=== PATIENT | female | born 1940 | race Caucasian/White ===

== ENCOUNTER 2017-12-15 13:22 | Inpatient (IN) | payer MEDICARE, OTHER ==
[2017-12-15 13:50] LABS: Glucose,Whole Blood 115 mg/dL (75-99)
--- NOTE | 2017-12-15 14:14 | ED ---
General Adult HPI - General Chief complaint: Neuro Symptoms/Deficit Stated complaint: slurred speech Time Seen by Provider: 12/15/17 14:01 Source: patient, family, RN notes reviewed Mode of arrival: wheelchair Limitations: no limitations - History of Present Illness Initial comments: Patient is a pleasant 77-year-old female presenting to the emergency department with concerns regarding speech problems. Unclear exact onset. Patient states the most part she does feel fine however does admit that her speech may be slightly off. brother is present and states both he and his son have noticed patient to have somewhat slurred speech and somewhat slow to respond. They both felt this was new. Patient does not feel weak. Patient denies any confusion. No history of similar symptoms previously. No paresthesias. Brother did observe patient smiling and feels this appears normal. - Related Data Home Medications Medication Instructions Recorded Confirmed PARoxetine [Paxil] 20 mg PO HS 11/04/15 12/15/17 Lovastatin [Mevacor] 40 mg PO HS 11/05/15 12/15/17 Ranitidine HCl [Zantac] 150 mg PO BID 11/05/15 12/15/17 Albuterol Sulfate [Proair Hfa] 2 puff INHALATION RT-Q6H PRN 12/15/17 12/15/17 Budesonide [Pulmicort] 0.5 mg INHALATION RT-BID 12/15/17 12/15/17 Budesonide/Formoterol Fumarate 2 puff INHALATION RT-BID 12/15/17 12/15/17 [Symbicort 160-4.5 Mcg Inhaler] Formoterol Fumarate [Perforomist] 20 mcg INHALATION RT-BID 12/15/17 12/15/17 Ipratropium-Albuterol Nebulize 3 ml INHALATION RT-QID PRN 12/15/17 12/15/17 [Duoneb 0.5 mg-3 mg/3 ml Soln] Allergies Allergy/AdvReac Type Severity Reaction Status Date / Time No Known Allergies Allergy Verified 12/15/17 14:03 Review of Systems ROS Statement: Those systems with pertinent positive or pertinent negative responses have been documented in the HPI. ROS Other: All systems not noted in ROS Statement are negative. Constitutional: Denies: fever Eyes: Denies: eye pain ENT: Denies: ear pain Respiratory: Denies: cough Cardiovascular: Denies: chest pain Endocrine: Denies: fatigue Gastrointestinal: Denies: abdominal pain Genitourinary: Denies: dysuria Musculoskeletal: Denies: back pain Skin: Denies: rash Neurological: Denies: headache, weakness, numbness, paresthesias, confusion, vertigo Past Medical History Past Medical History: COPD, GERD/Reflux, Hyperlipidemia, Pneumonia Additional Past Medical History / Comment(s): sob at times. History of Any Multi-Drug Resistant Organisms: None Reported Past Surgical History: Breast Surgery, Orthopedic Surgery Additional Past Surgical History / Comment(s): cyst removed from breast Past Anesthesia/Blood Transfusion Reactions: No Reported Reaction Past Psychological History: Anxiety, Depression Smoking Status: Former smoker Past Alcohol Use History: None Reported Past Drug Use History: None Reported - Past Family History Father Family Medical History: Cancer Additional Family Medical History / Comment(s): bone ca General Exam Limitations: no limitations General appearance: alert, in no apparent distress Head exam: Present: atraumatic Eye exam: Present: normal appearance, PERRL, EOMI. Absent: nystagmus ENT exam: Present: normal oropharynx Neck exam: Present: normal inspection Respiratory exam: Present: normal lung sounds bilaterally Cardiovascular Exam: Present: regular rate, normal rhythm GI/Abdominal exam: Present: soft. Absent: tenderness Extremities exam: Present: normal inspection Neurological exam: Present: alert, oriented X3, CN II-XII intact (Except for minimal left facial droop only noticed with smiling) Expanded Neurological exam: Present: other (There is minimal slurred speech) Patient oriented to: Present: person, place, time Cranial nerves: EOM's Intact: Normal, Facial Sensation: Normal Cerebellar function: Finger to Nose: Normal Sensory exam: Upper Extremity Light Touch: Normal, Lower Extremity Light Touch: Normal Motor strength exam: RUE: 5, LUE: 5, RLE: 5, LLE: 5 Eye Response: (4) open spontaneously Motor Response: (6) obeys commands Verbal Response: (5) oriented Psychiatric exam: Present: normal affect, normal mood Skin exam: Present: normal color Course Vital Signs 12/15/17 12/15/17 12/15/17 13:31 13:45 14:00 Temperature 98.4 F Pulse Rate 136 H 83 85 Respiratory 18 18 20 Rate Blood Pressure 139/96 144/75 157/56 O2 Sat by Pulse 96 99 99 Oximetry 12/15/17 12/15/17 12/15/17 14:15 14:30 15:09 Temperature Pulse Rate 87 89 82 Respiratory 20 20 18 Rate Blood Pressure 130/88 128/78 169/88 O2 Sat by Pulse 98 99 97 Oximetry EKG Findings - EKG Comments: EKG Findings:: Normal sinus rhythm 85. WV 138. QRS 72. QT 364. QTC 433. Normal axis. Normal QRS. No acute ST change. Medical Decision Making - Medical Decision Making Patient was reevaluated and updated. Patient and family informed of results and plan. Case was discussed in detail with Dr. Hui, who will admit for Dr. Alvarez. Neurology will be consult. - Lab Data Result diagrams: 12/15/17 14:30 12/15/17 14:30 Lab Results 12/15/17 12/15/17 12/15/17 Range/Units 13:46 14:30 14:30 WBC 6.4 (3.8-10.6) k/uL RBC 4.72 (3.80-5.40) m/uL Hgb 14.3 (11.4-16.0) gm/dL Hct 43.0 (34.0-46.0) % MCV 91.2 (80.0-100.0) fL MCH 30.4 (25.0-35.0) pg MCHC 33.3 (31.0-37.0) g/dL RDW 13.1 (11.5-15.5) % Plt Count 190 (150-450) k/uL Neutrophils % 74 % Lymphocytes % 12 % Monocytes % 5 % Eosinophils % 7 % Basophils % 0 % Neutrophils # 4.7 (1.3-7.7) k/uL Lymphocytes # 0.8 L (1.0-4.8) k/uL Monocytes # 0.3 (0-1.0) k/uL Eosinophils # 0.4 (0-0.7) k/uL Basophils # 0.0 (0-0.2) k/uL PT (9.0-12.0) sec INR (<1.2) APTT (22.0-30.0) sec Sodium (137-145) mmol/L Potassium (3.5-5.1) mmol/L Chloride (98-107) mmol/L Carbon Dioxide (22-30) mmol/L Anion Gap mmol/L BUN (7-17) mg/dL Creatinine (0.52-1.04) mg/dL Est GFR (CKD-EPI)AfAm (>60 ml/min/1.73 sqM) Est GFR (CKD-EPI)NonAf (>60 ml/min/1.73 sqM) Glucose (74-99) mg/dL POC Glucose (mg/dL) 115 H (75-99) mg/dL POC Glu Supervisor Delivery Department ID Pura Harman Calcium (8.4-10.2) mg/dL Total Bilirubin (0.2-1.3) mg/dL AST (14-36) U/L ALT (9-52) U/L Alkaline Phosphatase (38-126) U/L Total Creatine Kinase 41 (30-135) U/L Total Protein (6.3-8.2) g/dL Albumin (3.5-5.0) g/dL 12/15/17 12/15/17 Range/Units 14:30 14:30 WBC (3.8-10.6) k/uL RBC (3.80-5.40) m/uL Hgb (11.4-16.0) gm/dL Hct (34.0-46.0) % MCV (80.0-100.0) fL MCH (25.0-35.0) pg MCHC (31.0-37.0) g/dL RDW (11.5-15.5) % Plt Count (150-450) k/uL Neutrophils % % Lymphocytes % % Monocytes % % Eosinophils % % Basophils % % Neutrophils # (1.3-7.7) k/uL Lymphocytes # (1.0-4.8) k/uL Monocytes # (0-1.0) k/uL Eosinophils # (0-0.7) k/uL Basophils # (0-0.2) k/uL PT 10.4 (9.0-12.0) sec INR 1.1 (<1.2) APTT 22.2 (22.0-30.0) sec Sodium 140 (137-145) mmol/L Potassium 4.7 (3.5-5.1) mmol/L Chloride 105 (98-107) mmol/L Carbon Dioxide 26 (22-30) mmol/L Anion Gap 9 mmol/L BUN 18 H (7-17) mg/dL Creatinine 0.75 (0.52-1.04) mg/dL Est GFR (CKD-EPI)AfAm 88 (>60 ml/min/1.73 sqM) Est GFR (CKD-EPI)NonAf 76 (>60 ml/min/1.73 sqM) Glucose 104 H (74-99) mg/dL POC Glucose (mg/dL) (75-99) mg/dL POC Glu Supervisor Delivery Department ID Calcium 9.0 (8.4-10.2) mg/dL Total Bilirubin 0.6 (0.2-1.3) mg/dL AST 23 (14-36) U/L ALT 26 (9-52) U/L Alkaline Phosphatase 54 (38-126) U/L Total Creatine Kinase (30-135) U/L Total Protein 6.4 (6.3-8.2) g/dL Albumin 3.8 (3.5-5.0) g/dL - Radiology Data Radiology results: image reviewed (Computed tomography scan the brain shows concern for acute cerebrovascular accident. Right frontal lobe shows some low attenuation. Age-related atrophy and chronic small vessel ischemia is also noted.) Disposition Clinical Impression: Cerebrovascular accident Disposition: ADMITTED IP TO THIS [facility] Condition: Serious Is patient prescribed a controlled substance at d/c from ED?: No Referrals: Julio Cesar Mcnair MD [Primary Care Provider] - 1-2 days Decision Time: 15:33
[2017-12-15 14:51] LABS: Basophils % (A) 0 %; Eosinophils # (A) 0.4 k/uL (0-0.7); Eosinophils % (A) 7 %; HGB 14.3 gm/dL (11.4-16.0); Lymphocytes # (A) 0.8 k/uL (1.0-4.8); Lymphocytes % (A) 12 %; MCH 30.4 pg (25.0-35.0); MCHC 33.3 g/dL (31.0-37.0); MCV 91.2 fL (80.0-100.0); Mean Platelet Volume 7.4; Monocytes # (A) 0.3 k/uL (0-1.0); Monocytes % (A) 5 %; Neutrophils # (A) 4.7 k/uL (1.3-7.7); Neutrophils % (A) 74 %; Platelet Count 190 k/uL (150-450); RBC 4.72 m/uL (3.80-5.40); RDW 13.1 % (11.5-15.5); WBC 6.4 k/uL (3.8-10.6)
--- NOTE | 2017-12-15 14:56 | XR ---
EXAMINATION TYPE: XR chest 2V DATE OF EXAM: 12/15/2017 COMPARISON: 11/08/2015 INDICATION: Altered mental status, slurred speech TECHNIQUE: Frontal and lateral views of the chest are obtained. FINDINGS: The heart size is normal. The pulmonary vasculature is normal. The lungs are clear. IMPRESSION: 1. No acute pulmonary process.
[2017-12-15 15:01] LABS: Albumin 3.8 g/dL (3.5-5.0); Potassium 4.7 mmol/L (3.5-5.1); Total Bilirubin 0.6 mg/dL (0.2-1.3); Total Protein 6.4 g/dL (6.3-8.2)
--- NOTE | 2017-12-15 15:06 | CT ---
EXAMINATION TYPE: CT brain wo con DATE OF EXAM: 12/15/2017 COMPARISON: NONE HISTORY: Altered mental status. CT DLP: 945.4 mGycm Automated exposure control for dose reduction was used. Helical acquisition through the brain. FINDINGS: There is some motion on the exam. The calvarium is intact. Cortical atrophy is likely age-related. Pe riventricular white matter shows patchy low attenuation. Right frontal lobe shows some low-attenuatio n is some loss of burkett-white differentiation. No hemorrhage or hydrocephalus evident. Cerebral vascul ar calcifications are present. IMPRESSION: FINDINGS SUGGEST ACUTE CEREBROVASCULAR ACCIDENT. MRI MAY BE OF BENEFIT. AGE-RELATED CHANGES OF ATROPH Y AND CHRONIC SMALL VESSEL ISCHEMIA ALSO NOTED.
[2017-12-15 15:09] LABS: INR 1.1 (<1.2); Partial Thromboplastin Time 22.2 sec (22.0-30.0); Prothrombin Time 10.4 sec (9.0-12.0)
[2017-12-15 15:12] LABS: Creatine Kinase 41 U/L (30-135)
[2017-12-15 15:26] LABS: Creatine Kinase MB 0.3 ng/mL (0.0-2.4); Troponin I <0.012 ng/mL (0.000-0.034)
[2017-12-15] MEDS ORDERED: ASPIRIN 325 MG TAB PO STA (15:34)
[2017-12-15] MEDS: SODIUM CHLORIDE 0.9% 1,000 ML IV SCH (16:52)
--- NOTE | 2017-12-15 17:42 | CT ---
EXAMINATION TYPE: CT angio head neck DATE OF EXAM: 12/15/2017 HISTORY: Slow speech. COMPARISON: NONE CT DLP: 495 mGycm. Automated Exposure Control for Dose Reduction was Utilized. TECHNIQUE: CTA scan of the neck is performed with IV Contrast, patient injected with 65 mL of Isovue 370, axial images are obtained, coronal and sagittal reformatted images are reviewed. Three-D recons tructed images are created on an independent workstation and reviewed. FINDINGS: There is normal branching pattern of the great vessels on the aortic arch. There is symmetric contras t opacification of the vertebral arteries. There is arterial flow in the common internal and external carotid arteries bilaterally. There is min imal plaque at the carotid artery bifurcations. Lumen narrowing is less than 20%. There is arterial flow in the vertebrobasilar artery system. There is arterial flow in the anterior m iddle and posterior cerebral arteries. There is no evidence of aneurysm or neovascularity. There is n o mass effect. I see no evidence of intracranial arterial stenosis. There is normal contrast opacific ation of the venous sinuses. IMPRESSION: Atherosclerotic vascular disease. No evidence of hemodynamically significant stenosis. No evidence of arterial aneurysm or dissection. Pleural scarring noted at the right lung apex.
[2017-12-15] MEDS ORDERED: ALBUTEROL INHALER 60 PUFF/8 GM INHALER INHALATION PRN (21:26)
[2017-12-15] MEDS ORDERED: ATORVASTATIN 20 MG TAB PO SCH (21:30)
[2017-12-15 22:19] LABS: Glucose,Whole Blood 125 mg/dL (75-99)
[2017-12-15 22:57] VITALS: BMI 30.5
[2017-12-15] MEDS: FAMOTIDINE 20 MG TAB PO SCH (23:08)
[2017-12-15] MEDS: PARoxetine 20 MG TAB PO SCH (23:08)
[2017-12-16] MEDS ORDERED: ACETAMINOPHEN TAB 500 MG TAB PO PRN (01:18)
[2017-12-16] MEDS ORDERED: ALPRAZolam 0.25 MG TAB PO PRN (01:18)
[2017-12-16] MEDS: IPRATROPIUM-ALBUTEROL 3 ML NEB INHALATION PRN ×5 (03:43→20:35)
[2017-12-16 05:52] LABS: Cholesterol 152 mg/dL (<200); HDL Cholesterol 46 mg/dL (40-60); LDL Cholesterol,Calculated 93 mg/dL (0-99); Triglycerides 64 mg/dL (<150)
--- NOTE | 2017-12-16 06:16 | HP ---
HISTORY AND PHYSICAL DATE OF SERVICE: 12/15/2017 CHIEF COMPLAINT: Slurring of speech. HISTORY OF PRESENT ILLNESS: This 77-year-old woman with a past medical history of COPD, GERD, hypertension, pneumonia, history of breast surgery, DJD, anxiety and depression being followed by Dr. Mcnair and Dr. Ware in the outpatient setting was noted to have slurring of speech. The patient was having slurring of speech this morning and exact onset is unknown at this time. The patient also complaining of some weakness and patient was apparently noted to have a slow to respond and the patient was taken to [facility] and admitted for evaluation treatment. The CAT scan showed suspicious acute CVA in the right frontal lobe area with some low-attenuation area. CT was negative for any acute abnormality. Patient admitted for further evaluation and treatment. There is no history of fever or rigors. No history of headache, loss of consciousness or seizures. PAST MEDICAL HISTORY: COPD, GERD, hyperlipidemia, history pneumonia, breast surgery. MEDICATIONS: Medications prior to admission include home medications are: 1. Symbicort 160/4.5 two puffs b.i.d. 2. ProAir 2 puffs q.6 p.r.n. 3. Zantac 150 mg b.i.d. 4. DuoNeb q.i.d. p.r.n. 5. Perforomist 20 mcg b.i.d. 6. Pulmicort 0.5 b.i.d. 7. Paxil 20 mg at bedtime. 8. Mevacor 40 mg at bedtime. ALLERGIES: Allergies are none. FAMILY HISTORY: History of breast cancer, bone cancer in the family. SOCIAL HISTORY: Previous history of smoking. No history of smoking or alcohol intake. REVIEW OF SYSTEMS: ENT: No diminished hearing or diminished vision. CARDIOVASCULAR SYSTEM: As mentioned earlier. RESPIRATORY SYSTEM: As mentioned earlier. GI: No nausea. : No dysuria. NERVOUS SYSTEM: No numbness or weakness. ALLERGY/IMMUNOLOGY: No asthma or hayfever. MUSCULOSKELETAL: As mentioned earlier. HEMATOLOGY/ONCOLOGY: No history of anemia. ENDOCRINE: No history of diabetes or hypothyroidism. CONSTITUTIONAL: As mentioned earlier. DERMATOLOGY: Negative. RHEUMATOLOGY: Negative. PSYCHIATRY: As mentioned earlier. NERVOUS SYSTEM: As mentioned earlier. PHYSICAL EXAMINATION: The patient is alert and oriented x3. Pulse 95, blood pressure 140/85, respiration 28, temperature 98.7, pulse ox 98% on room air. HEENT is conjunctivae normal. Oral mucosa moist. Neck is no jugular venous distention. No carotid bruit. No lymph node enlargement. CARDIOVASCULAR: S1, S3 muffled. No S3, no S4. RESPIRATORY: Breath sounds diminished at the bases. A few rhonchi. No crackles. ABDOMEN: Soft, nontender. No mass palpable. LEGS: No edema, no swelling. NERVOUS SYSTEM: Higher functions as mentioned earlier. Cranial nerves 2 through 12 grossly intact. No facial deviation. Patient is dysarthric. Otherwise, moves all 4 limbs. Mild diffuse weakness. LYMPHATICS: No lymphadenopathy of the neck, axillae or groin. JOINTS: No active deforming arthropathy. LABS: CBC within normal limits. Sodium 140, potassium 4.7, glucose 104. ASSESSMENT: 1. Acute stroke with dysarthria. 2. Rule out right frontal lesion. 3. Chronic obstructive pulmonary disease. 4. Gastroesophageal reflux disease. 5. Hyperlipidemia. 6. History of pneumonia. 7. History of breast surgery. 8. Anxiety, depression. 9. Remote history of nicotine dependence. RECOMMENDATIONS AND DISCUSSION: This 77-year-old woman who presented with multiple complex medical issues, we will monitor the patient closely. Continue the current medications. Continue symptomatic treatment. I recommend to resume the home medications, antiplatelet agents, neurology evaluation. We will also consult Dr. Ware for COPD. Otherwise, prognosis guarded. MRI has been ordered. Further recommendations to follow. Discussed with the patient. DVT prophylaxis. See orders for details. A copy of dictation forwarded to Dr. Mcnair who is the primary physician. MMODL / IJN: [id number] /
[2017-12-16 06:55] LABS: HCT 39.3 % (34.0-46.0); MCH 30.9 pg (25.0-35.0); MCHC 33.2 g/dL (31.0-37.0); MCV 93.2 fL (80.0-100.0); Mean Platelet Volume 7.3; Platelet Count 189 k/uL (150-450); RBC 4.22 m/uL (3.80-5.40); RDW 12.9 % (11.5-15.5)
[2017-12-16 07:00] LABS: Anion Gap 5 mmol/L; Blood Urea Nitrogen 16 mg/dL (7-17); Carbon Dioxide 28 mmol/L (22-30); Chloride 105 mmol/L (98-107); Glucose 128 mg/dL (74-99); Potassium 4.6 mmol/L (3.5-5.1); Sodium 138 mmol/L (137-145)
[2017-12-16] MEDS ORDERED: SYMBICORT 160-4.5 MCG INHALER INHALATION SCH (08:00)
[2017-12-16] MEDS: PANTOPRAZOLE 40 MG TABLET PO SCH (08:45)
[2017-12-16] MEDS: HEPARIN SODIUM,PORCINE 5,000 UNIT/ML 1 ML VIAL SQ SCH ×2 (08:45→20:04)
[2017-12-16] MEDS: SODIUM CHLORIDE 0.9% 1,000 ML IV SCH ×2 (08:46→14:45)
[2017-12-16] MEDS: ASPIRIN 325 MG TAB PO SCH (08:48)
[2017-12-16] MEDS: FAMOTIDINE 20 MG TAB PO SCH (08:51)
[2017-12-16] MEDS ORDERED: NON-FORMULARY DRUG (Ranitidine Hcl [Zantac] 150 MG) PO SCH (09:00)
[2017-12-16] MEDS: FORMOTEROL FUMARATE 20 MCG/2 ML NEBU INHALATION SCH ×2 (09:05→20:35)
[2017-12-16] MEDS: BUDESONIDE 0.5 MG/2 ML NEBU INHALATION SCH ×2 (09:05→20:35)
--- NOTE | 2017-12-16 09:07 | CONS ---
CONSULTATION DATE OF CONSULTATION: 12/15/2017 CHIEF COMPLAINT: Stroke. HISTORY OF PRESENT ILLNESS: Mrs. Blake is a pleasant 77-year-old female, who was being evaluated today on 12/15/2017 by the Neurology Service per the request of Dr. Hui for a stroke. The patient was brought into [facility] Emergency Room after her son noticed that she was slurring her speech when he was talking to her on the phone. The patient does not recall when the symptoms started. She denies having any lateralizing weakness or numbness and denies having any previous episodes similar to this. In the emergency room, her blood pressure was found to be elevated at 139/96. There is no previous documented history of hypertension. A stat CT scan of the brain was done which showed possible hypoattenuation involving the right frontal lobe. There was also generalized atrophy noticed. Her CT angiogram of the brain and neck were normal. The patient was started on aspirin 325 mg daily. Her CBC, INR, comprehensive metabolic profile and cardiac enzymes were normal. After the patient arrived to the emergency room, her slurred speech significantly improved. She denies any other neurological symptoms at this time. PAST MEDICAL HISTORY: Chronic obstructive pulmonary disease, gastroesophageal reflux disease, dyslipidemia, depression, anxiety disorder, history of cyst removal from the breast, orthopedic surgeries. SOCIAL HISTORY: The patient is a former smoker. She denies any alcohol or drug use. FAMILY HISTORY: Positive for cancer. HOME MEDICATIONS: Reviewed in the chart. ALLERGIES: No known drug allergies. REVIEW OF SYSTEMS: CONSTITUTIONAL: Positive for fatigue. EYES: Positive for chronic diminished vision. ENT: Positive for chronic diminished hearing. CARDIOVASCULAR: Negative. RESPIRATORY: Positive for occasional shortness of breath. NEUROLOGICAL: As mentioned above. GASTROINTESTINAL: Positive for occasional heartburn. GENITOURINARY: Negative. PSYCHIATRIC: Positive for history of depression and anxiety disorder. DERMATOLOGICAL: Negative. ENDOCRINE: Negative. MUSCULOSKELETAL: Positive for occasional joint pain. PHYSICAL EXAM: Vital signs show a temperature of 98.4, pulse 87, respiration 20, blood pressure 130/80. GENERAL APPEARANCE: The patient is a well-developed, elderly female who appears to be in no acute distress. HEENT: Normocephalic, atraumatic, slight left facial drooping is seen. NECK: Supple with no masses felt. CARDIOVASCULAR: Regular rate and rhythm. ABDOMEN: Nontender, nondistended. Extremities showed edema with no clubbing seen. NEUROLOGICAL EXAM: The patient is awake and oriented x3. Speech is slightly dysarthric. Language testing is normal. No lateralizing weakness is seen. No pronator drift is noticed. Sensory exam was normal to light touch in all 4 extremities. Mild postural tremors are seen. Cranial nerve testing showed slight left facial drooping. IMPRESSION: 1. Acute ischemic stroke. 2. Dysarthria. 3. Left facial drooping. 4. Hypertension, new diagnosis. RECOMMENDATION: The patient does appear to have suffered an acute ischemic stroke as her CT scan of the brain shows evidence of low attenuation involving the right frontal lobe. I will order an MRI of the brain without contrast. The patient has been started on aspirin 325 mg daily. I will order a fasting lipid panel, EEG, and serum homocystine level. Her CT angiogram of the neck showed no significant stenosis. Continue IV hydration as tolerated. Continue monitoring her blood pressure as it was significantly elevated diastolically on arrival. Speech therapy has been consulted. I will continue to follow with you. Further recommendations to follow. Thank you for allowing me to participate in the care of your patient. If you have any questions, please feel free to contact me. MMODL / IJN: [id number] /
--- NOTE | 2017-12-16 10:36 | P.CNPUL ---
History of Present Illness Consult date: 12/16/17 Requesting physician: Osiel Hui Reason for consult: COPD, other (CVA or TIA) Chief complaint: Slurred speech History of present illness: This is a 77-year-old female familiar to my service, patient is known to have history of COPD, congestive heart failure, GERD, dyslipidemia, patient is primarily abated of Dr. leary, while she was on the phone with her son yesterday , he noticed that her speech was slurred. Patient was brought into the ER, and she was evaluated, felt that she may have had a TIA or a CVA. By the time the patient arrived to the ER, her slurred speech has resolved. She was hemodynamically stable upon arrival to the ER, CT of the brain showed possible hypoattenuation involving the right frontal lobe. CT angiogram of the brain and neck was negative. Patient was started on aspirin at 325 mg daily. Today the patient is relatively asymptomatic, denies any headache, no blurred vision, no dizziness, no slurred speech, no weakness. Her pulmonary status and cardiac status are both relatively stable. Considering the patient is known to have history of COPD and she was admitted to the ICU, I was asked to see her on consultation. Again her pulmonary status is quite stable at this point and the patient is relatively asymptomatic. Review of Systems 14 point review of systems were obtained, please refer to pertinent positives in HPI, otherwise remaining systems are negative. Past Medical History Past Medical History: COPD, GERD/Reflux, Hyperlipidemia, Pneumonia Additional Past Medical History / Comment(s): sob at times. History of Any Multi-Drug Resistant Organisms: None Reported Past Surgical History: Breast Surgery, Orthopedic Surgery Additional Past Surgical History / Comment(s): cyst removed from breast Past Anesthesia/Blood Transfusion Reactions: No Reported Reaction Smoking Status: Former smoker - Past Family History Father Family Medical History: Cancer Additional Family Medical History / Comment(s): bone ca Medications and Allergies Home Medications Medication Instructions Recorded Confirmed Type PARoxetine [Paxil] 20 mg PO HS 11/04/15 12/15/17 History Lovastatin [Mevacor] 40 mg PO HS 11/05/15 12/15/17 History Ranitidine HCl [Zantac] 150 mg PO BID 11/05/15 12/15/17 History Albuterol Sulfate [Proair Hfa] 2 puff INHALATION RT-Q6H PRN 12/15/17 12/15/17 History Budesonide [Pulmicort] 0.5 mg INHALATION RT-BID 12/15/17 12/15/17 History Budesonide/Formoterol Fumarate 2 puff INHALATION RT-BID 12/15/17 12/15/17 History [Symbicort 160-4.5 Mcg Inhaler] Formoterol Fumarate [Perforomist] 20 mcg INHALATION RT-BID 12/15/17 12/15/17 History Ipratropium-Albuterol Nebulize 3 ml INHALATION RT-QID PRN 12/15/17 12/15/17 History [Duoneb 0.5 mg-3 mg/3 ml Soln] Allergies Allergy/AdvReac Type Severity Reaction Status Date / Time No Known Allergies Allergy Verified 12/15/17 14:03 Physical Exam Vitals: Vital Signs Temp Pulse Pulse Resp BP BP Pulse Ox 12/16/17 09:15 95 12/16/17 09:06 93 12/16/17 09:05 90 12/16/17 08:55 92 12/16/17 04:30 80 21 126/67 98 12/16/17 04:00 98.8 F 81 98 22 116/63 99 12/16/17 03:53 83 12/16/17 03:43 129 H 12/16/17 03:30 96 25 H 116/63 97 12/16/17 03:19 80 22 116/63 97 12/15/17 23:54 98 23 12/15/17 23:30 95 28 H 140/85 96 12/15/17 23:00 95 32 H 148/93 97 12/15/17 22:56 98.7 F 93 30 H 148/93 97 12/15/17 22:30 148/93 97 12/15/17 22:17 90 30 H 12/15/17 21:18 105 H 18 160/90 97 12/15/17 20:39 93 18 161/77 96 12/15/17 19:45 96 18 12/15/17 19:10 98.8 F 105 H 18 161/90 98 12/15/17 18:34 99.0 F 92 92 16 159/96 159/96 97 12/15/17 17:34 107 H 16 172/83 99 12/15/17 16:34 82 16 164/112 97 06/25/18 15:34 82 16 164/112 97 12/15/17 15:09 82 18 169/88 97 12/15/17 14:30 89 20 128/78 99 12/15/17 14:15 87 20 130/88 98 12/15/17 14:00 85 20 157/56 99 12/15/17 13:45 83 18 144/75 99 12/15/17 13:31 98.4 F 136 H 18 139/96 96 Intake and Output 12/15/17 12/16/17 12/16/17 22:59 06:59 14:59 Intake Total 100 Output Total 1 Balance -1 100 Intake: IV 100 Sodium Chloride 0.9% 1, 100 000 ml @ 100 mls/hr IV . Q10H [facility] Rx#:[id number] Output: Urine 1 Other: Voiding Method Toilet # Voids 1 Weight 99.3 kg 99.3 kg Physical Exam: Revealed a 77-year-old female in no distress, very pleasant. Head: Atraumatic, normocephalic. HEENT:[Neck is supple.] [No neck masses.] [No thyromegaly.] [No JVD.] PERRLA, EOMI, no icterus, moist mucous membranes, no facial droop was appreciated. Chest: [Clear throughout, no crackles, no rhonchi, no wheezes.] Cardiac Exam: [Normal S1 and S2, no S3 gallop, no murmur.] Abdomen: [Soft, nontender, no megaly, no rebound, no guarding, normal bowel sounds.] Extremities: [No clubbing, no edema, no cyanosis.] Neurological Exam: [No focal neurologic deficit.] Psychiatric: Normal mood affect and mental status examination. Lymphatics: No lymphadenopathy. Skin: No rashes, no erythema. Results - Laboratory Findings CBC and BMP: 12/16/17 05:28 12/16/17 05:28 PT/INR, D-dimer PT 10.4 sec (9.0-12.0) 12/15/17 14:30 INR 1.1 (<1.2) 12/15/17 14:30 Abnormal lab findings: Abnormal Labs 12/15/17 12/15/17 12/15/17 13:46 14:30 14:30 Lymphocytes # 0.8 L BUN 18 H Glucose 104 H POC Glucose (mg/dL) 115 H 12/15/17 12/16/17 22:17 05:28 Lymphocytes # BUN Glucose 128 H POC Glucose (mg/dL) 125 H - Diagnostic Findings Chest x-ray: image reviewed (No evidence of active disease was noted.) Additional studies: CT of the brain report was reviewed. Assessment and Plan Assessment: Acute transient ischemic attack, neurological symptoms have completely resolved. Multiple comorbidities including COPD, GERD without esophagitis, hyperlipidemia , osteoarthritis, and history of diastolic congestive heart failure. Recommendation: Patient is doing well at present, her physical exam is relatively unremarkable, continue present treatment plan as per neurology, consider discharge planning today or in the next 24 hours. Time with Patient: Greater than 30
--- NOTE | 2017-12-16 10:50 | ECHOF ---
Referral Reason:Thrombus MEASUREMENTS -------- HEIGHT: 180.3 cm WEIGHT: 90.7 kg BP: 169/88 IVSd: 1.0 cm (0.6 - 1.1) LVIDd: 4.4 cm (3.9 - 5.3) LVPWd: 0.9 cm (0.6 - 1.1) IVSs: 1.2 cm LVIDs: 2.4 cm LVPWs: 1.0 cm LAESV Index (A-L): 19.20 ml/m Ao Diam: 3.4 cm (2.0 - 3.7) AV Cusp: 1.8 cm (1.5 - 2.6) LA Diam: 3.1 cm (2.7 - 3.8) MV E Arnav: 0.83 m/s MV DecT: 508 ms MV A Arnav: 1.24 m/s MV E/A Ratio: 0.67 RAP: 5.00 mmHg RVSP: 10.43 mmHg FINDINGS -------- Sinus rhythm. This was a technically difficult study with suboptimal views. The left ventricular size is normal. Left ventricular wall thickness is normal. Overall left vent ricular systolic function is normal with, an EF between 60 - 65 %. The right ventricle is normal in size and function. Normal LA size by volume 22+/-6 ml/m2. The right atrium is normal in size. 3ml of Lumason was utilized for enhancement of images. There is mild aortic valve sclerosis. There is no evidence of aortic regurgitation. There is no e vidence of aortic stenosis. The mitral valve leaflets are mildly thickened. There is trace to mild mitral regurgitation. Trace tricuspid regurgitation present. Right ventricular systolic pressure is normal at < 35 mmHg. There is no evidence of pulmonary hypertension. The pulmonic valve was not well visualized. The aortic root size is normal. IVC Not well visulized. There is no pericardial effusion. CONCLUSIONS -------- 1. Sinus rhythm. 2. This was a technically difficult study with suboptimal views. 3. The left ventricular size is normal. 4. Left ventricular wall thickness is normal. 5. Overall left ventricular systolic function is normal with, an EF between 60 - 65 %. 6. Normal LA size by volume 22+/-6 ml/m2. 7. 3ml of Lumason was utilized for enhancement of images. 8. There is mild aortic valve sclerosis. 9. The mitral valve leaflets are mildly thickened. 10. There is trace to mild mitral regurgitation. 11. Trace tricuspid regurgitation present. 12. Right ventricular systolic pressure is normal at < 35 mmHg. 13. There is no evidence of pulmonary hypertension. 14. The pulmonic valve was not well visualized. 15. The aortic root size is normal. 16. IVC Not well visulized. 17. There is no pericardial effusion. SKI PATROL OFFICER: Oj Vazquez RDCS
--- NOTE | 2017-12-16 11:07 | US ---
EXAMINATION TYPE: US carotid duplex BILAT DATE OF EXAM: 12/16/2017 COMPARISON: CT CLINICAL HISTORY: stroke. EXAM MEASUREMENTS: RIGHT: Peak Systolic Velocity (PSV) cm/sec ----- Right CCA: 64.6 ----- Right ICA: 62.1 ----- Right ECA: 56.1 ICA/CCA ratio: 1.0 RIGHT: End Diastole cm/sec ----- Right CCA: 12.5 ----- Right ICA: 17.3 ----- Right ECA: 5.6 LEFT: Peak Systolic Velocity (PSV) cm/sec ----- Left CCA: 63.4 ----- Left ICA: 62.2 ----- Left ECA: 62.2 ICA/CCA ratio: 1.0 LEFT: End Diastole cm/sec ----- Left CCA: 15.0 ----- Left ICA: 24.2 ----- Left ECA: 7.4 VERTEBRALS (direction of flow): Right Vertebral: Antegrade Left Vertebral: Antegrade Rhythm: Normal ICU patient with bilateral pulsatile vessels diving at a 90 degree angle. Technically difficult stud y. Mild atherosclerotic changes with no significant velocity elevations. IMPRESSION: No hemodynamically significant stenosis at this time. Criteria for Assigning % of Stenosis / Diameter reduction (Estimation based on the indirect measurements of the internal carotid artery velocities (ICA PSV). 1. Normal (no stenosis)=ICA PSV < 125 cm/s: ratio < 2.0: ICA EDV<40 cm/s. 2. Less than 50% stenosis=ICA PSV < 125 cm/s: ratio < 2.0: ICA EDV<40 cm/s. 3. 50 to 69% stenosis=ICA PSV of 125 to 230 cm/s: ration 2.0 ? 4.0: ICA EDV 40-100 cm/s. 4. Greater than 70% stenosis to near occlusion= ICA PSV > 230 cm/s: ratio > 4.0: ICA EDV > 100 cm/s. 5. Near occlusion= ICA PSV velocities may be low or undetectable: variable ratio and ICA EDV. 6. Total occlusion=unable to detect flow.
--- NOTE | 2017-12-16 12:13 | MR ---
EXAMINATION TYPE: MR brain wo con DATE OF EXAM: 12/16/2017 12:04 PM COMPARISON: NONE HISTORY: CVA FINDINGS: The ventricles, basal cisterns and sulci overlying the cerebral convexities are moderately enlarged. There is evidence of mild to moderate periventricular white matter ischemic demyelination. Remote deep white matter insults are also noted. Acute edema on diffusion weighted imaging involving the right MCA territory measuring 3.1 x 1.6 cm co mpatible with an area of acute ischemia. No evidence for hemorrhagic transformation. No additional ar eas of acute edema seen at this time. There is no evidence for midline shift or mass effect. Acute intracranial hemorrhage or extra-axial collection is not evident. The paranasal sinuses and mastoid air cells are well-aerated. IMPRESSION: Acute edema on diffusion weighted imaging involving the right MCA territory measuring 3.1 x 1.6 cm co mpatible with an area of acute ischemia. No evidence for hemorrhagic transformation. No additional ar eas of acute edema seen at this time.
--- NOTE | 2017-12-16 16:10 | P.PN ---
Subjective Progress Note Date: 12/16/17 Patient is a pleasant 77-year-old female who is being followed by the neurology service for stroke. Patient reports she was talking on the phone with her son and was noted to have slurred speech. He recommended she come to [facility] for further evaluation. Patient denies any lateralizing weakness or numbness. She denies any previous history of stroke or similar symptoms. Patient presented to [facility] for further evaluation. Computed tomography scan of the brain was done which showed possible hypoattenuation involving right frontal lobe. CT angios the brain and neck were normal. Patient was started on aspirin 325 mg daily. MRI of the brain was done which showed acute edema involving right MCA territory consistent with acute ischemic stroke. No evidence of hemorrhage. Carotid Doppler shows no hemodynamically significant stenosis. EEG to be done tomorrow morning. At the time of my evaluation, patient is resting comfortably in bed and is sitting up visiting family. Objective - Vital Signs Vital signs: Vital Signs Temp 98.3 F 12/16/17 12:00 Pulse 91 12/16/17 14:34 Resp 18 12/16/17 14:34 BP 106/67 12/16/17 14:34 Pulse Ox 93 L 12/16/17 14:34 Intake & Output 12/15/17 12/16/17 12/16/17 18:59 06:59 18:59 Intake Total 100 760 Output Total 1 Balance 99 760 Weight 90.718 kg 99.3 kg Intake: IV 100 400 Sodium Chloride 0.9% 1, 100 400 000 ml @ 100 mls/hr IV . Q10H [facility] Rx#:[id number] Oral 360 Output: Urine 1 Other: Voiding Method Toilet Toilet # Voids 1 2 - Exam PHYSICAL EXAM: GENERAL APPEARANCE: Patient is a well-developed, female who appears to be in no acute distress. HEENT: Normocephalic, atraumatic, no facial asymmetry is seen. Neck is supple with no masses felt. CARDIOVASCULAR: Regular rate and rhythm. ABDOMEN: Nontender, nondistended. EXTREMITIES: Show no edema or clubbing. NEUROLOGICAL EXAM: Patient is awake, alert, and oriented 3. Speech and language are normal. Mild left upper extremity weakness of 5-/5. All other extremities 5/5. No pronator drift is noted. Sensory exam is normal to light touch in all 4 extremities. Mild left facial droop is noted on cranial nerve testing. No tremors or seizure-like activity noted. - Labs CBC & Chem 7: 12/16/17 05:28 12/16/17 05:28 Labs: Abnormal Lab Results - Last 24 Hours (Table) 12/15/17 12/16/17 Range/Units 22:17 05:28 Glucose 128 H (74-99) mg/dL POC Glucose (mg/dL) 125 H (75-99) mg/dL Assessment and Plan Plan: Impression: 1. Acute ischemic stroke, right MCA distribution 2. Dysarthria, resolving 3. Left facial droop 4. Hypertension Recommendation: Patient has suffered an acute ischemic stroke in the right middle cerebral artery distribution. CT angiogram of the neck showed no significant stenosis. I recommend continuing aspirin 325 mg daily. EEG will be done tomorrow. Lipid panel is within normal limits. Serum homocystine level is pending. As mentioned above, carotid Doppler is negative for any hemodynamically significant stenosis. I recommend speech therapy, physical therapy, and occupational therapy to evaluate and treat. Continue medical management. Continue neurological checks. I will continue to follow with you. Further recommendations to follow. I performed an examination of the patient and discussed the management with the HOSPITAL CHIEF EXECUTIVE OFFICER. I have reviewed the HOSPITAL CHIEF EXECUTIVE OFFICER notes and agree with the findings and plan of care.
[2017-12-16] MEDS: ATORVASTATIN 40 MG TAB PO SCH (20:04)
[2017-12-16] MEDS: PARoxetine 20 MG TAB PO SCH (21:08)
[2017-12-17 08:01] LABS: Basophils % (A) 1 %; Eosinophils # (A) 0.3 k/uL (0-0.7); Eosinophils % (A) 7 %; HCT 37.3 % (34.0-46.0); HGB 12.2 gm/dL (11.4-16.0); Lymphocytes % (A) 22 %; MCH 30.1 pg (25.0-35.0); MCHC 32.6 g/dL (31.0-37.0); MCV 92.2 fL (80.0-100.0); Mean Platelet Volume 7.6; Monocytes # (A) 0.3 k/uL (0-1.0); Monocytes % (A) 8 %; Neutrophils # (A) 2.7 k/uL (1.3-7.7); Neutrophils % (A) 60 %; Platelet Count 143 k/uL (150-450); RBC 4.04 m/uL (3.80-5.40); RDW 12.9 % (11.5-15.5); WBC 4.4 k/uL (3.8-10.6)
[2017-12-17 08:12] LABS: Calcium 8.6 mg/dL (8.4-10.2); Potassium 4.1 mmol/L (3.5-5.1)
[2017-12-17] MEDS: IPRATROPIUM-ALBUTEROL 3 ML NEB INHALATION PRN ×4 (08:24→19:29)
[2017-12-17] MEDS: FORMOTEROL FUMARATE 20 MCG/2 ML NEBU INHALATION SCH ×2 (08:24→19:29)
[2017-12-17] MEDS: BUDESONIDE 0.5 MG/2 ML NEBU INHALATION SCH ×2 (08:24→19:29)
--- NOTE | 2017-12-17 11:16 | P.PN ---
Subjective Progress Note Date: 12/17/17 Principal diagnosis: Transient ischemic attack This is a 77-year-old female familiar to my service, patient is known to have history of COPD, congestive heart failure, GERD, dyslipidemia, patient is primarily abated of Dr. leary, while she was on the phone with her son yesterday , he noticed that her speech was slurred. Patient was brought into the ER, and she was evaluated, felt that she may have had a TIA or a CVA. By the time the patient arrived to the ER, her slurred speech has resolved. She was hemodynamically stable upon arrival to the ER, CT of the brain showed possible hypoattenuation involving the right frontal lobe. CT angiogram of the brain and neck was negative. Patient was started on aspirin at 325 mg daily. Today the patient is relatively asymptomatic, denies any headache, no blurred vision, no dizziness, no slurred speech, no weakness. Her pulmonary status and cardiac status are both relatively stable. Considering the patient is known to have history of COPD and she was admitted to the ICU, I was asked to see her on consultation. Again her pulmonary status is quite stable at this point and the patient is relatively asymptomatic. The patient is seen and evaluated again today 12/17/2017 in follow-up on the selective care unit. She is currently resting quite comfortably in bed. She is awake and alert in no acute distress. She is been afebrile. Hemodynamically stable. Maintaining good O2 saturations in the mid 90s on room air. Her speech is clear. White count 4.4. Hemoglobin 12.2. Platelet count 143. She denies any headache, weakness and tingling or numbness. An EEG is scheduled for this morning. MRI of the brain did reveal right MCA territory with an area of acute ischemia. No evidence of hemorrhagic transformation. Objective - Vital Signs Vital signs: Vital Signs Temp 98.2 F 12/16/17 20:00 Pulse 78 12/16/17 20:57 Resp 21 12/16/17 20:00 BP 107/61 12/16/17 20:00 Pulse Ox 93 L 12/16/17 18:30 Intake & Output 12/16/17 12/17/17 12/17/17 18:59 06:59 18:59 Intake Total 1160 Balance 1160 Intake: IV 400 Sodium Chloride 0.9% 1, 400 000 ml @ 100 mls/hr IV . Q10H [facility] Rx#:[id number] Oral 760 Other: Voiding Method Toilet Toilet # Voids 3 - Exam GENERAL EXAM: Alert, active, comfortable in no apparent distress. HEAD: Normocephalic. EYES: Normal reaction of pupils, equal size. NOSE: Clear with pink turbinates. THROAT: No erythema or exudates. NECK: No masses, no JVD. CHEST: No chest wall deformity. LUNGS: Equal air entry with no crackles, wheeze, rhonchi or dullness. CVS: S1 and S2 normal with no audible murmur, regular rhythm. ABDOMEN: No hepatosplenomegaly, normal bowel sounds, no guarding or rigidity. SPINE: No scoliosis or deformity SKIN: No rashes CENTRAL NERVOUS SYSTEM: No focal deficits, tone is normal in all 4 extremities. EXTREMITIES: There is no peripheral edema. No clubbing, no cyanosis. Peripheral pulses are intact. - Labs CBC & Chem 7: 12/17/17 06:05 12/16/17 05:28 Labs: Abnormal Lab Results - Last 24 Hours (Table) 12/17/17 Range/Units 06:05 Plt Count 143 L (150-450) k/uL Assessment and Plan Assessment: Impression: Acute transient ischemic attack, neurological symptoms have completely resolved. MRI of the brain did reveal evidence of acute edema in the area of acute ischemia involving the right MCA territory. No evidence of hemorrhagic transformation. No additional areas of acute edema noted. EEG is pending. Multiple comorbidities including COPD, GERD without esophagitis, hyperlipidemia , osteoarthritis, and history of diastolic congestive heart failure. Plan: The patient is stable from the pulmonary and critical care standpoint. We'll continue with her current medications. Neurology is on the case. EEG is pending. We will continue to follow and make further recommendations based on her clinical status. I, the cosigning physician, performed a history & physical examination of the patient. Lungs sounds are clear. Maintaining good O2 saturations in the 90s on room air. I discussed the assessment and plan of care with my nurse practitioner, Imelda Brunner. I attest to the above note as dictated by her.
[2017-12-17] MEDS: ASPIRIN 325 MG TAB PO SCH (11:23)
[2017-12-17] MEDS: SODIUM CHLORIDE 0.9% 1,000 ML IV SCH ×2 (11:23→11:24)
[2017-12-17] MEDS: PANTOPRAZOLE 40 MG TABLET PO SCH (11:23)
[2017-12-17] MEDS: HEPARIN SODIUM,PORCINE 5,000 UNIT/ML 1 ML VIAL SQ SCH ×2 (11:24→21:14)
[2017-12-17 11:54] VITALS: RESP 18
--- NOTE | 2017-12-17 16:30 | P.PN ---
Subjective Progress Note Date: 12/17/17 Patient is a pleasant 77-year-old female who is being followed by the neurology service for stroke. Patient reports she was talking on the phone with her son and was noted to have slurred speech. He recommended she come to [facility] for further evaluation. Patient denies any lateralizing weakness or numbness. She denies any previous history of stroke or similar symptoms. Patient presented to [facility] for further evaluation. Computed tomography scan of the brain was done which showed possible hypoattenuation involving right frontal lobe. CT angios the brain and neck were normal. Patient was started on aspirin 325 mg daily. MRI of the brain was done which showed acute edema involving right MCA territory consistent with acute ischemic stroke. No evidence of hemorrhage. Carotid Doppler shows no hemodynamically significant stenosis. EEG to be done tomorrow morning. At the time of my evaluation, patient is resting comfortably in bed and is sitting up visiting family. 12/17/2017 Patient is a pleasant 77-year-old female who is being followed by the neurology service for stroke. Patient was noted to have slurred speech and gait to [facility] for further evaluation. Patient had no lateralizing weakness or numbness. Patient denies loss of consciousness. She denies any previous history of stroke. Computed tomography scan of the brain showed possible hypoattenuation in the right frontal lobe. CT angios the brain and neck were normal. She was started on aspirin 325 mg daily. Patient had MRI done which showed right MCA distribution acute ischemic stroke. No evidence of hemorrhage. Carotid Doppler showed no hemodynamically significant stenosis. EEG was done and results are pending. Patient was transferred out of the ICU and is on the regular floor. Patient is doing much better and states she feels she is back to baseline. At the time of my evaluation, patient is resting comfortably in bed and appears to be in no acute distress. Objective - Vital Signs Vital signs: Vital Signs Temp 98.2 F 12/16/17 20:00 Pulse 92 12/17/17 13:40 Resp 18 12/17/17 12:00 BP 151/72 12/17/17 12:00 Pulse Ox 96 12/17/17 12:00 Intake & Output 12/16/17 12/17/17 12/17/17 18:59 06:59 18:59 Intake Total 1160 180 Balance 1160 180 Intake: IV 400 Sodium Chloride 0.9% 1, 400 000 ml @ 100 mls/hr IV . Q10H [facility] Rx#:[id number] Oral 760 180 Other: Voiding Method Toilet Toilet Toilet # Voids 3 - Exam PHYSICAL EXAM: GENERAL APPEARANCE: Patient is a well-developed, female who appears to be in no acute distress. HEENT: Normocephalic, atraumatic, no facial asymmetry is seen. Neck is supple with no masses felt. CARDIOVASCULAR: Regular rate and rhythm. ABDOMEN: Nontender, nondistended. EXTREMITIES: Show no edema or clubbing. NEUROLOGICAL EXAM: Patient is awake, alert, and oriented 3. Speech and language are normal. Mild left upper extremity weakness of 5-/5. All other extremities 5/5. No pronator drift is noted. Sensory exam is normal to light touch in all 4 extremities. Mild left facial droop is noted on cranial nerve testing. No tremors or seizure-like activity noted. - Labs CBC & Chem 7: 12/17/17 06:05 12/17/17 06:05 Labs: Abnormal Lab Results - Last 24 Hours (Table) 12/17/17 12/17/17 Range/Units 06:05 06:05 Plt Count 143 L (150-450) k/uL BUN 20 H (7-17) mg/dL Glucose 103 H (74-99) mg/dL Assessment and Plan Plan: Impression: 1. Acute ischemic stroke, right MCA distribution 2. Dysarthria, resolving 3. Left facial droop 4. Hypertension Recommendation: Patient has suffered an acute ischemic stroke in the right middle cerebral artery distribution. CT angiogram of the neck showed no significant stenosis. I recommend continuing aspirin 325 mg daily. EEG was done and results are pending. Lipid panel is within normal limits. Serum homocystine level is normal. As mentioned above, carotid Doppler is negative for any hemodynamically significant stenosis. I recommend speech therapy, physical therapy, and occupational therapy to evaluate and treat. Continue medical management. Continue neurological checks. Patient is stable from a neurological standpoint for discharge. Barring any pathology in the EEG, I will continue to follow with you on an as-needed basis. Feel free to call with any questions or concerns. I performed an examination of the patient and discussed the management with the SYSTEMS DESIGNER. I have reviewed the SYSTEMS DESIGNER notes and agree with the findings and plan of care.
--- NOTE | 2017-12-17 18:56 | EEG ---
ELECTROENCEPHALOGRAM REPORT DATE OF SERVICE: 12/17/2017. REASON FOR TESTING: Stroke. DESCRIPTION OF THE PROCEDURE: This EEG was performed using a 21 channel digital electroencephalograph, following international 10-20 system. DESCRIPTION OF THE RECORDING: From the beginning of the tracing, and with patient's eyes closed, the background rhythm was mostly consisting of cough 8 Hz alpha frequency in the posterior occipital leads. No obvious asymmetry is seen. Photic stimulation was performed with no driving response seen. No pathological waves were elicited. Occasional muscle and lead artifacts are seen. More frequent lead artifacts are seen in the frontal lead on the right side. The patient remains awake throughout the tracing. Hyperventilation was not performed. No epileptiform discharges were seen. Her EKG lead showed a regular rate and rhythm. INTERPRETATION: This awake EEG can be considered within normal limits. There was no asymmetry seen. No epileptiform discharges were noticed. The absence of epileptiform discharges does not rule out the diagnosis of epilepsy; therefore, clinical correlation is recommended. MMLYNN / KHANG: [id number] /
--- NOTE | 2017-12-17 20:09 | P.PN ---
Subjective Progress Note Date: 12/16/17 Progress note being dictated for Dr. Delacruz Interval history: This a 77-year-old female admitted with acute CVA and multiple other medical issues. Speech improving, mild left upper and lower extremity weakness with mild left facial droop. Neuro workup in progress. Initial CT suspicious for acute CVA in the right frontal lobe. Brain MRI reporting right MCA territory acute ischemia with no evidence of hemorrhagic transformation. Carotid Doppler reporting no hemodynamic significant stenosis. Objective - Vital Signs Vital signs: Vital Signs Temp 98.4 F 12/16/17 17:00 Pulse 84 12/16/17 17:30 Resp 23 12/16/17 17:30 BP 93/52 12/16/17 17:30 Pulse Ox 95 12/16/17 17:30 Intake & Output 12/15/17 12/16/17 12/16/17 18:59 06:59 18:59 Intake Total 100 760 Output Total 1 Balance 99 760 Weight 90.718 kg 99.3 kg Intake: IV 100 400 Sodium Chloride 0.9% 1, 100 400 000 ml @ 100 mls/hr IV . Q10H [facility] Rx#:[id number] Oral 360 Output: Urine 1 Other: Voiding Method Toilet Toilet # Voids 1 2 - Exam PHYSICAL EXAM: VITAL SIGNS: As above GENERAL: Sitting up in bed, no acute distress HEENT: Conjunctivae normal. eyes normal. Possible Mild left facial droop. Oral mucosa moist NECK: No JVD. No thyroid enlargement. No LNs CARDIOVASCULAR: S1, S2 muffled. No murmur RESPIRATION: Breath sounds diminished in the bases. Occasional rhonchi, no crackles. No bronchial breathing. ABDOMEN: Soft, nontender . No guarding. no masses palpable. Bowel sounds heard. LEGS: No edema. no swelling PSYCHIATRY: Alert and oriented -3, mood and affect normal. NERVOUS SYSTEM: Cranial N 2-12 grossly normal. Questionable left facial droop. Dysarthria improving. Moves all 4 limbs. Mild diffuse weakness of left upper and lower extremities. Skin: no ulcer no rash Joints: No active swelling. No inflammation. Lymphatic system. No LN neck axilla or groin. - Labs CBC & Chem 7: 12/17/17 06:05 12/17/17 06:05 Labs: Abnormal Lab Results - Last 24 Hours (Table) 12/15/17 12/16/17 Range/Units 22:17 05:28 Glucose 128 H (74-99) mg/dL POC Glucose (mg/dL) 125 H (75-99) mg/dL Assessment and Plan Assessment: 1. Acute CVA with dysarthria 2. Rule out right frontal lesion;Brain MRI reporting right MCA territory acute ischemia 3. COPD 4. Gastroesophageal reflux disease 5. Hyperlipidemia 6. Remote history of nicotine dependence Plan: Continue on current medication regime ,monitoring and symptomatic treatment. Maintained on aspirin.Neuro workup in progress. PT/OT. Increase ambulation as tolerated. Discharge planning in progress for the next 24-48 hours. Follow closely with neurology. Telemetry overflow. The impression and plan of care has been dictated as directed. : I performed a history and examination of this patient, discussed the same with the dictator. I agree with the dictator's note ,documented as a scribe. Any additional findings or plans will be noted.
--- NOTE | 2017-12-17 20:13 | P.PN ---
Subjective Progress Note Date: 12/17/17 Progress note being dictated for Dr. Delacruz Interval history: This a 77-year-old female admitted with acute CVA and multiple other medical issues. Speech improving, mild left upper and lower extremity weakness with mild left facial droop. Neuro workup in progress. Initial CT suspicious for acute CVA in the right frontal lobe. Brain MRI reporting right MCA territory acute ischemia with no evidence of hemorrhagic transformation. Carotid Doppler reporting no hemodynamic significant stenosis. 12/17/2017 significant clinical improvement. Diffuse left-sided weakness resolved. Evaluated by speech therapy, recommendations noted .Ambulating without difficulty. Denies chest pain, palpitations or increasing shortness of breath. Denies lightheadedness dizziness or focal deficits. Telemetry sinus rhythm. Objective - Vital Signs Vital signs: Vital Signs Temp 98 F 12/17/17 16:00 Pulse 96 12/17/17 19:55 Resp 18 12/17/17 16:00 BP 128/96 12/17/17 16:00 Pulse Ox 95 12/17/17 16:00 Intake & Output 12/17/17 12/17/17 12/18/17 06:59 18:59 06:59 Intake Total 360 Balance 360 Intake: Oral 360 Other: Voiding Method Toilet Toilet - Exam PHYSICAL EXAM: VITAL SIGNS: As above GENERAL: Sitting up in bed, no acute distress HEENT: Conjunctivae normal. eyes normal. No facial droop. Oral mucosa moist NECK: No JVD. No thyroid enlargement. No LNs CARDIOVASCULAR: S1, S2 muffled. No murmur RESPIRATION: Breath sounds diminished in the bases. Occasional rhonchi, no crackles. No bronchial breathing. ABDOMEN: Soft, nontender . No guarding. no masses palpable. Bowel sounds heard. LEGS: No edema. no swelling PSYCHIATRY: Alert and oriented -3, mood and affect normal. NERVOUS SYSTEM: Cranial N 2-12 grossly normal. Dysarthria improving. Moves all 4 limbs. Mild diffuse weakness improving Skin: no ulcer no rash Joints: No active swelling. No inflammation. Lymphatic system. No LN neck axilla or groin. - Labs CBC & Chem 7: 12/17/17 06:05 12/17/17 06:05 Labs: Abnormal Lab Results - Last 24 Hours (Table) 12/17/17 12/17/17 Range/Units 06:05 06:05 Plt Count 143 L (150-450) k/uL BUN 20 H (7-17) mg/dL Glucose 103 H (74-99) mg/dL Assessment and Plan Assessment: 1. Acute CVA with dysarthria 2. Rule out right frontal lesion;Brain MRI reporting right MCA territory acute ischemia 3. COPD 4. Gastroesophageal reflux disease 5. Hyperlipidemia 6. Remote history of nicotine dependence Plan: Continue on current medication regime ,monitoring and symptomatic treatment. PT/OT. Increase ambulation as tolerated. Discharge planning in progress pending neurology's clearance. The impression and plan of care has been dictated as directed. : I performed a history and examination of this patient, discussed the same with the dictator. I agree with the dictator's note ,documented as a scribe. Any additional findings or plans will be noted.
[2017-12-17] MEDS: ATORVASTATIN 40 MG TAB PO SCH (21:13)
[2017-12-17] MEDS: PARoxetine 20 MG TAB PO SCH (21:14)
[2017-12-18] MEDS: SODIUM CHLORIDE 0.9% 1,000 ML IV SCH ×2 (05:36→12:30)
[2017-12-18 06:24] VITALS: BP 157/84; TEMP 97.7
[2017-12-18 07:30] LABS: Basophils % (A) 0 %; Eosinophils # (A) 0.4 k/uL (0-0.7); Eosinophils % (A) 11 %; HCT 37.9 % (34.0-46.0); HGB 12.4 gm/dL (11.4-16.0); Lymphocytes # (A) 0.9 k/uL (1.0-4.8); Lymphocytes % (A) 23 %; MCH 30.2 pg (25.0-35.0); MCHC 32.8 g/dL (31.0-37.0); Mean Platelet Volume 7.6; Monocytes # (A) 0.3 k/uL (0-1.0); Monocytes % (A) 7 %; Neutrophils # (A) 2.2 k/uL (1.3-7.7); Neutrophils % (A) 57 %; Platelet Count 151 k/uL (150-450); RBC 4.12 m/uL (3.80-5.40); RDW 13.1 % (11.5-15.5); WBC 3.8 k/uL (3.8-10.6)
[2017-12-18 08:06] LABS: Calcium 8.9 mg/dL (8.4-10.2)
[2017-12-18 08:11] LABS: Potassium 4.5 mmol/L (3.5-5.1)
[2017-12-18] MEDS: IPRATROPIUM-ALBUTEROL 3 ML NEB INHALATION PRN ×2 (08:17→11:27)
[2017-12-18] MEDS: BUDESONIDE 0.5 MG/2 ML NEBU INHALATION SCH (08:18)
[2017-12-18] MEDS: FORMOTEROL FUMARATE 20 MCG/2 ML NEBU INHALATION SCH (08:18)
[2017-12-18] MEDS: HEPARIN SODIUM,PORCINE 5,000 UNIT/ML 1 ML VIAL SQ SCH (08:56)
[2017-12-18] MEDS: PANTOPRAZOLE 40 MG TABLET PO SCH (08:56)
[2017-12-18] MEDS: ASPIRIN 325 MG TAB PO SCH (08:56)
[2017-12-18 12:08] VITALS: PULSE 98
[2017-12-18] MEDS ORDERED: SENNOSIDES 8.6 MG TAB PO STA (12:14)
--- NOTE | 2017-12-18 13:39 | P.PN ---
Subjective Progress Note Date: 12/18/17 Principal diagnosis: Acute ischemic CVA with dysarthria, MRI showed right MCA distribution This is a 77-year-old female familiar to my service, patient is known to have history of COPD, congestive heart failure, GERD, dyslipidemia, patient is primarily abated of Dr. leary, while she was on the phone with her son yesterday , he noticed that her speech was slurred. Patient was brought into the ER, and she was evaluated, felt that she may have had a TIA or a CVA. By the time the patient arrived to the ER, her slurred speech has resolved. She was hemodynamically stable upon arrival to the ER, CT of the brain showed possible hypoattenuation involving the right frontal lobe. CT angiogram of the brain and neck was negative. Patient was started on aspirin at 325 mg daily. Today the patient is relatively asymptomatic, denies any headache, no blurred vision, no dizziness, no slurred speech, no weakness. Her pulmonary status and cardiac status are both relatively stable. Considering the patient is known to have history of COPD and she was admitted to the ICU, I was asked to see her on consultation. Again her pulmonary status is quite stable at this point and the patient is relatively asymptomatic. The patient is seen and evaluated again today 12/17/2017 in follow-up on the selective care unit. She is currently resting quite comfortably in bed. She is awake and alert in no acute distress. She is been afebrile. Hemodynamically stable. Maintaining good O2 saturations in the mid 90s on room air. Her speech is clear. White count 4.4. Hemoglobin 12.2. Platelet count 143. She denies any headache, weakness and tingling or numbness. An EEG is scheduled for this morning. MRI of the brain did reveal right MCA territory with an area of acute ischemia. No evidence of hemorrhagic transformation. On 12/18/2017 patient seen in follow-up on medical surgical floor. She is awake , alert, currently patient has no lateralizing weakness, or numbness, no slurred speech. She is awake, alert, oriented 3, [place] any headache, vital signs are stable. MRI showed right MCA distribution acute ischemic stroke without evidence of hemorrhage. Carotid Dopplers showed no hemodynamically significant stenosis, EEG evidence of seizures. No asymmetry noted. From pulmonary standpoint patient denies any complaints, she states this morning she had some wheezing, and coughing, which improved after nebulized treatment. no Significant chest congestion, or sputum production. She is on room air, and her pulse ox is 95%, afebrile, hemodynamically stable. From pulmonary standpoint patient remains stable, and discharge home is pending this afternoon Objective - Vital Signs Vital signs: Vital Signs Temp 97.7 F 12/18/17 06:10 Pulse 88 12/18/17 11:39 Resp 18 12/18/17 08:00 BP 157/84 12/18/17 06:10 Pulse Ox 95 12/18/17 06:10 Intake & Output 12/17/17 12/18/17 12/18/17 18:59 06:59 18:59 Intake Total 360 360 960 Balance 360 360 960 Weight 104 kg Intake: Oral 360 360 960 Other: Voiding Method Toilet Toilet Toilet # Voids 1 4 - Exam GENERAL EXAM: Alert, active, comfortable in no apparent distress. HEAD: Normocephalic. EYES: Normal reaction of pupils, equal size. NOSE: Clear with pink turbinates. THROAT: No erythema or exudates. NECK: No masses, no JVD. CHEST: No chest wall deformity. LUNGS: Equal air entry with no crackles, wheeze, rhonchi or dullness. CVS: S1 and S2 normal with no audible murmur, regular rhythm. ABDOMEN: No hepatosplenomegaly, normal bowel sounds, no guarding or rigidity. SPINE: No scoliosis or deformity SKIN: No rashes CENTRAL NERVOUS SYSTEM: No focal deficits, tone is normal in all 4 extremities. EXTREMITIES: There is no peripheral edema. No clubbing, no cyanosis. Peripheral pulses are intact. - Labs CBC & Chem 7: 12/18/17 07:14 12/18/17 07:14 Labs: Abnormal Lab Results - Last 24 Hours (Table) 12/17/17 12/18/17 12/18/17 Range/Units 06:05 07:14 07:14 Lymphocytes # 0.9 L (1.0-4.8) k/uL Chloride 108 H (98-107) mmol/L BUN 20 H (7-17) mg/dL Glucose 103 H 109 H (74-99) mg/dL Assessment and Plan Plan: Assessment: Acute ischemic stroke, with the right MCA distribution, neurological symptoms have completely resolved. MRI of the brain did reveal evidence of acute edema in the area of acute ischemia involving the right MCA territory. No evidence of hemorrhagic transformation. No additional areas of acute edema noted. EEG is negative. Multiple comorbidities including COPD, GERD without esophagitis, hyperlipidemia , osteoarthritis, and history of diastolic congestive heart failure. Plan: Patient remains stable from pulmonary standpoint, no worsening dyspnea, vital signs are stable, she is on room air, no congestion, no sputum production. EEG was negative for any seizures, neurologically patient is improving, and currently is having no speech difficulties, he shows symmetry, no weakness, no numbness no headaches. Discharge home is pending this afternoon I performed a history & physical examination of the patient and discussed their management with my nurse practitioner, Whit Tovar. I reviewed the nurse practitioner's note and agree with the documented findings and plan of care. Lung sounds are clear diminished at the bases. The findings and the impression was discussed with the patient. I attest to the documentation by the nurse practitioner. Time with Patient: Less than 30
--- NOTE | 2017-12-18 17:21 | P.DS ---
Providers Date of admission: 12/15/17 15:34 Expected date of discharge: 12/18/17 Attending physician: Osiel Gerardo Consults: 12/15/17 15:34 Consult Physician Urgent Consulting Provider: Anil Olmedo Consult Reason/Comments: cva Do you want consulting provider notified?: Yes 12/16/17 01:17 Consult Physician Routine Consulting Provider: Poncho Ware Consult Reason/Comments: copd Do you want consulting provider notified?: Yes Primary care physician: Tabby Harrell [facility] Course: Final Diagnoses: 1. Acute ischemic CVA with right MCA distribution. 2. Rule out right frontal lesion;Brain MRI reporting right MCA territory acute ischemia 3. COPD 4. Gastroesophageal reflux disease 5. Hyperlipidemia 6. Remote history of nicotine dependence Hospital course:This a 77-year-old female admitted with acute CVA and multiple other medical issues. Evaluated by neurology and pulmonary. Neuro workup completed. Initial CT suspicious for acute CVA in the right frontal lobe. Brain MRI reporting right MCA territory acute ischemia with no evidence of hemorrhagic transformation. Carotid Doppler reporting no hemodynamic significant stenosis. EEG WNL, no asymmetry. Maintained on aspirin, statin, gentle IV fluid hydration. Neuro symptoms resolved. Cleared by both pulmonary and neurology for discharge. Patient is being discharged home in a stable condition with guarded prognosis. EXAM: GENERAL: Sitting up in bed, no acute distress. CARDIOVASCULAR: S1, S2 muffled. No murmur RESPIRATION: Breath sounds diminished in the bases. Occasional rhonchi, no crackles. No bronchial breathing. ABDOMEN: Soft, nontender . No guarding. no masses palpable. Bowel sounds heard. PSYCHIATRY: Alert and oriented -3, mood and affect normal. NERVOUS SYSTEM: Cranial N 2-12 grossly normal. Dysarthria resolved. Moves all 4 limbs. Generalized diffuse weakness improving. No focal deficits. The impression and plan of care has been dictated as directed. : I performed a history and examination of this patient, discussed the same with the dictator. I agree with the dictator's note ,documented as a scribe. Any additional findings or plans will be noted. Time taken: 35 minutes Patient Condition at Discharge: Stable Plan - Discharge Summary Discharge Rx Participant: Yes New Discharge Prescriptions: New Aspirin 325 mg PO DAILY #30 tab Continue PARoxetine [Paxil] 20 mg PO HS Ranitidine HCl [Zantac] 150 mg PO BID Lovastatin [Mevacor] 40 mg PO HS Budesonide/Formoterol Fumarate [Symbicort 160-4.5 Mcg Inhaler] 2 puff INHALATION RT-BID Albuterol Sulfate [Proair Hfa] 2 puff INHALATION RT-Q6H PRN PRN Reason: Shortness Of Breath Formoterol Fumarate [Perforomist] 20 mcg INHALATION RT-BID Budesonide [Pulmicort] 0.5 mg INHALATION RT-BID Ipratropium-Albuterol Nebulize [Duoneb 0.5 mg-3 mg/3 ml Soln] 3 ml INHALATION RT-QID PRN PRN Reason: Shortness Of Breath Discharge Medication List PARoxetine [Paxil] 20 mg PO HS 11/04/15 [History] Lovastatin [Mevacor] 40 mg PO HS 11/05/15 [History] Ranitidine HCl [Zantac] 150 mg PO BID 11/05/15 [History] Albuterol Sulfate [Proair Hfa] 2 puff INHALATION RT-Q6H PRN 12/15/17 [History] Budesonide [Pulmicort] 0.5 mg INHALATION RT-BID 12/15/17 [History] Budesonide/Formoterol Fumarate [Symbicort 160-4.5 Mcg Inhaler] 2 puff INHALATION RT-BID 12/15/17 [History] Formoterol Fumarate [Perforomist] 20 mcg INHALATION RT-BID 12/15/17 [History] Ipratropium-Albuterol Nebulize [Duoneb 0.5 mg-3 mg/3 ml Soln] 3 ml INHALATION RT -QID PRN 12/15/17 [History] Aspirin 325 mg PO DAILY #30 tab 12/18/17 [Rx] Follow up Appointment(s)/Referral(s): Poncho Ware MD [Family Provider] - 12/26/17 2:45 pm Julio Cesar Mcnair MD [Primary Care Provider] - 01/01/18 1:00 pm () [facility], [NON-STAFF] - Anil Olmedo MD [STAFF PHYSICIAN] - 2 Weeks (Dr. Olmedo's office will call patient with an appointment date and time. ) Ambulatory/Diagnostic Orders: Complete Blood Count w/diff [LAB.AMB] Time Frame: 3 Days, Location: None Selected Patient Instructions/Handouts: Aspirin (By mouth), Stroke (DC) Discharge Disposition: HOME SELF-CARE
== END 2017-12-18 13:43 | disposition home health service (06) | DRG 65 ==
LOC: EC 13:22 → 6SEL 15:34 → 6ICU 21:53 → 6SEL 12-16 21:18 → 5MS5E 12-17 19:59
PROVIDERS: ADMIT Internal Medicine; ATTEND Internal Medicine
DX: I63.511 Cerebral infarction due to unspecified occlusion or stenosis of right middle cerebral artery (principal); I50.32 Chronic diastolic (congestive) heart failure; I11.0 Hypertensive heart disease with heart failure; J44.9 Chronic obstructive pulmonary disease, unspecified; G83.24 Monoplegia of upper limb affecting left nondominant side; R47.81 Slurred speech; R47.1 Dysarthria and anarthria; R29.810 Facial weakness; R40.2362 Coma scale, best motor response, obeys commands, at arrival to emergency department; R40.2142 Coma scale, eyes open, spontaneous, at arrival to emergency department; R40.2252 Coma scale, best verbal response, oriented, at arrival to emergency department; R29.702 NIHSS score 2; K21.9 Gastro-esophageal reflux disease without esophagitis; E78.5 Hyperlipidemia, unspecified; M19.91 Primary osteoarthritis, unspecified site; F32.9 Major depressive disorder, single episode, unspecified; F41.9 Anxiety disorder, unspecified; Z87.891 Personal history of nicotine dependence; Z79.51 Long term (current) use of inhaled steroids; Z79.899 Other long term (current) drug therapy; Z87.01 Personal history of pneumonia (recurrent); Z80.8 Family history of malignant neoplasm of other organs or systems; Z80.3 Family history of malignant neoplasm of breast
CPT/HCPCS: 36415; 70450; 70496; 70498; 70551; 71046; 80048; 80053; 80061; 82550; 82553; 83090; 84484; 85025; 85027; 85610; 85730; 93005; 93306; 93880; 94640; 95819; 96360; 96361; 99285

== ENCOUNTER → 2018-09-02 | Outpatient (CLI) | payer MEDICARE, OTHER ==
--- NOTE | 2018-09-03 03:49 | CT ---
EXAMINATION TYPE: CT chest w con DATE OF EXAM: 09/02/2018 COMPARISON: Correlation Radiograph 08/18/2018 HISTORY: 78-year-old female mass and lump, Abnormal cxr. TECHNIQUE: Contiguous axial scanning of the chest after the administration of 100 mL of Isovue M300. Coronal/sagittal reconstructions performed. CT DLP: 491.7mGycm. Automatic exposure control utilized for a dose reduction. FINDINGS: The heart is borderline enlarged without pericardial effusion. Mitral annular calcifications are pres ent. Ascending aorta is ectatic and 3.8 cm. Mild atherosclerotic arch calcifications with conventional arc h vessel branching anatomy. Large caliber to the main right and the pulmonary arteries and 3.2 and 3.1 cm, respectively, suggesti ng underlying pulmonary arterial hypertension. No thoracic lymphadenopathy by size criteria. Biapical pleural parenchymal scarring. Some patchy density peripheral right upper lobe extending to t he pleural surface could represent a residual/and improving infiltrate or scarring. There is some ass ociated nodularity measuring 7 mm and 5 mm just below, axial image 20 and 22. Short interval follow-u p recommended. There is volume loss and consolidation of the right middle lobe with associated bronchiectasis. Addit ional volume loss and bronchiectasis in the inferior lingula. Some strandy atelectasis posterior lung bases. There is a small hiatal hernia. Tiny posterior splenule. Otherwise, the visualized upper abdomen show s no gross abnormality. Bones: Fatty matrix hemangiomas within the T9 and T11 vertebral bodies. Rightward truncal shift may b e positional or secondary to underlying scoliosis. IMPRESSION: 1. Borderline cardiomegaly. Pulmonary arterial hypertension. 2. Patchy density right upper lobe extending to the pleural surface could represent a residual/improv ing infiltrate or scar. It corresponds to the radiographic density. There are a couple nodules just b elow measuring 7 mm and 5 mm. 3-6 month follow-up recommended to reassess. 3. Right middle lobe collapse with consolidation and bronchiectasis. Additional bronchiectasis and vo lume loss in the inferior lingula; findings could reflect sequela of indolent atypical infection such as with HANANE. Clinically correlate. 4. Small hiatal hernia.
== END | disposition home or self-care (01) ==
LOC: RADCTMAIN 15:54
PROVIDERS: ATTEND Internal Medicine
DX: J47.9 Bronchiectasis, uncomplicated (principal); I51.7 Cardiomegaly; K44.9 Diaphragmatic hernia without obstruction or gangrene; I27.21 Secondary pulmonary arterial hypertension; J98.19 Other pulmonary collapse; R91.8 Other nonspecific abnormal finding of lung field; J18.1 Lobar pneumonia, unspecified organism
CPT/HCPCS: 82565; 84520; 71260; 36415; Q9967

== ENCOUNTER 2018-09-08 12:16 | Observation (INO) | payer MEDICARE, OTHER ==
--- NOTE | 2018-09-08 12:45 | ED ---
General Adult HPI - General Chief complaint: Recheck/Abnormal Lab/Rx Stated complaint: Not able to urinate Time Seen by Provider: 09/08/18 12:24 Source: patient, family, RN notes reviewed Mode of arrival: wheelchair Limitations: no limitations - History of Present Illness Initial comments: Patient is a pleasant 78-year-old female presenting to the emergency department with her brother for urinary retention. Patient did see her primary care physician a couple of days ago and was told possible urinary tract infection. Patient was put on medications. Patient is having difficulty urinating. Patient states she is only able to urinate by sprain warm water in her genital area. No abdominal pain. No fevers. Patient denies any history of tachycardia or arrhythmia or atrial fibrillation. Patient denies palpitations. No chest pain or dyspnea. - Related Data Home Medications Medication Instructions Recorded Confirmed PARoxetine [Paxil] 20 mg PO HS 11/04/15 09/08/18 Ranitidine HCl [Zantac] 150 mg PO BID 11/05/15 09/08/18 Atorvastatin [Lipitor] 40 mg PO DAILY 09/08/18 09/08/18 Clopidogrel [Plavix] 75 mg PO DAILY 09/08/18 09/08/18 Nitrofurantoin Monohyd/M-Cryst 100 mg PO Q12HR 09/08/18 09/08/18 [Macrobid] Allergies Allergy/AdvReac Type Severity Reaction Status Date / Time No Known Allergies Allergy Verified 09/08/18 13:21 Review of Systems ROS Statement: Those systems with pertinent positive or pertinent negative responses have been documented in the HPI. ROS Other: All systems not noted in ROS Statement are negative. Constitutional: Denies: fever, chills Eyes: Denies: eye pain ENT: Denies: ear pain Respiratory: Denies: cough, dyspnea Cardiovascular: Denies: chest pain, palpitations Endocrine: Denies: fatigue Gastrointestinal: Denies: abdominal pain Genitourinary: Reports: urgency, dysuria Musculoskeletal: Denies: back pain Skin: Denies: rash Neurological: Denies: weakness Past Medical History Past Medical History: COPD, GERD/Reflux, Hyperlipidemia, Pneumonia Additional Past Medical History / Comment(s): sob at times. History of Any Multi-Drug Resistant Organisms: None Reported Past Surgical History: Breast Surgery, Orthopedic Surgery Additional Past Surgical History / Comment(s): cyst removed from breast Past Anesthesia/Blood Transfusion Reactions: No Reported Reaction Past Psychological History: Anxiety, Depression Smoking Status: Former smoker - Past Family History Father Family Medical History: Cancer Additional Family Medical History / Comment(s): bone ca General Exam Limitations: no limitations General appearance: alert, in no apparent distress Head exam: Present: atraumatic Eye exam: Present: normal appearance Neck exam: Present: normal inspection Respiratory exam: Present: normal lung sounds bilaterally Cardiovascular Exam: Present: tachycardia GI/Abdominal exam: Present: soft. Absent: tenderness Extremities exam: Present: normal inspection. Absent: pedal edema, calf tenderness Neurological exam: Present: alert Psychiatric exam: Present: normal affect, normal mood Skin exam: Present: normal color Course Vital Signs 09/08/18 09/08/18 09/08/18 12:19 12:35 13:00 Temperature 98.2 F Pulse Rate 156 H Pulse Rate [ 146 H State Epidemiologist ] Respiratory 20 Rate Blood Pressure 150/7 120/84 O2 Sat by Pulse 96 Oximetry 09/08/18 13:30 Temperature Pulse Rate 89 Pulse Rate [ State Epidemiologist ] Respiratory Rate Blood Pressure 131/77 O2 Sat by Pulse Oximetry EKG Findings - EKG Comments: EKG Findings:: Narrow complex tachycardia 144. TX 120. QRS 74. QT 304. QTC 470. Normal axis. Normal QRS. No acute ST change. Medical Decision Making - Medical Decision Making Patient reevaluated. Patient and family updated. Case was discussed in detail with Dr. Gerardo, who will admit covering for Dr. leary. - Lab Data Result diagrams: 09/08/18 13:12 09/08/18 13:12 Lab Results 09/08/18 09/08/18 09/08/18 Range/Units 13:12 13:12 13:12 WBC 6.1 (3.8-10.6) k/uL RBC 4.91 (3.80-5.40) m/uL Hgb 14.3 (11.4-16.0) gm/dL Hct 44.8 (34.0-46.0) % MCV 91.3 (80.0-100.0) fL MCH 29.1 (25.0-35.0) pg MCHC 31.8 (31.0-37.0) g/dL RDW 12.8 (11.5-15.5) % Plt Count 200 (150-450) k/uL Neutrophils % 73 % Lymphocytes % 14 % Monocytes % 6 % Eosinophils % 5 % Basophils % 0 % Neutrophils # 4.5 (1.3-7.7) k/uL Lymphocytes # 0.8 L (1.0-4.8) k/uL Monocytes # 0.4 (0-1.0) k/uL Eosinophils # 0.3 (0-0.7) k/uL Basophils # 0.0 (0-0.2) k/uL PT (9.0-12.0) sec INR (<1.2) APTT (22.0-30.0) sec Sodium 142 (137-145) mmol/L Potassium 4.5 (3.5-5.1) mmol/L Chloride 108 H (98-107) mmol/L Carbon Dioxide 25 (22-30) mmol/L Anion Gap 9 mmol/L BUN 13 (7-17) mg/dL Creatinine 0.71 (0.52-1.04) mg/dL Est GFR (CKD-EPI)AfAm >90 (>60 ml/min/1.73 sqM) Est GFR (CKD-EPI)NonAf 81 (>60 ml/min/1.73 sqM) Glucose 125 H (74-99) mg/dL Plasma Lactic Acid Nguyễn (0.7-2.0) mmol/L Calcium 9.7 (8.4-10.2) mg/dL Total Bilirubin 1.0 (0.2-1.3) mg/dL AST 21 (14-36) U/L ALT 34 (9-52) U/L Alkaline Phosphatase 65 (38-126) U/L Creatine Kinase 62 (30-135) U/L CK-MB (CK-2) 0.4 (0.0-2.4) ng/mL Troponin I <0.012 (0.000-0.034) ng/mL Total Protein 6.5 (6.3-8.2) g/dL Albumin 3.9 (3.5-5.0) g/dL Urine Color Urine Appearance (Clear) Urine pH (5.0-8.0) Ur Specific [place] (1.001-1.035) Urine Protein (Negative) Urine Glucose (UA) (Negative) Urine Ketones (Negative) Urine Blood (Negative) Urine Nitrite (Negative) Urine Bilirubin (Negative) Urine Urobilinogen (<2.0) mg/dL Ur Leukocyte Esterase (Negative) 09/08/18 09/08/18 09/08/18 Range/Units 13:12 13:12 13:24 WBC (3.8-10.6) k/uL RBC (3.80-5.40) m/uL Hgb (11.4-16.0) gm/dL Hct (34.0-46.0) % MCV (80.0-100.0) fL MCH (25.0-35.0) pg MCHC (31.0-37.0) g/dL RDW (11.5-15.5) % Plt Count (150-450) k/uL Neutrophils % % Lymphocytes % % Monocytes % % Eosinophils % % Basophils % % Neutrophils # (1.3-7.7) k/uL Lymphocytes # (1.0-4.8) k/uL Monocytes # (0-1.0) k/uL Eosinophils # (0-0.7) k/uL Basophils # (0-0.2) k/uL PT 11.1 (9.0-12.0) sec INR 1.0 (<1.2) APTT 22.4 (22.0-30.0) sec Sodium (137-145) mmol/L Potassium (3.5-5.1) mmol/L Chloride (98-107) mmol/L Carbon Dioxide (22-30) mmol/L Anion Gap mmol/L BUN (7-17) mg/dL Creatinine (0.52-1.04) mg/dL Est GFR (CKD-EPI)AfAm (>60 ml/min/1.73 sqM) Est GFR (CKD-EPI)NonAf (>60 ml/min/1.73 sqM) Glucose (74-99) mg/dL Plasma Lactic Acid Nguyễn 1.8 (0.7-2.0) mmol/L Calcium (8.4-10.2) mg/dL Total Bilirubin (0.2-1.3) mg/dL AST (14-36) U/L ALT (9-52) U/L Alkaline Phosphatase (38-126) U/L Creatine Kinase (30-135) U/L CK-MB (CK-2) (0.0-2.4) ng/mL Troponin I (0.000-0.034) ng/mL Total Protein (6.3-8.2) g/dL Albumin (3.5-5.0) g/dL Urine Color Dark Brown Urine Appearance Clear (Clear) Urine pH 7.0 (5.0-8.0) Ur Specific [place] 1.021 (1.001-1.035) Urine Protein Trace H (Negative) Urine Glucose (UA) Negative (Negative) Urine Ketones Negative (Negative) Urine Blood Negative (Negative) Urine Nitrite Negative (Negative) Urine Bilirubin Negative (Negative) Urine Urobilinogen 2.0 (<2.0) mg/dL Ur Leukocyte Esterase Negative (Negative) - Radiology Data Radiology results: image reviewed (Chest x-ray shows similar findings to previous. Abnormal density right middle lobe.) Disposition Clinical Impression: Dysrhythmia Disposition: ADMITTED IP TO THIS HOSP Is patient prescribed a controlled substance at d/c from ED?: No Referrals: Julio Cesar Leary MD [Primary Care Provider] - 1-2 days Decision Time: 14:57
[2018-09-08 13:28] LABS: Basophils % (A) 0 %; Eosinophils # (A) 0.3 k/uL (0-0.7); Eosinophils % (A) 5 %; HCT 44.8 % (34.0-46.0); HGB 14.3 gm/dL (11.4-16.0); Lymphocytes # (A) 0.8 k/uL (1.0-4.8); Lymphocytes % (A) 14 %; MCH 29.1 pg (25.0-35.0); MCHC 31.8 g/dL (31.0-37.0); MCV 91.3 fL (80.0-100.0); Mean Platelet Volume 8.3; Monocytes # (A) 0.4 k/uL (0-1.0); Monocytes % (A) 6 %; Neutrophils # (A) 4.5 k/uL (1.3-7.7); Neutrophils % (A) 73 %; Platelet Count 200 k/uL (150-450); RBC 4.91 m/uL (3.80-5.40); RDW 12.8 % (11.5-15.5); WBC 6.1 k/uL (3.8-10.6)
[2018-09-08 13:35] LABS: ALT 34 U/L (9-52); AST 21 U/L (14-36); Albumin 3.9 g/dL (3.5-5.0); Alkaline Phosphatase 65 U/L (38-126); Anion Gap 9 mmol/L; Blood Urea Nitrogen 13 mg/dL (7-17); Calcium 9.7 mg/dL (8.4-10.2); Carbon Dioxide 25 mmol/L (22-30); Chloride 108 mmol/L (98-107); Creatine Kinase 62 U/L (30-135); Glucose 125 mg/dL (74-99); Potassium 4.5 mmol/L (3.5-5.1); Sodium 142 mmol/L (137-145); Total Protein 6.5 g/dL (6.3-8.2)
[2018-09-08 13:42] LABS: Appearance,Urine Clear (Clear); Bilirubin,Urine Negative (Negative); Blood,Urine Negative (Negative); Color,Urine Dark Brown; Glucose,Urine (UA) Negative (Negative); Ketones,Urine Negative (Negative); Leukocyte Esterase,Urine Negative (Negative); Nitrite,Urine Negative (Negative); Protein,Urine Trace (Negative); Specific Gravity,Urine 1.021 (1.001-1.035)
--- NOTE | 2018-09-08 13:52 | XR ---
EXAMINATION TYPE: XR chest 2V DATE OF EXAM: 09/08/2018 COMPARISON: Prior chest x-ray 08/18/[address] 09/02/2017 HISTORY: Fever, COPD TECHNIQUE: Frontal and lateral views of the chest are obtained. FINDINGS: There is apical pleural thickening bilaterally as on prior exam. Abnormal density is presen t within the right middle lobe Patient is rotated, there are cardiac leads. The aorta is dense. There is no pleural effusion or pneumothorax seen. The cardiac silhouette size is stable. The osseous s tructures are intact. IMPRESSION: Findings in the lungs are similar to prior exams and may be chronic. There is right midd le lobe and lingula bronchiectasis, atelectasis.
[2018-09-08 14:01] LABS: Creatine Kinase MB 0.4 ng/mL (0.0-2.4); Troponin I <0.012 ng/mL (0.000-0.034)
[2018-09-08 14:18] LABS: Partial Thromboplastin Time 22.4 sec (22.0-30.0); Prothrombin Time 11.1 sec (9.0-12.0)
[2018-09-08] MEDS ORDERED: NITROGLYCERIN SL TABS 0.4 MG TAB SUBLINGUAL PRN (14:57)
[2018-09-08 16:11] VITALS: RESP 18
--- NOTE | 2018-09-08 16:54 | P.HPIM ---
History of Present Illness Patient is a pleasant 78-year-old female came in with compensative urinary retention has to put a lot of effort to urinate has to use warm water in the genital area to urinate. This is a urination problem has been going on for last couple days. Patient was treated for urinary tract infection with Macrobid. While she is in the ER patient heart rate went up to 140s and the ER physician's believed it may be atrial flutter because of which they wanted to monitor 1 night and patient is being admitted to observation unit and echo was ordered and telemetry was ordered and cardiology was consulted. I did review EKGs today on have a clear-cut P waves but still appeared to be sinus tachycardia heart rate of 144. This was transient and resolved without any medication and the patient's believe it may be related to her anxiety. Patient denied any dysuria denied incontinence, suprapubic pain. Patient's CEA is benign and no evidence of infection at this time Review of Systems REVIEW OF SYSTEMS: CONSTITUTIONAL: No fever, no malaise, no fatigue. HEENT: No recent visual problems or hearing problems. Denied any sore throat. CARDIOVASCULAR: No chest pain, orthopnea, PND, no palpitations, no syncope. PULMONARY: No shortness of breath, no cough, no hemoptysis. GASTROINTESTINAL: No diarrhea, no nausea, no vomiting, no abdominal pain. NEUROLOGICAL: No headaches, no weakness, no numbness. HEMATOLOGICAL: Denies any bleeding or petechiae. GENITOURINARY: As mentioned in HPI MUSCULOSKELETAL/RHEUMATOLOGICAL: Denies any joint pain, swelling, or any muscle pain. ENDOCRINE: Denies any polyuria or polydipsia. The rest of the 14-point review of systems is negative. Past Medical History Past Medical History: COPD, GERD/Reflux, Hyperlipidemia, Pneumonia Additional Past Medical History / Comment(s): sob at times. History of Any Multi-Drug Resistant Organisms: None Reported Past Surgical History: Breast Surgery, Orthopedic Surgery Additional Past Surgical History / Comment(s): cyst removed from breast Past Anesthesia/Blood Transfusion Reactions: No Reported Reaction Past Psychological History: Anxiety, Depression Smoking Status: Former smoker - Past Family History Father Family Medical History: Cancer Additional Family Medical History / Comment(s): bone ca Medications and Allergies Home Medications Medication Instructions Recorded Confirmed Type PARoxetine [Paxil] 20 mg PO HS 11/04/15 09/08/18 History Ranitidine HCl [Zantac] 150 mg PO BID 11/05/15 09/08/18 History Atorvastatin [Lipitor] 40 mg PO DAILY 09/08/18 09/08/18 History Clopidogrel [Plavix] 75 mg PO DAILY 09/08/18 09/08/18 History Nitrofurantoin Monohyd/M-Cryst 100 mg PO Q12HR 09/08/18 09/08/18 History [Macrobid] Allergies Allergy/AdvReac Type Severity Reaction Status Date / Time No Known Allergies Allergy Verified 09/08/18 13:21 Physical Exam Vitals: Vital Signs Temp Pulse Pulse Pulse Resp BP BP 09/08/18 16:23 97.4 F L 97 18 160/92 09/08/18 16:10 98.0 F 87 18 145/88 09/08/18 15:00 91 136/83 09/08/18 14:30 87 130/76 09/08/18 14:00 90 132/81 09/08/18 13:30 89 131/77 09/08/18 13:00 120/84 09/08/18 12:35 146 H 09/08/18 12:19 98.2 F 156 H 20 150/7 Pulse Ox 09/08/18 16:23 94 L 09/08/18 16:10 97 09/08/18 15:00 09/08/18 14:30 09/08/18 14:00 09/08/18 13:30 09/08/18 13:00 09/08/18 12:35 09/08/18 12:19 96 Intake and Output 09/08/18 09/08/18 09/08/18 06:59 14:59 22:59 Other: Weight 99.79 kg PHYSICAL EXAMINATION: GENERAL: The patient is alert and oriented x3, not in any acute distress. Well developed, well nourished. HEENT: Pupils are round and equally reacting to light. EOMI. No scleral icterus. No conjunctival pallor. Normocephalic, atraumatic. No pharyngeal erythema. No thyromegaly. CARDIOVASCULAR: S1 and S2 present. No murmurs, rubs, or gallops. PULMONARY: Chest is clear to auscultation, no wheezing or crackles. ABDOMEN: Soft, nontender, nondistended, normoactive bowel sounds. No palpable organomegaly. MUSCULOSKELETAL: No joint swelling or deformity. EXTREMITIES: No cyanosis, clubbing, or pedal edema. NEUROLOGICAL: Gross neurological examination did not reveal any focal deficits. SKIN: No rashes. Results CBC & Chem 7: 09/08/18 13:12 09/08/18 13:12 Labs: Abnormal Lab Results - Last 24 Hours (Table) 09/08/18 09/08/18 09/08/18 Range/Units 13:12 13:12 13:24 Lymphocytes # 0.8 L (1.0-4.8) k/uL Chloride 108 H (98-107) mmol/L Glucose 125 H (74-99) mg/dL Urine Protein Trace H (Negative) Assessment and Plan Plan: -Urinary retention: Etiology is not clear, I get the opinion from urology, which if needed will order a López catheter. -tachycardia with the possibility of brief episode of atrial flutter. EKG is more consistent with sinus tachycardia, echo cardiac was ordered will order TSH. -Patient had a recent stroke, CVA: Continue with atorvastatin and Plavix -Hyperlipidemia -Anxiety/depression continue with paroxetine
[2018-09-08] MEDS ORDERED: IPRATROPIUM-ALBUTEROL 3 ML NEB INHALATION PRN (19:50)
[2018-09-08] MEDS ORDERED: PARoxetine 20 MG TAB PO SCH (21:00)
[2018-09-08] MEDS: FAMOTIDINE 20 MG TAB PO SCH (22:05)
[2018-09-08] MEDS: IPRATROPIUM-ALBUTEROL 3 ML NEB INHALATION SCH (22:06)
[2018-09-09 03:26] LABS: Cholesterol 142 mg/dL (<200); HDL Cholesterol 46 mg/dL (40-60); LDL Cholesterol,Calculated 75 mg/dL (0-99); Triglycerides 103 mg/dL (<150)
[2018-09-09] MEDS: IPRATROPIUM-ALBUTEROL 3 ML NEB INHALATION SCH ×3 (07:28→15:35)
[2018-09-09] MEDS ORDERED: CLOPIDOGREL 75 MG TAB PO SCH (09:00)
[2018-09-09] MEDS ORDERED: ATORVASTATIN 40 MG TAB PO SCH (09:00)
[2018-09-09] MEDS: FAMOTIDINE 20 MG TAB PO SCH (09:16)
[2018-09-09] MEDS ORDERED: METOPROLOL SUCCINATE (ER) 25 MG TAB.ER.24H PO SCH (12:30)
[2018-09-09] MEDS ORDERED: DOCUSATE 100 MG CAP PO SCH (13:30)
--- NOTE | 2018-09-09 13:53 | ECHOF ---
Referral Reason:dysrhythmia MEASUREMENTS -------- HEIGHT: 180.3 cm WEIGHT: 99.8 kg BP: 130/76 IVSd: 1.3 cm (0.6 - 1.1) LVIDd: 3.8 cm (3.9 - 5.3) LVPWd: 1.3 cm (0.6 - 1.1) IVSs: 1.5 cm LVIDs: 2.4 cm LVPWs: 1.4 cm LAESV Index (A-L): 16.94 ml/m Ao Diam: 3.1 cm (2.0 - 3.7) AV Cusp: 1.8 cm (1.5 - 2.6) LA Diam: 2.5 cm (2.7 - 3.8) MV E Arnav: 0.90 m/s MV DecT: 541 ms MV A Arnav: 1.14 m/s MV E/A Ratio: 0.79 RAP: 5.00 mmHg RVSP: 9.79 mmHg FINDINGS -------- Sinus rhythm. This was a technically adequate study. The left ventricular size is normal. There is mild concentric left ventricular hypertrophy. Overa ll left ventricular systolic function is normal with, an EF between 55 - 60 %. The RV was not well visualized. Normal LA size by volume 22+/-6 ml/m2. The right atrium was not well visualized. There is mild aortic valve sclerosis. There is no evidence of aortic regurgitation. There is no e vidence of aortic stenosis. Mild mitral regurgitation is present. There is moderate calcification of the anterior mitral valve leaflet. Trace tricuspid regurgitation present. Right ventricular systolic pressure is normal at < 35 mmHg. There is no evidence of pulmonary hypertension. The pulmonic valve was not well visualized. The aortic root size is normal. Normal inferior vena cava with normal inspiratory collapse consistent with estimated right atrial pre ssure of 5 mmHg. Echo free space indicative of a pericardial fat pad. There is no pericardial effusion. Pleural Ef fusion with Fibrin. CONCLUSIONS -------- 1. Sinus rhythm. 2. This was a technically adequate study. 3. The left ventricular size is normal. 4. There is mild concentric left ventricular hypertrophy. 5. Overall left ventricular systolic function is normal with, an EF between 55 - 60 %. 6. The RV was not well visualized. 7. Normal LA size by volume 22+/-6 ml/m2. 8. The right atrium was not well visualized. 9. There is mild aortic valve sclerosis. 10. Mild mitral regurgitation is present. 11. There is moderate calcification of the anterior mitral valve leaflet. 12. Trace tricuspid regurgitation present. 13. Right ventricular systolic pressure is normal at < 35 mmHg. 14. There is no evidence of pulmonary hypertension. 15. The pulmonic valve was not well visualized. 16. The aortic root size is normal. 17. Echo free space indicative of a pericardial fat pad. 18. There is no pericardial effusion. 19. Pleural Effusion with Fibrin. CLINICAL UNIT EDUCATOR: Oj Monreal RDCS
[2018-09-09 16:44] VITALS: BP 128/83; PULSE 86; TEMP 98.2
--- NOTE | 2018-09-09 17:30 | CONS ---
CONSULTATION Mrs. Blake is an 78-year-old female who is seen for cardiac evaluation and tachycardia. Patient came to the emergency room with a complaint that she has been having possible urinary tract infection. The patient was having difficulty in urinating. She says she is only able to urinate when she sprays some warm water in her genital area. The patient was seen in the emergency room and subsequently was admitted. The patient was found to be tachycardic at that time. The patient denied any chest pain. Denies any shortness of breath or syncope. Denied any fever. MEDICATIONS: Include Paxil, Zantac, Lipitor, and Plavix. PAST MEDICAL HISTORY: Includes a history of orthopedic surgery, breast surgery, history of hyperlipidemia, history of pneumonia and a prior history of a stroke. REVIEW OF THE SYSTEM: Otherwise unremarkable. PHYSICAL EXAMINATION: At present reveals an 78-year-old female who does not appear to be in any acute distress. In the emergency room, initially patient's heart rate was in the range of 150. Blood pressure was 150/70 mmHg. Head and ENT examination is negative. Neck is supple. There is no increase in jugular venous pressure. Both the carotid pulses are felt. There is no bruit. Chest is symmetrical. Heart: The PMI is not felt. First and second heart sounds are normal. Lungs are clinically clear to auscultation and percussion. Abdomen is negative. Extremities: Peripheral pulses are 2+. Initial EKG is suggestive of possible atrial tachycardia. Electrolytes were normal. Troponin is less than 0.012. FINAL IMPRESSION: This patient is admitted with urgency and dysuria. A possibility of urinary retention was considered. Initial EKG shows evidence of atrial tachycardia. Subsequently patient converted to the normal sinus rhythm and at present patient's heart rate remains in the range of 80 beats per minute. We will obtain echo and Doppler study. Thyroid blood test will be done and we will start the patient on metoprolol 25 mg daily. MMODL / IJN: [id number] /
--- NOTE | 2018-09-09 18:18 | P.DS ---
Providers Date of admission: 09/08/18 14:57 Expected date of discharge: 09/09/18 Attending physician: Gloria Gerardo Please use this as a progress note if patient not discharged tonight. Consults: 09/08/18 14:57 Consult Physician Urgent Consulting Provider: Raudel Lundberg Consult Reason/Comments: Dysrhythmia Do you want consulting provider notified?: Yes 09/08/18 16:51 Consult Physician Routine Consulting Provider: Timbo Min Consult Reason/Comments: urinary retention Do you want consulting provider notified?: Yes Primary care physician: Tabby Harrell Hospital Course: Final Diagnoses: -Urinary retention: Etiology unclear is not clear,urology consulted -tachycardia with the possibility of brief episode of atrial flutter. EKG is more consistent with sinus tachycardia -Patient had a recent stroke, CVA: Continue with atorvastatin and Plavix -Hyperlipidemia -Anxiety/depression continue with paroxetine Hospital course:Patient is a pleasant 78-year-old female came in with compensative urinary retention has to put a lot of effort to urinate has to use warm water in the genital area to urinate. This is a urination problem has been going on for last couple days. Patient was treated for urinary tract infection with Macrobid. While she is in the ER patient heart rate went up to 140s and the ER physician's believed it may be atrial flutter because of which they wanted to monitor 1 night and patient is being admitted to observation unit and echo was ordered and telemetry was ordered and cardiology was consulted. I did review EKGs today on have a clear-cut P waves but still appeared to be sinus tachycardia heart rate of 144. This was transient and resolved without any medication and the patient's believe it may be related to her anxiety. Patient denied any dysuria denied incontinence, suprapubic pain. Patient's CEA is benign and no evidence of infection at this time. Evaluated by cardiology, initial EKG suggestive of possible atrial tachycardia. TSH normal. Troponins less than 0.012 X 3. Metoprolol tartrate initiated, patient converted to sinus rhythm with current heart rate 80s. Denies chest pain, palpitations or increased shortness of breath. Denies focal deficits, lightheadedness or dizziness. Afebrile .Cleared by cardiology for discharge. Patient will be discharged home in a stable condition with guarded prognosis pending urology evaluation, recommendations and clearance. EXAMINATION: GENERAL: The patient is alert and oriented x3, not in any acute distress. Well developed, well nourished. HEENT: Pupils are round and equally reacting to light. EOMI. No scleral icterus. No conjunctival pallor. Normocephalic, atraumatic. CARDIOVASCULAR: S1 and S2 present. No murmurs, rubs, or gallops. PULMONARY: Chest is clear to auscultation, no wheezing or crackles. ABDOMEN: Soft, nontender, nondistended, normoactive bowel sounds. No palpable organomegaly. MUSCULOSKELETAL: No joint swelling or deformity. EXTREMITIES: No cyanosis, clubbing, or pedal edema. NEUROLOGICAL: Gross neurological examination did not reveal any focal deficits. SKIN: No rashes. The impression and plan of care has been dictated as directed. : I performed a history and examination of this patient, discussed the same with the dictator. I agree with the dictator's note ,documented as a scribe. Any additional findings or plans will be noted. Time taken: 35 minutes Patient Condition at Discharge: Stable Plan - Discharge Summary New Discharge Prescriptions: New Metoprolol Succinate (ER) [Toprol XL] 25 mg PO DAILY #30 tab.er.24h Continue PARoxetine [Paxil] 20 mg PO HS Ranitidine HCl [Zantac] 150 mg PO BID Nitrofurantoin Monohyd/M-Cryst [Macrobid] 100 mg PO Q12HR Clopidogrel [Plavix] 75 mg PO DAILY Atorvastatin [Lipitor] 40 mg PO DAILY Discharge Medication List PARoxetine [Paxil] 20 mg PO HS 11/04/15 [History] Ranitidine HCl [Zantac] 150 mg PO BID 11/05/15 [History] Atorvastatin [Lipitor] 40 mg PO DAILY 09/08/18 [History] Clopidogrel [Plavix] 75 mg PO DAILY 09/08/18 [History] Nitrofurantoin Monohyd/M-Cryst [Macrobid] 100 mg PO Q12HR 09/08/18 [History] Metoprolol Succinate (ER) [Toprol XL] 25 mg PO DAILY #30 tab.er.24h 09/09/18 [Rx] Follow up Appointment(s)/Referral(s): Julio Cesar Mcnair MD [Primary Care Provider] - 3 Days Timbo Min MD [STAFF PHYSICIAN] - 1 Week
== END 2018-09-09 18:35 | disposition home or self-care (01) ==
LOC: EC 12:16 → 1SOBS 14:57
PROVIDERS: ADMIT Internal Medicine; ATTEND Internal Medicine
DX: R33.9 Retention of urine, unspecified (principal); R30.0 Dysuria; R39.15 Urgency of urination; R00.0 Tachycardia, unspecified; E78.5 Hyperlipidemia, unspecified; F41.9 Anxiety disorder, unspecified; J44.9 Chronic obstructive pulmonary disease, unspecified; K21.9 Gastro-esophageal reflux disease without esophagitis; F32.9 Major depressive disorder, single episode, unspecified; Z86.73 Personal history of transient ischemic attack (TIA), and cerebral infarction without residual deficits; Z79.899 Other long term (current) drug therapy; Z87.01 Personal history of pneumonia (recurrent); Z87.891 Personal history of nicotine dependence; Z79.02 Long term (current) use of antithrombotics/antiplatelets; Z80.8 Family history of malignant neoplasm of other organs or systems
CPT/HCPCS: 99285; 36415; 94640 ×3; 93005; 93306; 80061; 80053; 84443; 82550; 82553; 83605; 84484 ×2; 85025; 85610; 85730; 81003; 87040; 87086; 71046; G0378 ×2

== ENCOUNTER → 2019-04-23 | Outpatient (CLI) | payer MEDICARE, OTHER ==
[2019-04-23 19:13] LABS: Anion Gap 8.9 mmol/L (4.00-12.00); BUN/Creat Ratio 18.89 Ratio (12.00-20.00); Calcium 9.5 mg/dL (8.7-10.3); Carbon Dioxide 27.1 mmol/L (21.6-31.8); Potassium 4.4 mmol/L (3.5-5.5)
== END | disposition home or self-care (01) ==
LOC: LABWHC1 13:06
PROVIDERS: ATTEND Internal Medicine
DX: I63.9 Cerebral infarction, unspecified (principal); J44.9 Chronic obstructive pulmonary disease, unspecified; I27.81 Cor pulmonale (chronic)
CPT/HCPCS: 36415; 80048

== ENCOUNTER 2020-06-10 11:08 | Inpatient (IN) | payer MEDICARE, OTHER ==
--- NOTE | 2020-06-10 11:23 | ED ---
SOB HPI - General Source: patient Mode of arrival: wheelchair Limitations: no limitations <Ronny Gaytan - Last Filed: 06/10/20 13:54> <Juve Ahuja - Last Filed: 06/10/20 14:03> - General Chief Complaint: Shortness of Breath Stated Complaint: Inquicker sob Time Seen by Provider: 06/10/20 11:20 - History of Present Illness Initial Comments: 79-year-old female with history of COPD presents emergency Department with a chief complaint of wheezing. Patient reports she's had increased wheezing for the past month. She also reports some coughing over the last few days with yellow sputum production. Denies any fever or chills. She denies any dyspnea on exertion or chest pain. States that she uses a nebulizer daily but is not oxygen dependent. States that she sees for controlling her COPD. St ates that she is a former smoker. Denies any nausea vomiting diarrhea. Denies headaches blurry vision one-sided weakness or paresthesias. Patient also reports increased urinary frequency over the last few days but denies any dysuria or urgency. Denies hematuria, hematochezia or melena. Denies any constipation or diarrhea. Denies any back or flank pain. (Ronny Gaytan) - Related Data Home Medications Medication Instructions Recorded Confirmed PARoxetine [Paxil] 20 mg PO HS 11/04/15 06/10/20 Atorvastatin [Lipitor] 40 mg PO DAILY 09/08/18 06/10/20 Clopidogrel [Plavix] 75 mg PO HS 09/08/18 06/10/20 Albuterol Inhaler [Ventolin Hfa 2 puff INHALATION RT-QID PRN 06/10/20 06/10/20 Inhaler] Ipratropium-Albuterol Nebulize 3 ml INHALATION RT-QID PRN 06/10/20 06/10/20 [Duoneb 0.5 mg-3 mg/3 ml Soln] Previous Rx's Medication Instructions Recorded Metoprolol Succinate [Toprol XL] 25 mg PO DAILY #30 tab 09/09/18 Allergies Allergy/AdvReac Type Severity Reaction Status Date / Time No Known Allergies Allergy Verified 06/10/20 11:40 Review of Systems ROS Other: All systems not noted in ROS Statement are negative. <Ronny Gaytan - Last Filed: 06/10/20 13:54> ROS Other: All systems not noted in ROS Statement are negative. <Juve Ahuja - Last Filed: 06/10/20 14:03> ROS Statement: Those systems with pertinent positive or pertinent negative responses have been documented in the HPI. Past Medical History Past Medical History: COPD, GERD/Reflux, Hyperlipidemia, Pneumonia Additional Past Medical History / Comment(s): sob at times. History of Any Multi-Drug Resistant Organisms: None Reported Past Surgical History: Breast Surgery, Orthopedic Surgery Additional Past Surgical History / Comment(s): cyst removed from breast Past Anesthesia/Blood Transfusion Reactions: No Reported Reaction Past Psychological History: Anxiety, Depression Smoking Status: Never smoker Past Alcohol Use History: None Reported Past Drug Use History: None Reported - Past Family History Father Family Medical History: Cancer Additional Family Medical History / Comment(s): bone ca <Ronny Gaytan - Last Filed: 06/10/20 13:54> General Exam Limitations: no limitations General appearance: alert, in no apparent distress Head exam: Present: atraumatic, normocephalic, normal inspection Eye exam: Present: normal appearance, PERRL, EOMI Pupils: Present: normal accommodation ENT exam: Present: normal exam, normal oropharynx, mucous membranes moist, TM's normal bilaterally, normal external ear exam Neck exam: Present: normal inspection, full ROM. Absent: tenderness Respiratory exam: Present: wheezes (Diffuse bilateral wheezing). Absent: rales, rhonchi, stridor, chest wall tenderness, accessory muscle use Cardiovascular Exam: Present: regular rate, normal rhythm, normal heart sounds GI/Abdominal exam: Present: soft. Absent: distended, tenderness, guarding Extremities exam: Present: normal inspection, full ROM, normal capillary refill, other (Palpable dorsalis pedis and posterior tibialis bladder). Absent: tenderness, pedal edema, joint swelling, calf tenderness Back exam: Present: normal inspection, full ROM. Absent: tenderness, CVA tende rness (R), CVA tenderness (L) <Ronny Gaytan - Last Filed: 06/10/20 13:54> Course <Juve Ahuja - Last Filed: 06/10/20 14:03> Vital Signs 06/10/20 06/10/20 06/10/20 11:13 13:17 13:25 Temperature 98.1 F Pulse Rate 90 76 76 Respiratory 20 16 16 Rate Blood Pressure 149/82 O2 Sat by Pulse 94 L Oximetry - Reevaluation(s) Reevaluation #1: 06/10/20 14:02 PA supervision: I proceeded [id number] evaluation the patient did present with complaints of shortness of breath. She still demonstrates wheezing after treatment. Though she does states she feels better. She does demonstrate evidence of new pneumonia on the imaging. We did discuss the findings with her she will be admitted for inpatient evaluation and treatment. I do agree with the assessment and plan. The case was discussed with Dr. Hui (Juve Ahuja) Medical Decision Making - Lab Data Result diagrams: 06/10/20 11:54 06/10/20 11:54 <Ronny Gaytan - Last Filed: 06/10/20 13:54> - Lab Data Result diagrams: 06/10/20 11:54 06/10/20 11:54 <Juve Ahuja - Last Filed: 06/10/20 14:03> - Medical Decision Making 79-year-old female with history of COPD presenting to the emergency room with a chief complaint of wheezing. On initial evaluation, patient has no respiratory distress. Oxygen saturation room air is about 94%. She is not oxygen dependent at home. She does have diffuse bilateral wheezing. Chest x-ray reveals mild infiltrate in the right middle the left upper lung. Likely early developing pneumonia. She is influenza and covid-19 Negative. CBC unremarkable. Coags within normal limits with a normal d-dimer. Initial troponin is negative. EKG showing sinus rhythm. Patient was given Solu-Medrol and 2 treatments of DuoNeb. On reevaluation, the patient continues to have wheezing. Patient will be admitted for further medical management. Dr. Ahuja also examined the patient and is in agreement with the treatment plan. Admitting physician is Dr.Vegesna Dr sheehan on consult (Ronny Gaytan) - Lab Data Lab Results 06/10/20 06/10/20 06/10/20 Range/Units 11:54 11:54 11:54 WBC 6.1 (3.8-10.6) k/uL RBC 4.85 (3.80-5.40) m/uL Hgb 14.5 (11.4-16.0) gm/dL Hct 44.5 (34.0-46.0) % MCV 91.8 (80.0-100.0) fL MCH 29.9 (25.0-35.0) pg MCHC 32.6 (31.0-37.0) g/dL RDW 12.8 (11.5-15.5) % Plt Count 216 (150-450) k/uL MPV 8.2 Neutrophils % 82 % Lymphocytes % 9 % Monocytes % 5 % Eosinophils % 3 % Basophils % 1 % Neutrophils # 5.0 (1.3-7.7) k/uL Lymphocytes # 0.6 L (1.0-4.8) k/uL Monocytes # 0.3 (0-1.0) k/uL Eosinophils # 0.2 (0-0.7) k/uL Basophils # 0.0 (0-0.2) k/uL PT 11.2 (9.0-12.0) sec INR 1.1 (<1.2) APTT 22.3 (22.0-30.0) sec D-Dimer 0.23 (<0.60) mg/L FEU Sodium 140 (137-145) mmol/L Potassium 4.2 (3.5-5.1) mmol/L Chloride 107 (98-107) mmol/L Carbon Dioxide 28 (22-30) mmol/L Anion Gap 5 mmol/L BUN 15 (7-17) mg/dL Creatinine 0.72 (0.52-1.04) mg/dL Est GFR (CKD-EPI)AfAm >90 (>60 ml/min/1.73 sqM) Est GFR (CKD-EPI)NonAf 80 (>60 ml/min/1.73 sqM) Glucose 166 H (74-99) mg/dL Plasma Lactic Acid Nguyễn (0.7-2.0) mmol/L Calcium 9.4 (8.4-10.2) mg/dL Total Bilirubin 0.9 (0.2-1.3) mg/dL AST 19 (14-36) U/L ALT 15 (4-34) U/L Alkaline Phosphatase 65 (38-126) U/L Troponin I (0.000-0.034) ng/mL Total Protein 6.6 (6.3-8.2) g/dL Albumin 3.9 (3.5-5.0) g/dL Urine Color Urine Appearance (Clear) Urine pH (5.0-8.0) Ur Specific [place] (1.001-1.035) Urine Protein (Negative) Urine Glucose (UA) (Negative) Urine Ketones (Negative) Urine Blood (Negative) Urine Nitrite (Negative) Urine Bilirubin (Negative) Urine Urobilinogen (<2.0) mg/dL Ur Leukocyte Esterase (Negative) Urine RBC (0-5) /hpf Urine WBC (0-5) /hpf Ur Squamous Epith Cells (0-4) /hpf Urine Bacteria (None) /hpf Urine Mucus (None) /hpf Influenza Type A (PCR) (Not Detectd) Influenza Type B (PCR) (Not Detectd) RSV (PCR) (Not Detectd) SARS-CoV-2 (PCR) (Not Detectd) 06/10/20 06/10/20 06/10/20 Range/Units 11:54 11:54 12:01 WBC (3.8-10.6) k/uL RBC (3.80-5.40) m/uL Hgb (11.4-16.0) gm/dL Hct (34.0-46.0) % MCV (80.0-100.0) fL MCH (25.0-35.0) pg MCHC (31.0-37.0) g/dL RDW (11.5-15.5) % Plt Count (150-450) k/uL MPV Neutrophils % % Lymphocytes % % Monocytes % % Eosinophils % % Basophils % % Neutrophils # (1.3-7.7) k/uL Lymphocytes # (1.0-4.8) k/uL Monocytes # (0-1.0) k/uL Eosinophils # (0-0.7) k/uL Basophils # (0-0.2) k/uL PT (9.0-12.0) sec INR (<1.2) APTT (22.0-30.0) sec D-Dimer (<0.60) mg/L FEU Sodium (137-145) mmol/L Potassium (3.5-5.1) mmol/L Chloride (98-107) mmol/L Carbon Dioxide (22-30) mmol/L Anion Gap mmol/L BUN (7-17) mg/dL Creatinine (0.52-1.04) mg/dL Est GFR (CKD-EPI)AfAm (>60 ml/min/1.73 sqM) Est GFR (CKD-EPI)NonAf (>60 ml/min/1.73 sqM) Glucose (74-99) mg/dL Plasma Lactic Acid Nguyễn 1.5 (0.7-2.0) mmol/L Calcium (8.4-10.2) mg/dL Total Bilirubin (0.2-1.3) mg/dL AST (14-36) U/L ALT (4-34) U/L Alkaline Phosphatase (38-126) U/L Troponin I <0.012 (0.000-0.034) ng/mL Total Protein (6.3-8.2) g/dL Albumin (3.5-5.0) g/dL Urine Color Urine Appearance (Clear) Urine pH (5.0-8.0) Ur Specific [place] (1.001-1.035) Urine Protein (Negative) Urine Glucose (UA) (Negative) Urine Ketones (Negative) Urine Blood (Negative) Urine Nitrite (Negative) Urine Bilirubin (Negative) Urine Urobilinogen (<2.0) mg/dL Ur Leukocyte Esterase (Negative) Urine RBC (0-5) /hpf Urine WBC (0-5) /hpf Ur Squamous Epith Cells (0-4) /hpf Urine Bacteria (None) /hpf Urine Mucus (None) /hpf Influenza Type A (PCR) Not Detected (Not Detectd) Influenza Type B (PCR) Not Detected (Not Detectd) RSV (PCR) Not Detected (Not Detectd) SARS-CoV-2 (PCR) Not Detected (Not Detectd) 06/10/20 Range/Units 12:24 WBC (3.8-10.6) k/uL RBC (3.80-5.40) m/uL Hgb (11.4-16.0) gm/dL Hct (34.0-46.0) % MCV (80.0-100.0) fL MCH (25.0-35.0) pg MCHC (31.0-37.0) g/dL RDW (11.5-15.5) % Plt Count (150-450) k/uL MPV Neutrophils % % Lymphocytes % % Monocytes % % Eosinophils % % Basophils % % Neutrophils # (1.3-7.7) k/uL Lymphocytes # (1.0-4.8) k/uL Monocytes # (0-1.0) k/uL Eosinophils # (0-0.7) k/uL Basophils # (0-0.2) k/uL PT (9.0-12.0) sec INR (<1.2) APTT (22.0-30.0) sec D-Dimer (<0.60) mg/L FEU Sodium (137-145) mmol/L Potassium (3.5-5.1) mmol/L Chloride (98-107) mmol/L Carbon Dioxide (22-30) mmol/L Anion Gap mmol/L BUN (7-17) mg/dL Creatinine (0.52-1.04) mg/dL Est GFR (CKD-EPI)AfAm (>60 ml/min/1.73 sqM) Est GFR (CKD-EPI)NonAf (>60 ml/min/1.73 sqM) Glucose (74-99) mg/dL Plasma Lactic Acid Nguyễn (0.7-2.0) mmol/L Calcium (8.4-10.2) mg/dL Total Bilirubin (0.2-1.3) mg/dL AST (14-36) U/L ALT (4-34) U/L Alkaline Phosphatase (38-126) U/L Troponin I (0.000-0.034) ng/mL Total Protein (6.3-8.2) g/dL Albumin (3.5-5.0) g/dL Urine Color Yellow Urine Appearance Cloudy H (Clear) Urine pH 6.5 (5.0-8.0) Ur Specific [place] 1.023 (1.001-1.035) Urine Protein Trace H (Negative) Urine Glucose (UA) Negative (Negative) Urine Ketones Negative (Negative) Urine Blood Negative (Negative) Urine Nitrite Negative (Negative) Urine Bilirubin Negative (Negative) Urine Urobilinogen 3.0 (<2.0) mg/dL Ur Leukocyte Esterase Moderate H (Negative) Urine RBC 1 (0-5) /hpf Urine WBC 8 H (0-5) /hpf Ur Squamous Epith Cells 11 H (0-4) /hpf Urine Bacteria Rare H (None) /hpf Urine Mucus Many H (None) /hpf Influenza Type A (PCR) (Not Detectd) Influenza Type B (PCR) (Not Detectd) RSV (PCR) (Not Detectd) SARS-CoV-2 (PCR) (Not Detectd) - EKG Data EKG Comments: Sinus rhythm Ventricular rate 83, TX 146, QRS 74, QTC 458 (Ronny Gaytan) Disposition Is patient prescribed a controlled substance at d/c from ED?: No Time of Disposition: 13:46 <Ronny Gaytan - Last Filed: 06/10/20 13:54> <Juve Ahuja - Last Filed: 06/10/20 14:03> Clinical Impression: Bilateral pneumonia, Wheezing Disposition: ADMITTED IP TO THIS HOSP Condition: Stable Referrals: Julio Cesar Mcnair MD [Primary Care Provider] - 1-2 days
[2020-06-10] MEDS ORDERED: SODIUM CHLORIDE 0.9% 1,000 ML IV STA (11:32)
[2020-06-10] MEDS ORDERED: methylPREDNISolone SOD SUCCI 125 MG/2 ML VIAL IV STA (11:32)
[2020-06-10] MEDS ORDERED: ALBUTEROL HFA INHALER INHALATION STA (11:58)
[2020-06-10] MEDS: IPRATROPIUM-ALBUTEROL 3 ML NEB INHALATION STA ×2 (12:02→13:17)
[2020-06-10 12:19] LABS: Basophils % (A) 1 %; Eosinophils # (A) 0.2 k/uL (0-0.7); Eosinophils % (A) 3 %; HCT 44.5 % (34.0-46.0); HGB 14.5 gm/dL (11.4-16.0); Lymphocytes # (A) 0.6 k/uL (1.0-4.8); Lymphocytes % (A) 9 %; MCH 29.9 pg (25.0-35.0); MCHC 32.6 g/dL (31.0-37.0); MCV 91.8 fL (80.0-100.0); Mean Platelet Volume 8.2; Monocytes # (A) 0.3 k/uL (0-1.0); Monocytes % (A) 5 %; Neutrophils % (A) 82 %; Platelet Count 216 k/uL (150-450); RBC 4.85 m/uL (3.80-5.40); RDW 12.8 % (11.5-15.5); WBC 6.1 k/uL (3.8-10.6)
--- NOTE | 2020-06-10 12:27 | XR ---
EXAMINATION TYPE: XR chest 2V DATE OF EXAM: 06/10/2020 COMPARISON: 07/19/2019 HISTORY: Cough TECHNIQUE: 2 views FINDINGS: There are some mild infiltrate in right middle lobe and lingula of the left upper lobe.. Th ere is no heart failure. Heart size is normal. There are no hilar masses. There is no pleural effusio n. IMPRESSION: There is new bilateral mild right middle lobe and lingula old exam. Normal heart.
[2020-06-10 12:28] LABS: ALT 15 U/L (4-34); AST 19 U/L (14-36); African American GFR (CKD) >90 (>60 ml/min/1.73 sqM); Albumin 3.9 g/dL (3.5-5.0); Alkaline Phosphatase 65 U/L (38-126); Anion Gap 5 mmol/L; Blood Urea Nitrogen 15 mg/dL (7-17); Calcium 9.4 mg/dL (8.4-10.2); Carbon Dioxide 28 mmol/L (22-30); Chloride 107 mmol/L (98-107); Glucose 166 mg/dL (74-99); Non-African American GFR(CKD) 80 (>60 ml/min/1.73 sqM); Potassium 4.2 mmol/L (3.5-5.1); Sodium 140 mmol/L (137-145); Total Bilirubin 0.9 mg/dL (0.2-1.3); Total Protein 6.6 g/dL (6.3-8.2)
[2020-06-10 12:41] LABS: Appearance,Urine Cloudy (Clear); Bacteria,Urine Rare /hpf; Bilirubin,Urine Negative (Negative); Blood,Urine Negative (Negative); Color,Urine Yellow; Glucose,Urine (UA) Negative (Negative); Ketones,Urine Negative (Negative); Leukocyte Esterase,Urine Moderate (Negative); Mucus,Urine Many /hpf; Nitrite,Urine Negative (Negative); PH, Urine 6.5 (5.0-8.0); Protein,Urine Trace (Negative); RBC,Urine 1 /hpf (0-5); Specific Gravity,Urine 1.023 (1.001-1.035); Squamous Epithelial Cell,Urine 11 /hpf (0-4); WBC,Urine 8 /hpf (0-5)
[2020-06-10 12:44] LABS: D-Dimer 0.23 mg/L FEU (<0.60); INR 1.1 (<1.2); Partial Thromboplastin Time 22.3 sec (22.0-30.0); Prothrombin Time 11.2 sec (9.0-12.0)
[2020-06-10] MEDS ORDERED: LORazepam 2 MG/ML INJ IV PRN (13:52)
[2020-06-10] MEDS ORDERED: NALOXONE 0.4 MG/ML 1 ML VIAL IV PRN (13:52)
[2020-06-10] MEDS ORDERED: HYDROmorphone 0.5 MG/0.5 ML SYRINGE IVP PRN (13:52)
[2020-06-10] MEDS ORDERED: ONDANSETRON 4 MG/2 ML VIAL IVP PRN (13:52)
[2020-06-10] MEDS ORDERED: MORPHINE SULFATE 4 MG/ML SYRINGE IV PRN (13:52)
[2020-06-10] MEDS ORDERED: ACETAMINOPHEN TAB 325 MG TAB PO PRN (13:52)
[2020-06-10] MEDS: SODIUM CHLORIDE 0.9% 1,000 ML IV SCH (14:19)
[2020-06-10] MEDS: methylPREDNISolone SOD SUCCI 125 MG/2 ML VIAL IV SCH ×2 (17:14→22:20)
[2020-06-10] MEDS ORDERED: AZITHROMYCIN 500 MG in SODIUM CHLORIDE 0.9% 250 ML IVPB SCH ×2 (17:45→21:00)
[2020-06-10] MEDS: IPRATROPIUM-ALBUTEROL 3 ML NEB INHALATION PRN (21:02)
[2020-06-10] MEDS: CLOPIDOGREL 75 MG TAB PO SCH (22:20)
[2020-06-10] MEDS: PARoxetine 20 MG TAB PO SCH (22:20)
[2020-06-10] MEDS: HEPARIN SODIUM,PORCINE 5,000 UNIT/ML 1 ML VIAL SQ SCH (22:20)
--- NOTE | 2020-06-10 22:52 | P.HPIM ---
History of Present Illness H&P Date: 06/10/20 Patient is a 79-year-old female with a known history of COPD not on home oxygen, GERD, anxiety/depression who follows with Dr. Palomares in the clinic due to her COPD presents to ER with complaints of worsening shortness of breath and wheezing which is gradually getting worse for the past 1 month. Patient states that since 1 week she has been having worsening shortness of breath and cough with yellowish mucus sputum production. She did use nebulizer at home without improvement of symptoms. Denied any complaints of nausea vomiting. No fever no chills. Denies any dysuria or hematuria. Chest x-ray showed there is new bilateral mild right middle lobe and lingula infiltrate.. Normal heart. Laboratory data showed WBC 6.1, hemoglobin 14.5 and platelets 216 D-dimer is 0.23 not elevated Urinalysis showed cloudy with trace protein and moderate leukocytes trace with WBCs 8 Influenza a and coronavirus PCR negative. Electrolytes within normal limits. Review of Systems Constitutional: Patient denies any fever or chills . No generalized weakness or weight loss. Abdomen: Patient denied nausea vomiting and diarrhea and abdominal pain. Cardiovascular: Patient denies any chest pain or short of breath no palpitations. Respiratory: Patient does have cough with yellowish sputum production.. shortness of breath Neurologic: Patient denied any numbness or tingling headache. Musculoskeletal: Patient denies any complaints of joint swelling or deformity. Skin: Negative Psychiatric: Negative Endocrine: No heat or cold intolerance. No recent weight gain. Genitourinary: No dysuria or hematuria. All other 14 point ROS negative except the above Past Medical History Past Medical History: COPD, GERD/Reflux, Pneumonia Additional Past Medical History / Comment(s): sob at times. History of Any Multi-Drug Resistant Organisms: None Reported Past Surgical History: Breast Surgery, Orthopedic Surgery Additional Past Surgical History / Comment(s): cyst removed from breast Past Anesthesia/Blood Transfusion Reactions: No Reported Reaction Past Psychological History: Anxiety, Depression Smoking Status: Never smoker Past Alcohol Use History: None Reported Past Drug Use History: None Reported - Past Family History Father Family Medical History: Cancer Additional Family Medical History / Comment(s): bone ca Medications and Allergies Home Medications Medication Instructions Recorded Confirmed Type PARoxetine [Paxil] 20 mg PO HS 11/04/15 06/10/20 History Atorvastatin [Lipitor] 40 mg PO DAILY 09/08/18 06/10/20 History Clopidogrel [Plavix] 75 mg PO HS 09/08/18 06/10/20 History Metoprolol Succinate [Toprol XL] 25 mg PO DAILY #30 tab 09/09/18 06/10/20 Rx Albuterol Inhaler [Ventolin Hfa 2 puff INHALATION RT-QID PRN 06/10/20 06/10/20 History Inhaler] Ipratropium-Albuterol Nebulize 3 ml INHALATION RT-QID PRN 06/10/20 06/10/20 History [Duoneb 0.5 mg-3 mg/3 ml Soln] Allergies Allergy/AdvReac Type Severity Reaction Status Date / Time No Known Allergies Allergy Verified 06/10/20 11:40 Physical Exam Vitals: Vital Signs Temp Pulse Pulse Resp BP BP Pulse Ox 06/10/20 14:45 98.0 F 73 17 141/89 93 L 06/10/20 14:00 133/71 95 06/10/20 13:30 151/89 96 06/10/20 13:25 76 16 06/10/20 13:17 76 16 06/10/20 13:00 151/76 96 06/10/20 12:30 137/95 97 06/10/20 12:00 124/73 97 06/10/20 11:30 154/85 97 06/10/20 11:24 90 L 06/10/20 11:13 98.1 F 90 20 149/82 94 L Intake and Output 06/10/20 06/10/20 06/10/20 06:59 14:59 22:59 Intake Total 120 Balance 120 Intake: Oral 120 Other: # Voids 1 Weight 90.718 kg 90.718 kg PHYSICAL EXAMINATION: Patient is lying in the bed comfortably, no acute distress, awake alert and oriented.. HEENT: Normocephalic. Neck is supple. Pupils reactive. Nostrils clear. Oral cavity is moist. Ears reveal no drainage. Neck reveals no JVD, carotid bruits, or thyromegaly. CHEST EXAMINATION: Trachea is central. Symmetrical expansion. Bilateral diffuse rhonchi and diminished air entry and wheezing.. CARDIAC: Normal S1, S2 with no gallops. No murmurs ABDOMEN: Soft. Bowel sounds normal. No organomegaly. No abdominal bruits. Extremities: reveal no edema. No clubbing or cyanosis Neurologically awake, alert, oriented x3 with well-coordinated movements. No focal deficits noted Skin: No rash or skin lesions. Psychiatric: Coperative. Nonsuicidal Musculoskeletal: No joint swelling or deformity. Normal range of motion. Results CBC & Chem 7: 06/10/20 11:54 06/10/20 11:54 Labs: Abnormal Lab Results - Last 24 Hours (Table) 06/10/20 06/10/20 06/10/20 Range/Units 11:54 11:54 12:24 Lymphocytes # 0.6 L (1.0-4.8) k/uL Glucose 166 H (74-99) mg/dL Urine Appearance Cloudy H (Clear) Urine Protein Trace H (Negative) Ur Leukocyte Esterase Moderate H (Negative) Urine WBC 8 H (0-5) /hpf Ur Squamous Epith Cells 11 H (0-4) /hpf Urine Bacteria Rare H (None) /hpf Urine Mucus Many H (None) /hpf Thrombosis Risk Factor Assmnt - DVT/VTE Prophylaxis DVT/VTE Prophylaxis: Pharmacologic Prophylaxis ordered Assessment and Plan Assessment: Acute COPD exacerbation with purulent tracheobronchitis and possible right middle and lingular pneumonia with bilateral infiltrates. GERD Anxiety/depression DVT prophylaxis with heparin subcu Plan: Patient will be continued on IV Solu-Medrol and duo nebs. Continue with home medications and add antibiotics for possible pneumonia. Pulmonary will be consulted. Further recommendations based on clinical course. Time with Patient: Greater than 30
[2020-06-11] MEDS: SODIUM CHLORIDE 0.9% 1,000 ML IV SCH ×2 (04:41→16:45)
[2020-06-11] MEDS: methylPREDNISolone SOD SUCCI 125 MG/2 ML VIAL IV SCH ×4 (05:21→23:30)
[2020-06-11] MEDS: IPRATROPIUM-ALBUTEROL 3 ML NEB INHALATION PRN ×4 (06:00→19:52)
[2020-06-11] MEDS: METOPROLOL SUCCINATE (ER) 25 MG TAB.ER.24H PO SCH (08:25)
[2020-06-11] MEDS: HEPARIN SODIUM,PORCINE 5,000 UNIT/ML 1 ML VIAL SQ SCH ×3 (08:25→23:30)
[2020-06-11] MEDS: ATORVASTATIN 40 MG TAB PO SCH (08:25)
[2020-06-11 08:51] LABS: HCT 42.8 % (34.0-46.0); HGB 13.7 gm/dL (11.4-16.0); MCH 29.9 pg (25.0-35.0); MCHC 32.1 g/dL (31.0-37.0); MCV 93.3 fL (80.0-100.0); Mean Platelet Volume 8.6; Platelet Count 213 k/uL (150-450); RBC 4.58 m/uL (3.80-5.40); RDW 12.8 % (11.5-15.5); WBC 4.5 k/uL (3.8-10.6)
[2020-06-11 11:38] LABS: Lymphocytes # (M) 0.45 k/uL (1.0-4.8); Monocytes # (M) 0.05 k/uL (0-1.0); Neutrophils # (M) 4.01 k/uL (1.3-7.7); Neutrophils % (M) 89 %; Nucleated Red Blood Cells 0 /100 WBC (0-0); Total Cells Counted 100
[2020-06-11 12:16] LABS: African American GFR (CKD) 69.5 (60.0-200.0); Anion Gap 9.8 mmol/L (4.00-12.00); BUN/Creat Ratio 24.44 Ratio (12.00-20.00); Calcium 9.2 mg/dL (8.7-10.3); Carbon Dioxide 25.2 mmol/L (21.6-31.8); Potassium 4.2 mmol/L (3.5-5.5)
--- NOTE | 2020-06-11 15:07 | P.CNPUL ---
History of Present Illness Consult date: 06/11/20 Requesting physician: Osiel Hui Reason for consult: dyspnea Chief complaint: Shortness of breath, cough, congestion History of present illness: This is a very pleasant 79-year-old female patient who follows with Dr. Mcnair as her primary care provider. She has a history of gastroesophageal reflux disease, hypertension, hyperlipidemia, diastolic congestive heart failure. He follows with Dr. Ware in our office for COPD former smoker. She presented to the emergency room yesterday with complaints of increasing shortness of breath, cough congestion, chest tightness and wheezing. Chest x-ray revealed some new bilateral mid right middle lobe and lingula filtrate. There is some chronic changes as well compared to previous. She is seen today in consultation on the regular medical floor. Awake and alert in no acute distress. Sitting up at the bedside. She states she is breathing easier today compared to yesterday. She's been afebrile. Hemodynamically stable. Maintaining O2 saturations in the low 90s on room air. White count 4.5. Hemoglobin 13.7. Sodium 142. Potassium 4.2. Creatinine 0.9. Miller virus not detected. Influenza screen negative. Review of Systems REVIEW OF SYSTEMS: CONSTITUTIONAL: Denies any recent significant weight loss or weight gain. EYES: Denies change in vision. EARS, NOSE, MOUTH, THROAT: Denies headaches, denies sore throat. CARDIOVASCULAR: Denies chest pain, palpitations or syncopal episodes. RESPIRATORY: Positive for shortness of breath, cough, congestion no hemoptysis. GASTROINTESTINAL: Denies change in appetite, denies abdominal pain GENITOURINARY: Denies hematuria, denies infections. MUSKULOSKELETAL: Denies pain, denies swelling. INTEGUMENTARY: Denies rash, denies eczema. NEUROLOGICAL: Denies recent memory loss, no recent seizure activity. PSYCHIATRIC: Denies anxiety, denies depression. HEMATOLOGIC/LYMPHATIC: Denies anemia, denies enlarged lymph nodes. Past Medical History Past Medical History: COPD, GERD/Reflux, Pneumonia Additional Past Medical History / Comment(s): sob at times. History of Any Multi-Drug Resistant Organisms: None Reported Past Surgical History: Breast Surgery, Orthopedic Surgery Additional Past Surgical History / Comment(s): cyst removed from breast Past Anesthesia/Blood Transfusion Reactions: No Reported Reaction Past Psychological History: Anxiety, Depression Smoking Status: Never smoker Past Alcohol Use History: None Reported Past Drug Use History: None Reported - Past Family History Father Family Medical History: Cancer Additional Family Medical History / Comment(s): bone ca Medications and Allergies Home Medications Medication Instructions Recorded Confirmed Type PARoxetine [Paxil] 20 mg PO HS 11/04/15 06/10/20 History Atorvastatin [Lipitor] 40 mg PO DAILY 09/08/18 06/10/20 History Clopidogrel [Plavix] 75 mg PO HS 09/08/18 06/10/20 History Metoprolol Succinate [Toprol XL] 25 mg PO DAILY #30 tab 09/09/18 06/10/20 Rx Albuterol Inhaler [Ventolin Hfa 2 puff INHALATION RT-QID PRN 06/10/20 06/10/20 History Inhaler] Ipratropium-Albuterol Nebulize 3 ml INHALATION RT-QID PRN 06/10/20 06/10/20 History [Duoneb 0.5 mg-3 mg/3 ml Soln] Allergies Allergy/AdvReac Type Severity Reaction Status Date / Time No Known Allergies Allergy Verified 06/10/20 11:40 Physical Exam Vitals: Vital Signs Temp Pulse Pulse Resp BP Pulse Ox 06/11/20 10:54 84 06/11/20 10:41 82 06/11/20 08:00 98.3 F 70 18 134/75 92 L 06/11/20 06:15 80 06/11/20 06:01 80 06/11/20 02:50 98.1 F 58 L 22 136/74 94 L 06/10/20 21:29 80 06/10/20 21:16 78 06/10/20 20:00 20 06/10/20 19:48 98.9 F 92 24 134/78 93 L 06/10/20 19:36 94 L Intake and Output 06/10/20 06/11/20 06/11/20 22:59 06:59 14:59 Intake Total 120 Balance 120 Intake: Oral 120 Other: Voiding Method Toilet # Voids 1 2 Weight 90.718 kg GENERAL EXAM: Alert, active, pleasant 79-year-old female patient, on room air, comfortable in no apparent distress. HEAD: Normocephalic. EYES: Normal reaction of pupils, equal size. NOSE: Clear with pink turbinates. THROAT: No erythema or exudates. NECK: No masses, no JVD. CHEST: No chest wall deformity. LUNGS: Equal air entry with faint end expiratory wheeze, diminished. CVS: S1 and S2 normal with no audible murmur, regular rhythm. ABDOMEN: No hepatosplenomegaly, normal bowel sounds, no guarding or rigidity. SPINE: No scoliosis or deformity SKIN: No rashes CENTRAL NERVOUS SYSTEM: No focal deficits, tone is normal in all 4 extremities. EXTREMITIES: There is no peripheral edema. No clubbing, no cyanosis. Perip heral pulses are intact. Results - Laboratory Findings CBC and BMP: 06/11/20 08:04 06/11/20 08:08 PT/INR, D-dimer PT 11.2 sec (9.0-12.0) 06/10/20 11:54 INR 1.1 (<1.2) 06/10/20 11:54 D-Dimer 0.23 mg/L FEU (<0.60) 06/10/20 11:54 Abnormal lab findings: Abnormal Labs 06/10/20 06/10/20 06/10/20 11:54 11:54 12:24 Lymphocytes # 0.6 L Lymphocytes # (Manual) BUN/Creatinine Ratio Glucose 166 H Urine Appearance Cloudy H Urine Protein Trace H Ur Leukocyte Esterase Moderate H Urine WBC 8 H Ur Squamous Epith Cells 11 H Urine Bacteria Rare H Urine Mucus Many H 06/11/20 06/11/20 08:04 08:08 Lymphocytes # Lymphocytes # (Manual) 0.45 L BUN/Creatinine Ratio 24.44 H Glucose 239 H Urine Appearance Urine Protein Ur Leukocyte Esterase Urine WBC Ur Squamous Epith Cells Urine Bacteria Urine Mucus - Diagnostic Findings Chest x-ray: image reviewed Assessment and Plan Assessment: 1 Acute exacerbation of chronic obstructive pulmonary disease complicated by po ssible early pneumonia versus chronic changes 2 Former smoker 3 Gastroesophageal reflux disease 4 Hyperlipidemia Plan: The patient was seen and evaluated by Dr. Ware Chest x-ray and labs reviewed Check a pro-calcitonin Continue antibiotics for now IV Solu-Medrol, bronchodilators Heparin for DVT prophylaxis We will continue to follow and make further recommendations based on her clinical status I, the cosigning physician, performed a history & physical examination of the patient. Lungs sounds with faint end x-ray wheeze, diminished. Maintaining good O2 saturations in the 90s on room air. I discussed the assessment and plan of care with my nurse practitioner, Imelda Brunner. I attest to the above consultation as dictated by her. Time with Patient: Greater than 30
[2020-06-11] MEDS: PARoxetine 20 MG TAB PO SCH (20:32)
[2020-06-11] MEDS: CLOPIDOGREL 75 MG TAB PO SCH (20:32)
[2020-06-11] MEDS: AZITHROMYCIN 500 MG TAB PO SCH (20:32)
[2020-06-12] MEDS: IPRATROPIUM-ALBUTEROL 3 ML NEB INHALATION PRN ×5 (01:45→18:51)
[2020-06-12] MEDS: methylPREDNISolone SOD SUCCI 125 MG/2 ML VIAL IV SCH ×3 (09:43→17:30)
[2020-06-12] MEDS: HEPARIN SODIUM,PORCINE 5,000 UNIT/ML 1 ML VIAL SQ SCH ×2 (09:44→15:32)
[2020-06-12] MEDS: METOPROLOL SUCCINATE (ER) 25 MG TAB.ER.24H PO SCH (09:44)
[2020-06-12] MEDS: ATORVASTATIN 40 MG TAB PO SCH (09:44)
--- NOTE | 2020-06-12 14:33 | P.PN ---
Subjective Progress Note Date: 06/12/20 Principal diagnosis: Shortness of breath, cough, congestion This is a very pleasant 79-year-old female patient who follows with Dr. Mcnair as her primary care provider. She has a history of gastroesophageal reflux disease, hypertension, hyperlipidemia, diastolic congestive heart failure. He follows with Dr. Ware in our office for COPD former smoker. She presented to the emergency room yesterday with complaints of increasing shortness of breath, cough congestion, chest tightness and wheezing. Chest x-ray revealed some new bilateral mid right middle lobe and lingula filtrate. There is some chronic changes as well compared to previous. She is seen today in consultation on the regular medical floor. Awake and alert in no acute distress. Sitting up at the bedside. She states she is breathing easier today compared to yesterday. She's been afebrile. Hemodynamically stable. Maintaining O2 saturations in the low 90s on room air. White count 4.5. Hemoglobin 13.7. Sodium 142. Potassium 4.2. Creatinine 0.9. Miller virus not detected. Influenza screen negative. On 06/12/2020 patient seen in follow-up on the general medical surgical floor, he is breathing comfortably today, room air pulse ox is 94%, she been afebrile, hemodynamically she is stable. Today's labs have been reviewed, normal white count of 4.5, hemoglobin of 13.7, electrolytes in the renal profile were unremarkable, urinalysis showed done moderate leuks, a few white blood cells, and rare bacteria, no clear evidence of urinary tract infection, influenza screen was negative, RSV was negative, SARS CoV 2 PCR was negative. Lung sounds reveal mild crackles in the right lower base, chest x-ray shows patchy infiltrate in the right lower lobe. Patient is on antibiotics azithromycin and Rocephin, she is breathing comfortably, she is on breathing treatment she is on IV steroids, no wheezing or rhonchi, no complaint of chest pain. She is ambulating to the bathroom, tolerating activity quite well. Objective - Vital Signs Vital signs: Vital Signs Temp 97.5 F L 06/12/20 08:16 Pulse 96 06/12/20 11:03 Resp 17 06/12/20 08:16 BP 154/89 06/12/20 08:16 Pulse Ox 94 L 06/12/20 08:16 Intake & Output 06/11/20 06/12/20 06/12/20 18:59 06:59 18:59 Other: Voiding Method Toilet Diaper Incontinent Indwelling Catheter External Catheter # Voids 3 3 - Exam GENERAL EXAM: Alert, very pleasant, 79-year-old white female, on room air, with a pulse ox of 94% comfortable in no apparent distress. HEAD: Normocephalic/atraumatic. EYES: Normal reaction of pupils, equal size. Conjunctiva pink, sclera white. NOSE: Clear with pink turbinates. THROAT: No erythema or exudates. NECK: No masses, no JVD, no thyroid enlargement, no adenopathy. CHEST: No chest wall deformity. Symmetrical expansion. LUNGS: Equal air entry with bibasilar crackles, but no wheezes or rhonchi CVS: Regular rate and rhythm, normal S1 and S2, no gallops, no murmurs, no rubs ABDOMEN: Soft, nontender. No hepatosplenomegaly, normal bowel sounds, no guarding or rigidity. EXTREMITIES: No clubbing, no edema, no cyanosis, 2+ pulses and upper and lower extremities. MUSCULOSKELETAL: Muscle strength and tone normal. SPINE: No scoliosis or deformity SKIN: No rashes CENTRAL NERVOUS SYSTEM: Alert and oriented -3. No focal deficits, tone is normal in all 4 extremities. PSYCHIATRIC: Alert and oriented -3. Appropriate affect. Intact judgment and insight. - Labs CBC & Chem 7: 06/11/20 08:04 06/11/20 08:08 Assessment and Plan Plan: Assessment: 1 Acute exacerbation of chronic obstructive pulmonary disease complicated by possible early pneumonia versus chronic changes 2 Former smoker 3 Gastroesophageal reflux disease 4 Hyperlipidemia Plan: She is doing well, clinically stable, no fever or chills, no worsening dyspnea, she is on room air, and she was ruled out for influenza, COVID 19, or RSV. She is tolerating ambulation, she said no acute events overnight, she can be co nsidered for discharge home on oral antibiotics with outpatient follow-up with Dr. Junior in the office 7-10 days I performed a history & physical examination of the patient and discussed their management with my nurse practitioner, Whit Tovar. I reviewed the nurse practitioner's note and agree with the documented findings and plan of care. Lung sounds are positive for diminished breath sounds. The findings and the impression was discussed with the patient. I attest to the documentation by the nurse practitioner. Time with Patient: Less than 30
[2020-06-12] MEDS: AZITHROMYCIN 500 MG TAB PO SCH (21:25)
[2020-06-12] MEDS: CLOPIDOGREL 75 MG TAB PO SCH (21:25)
[2020-06-12] MEDS: PARoxetine 20 MG TAB PO SCH (21:25)
--- NOTE | 2020-06-12 21:50 | P.PN ---
Subjective Progress Note Date: 06/11/20 Principal diagnosis: Acute COPD exacerbation Possible pneumonia Patient is a 79-year-old female with a known history of COPD not on home oxygen, GERD, anxiety/depression who follows with Dr. Palomares in the clinic due to her COPD presents to ER with complaints of worsening shortness of breath and wheezing which is gradually getting worse for the past 1 month. Patient states that since 1 week she has been having worsening shortness of breath and cough with yellowish mucus sputum production. She did use nebulizer at home without improvement of symptoms. Denied any complaints of nausea vomiting. No fever no chills. Denies any dysuria or hematuria. Chest x-ray showed there is new bilateral mild right middle lobe and lingula infiltrate.. Normal heart. Laboratory data showed WBC 6.1, hemoglobin 14.5 and platelets 216 D-dimer is 0.23 not elevated Urinalysis showed cloudy with trace protein and moderate leukocytes trace with WBCs 8 Influenza a and coronavirus PCR negative. Electrolytes within normal limits. 06/11/20 Patient is currently resting in the bed comfortably. Still having exertional dyspnea. Bilateral air entry is improving. Still having expiratory wheezing. No complaints of fever or chills. No nausea vomiting or abdominal pain. No diarrhea. Tolerating oral diet. Patient is being continued on IV steroids and breathing treatments and antibiotics. Pulmonary is on board. Current medications reviewed. Objective - Vital Signs Vital signs: Vital Signs Temp 98.3 F 06/11/20 08:00 Pulse 84 06/11/20 10:54 Resp 18 06/11/20 08:00 BP 134/75 06/11/20 08:00 Pulse Ox 92 L 06/11/20 08:00 Intake & Output 06/10/20 06/11/20 06/11/20 18:59 06:59 18:59 Intake Total 120 Balance 120 Weight 90.718 kg Intake: Oral 120 Other: Voiding Method Toilet # Voids 1 2 - Exam PHYSICAL EXAMINATION: Patient is lying in the bed comfortably, no acute distress, awake alert and oriented.. HEENT: Normocephalic. Neck is supple. Pupils reactive. Nostrils clear. Oral cavity is moist. Ears reveal no drainage. Neck reveals no JVD, carotid bruits, or thyromegaly. CHEST EXAMINATION: Trachea is central. Symmetrical expansion. Bilateral diffuse rhonchi and diminished air entry and wheezing.. CARDIAC: Normal S1, S2 with no gallops. No murmurs ABDOMEN: Soft. Bowel sounds normal. No organomegaly. No abdominal bruits. Extremities: reveal no edema. No clubbing or cyanosis Neurologically awake, alert, oriented x3 with well-coordinated movements. No focal deficits noted Skin: No rash or skin lesions. Psychiatric: Coperative. Nonsuicidal Musculoskeletal: No joint swelling or deformity. Normal range of motion. - Labs CBC & Chem 7: 06/11/20 08:04 06/11/20 08:08 Labs: Abnormal Lab Results - Last 24 Hours (Table) 06/11/20 06/11/20 Range/Units 08:04 08:08 Lymphocytes # (Manual) 0.45 L (1.0-4.8) k/uL BUN/Creatinine Ratio 24.44 H (12.00-20.00) Ratio Glucose 239 H (70-110) mg/dL Assessment and Plan Assessment: Acute COPD exacerbation with purulent tracheobronchitis and possible right middle and lingular pneumonia with bilateral infiltrates. GERD Anxiety/depression DVT prophylaxis with heparin subcu Plan: Patient will be continued on IV Solu-Medrol and duo nebs. Continue with home medications and add antibiotics for possible pneumonia. Pulmonary will be consulted. Further recommendations based on clinical course.
--- NOTE | 2020-06-12 21:53 | P.PN ---
Subjective Progress Note Date: 06/12/20 Principal diagnosis: Acute COPD exacerbation Possible pneumonia Patient is a 79-year-old female with a known history of COPD not on home oxygen, GERD, anxiety/depression who follows with Dr. Palomares in the clinic due to her COPD presents to ER with complaints of worsening shortness of breath and wheezing which is gradually getting worse for the past 1 month. Patient states that since 1 week she has been having worsening shortness of breath and cough with yellowish mucus sputum production. She did use nebulizer at home without improvement of symptoms. Denied any complaints of nausea vomiting. No fever no chills. Denies any dysuria or hematuria. Chest x-ray showed there is new bilateral mild right middle lobe and lingula infiltrate.. Normal heart. Laboratory data showed WBC 6.1, hemoglobin 14.5 and platelets 216 D-dimer is 0.23 not elevated Urinalysis showed cloudy with trace protein and moderate leukocytes trace with WBCs 8 Influenza a and coronavirus PCR negative. Electrolytes within normal limits. 06/11/20 Patient is currently resting in the bed comfortably. Still having exertional dyspnea. Bilateral air entry is improving. Still having expiratory wheezing. No complaints of fever or chills. No nausea vomiting or abdominal pain. No diarrhea. Tolerating oral diet. Patient is being continued on IV steroids and breathing treatments and antibiotics. Pulmonary is on board. 06/12/2020 Patient states that she is not feeling well today. Still having difficulty in breathing and exertional dyspnea. No fever no chills. Currently being continued on IV steroids and antibiotics and breathing treatments. requiring oxygen via nasal cannula. Anticipate discharge in the next 24 hours with more clinical improvement. Pulmonary is following. Current medications reviewed. Objective - Vital Signs Vital signs: Vital Signs Temp 97.7 F 06/12/20 15:39 Pulse 80 06/12/20 19:00 Resp 18 06/12/20 15:39 BP 117/72 06/12/20 15:39 Pulse Ox 94 L 06/12/20 15:39 Intake & Output 06/12/20 06/12/20 06/13/20 06:59 18:59 06:59 Other: Voiding Method Diaper Diaper Incontinent Incontinent Indwelling Catheter External Catheter # Voids 3 3 - Exam PHYSICAL EXAMINATION: Patient is lying in the bed comfortably, no acute distress, awake alert and oriented.. HEENT: Normocephalic. Neck is supple. Pupils reactive. Nostrils clear. Oral cavity is moist. Ears reveal no drainage. Neck reveals no JVD, carotid bruits, or thyromegaly. CHEST EXAMINATION: Trachea is central. Symmetrical expansion. Bilateral diffuse rhonchi and diminished air entry and wheezing.. CARDIAC: Normal S1, S2 with no gallops. No murmurs ABDOMEN: Soft. Bowel sounds normal. No organomegaly. No abdominal bruits. Extremities: reveal no edema. No clubbing or cyanosis Neurologically awake, alert, oriented x3 with well-coordinated movements. No focal deficits noted Skin: No rash or skin lesions. Psychiatric: Coperative. Nonsuicidal Musculoskeletal: No joint swelling or deformity. Normal range of motion. - Labs CBC & Chem 7: 06/11/20 08:04 06/11/20 08:08 Assessment and Plan Assessment: Acute COPD exacerbation with purulent tracheobronchitis and possible right middle and lingular pneumonia with bilateral infiltrates. GERD Anxiety/depression DVT prophylaxis with heparin subcu Plan: Patient will be continued on IV Solu-Medrol and duo nebs. Continue with oxygen via [place] Continue with home medications and add antibiotics for possible pneumonia. Pulmonary will be consulted. Further recommendations based on clinical course.
[2020-06-13] MEDS: methylPREDNISolone SOD SUCCI 125 MG/2 ML VIAL IV SCH ×3 (00:08→12:01)
[2020-06-13] MEDS: IPRATROPIUM-ALBUTEROL 3 ML NEB INHALATION PRN ×3 (00:11→13:05)
[2020-06-13] MEDS: HEPARIN SODIUM,PORCINE 5,000 UNIT/ML 1 ML VIAL SQ SCH ×2 (00:11→08:07)
[2020-06-13] MEDS: ATORVASTATIN 40 MG TAB PO SCH (08:07)
[2020-06-13] MEDS: METOPROLOL SUCCINATE (ER) 25 MG TAB.ER.24H PO SCH (08:07)
[2020-06-13 08:44] LABS: Basophils % (A) 0 %; Eosinophils % (A) 0 %; HCT 42.3 % (34.0-46.0); HGB 13.7 gm/dL (11.4-16.0); Lymphocytes # (A) 0.4 k/uL (1.0-4.8); Lymphocytes % (A) 7 %; MCH 30.4 pg (25.0-35.0); MCHC 32.5 g/dL (31.0-37.0); MCV 93.4 fL (80.0-100.0); Mean Platelet Volume 8.8; Monocytes # (A) 0.2 k/uL (0-1.0); Monocytes % (A) 3 %; Neutrophils # (A) 4.7 k/uL (1.3-7.7); Neutrophils % (A) 89 %; Platelet Count 201 k/uL (150-450); RBC 4.53 m/uL (3.80-5.40); RDW 13.1 % (11.5-15.5); WBC 5.3 k/uL (3.8-10.6)
[2020-06-13 09:35] VITALS: RESP 22
[2020-06-13] MEDS ORDERED: FUROSEMIDE 10 MG/ML 4 ML VIAL IV STA (11:51)
--- NOTE | 2020-06-13 12:53 | P.PN ---
Subjective Progress Note Date: 06/13/20 Principal diagnosis: Shortness of breath, cough, congestion This is a very pleasant 79-year-old female patient who follows with Dr. Mcnair as her primary care provider. She has a history of gastroesophageal reflux disease, hypertension, hyperlipidemia, diastolic congestive heart failure. He follows with Dr. Ware in our office for COPD former smoker. She presented to the emergency room yesterday with complaints of increasing shortness of breath, cough congestion, chest tightness and wheezing. Chest x-ray revealed some new bilateral mid right middle lobe and lingula filtrate. There is some chronic changes as well compared to previous. She is seen today in consultation on the regular medical floor. Awake and alert in no acute distress. Sitting up at the bedside. She states she is breathing easier today compared to yesterday. She's been afebrile. Hemodynamically stable. Maintaining O2 saturations in the low 90s on room air. White count 4.5. Hemoglobin 13.7. Sodium 142. Potassium 4.2. Creatinine 0.9. Miller virus not detected. Influenza screen negative. On 06/12/2020 patient seen in follow-up on the general medical surgical floor, he is breathing comfortably today, room air pulse ox is 94%, she been afebrile, hemodynamically she is stable. Today's labs have been reviewed, normal white count of 4.5, hemoglobin of 13.7, electrolytes in the renal profile were unremarkable, urinalysis showed done moderate leuks, a few white blood cells, and rare bacteria, no clear evidence of urinary tract infection, influenza screen was negative, RSV was negative, SARS CoV 2 PCR was negative. Lung sounds reveal mild crackles in the right lower base, chest x-ray shows patchy infiltrate in the right lower lobe. Patient is on antibiotics azithromycin and Rocephin, she is breathing comfortably, she is on breathing treatment she is on IV steroids, no wheezing or rhonchi, no complaint of chest pain. She is ambulating to the bathroom, tolerating activity quite well. On 06/13/2020 patient seen in follow-up on the [facility] medical surgical floor, she states she still a little wheezy, but Denies Any Acute Distress, She Is on Room Air, Pulse ox is 93-95%, she's been afebrile, denies any chest pain, lung sounds reveal diminished breath sounds with some minimal end expiratory wheezing, some mild pretibial edema present, his labs have been reviewed, sh owing a white blood cell count of 5.3, hemoglobin 13.7. She has had no acute events overnight. She has been afebrile, the combination of azithromycin and Rocephin, breathing treatments, and IV steroids, and we'll give the patient a dose of IV Lasix. Repeat chest x-ray today has been reviewed showing right middle lobe infiltrate, pulmonary vascular congestion, and small bilateral pleural effusions. Objective - Vital Signs Vital signs: Vital Signs Temp 97.9 F 06/13/20 07:00 Pulse 84 06/13/20 08:36 Resp 22 06/13/20 07:00 BP 138/80 06/13/20 07:00 Pulse Ox 93 L 06/13/20 07:00 Intake & Output 06/12/20 06/13/20 06/13/20 18:59 06:59 18:59 Intake Total 100 120 Balance 100 120 Intake: Intake, IV Titration 100 Amount cefTRIAXone 1 gm In 100 Sodium Chloride 0.9% 50 ml @ 100 mls/hr IVPB Q24H REPLACED BY [facility] Rx#:[id number] Oral 120 Other: Voiding Method Diaper Diaper Diaper Incontinent Incontinent Incontinent Indwelling Catheter External Catheter # Voids 3 2 - Exam GENERAL EXAM: Alert, very pleasant, 79-year-old white female, on room air, with a pulse ox of 94% comfortable in no apparent distress. HEAD: Normocephalic/atraumatic. EYES: Normal reaction of pupils, equal size. Conjunctiva pink, sclera white. NOSE: Clear with pink turbinates. THROAT: No erythema or exudates. NECK: No masses, no JVD, no thyroid enlargement, no adenopathy. CHEST: No chest wall deformity. Symmetrical expansion. LUNGS: Equal air entry minimal end expiratory wheezing CVS: Regular rate and rhythm, normal S1 and S2, no gallops, no murmurs, no rubs ABDOMEN: Soft, nontender. No hepatosplenomegaly, normal bowel sounds, no guarding or rigidity. EXTREMITIES: No clubbing, no edema, no cyanosis, 2+ pulses and upper and lower extremities. MUSCULOSKELETAL: Muscle strength and tone normal. SPINE: No scoliosis or deformity SKIN: No rashes CENTRAL NERVOUS SYSTEM: Alert and oriented -3. No focal deficits, tone is normal in all 4 extremities. PSYCHIATRIC: Alert and oriented -3. Appropriate affect. Intact judgment and insight. - Labs CBC & Chem 7: 06/13/20 07:52 06/11/20 08:08 Labs: Abnormal Lab Results - Last 24 Hours (Table) 06/13/20 Range/Units 07:52 Lymphocytes # 0.4 L (1.0-4.8) k/uL Assessment and Plan Plan: Assessment: 1 Acute exacerbation of chronic obstructive pulmonary disease complicated by possible early pneumonia versus chronic changes 2 Former smoker 3 Gastroesophageal reflux disease 4 Hyperlipidemia Plan: Today chest x-ray has been reviewed showing right middle lobe infiltrate, pulmonary vascular congestion, tiny pleural effusions bilaterally, we'll give the patient on dose of IV Lasix, continue same antibiotics, unresponsive is stable, patient has been stable, she can still be considered for discharge home today on oral antibiotics and outpatient follow-up in 7-[address] Junior in the office I performed a history & physical examination of the patient and discussed their management with my nurse practitioner, Whit Tovar. I reviewed the nurse practitioner's note and agree with the documented findings and plan of care. Lung sounds are positive for diminished breath sounds. The findings and the impression was discussed with the patient. I attest to the documentation by the nurse practitioner. Time with Patient: Less than 30
--- NOTE | 2020-06-13 13:56 | XR ---
EXAMINATION TYPE: XR chest 2V DATE OF EXAM: 06/13/2020 COMPARISON: Prior chest x-ray 06/10/[address] 09/02/2018 HISTORY: Pneumonia TECHNIQUE: Frontal and lateral views of the chest are obtained. FINDINGS: Minimal patchy density present at the left lung base, there is blunting the left costophre ines angle. Apical pleural thickening is again seen. Cardiac mediastinal silhouette is not significant change. Some vague increased density present in the right midlung. No evident pneumothorax. Patient is rotated. Aorta is dense. Prominent lung volumes are seen just of underlying COPD, patient with kno wn bilateral bronchiectasis. IMPRESSION: Correlate for pneumonia, there may be small left pleural effusion versus basilar atelect asis.
[2020-06-13 14:49] VITALS: BP 138/83; PULSE 70; TEMP 97.4
[2020-06-13 16:49] LABS: African American GFR (CKD) 80.1 (60.0-200.0); Anion Gap 9.2 mmol/L (4.00-12.00); BUN/Creat Ratio 38.75 Ratio (12.00-20.00); Calcium 9.3 mg/dL (8.7-10.3); Carbon Dioxide 23.8 mmol/L (21.6-31.8); Non-African American GFR(CKD) 69.1 (60.0-200.0); Potassium 4.5 mmol/L (3.5-5.5)
== END 2020-06-13 15:52 | disposition home or self-care (01) | DRG 190 ==
LOC: EC 11:08 → 4SSUR 14:01
PROVIDERS: ADMIT Internal Medicine; ATTEND Internal Medicine
DX: J44.1 Chronic obstructive pulmonary disease with (acute) exacerbation (principal); J18.9 Pneumonia, unspecified organism; I50.32 Chronic diastolic (congestive) heart failure; E78.5 Hyperlipidemia, unspecified; I11.0 Hypertensive heart disease with heart failure; J44.0 Chronic obstructive pulmonary disease with (acute) lower respiratory infection; Z20.828 Contact with and (suspected) exposure to other viral communicable diseases; F32.9 Major depressive disorder, single episode, unspecified; F41.9 Anxiety disorder, unspecified; K21.9 Gastro-esophageal reflux disease without esophagitis; Z87.891 Personal history of nicotine dependence; Z79.899 Other long term (current) drug therapy; Z87.01 Personal history of pneumonia (recurrent); Z87.898 Personal history of other specified conditions; Z98.890 Other specified postprocedural states; Z80.8 Family history of malignant neoplasm of other organs or systems
CPT/HCPCS: 36415; 71046; 80048; 80053; 81001; 83605; 84145; 84484; 85025; 85379; 85610; 85730; 87636; 93005; 94640; 96361; 96374; 99285

== ENCOUNTER 2021-01-30 12:32 | Emergency (ER) | payer MEDICARE, OTHER ==
[2021-01-30 12:50] VITALS: TEMP 98.3
[2021-01-30 13:39] LABS: Basophils % (A) 1 %; Eosinophils # (A) 0.4 k/uL (0-0.7); Eosinophils % (A) 5 %; HCT 46.5 % (34.0-46.0); HGB 15.2 gm/dL (11.4-16.0); Lymphocytes % (A) 13 %; MCH 30.7 pg (25.0-35.0); MCHC 32.7 g/dL (31.0-37.0); MCV 94.1 fL (80.0-100.0); Mean Platelet Volume 8.6; Monocytes # (A) 0.4 k/uL (0-1.0); Monocytes % (A) 5 %; Neutrophils # (A) 5.4 k/uL (1.3-7.7); Neutrophils % (A) 74 %; Platelet Count 218 k/uL (150-450); RBC 4.94 m/uL (3.80-5.40); RDW 13.1 % (11.5-15.5); WBC 7.3 k/uL (3.8-10.6)
[2021-01-30 13:54] LABS: Albumin 4.2 g/dL (3.5-5.0); Potassium 4.6 mmol/L (3.5-5.1); Total Bilirubin 0.9 mg/dL (0.2-1.3); Total Protein 6.7 g/dL (6.3-8.2)
[2021-01-30 14:13] LABS: INR 1.1 (<1.2); Prothrombin Time 11.4 sec (9.0-12.0)
[2021-01-30 14:22] LABS: Partial Thromboplastin Time 21.5 sec (22.0-30.0)
--- NOTE | 2021-01-30 14:48 | XR ---
EXAMINATION TYPE: XR chest 2V DATE OF EXAM: 01/30/2021 COMPARISON: 06/13/2020, 09/08/2018 TECHNIQUE: PA and lateral views submitted. HISTORY: Altered mental status with cough and wheezing FINDINGS: Hyperinflation compatible COPD there is a density seen in the right upper lobe and right midlung. Hea rt size stable. No overt failure pleural effusion. No pneumothorax. Diffuse osteopenia with degenerat marcia changes spine. Biapical pleural thickening. IMPRESSION: 1. Vague density in the right mid and upper lobe are noted and were present on the prior exam. Short- term follow-up CT of the chest recommended. 2. COPD
[2021-01-30] MEDS ORDERED: ALBUTEROL NEBULIZED 2.5 MG/3 ML INHALATION STA (15:36)
[2021-01-30] MEDS ORDERED: IPRATROPIUM 0.5 MG/2.5 ML NEBU INHALATION STA (15:36)
[2021-01-30] MEDS ORDERED: methylPREDNISolone SOD SUCCI 125 MG/2 ML VIAL IV STA (15:36)
--- NOTE | 2021-01-30 16:16 | ED ---
General Adult HPI - General Chief complaint: Altered Mental Status Stated complaint: wheezing, cough Time Seen by Provider: 01/30/21 15:00 Source: patient, family, RN notes reviewed, old records reviewed Mode of arrival: wheelchair Limitations: no limitations - History of Present Illness Initial comments: This is an 80-year-old female who presents emergency department with past medical history significant for COPD. Son thought she looked like she was having some difficulty breathing and thought she was confused because she was taking more time than normal to respond. Son states she never said anything altered for the fact that she was taking more tender spot the nurse that he brought her into the emergency department. Patient states she has no complaints other than her breathing lately has been worse and she is definitely wheezing. Patient denies any fever chills. Patient states she does have a little bit more cough lately. Patient denies any chest pain palpitations. Patient denies any abdominal pain patient denies nausea vomiting or diarrhea. - Related Data Home Medications Medication Instructions Recorded Confirmed PARoxetine [Paxil] 20 mg PO HS 11/04/15 01/30/21 Atorvastatin [Lipitor] 40 mg PO HS 09/08/18 01/30/21 Clopidogrel [Plavix] 75 mg PO HS 09/08/18 01/30/21 Albuterol Inhaler [Ventolin Hfa 2 puff INHALATION RT-QID PRN 06/10/20 01/30/21 Inhaler] Ipratropium-Albuterol Nebulize 3 ml INHALATION RT-QID PRN 06/10/20 01/30/21 [Duoneb 0.5 mg-3 mg/3 ml Soln] Budesonide [Pulmicort] 0.5 mg INHALATION RT-BID PRN 01/30/21 01/30/21 Furosemide [Lasix] 20 mg PO MOWEFR 01/30/21 01/30/21 Previous Rx's Medication Instructions Recorded Metoprolol Succinate [Toprol XL] 25 mg PO DAILY #30 tab 09/09/18 predniSONE [Deltasone] 40 mg PO DAILY #8 tab 01/30/21 Allergies Allergy/AdvReac Type Severity Reaction Status Date / Time No Known Allergies Allergy Verified 01/30/21 16:14 Review of Systems ROS Statement: Those systems with pertinent positive or pertinent negative responses have been documented in the HPI. ROS Other: All systems not noted in ROS Statement are negative. Past Medical History Past Medical History: COPD, CVA/TIA, GERD/Reflux, Pneumonia Additional Past Medical History / Comment(s): sob at times. History of Any Multi-Drug Resistant Organisms: None Reported Past Surgical History: Breast Surgery, Orthopedic Surgery Additional Past Surgical History / Comment(s): cyst removed from breast Past Anesthesia/Blood Transfusion Reactions: No Reported Reaction Past Psychological History: Anxiety, Depression Smoking Status: Never smoker Past Alcohol Use History: None Reported Past Drug Use History: None Reported - Past Family History Father Family Medical History: Cancer Additional Family Medical History / Comment(s): bone ca General Exam - General Exam Comments Initial Comments: GENERAL: Patient is well-developed and well-nourished. Patient is nontoxic and well- hydrated and is in mild distress. ENT: Neck is soft and supple. No significant lymphadenopathy is noted. Oropharynx is clear. Moist mucous membranes. Neck has full range of motion without eliciting any pain. EYES: The sclera were anicteric and conjunctiva were pink and moist. Extraocular movements were intact and pupils were equal round and reactive to light. Eyelids were unremarkable. PULMONARY: Expiratory wheezing CARDIOVASCULAR: There is a regular rate and rhythm without any murmurs gallops or rubs. ABDOMEN: Soft and nontender with normal bowel sounds. SKIN: Skin is clear with no lesions or rashes and otherwise unremarkable. NEUROLOGIC: Patient is alert and oriented x3. Cranial nerves II through XII are grossly intact. Motor and sensory are also intact. Normal speech, volume and content. Symmetrical smile. MUSCULOSKELETAL: Normal extremities with adequate strength and full range of motion. LYMPHATICS: No significant lymphadenopathy is noted PSYCHIATRIC: Normal psychiatric evaluation. Limitations: no limitations Course Vital Signs 01/30/21 01/30/21 01/30/21 12:45 16:30 16:38 Temperature 98.3 F Pulse Rate 105 H 101 H 100 Respiratory 19 20 22 Rate Blood Pressure 130/86 111/79 O2 Sat by Pulse 95 97 Oximetry 01/30/21 16:52 Temperature Pulse Rate 101 H Respiratory 24 Rate Blood Pressure O2 Sat by Pulse Oximetry Medical Decision Making - Medical Decision Making EKG shows sinus tachycardia at 101 bpm FL interval is 164 QRS is 70 QT interval 360 QTC is 466. Patient's EKG shows no ST segment elevation or depression. I will begin to reexamine the patient she was feeling considerably better and I listened to her lungs and it was only occasional scattered wheeze. - Lab Data Result diagrams: 01/30/21 16:24 01/30/21 16:24 Lab Results 01/30/21 01/30/21 01/30/21 Range/Units 13:24 13:24 13:24 WBC 7.3 (3.8-10.6) k/uL RBC 4.94 (3.80-5.40) m/uL Hgb 15.2 (11.4-16.0) gm/dL Hct 46.5 H (34.0-46.0) % MCV 94.1 (80.0-100.0) fL MCH 30.7 (25.0-35.0) pg MCHC 32.7 (31.0-37.0) g/dL RDW 13.1 (11.5-15.5) % Plt Count 218 (150-450) k/uL MPV 8.6 Neutrophils % 74 % Lymphocytes % 13 % Monocytes % 5 % Eosinophils % 5 % Basophils % 1 % Neutrophils # 5.4 (1.3-7.7) k/uL Lymphocytes # 1.0 (1.0-4.8) k/uL Monocytes # 0.4 (0-1.0) k/uL Eosinophils # 0.4 (0-0.7) k/uL Basophils # 0.0 (0-0.2) k/uL PT 11.4 (9.0-12.0) sec INR 1.1 (<1.2) APTT 21.5 L (22.0-30.0) sec Sodium 142 (137-145) mmol/L Potassium 4.6 (3.5-5.1) mmol/L Chloride 105 (98-107) mmol/L Carbon Dioxide 28 (22-30) mmol/L Anion Gap 9 mmol/L BUN 26 H (7-17) mg/dL Creatinine 0.74 (0.52-1.04) mg/dL Est GFR (CKD-EPI)AfAm 88 (>60 ml/min/1.73 sqM) Est GFR (CKD-EPI)NonAf 76 (>60 ml/min/1.73 sqM) Glucose 133 H (74-99) mg/dL Plasma Lactic Acid Nguyễn (0.7-2.0) mmol/L Calcium 10.0 (8.4-10.2) mg/dL Total Bilirubin 0.9 (0.2-1.3) mg/dL AST 20 (14-36) U/L ALT 12 (4-34) U/L Alkaline Phosphatase 77 (38-126) U/L Troponin I (0.000-0.034) ng/mL Total Protein 6.7 (6.3-8.2) g/dL Albumin 4.2 (3.5-5.0) g/dL 01/30/21 01/30/21 01/30/21 Range/Units 13:24 16:24 16:24 WBC 9.0 (3.8-10.6) k/uL RBC 5.15 (3.80-5.40) m/uL Hgb 16.0 (11.4-16.0) gm/dL Hct 48.8 H (34.0-46.0) % MCV 94.7 (80.0-100.0) fL MCH 31.1 (25.0-35.0) pg MCHC 32.8 (31.0-37.0) g/dL RDW 13.2 (11.5-15.5) % Plt Count 245 (150-450) k/uL MPV 8.7 Neutrophils % 75 % Lymphocytes % 15 % Monocytes % 5 % Eosinophils % 4 % Basophils % 1 % Neutrophils # 6.7 (1.3-7.7) k/uL Lymphocytes # 1.3 (1.0-4.8) k/uL Monocytes # 0.5 (0-1.0) k/uL Eosinophils # 0.3 (0-0.7) k/uL Basophils # 0.1 (0-0.2) k/uL PT 11.6 (9.0-12.0) sec INR 1.1 (<1.2) APTT 20.8 L (22.0-30.0) sec Sodium (137-145) mmol/L Potassium (3.5-5.1) mmol/L Chloride (98-107) mmol/L Carbon Dioxide (22-30) mmol/L Anion Gap mmol/L BUN (7-17) mg/dL Creatinine (0.52-1.04) mg/dL Est GFR (CKD-EPI)AfAm (>60 ml/min/1.73 sqM) Est GFR (CKD-EPI)NonAf (>60 ml/min/1.73 sqM) Glucose (74-99) mg/dL Plasma Lactic Acid Nguyễn (0.7-2.0) mmol/L Calcium (8.4-10.2) mg/dL Total Bilirubin (0.2-1.3) mg/dL AST (14-36) U/L ALT (4-34) U/L Alkaline Phosphatase (38-126) U/L Troponin I <0.012 (0.000-0.034) ng/mL Total Protein (6.3-8.2) g/dL Albumin (3.5-5.0) g/dL 01/30/21 01/30/21 01/30/21 Range/Units 16:24 16:24 16:24 WBC (3.8-10.6) k/uL RBC (3.80-5.40) m/uL Hgb (11.4-16.0) gm/dL Hct (34.0-46.0) % MCV (80.0-100.0) fL MCH (25.0-35.0) pg MCHC (31.0-37.0) g/dL RDW (11.5-15.5) % Plt Count (150-450) k/uL MPV Neutrophils % % Lymphocytes % % Monocytes % % Eosinophils % % Basophils % % Neutrophils # (1.3-7.7) k/uL Lymphocytes # (1.0-4.8) k/uL Monocytes # (0-1.0) k/uL Eosinophils # (0-0.7) k/uL Basophils # (0-0.2) k/uL PT (9.0-12.0) sec INR (<1.2) APTT (22.0-30.0) sec Sodium 141 (137-145) mmol/L Potassium 4.1 (3.5-5.1) mmol/L Chloride 109 H (98-107) mmol/L Carbon Dioxide 24 (22-30) mmol/L Anion Gap 8 mmol/L BUN 24 H (7-17) mg/dL Creatinine 0.61 (0.52-1.04) mg/dL Est GFR (CKD-EPI)AfAm >90 (>60 ml/min/1.73 sqM) Est GFR (CKD-EPI)NonAf 85 (>60 ml/min/1.73 sqM) Glucose 118 H (74-99) mg/dL Plasma Lactic Acid Nguyễn 1.7 (0.7-2.0) mmol/L Calcium 8.6 (8.4-10.2) mg/dL Total Bilirubin 0.8 (0.2-1.3) mg/dL AST 24 (14-36) U/L ALT 12 (4-34) U/L Alkaline Phosphatase 61 (38-126) U/L Troponin I <0.012 (0.000-0.034) ng/mL Total Protein 6.0 L (6.3-8.2) g/dL Albumin 3.5 (3.5-5.0) g/dL Disposition Clinical Impression: COPD exacerbation Disposition: HOME SELF-CARE Condition: Good Instructions (If sedation given, give patient instructions): COPD (Chronic Obstructive Pulmonary Disease) (ED) Prescriptions: predniSONE [Deltasone] 40 mg PO DAILY #8 tab Is patient prescribed a controlled substance at d/c from ED?: No Referrals: Julio Cesar Mcnair MD [Primary Care Provider] - 1-2 days Time of Disposition: 17:30
[2021-01-30 16:43] LABS: Basophils # (A) 0.1 k/uL (0-0.2); Basophils % (A) 1 %; Eosinophils # (A) 0.3 k/uL (0-0.7); Eosinophils % (A) 4 %; HCT 48.8 % (34.0-46.0); Lymphocytes # (A) 1.3 k/uL (1.0-4.8); Lymphocytes % (A) 15 %; MCH 31.1 pg (25.0-35.0); MCHC 32.8 g/dL (31.0-37.0); MCV 94.7 fL (80.0-100.0); Mean Platelet Volume 8.7; Monocytes # (A) 0.5 k/uL (0-1.0); Monocytes % (A) 5 %; Neutrophils # (A) 6.7 k/uL (1.3-7.7); Neutrophils % (A) 75 %; Platelet Count 245 k/uL (150-450); RBC 5.15 m/uL (3.80-5.40); RDW 13.2 % (11.5-15.5)
[2021-01-30 16:57] LABS: Appearance,Urine Cloudy (Clear); Bacteria,Urine Rare /hpf; Bilirubin,Urine Negative (Negative); Blood,Urine Negative (Negative); Color,Urine Yellow; Glucose,Urine (UA) Negative (Negative); Ketones,Urine Trace (Negative); Leukocyte Esterase,Urine Large (Negative); Mucus,Urine Rare /hpf; Nitrite,Urine Negative (Negative); PH, Urine 5.5 (5.0-8.0); Protein,Urine 1+ (Negative); RBC,Urine 6 /hpf (0-5); Specific Gravity,Urine 1.035 (1.001-1.035); Squamous Epithelial Cell,Urine 15 /hpf (0-4); WBC,Urine 50 /hpf (0-5)
[2021-01-30 17:01] LABS: ALT 12 U/L (4-34); AST 24 U/L (14-36); African American GFR (CKD) >90 (>60 ml/min/1.73 sqM); Albumin 3.5 g/dL (3.5-5.0); Alkaline Phosphatase 61 U/L (38-126); Anion Gap 8 mmol/L; Blood Urea Nitrogen 24 mg/dL (7-17); Calcium 8.6 mg/dL (8.4-10.2); Carbon Dioxide 24 mmol/L (22-30); Chloride 109 mmol/L (98-107); Glucose 118 mg/dL (74-99); INR 1.1 (<1.2); Non-African American GFR(CKD) 85 (>60 ml/min/1.73 sqM); Prothrombin Time 11.6 sec (9.0-12.0); Sodium 141 mmol/L (137-145); Total Bilirubin 0.8 mg/dL (0.2-1.3)
[2021-01-30 17:06] LABS: Partial Thromboplastin Time 20.8 sec (22.0-30.0); Potassium 4.1 mmol/L (3.5-5.1)
[2021-01-30] MEDS ORDERED: SODIUM CHLORIDE 0.9% 500 ML 500 ML IV ONE (17:22)
[2021-01-30 17:52] VITALS: BP 129/98; PULSE 98
[2021-01-30 17:57] VITALS: RESP 20
== END 2021-01-30 18:37 | disposition home or self-care (01) ==
LOC: EC 12:32
DX: J44.1 Chronic obstructive pulmonary disease with (acute) exacerbation (principal); R41.82 Altered mental status, unspecified; Z86.73 Personal history of transient ischemic attack (TIA), and cerebral infarction without residual deficits
CPT/HCPCS: 36415; 94640; 93005; 80053; 83605; 84484; 85025; 85610; 85730; 81001; 87086; 71046; 99285; 96374; 96361; J2930

== ENCOUNTER 2021-08-01 12:49 | Inpatient (IN) | payer MEDICARE, OTHER ==
[2021-08-01] MEDS ORDERED: methylPREDNISolone SOD SUCCI 125 MG/2 ML VIAL IV STA (13:41)
[2021-08-01] MEDS ORDERED: DILTIAZEM DRIP BOLUS FROM BAG 1 MG SOLN IV ONE ×2 (14:41→17:05)
[2021-08-01] MEDS ORDERED: DILTIAZEM 125 MG in SODIUM CHLORIDE 0.9% 100 ML IV SCH ×2 (14:45→17:15)
[2021-08-01 14:54] LABS: Basophils % (A) 0 %; Eosinophils # (A) 0.1 k/uL (0-0.7); Eosinophils % (A) 1 %; HCT 43.9 % (34.0-46.0); Lymphocytes # (A) 0.5 k/uL (1.0-4.8); Lymphocytes % (A) 5 %; MCH 30.4 pg (25.0-35.0); MCHC 31.8 g/dL (31.0-37.0); MCV 95.5 fL (80.0-100.0); Mean Platelet Volume 9.6; Monocytes # (A) 0.4 k/uL (0-1.0); Monocytes % (A) 4 %; Neutrophils # (A) 10.6 k/uL (1.3-7.7); Neutrophils % (A) 90 %; Platelet Count 205 k/uL (150-450); WBC 11.8 k/uL (3.8-10.6)
[2021-08-01 15:06] LABS: INR 1.1 (<1.2); Prothrombin Time 12.1 sec (9.0-12.0)
[2021-08-01 15:19] LABS: ALT 12 U/L (4-34); AST 22 U/L (14-36); African American GFR (CKD) >90 (>60 ml/min/1.73 sqM); Albumin 3.6 g/dL (3.5-5.0); Alkaline Phosphatase 62 U/L (38-126); Anion Gap 6 mmol/L; Blood Urea Nitrogen 29 mg/dL (7-17); Calcium 9.7 mg/dL (8.4-10.2); Carbon Dioxide 32 mmol/L (22-30); Chloride 102 mmol/L (98-107); Glucose 167 mg/dL (74-99); Magnesium 2.2 mg/dL (1.6-2.3); Non-African American GFR(CKD) 83 (>60 ml/min/1.73 sqM); Potassium 4.6 mmol/L (3.5-5.1); Sodium 140 mmol/L (137-145); Total Protein 6.8 g/dL (6.3-8.2)
--- NOTE | 2021-08-01 15:44 | XR ---
EXAMINATION TYPE: XR chest 2V DATE OF EXAM: 08/01/2021 COMPARISON: 07/04/2021 HISTORY: Shortness of breath TECHNIQUE: Frontal and lateral views of the chest are obtained. FINDINGS: Scattered senescent parenchymal changes noted. Hyperinflation compatible with COPD. No evidence for infiltrate. No evidence for atelectasis. Heart size is stable. Mediastinal structures are stable and grossly unremarkable. No evidence for hilar prominence. Degenerative changes dorsal spine. IMPRESSION: 1. No evidence for acute pulmonary disease.
[2021-08-01] MEDS ORDERED: IPRATROPIUM-ALBUTEROL 3 ML NEB INHALATION PRN (16:09)
--- NOTE | 2021-08-01 16:12 | ED ---
General Adult HPI - General Chief complaint: Shortness of Breath Stated complaint: low o2(88)/KASH Time Seen by Provider: 08/01/21 13:31 Source: patient, RN notes reviewed, old records reviewed Mode of arrival: ambulatory Limitations: no limitations - History of Present Illness Initial comments: 81-year-old female presents for evaluation of dyspnea. Patient has history of oxygen dependent COPD. She follows with pulmonology. She's had increased dyspn ea as well as cough. No fever. No central chest pain. She's had bilateral lower extremity edema which is chronic. According to the son she's not ambulatory. She is living at home but some questions her ability to remain at home. No fevers. No vomiting. - Related Data Home Medications Medication Instructions Recorded Confirmed PARoxetine [Paxil] 20 mg PO DAILY 11/04/15 07/04/21 Atorvastatin [Lipitor] 40 mg PO HS 09/08/18 07/04/21 Clopidogrel [Plavix] 75 mg PO DAILY 09/08/18 07/04/21 Albuterol Inhaler [Ventolin Hfa 2 puff INHALATION RT-QID PRN 06/10/20 07/04/21 Inhaler] Ipratropium-Albuterol Nebulize 3 ml INHALATION RT-QID 06/10/20 07/04/21 [Duoneb 0.5 mg-3 mg/3 ml Soln] Furosemide [Lasix] 20 mg PO MOWEFR 01/30/21 07/04/21 Acetaminophen Tab [Tylenol] 500 - 1,000 mg PO Q6H PRN 07/04/21 07/04/21 Bisacodyl 5 mg PO DAILY PRN 07/04/21 07/04/21 Spironolactone [Aldactone] 25 mg PO DAILY 07/04/21 07/04/21 Previous Rx's Medication Instructions Recorded Metoprolol Succinate [Toprol XL] 25 mg PO DAILY #30 tab 09/09/18 Cephalexin [Keflex] 500 mg PO QID 10 Days #40 caplet 07/09/21 Folic Acid 1 mg PO DAILY@1200 tab 07/09/21 Multivitamins, Thera [Multivitamin 1 each PO DAILY@1200 tab 07/09/21 (formulary)] Thiamine [Vitamin B-1] 100 mg PO DAILY@1200 tab 07/09/21 Allergies Allergy/AdvReac Type Severity Reaction Status Date / Time No Known Allergies Allergy Verified 08/01/21 16:22 Review of Systems ROS Statement: Those systems with pertinent positive or pertinent negative responses have been documented in the HPI. ROS Other: All systems not noted in ROS Statement are negative. Past Medical History Past Medical History: Atrial Fibrillation, COPD, CVA/TIA, GERD/Reflux, Hearing Disorder / Deafness, Hyperlipidemia, Pneumonia Additional Past Medical History / Comment(s): sob at times. History of Any Multi-Drug Resistant Organisms: None Reported Past Surgical History: Breast Surgery, Orthopedic Surgery Additional Past Surgical History / Comment(s): cyst removed from left breast, left hip replaced Past Anesthesia/Blood Transfusion Reactions: No Reported Reaction Past Psychological History: Anxiety, Depression Smoking Status: Former smoker Past Alcohol Use History: None Reported Past Drug Use History: None Reported - Past Family History Father Family Medical History: Cancer Additional Family Medical History / Comment(s): bone ca General Exam Limitations: no limitations General appearance: alert, in distress Head exam: Present: atraumatic, normocephalic Eye exam: Present: normal appearance, PERRL ENT exam: Present: mucous membranes dry Neck exam: Present: normal inspection Respiratory exam: Present: respiratory distress, wheezes, decreased breath sounds Cardiovascular Exam: Present: tachycardia, irregular rhythm GI/Abdominal exam: Present: soft. Absent: distended, tenderness Extremities exam: Present: pedal edema Neurological exam: Present: alert, oriented X3, CN II-XII intact. Absent: motor sensory deficit Psychiatric exam: Present: normal affect, normal mood Skin exam: Present: warm, dry Course Vital Signs 08/01/21 13:23 Temperature 98.6 F Pulse Rate 126 H Respiratory 20 Rate Blood Pressure 108/74 O2 Sat by Pulse 88 L Oximetry EKG Findings - EKG Comments: EKG Findings:: Initial EKG atrial fibrillation with RVR, rate 152, GA interval 170, QRS duration 80, QTc [address] segment elevation. Repeat EKG at 1526, sinus tachycardia rate of [address] segment elevation, GA interval 143, QRS duration 78, QTC 384 Medical Decision Making - Medical Decision Making 81-year-old female presenting with increased dyspnea, increased oxygen utilization. History of COPD. Patient's chest x-ray is relatively clear no large focal pneumonia, no pneumothorax. Patient has normal CBC, normal CMP, negative troponin, negative BMP. She will be admitted to Dr. Delacruz service. Case discussed with Hillary who is covering for the hospitalist. - Lab Data Result diagrams: 08/01/21 14:36 08/01/21 14:36 Lab Results 08/01/21 08/01/21 08/01/21 Range/Units 14:36 14:36 14:36 WBC 11.8 H (3.8-10.6) k/uL RBC 4.60 (3.80-5.40) m/uL Hgb 14.0 (11.4-16.0) gm/dL Hct 43.9 (34.0-46.0) % MCV 95.5 (80.0-100.0) fL MCH 30.4 (25.0-35.0) pg MCHC 31.8 (31.0-37.0) g/dL RDW 13.0 (11.5-15.5) % Plt Count 205 (150-450) k/uL MPV 9.6 Neutrophils % 90 % Lymphocytes % 5 % Monocytes % 4 % Eosinophils % 1 % Basophils % 0 % Neutrophils # 10.6 H (1.3-7.7) k/uL Lymphocytes # 0.5 L (1.0-4.8) k/uL Monocytes # 0.4 (0-1.0) k/uL Eosinophils # 0.1 (0-0.7) k/uL Basophils # 0.0 (0-0.2) k/uL PT 12.1 H (9.0-12.0) sec INR 1.1 (<1.2) APTT 23.0 (22.0-30.0) sec Sodium 140 (137-145) mmol/L Potassium 4.6 (3.5-5.1) mmol/L Chloride 102 (98-107) mmol/L Carbon Dioxide 32 H (22-30) mmol/L Anion Gap 6 mmol/L BUN 29 H (7-17) mg/dL Creatinine 0.65 (0.52-1.04) mg/dL Est GFR (CKD-EPI)AfAm >90 (>60 ml/min/1.73 sqM) Est GFR (CKD-EPI)NonAf 83 (>60 ml/min/1.73 sqM) Glucose 167 H (74-99) mg/dL Plasma Lactic Acid Nguyễn (0.7-2.0) mmol/L Calcium 9.7 (8.4-10.2) mg/dL Magnesium 2.2 (1.6-2.3) mg/dL Total Bilirubin 1.0 (0.2-1.3) mg/dL AST 22 (14-36) U/L ALT 12 (4-34) U/L Alkaline Phosphatase 62 (38-126) U/L Troponin I (0.000-0.034) ng/mL NT-Pro-B Natriuret Pep pg/mL Total Protein 6.8 (6.3-8.2) g/dL Albumin 3.6 (3.5-5.0) g/dL 08/01/21 08/01/21 08/01/21 Range/Units 14:36 14:36 14:36 WBC (3.8-10.6) k/uL RBC (3.80-5.40) m/uL Hgb (11.4-16.0) gm/dL Hct (34.0-46.0) % MCV (80.0-100.0) fL MCH (25.0-35.0) pg MCHC (31.0-37.0) g/dL RDW (11.5-15.5) % Plt Count (150-450) k/uL MPV Neutrophils % % Lymphocytes % % Monocytes % % Eosinophils % % Basophils % % Neutrophils # (1.3-7.7) k/uL Lymphocytes # (1.0-4.8) k/uL Monocytes # (0-1.0) k/uL Eosinophils # (0-0.7) k/uL Basophils # (0-0.2) k/uL PT (9.0-12.0) sec INR (<1.2) APTT (22.0-30.0) sec Sodium (137-145) mmol/L Potassium (3.5-5.1) mmol/L Chloride (98-107) mmol/L Carbon Dioxide (22-30) mmol/L Anion Gap mmol/L BUN (7-17) mg/dL Creatinine (0.52-1.04) mg/dL Est GFR (CKD-EPI)AfAm (>60 ml/min/1.73 sqM) Est GFR (CKD-EPI)NonAf (>60 ml/min/1.73 sqM) Glucose (74-99) mg/dL Plasma Lactic Acid Nguyễn 1.7 (0.7-2.0) mmol/L Calcium (8.4-10.2) mg/dL Magnesium (1.6-2.3) mg/dL Total Bilirubin (0.2-1.3) mg/dL AST (14-36) U/L ALT (4-34) U/L Alkaline Phosphatase (38-126) U/L Troponin I <0.012 (0.000-0.034) ng/mL NT-Pro-B Natriuret Pep 180 pg/mL Total Protein (6.3-8.2) g/dL Albumin (3.5-5.0) g/dL Disposition Clinical Impression: Encounter for observation due to foreign body in airway, Weakness Disposition: ADMITTED IP TO THIS [facility] Condition: Stable Is patient prescribed a controlled substance at d/c from ED?: No Referrals: Julio Cesar Mcnair MD [Primary Care Provider] - 1-2 days Decision to Admit Reason: Admit from EC Decision Date: 08/01/21 Decision Time: 16:25
[2021-08-01] MEDS: SODIUM CHLORIDE 0.9% 1,000 ML IV SCH (17:27)
[2021-08-01] MEDS: IPRATROPIUM-ALBUTEROL 3 ML NEB INHALATION SCH (20:03)
[2021-08-01] MEDS ORDERED: DILTIAZEM DRIP BOLUS FROM BAG 1 MG SOLN IV STA (20:28)
[2021-08-01] MEDS: methylPREDNISolone SOD SUCCI 125 MG/2 ML VIAL IV SCH (20:53)
[2021-08-02] MEDS: methylPREDNISolone SOD SUCCI 125 MG/2 ML VIAL IV SCH ×3 (00:39→12:41)
[2021-08-02] MEDS: SODIUM CHLORIDE 0.9% 1,000 ML IV SCH ×2 (05:17→19:51)
[2021-08-02] MEDS: IPRATROPIUM-ALBUTEROL 3 ML NEB INHALATION SCH ×4 (08:12→20:37)
[2021-08-02] MEDS ORDERED: ALBUTEROL HFA INHALER INHALATION PRN (11:09)
[2021-08-02] MEDS ORDERED: ACETAMINOPHEN TAB 500 MG TAB PO PRN (11:09)
[2021-08-02] MEDS ORDERED: bisacodyL 5 MG TABLET.DR PO PRN (11:09)
[2021-08-02] MEDS ORDERED: METOPROLOL SUCCINATE (ER) 25 MG TAB.ER.24H PO SCH (11:15)
--- NOTE | 2021-08-02 11:37 | P.CNPUL ---
History of Present Illness Consult date: 08/02/21 Requesting physician: Vera Delacruz Reason for consult: dyspnea, hypoxemia Chief complaint: Shortness of breath History of present illness: This is a pleasant 81-year-old female patient with a known history of gastroesophageal reflux disease, hypertension, hyperlipidemia, diastolic congestive heart failure, chronic obstructive pulmonary disease, former tobacco dependence. She has a history of some chronic changes and left lower lobe. She presented here to the emergency room with increasing shortness of breath cough with yellow productive sputum, weight loss. Chest x-ray reveals no acute pulmonary process. Evidence of hyperinflation secondary to COPD. She did have an episode of SVT versus atrial fibrillation with rapid ventricular response while in the emergency room and was initiated on the Cardizem drip. Currently in normal sinus rhythm. She is seen in consultation on the regular medical floor. She is sitting up at the bedside. Awake and alert in no acute distress. Maintaining O2 saturations in the 90s on 2 L/m per nasal cannula. She states she had been short of breath for approximately one week. She's had some yellow productive phlegm. No fever or chills. Some lower extremity edema. White count 11.8. Hemoglobin 14.0. INR 1.1. Sodium 140. Potassium 4.6. BUN 29. Creatinine 0.65. Glucose 167. Troponin negative 1. A 22. ALT 12. Miller virus by PCR not detected. His been initiated on IV Solu-Medrol, DuoNeb inhalations. Remains on oral diuretics. Review of Systems REVIEW OF SYSTEMS: CONSTITUTIONAL: Denies any recent significant weight loss or weight gain. EYES: Denies change in vision. EARS, NOSE, MOUTH, THROAT: Denies headaches, denies sore throat. CARDIOVASCULAR: Denies chest pain, palpitations or syncopal episodes. RESPIRATORY: Positive for shortness of breath, cough, congestion no hemoptysis. GASTROINTESTINAL: Denies change in appetite, denies abdominal pain GENITOURINARY: Denies hematuria, denies infections. MUSKULOSKELETAL: Denies pain, Positive for swelling. INTEGUMENTARY: Denies rash, denies eczema. NEUROLOGICAL: Denies recent memory loss, no recent seizure activity. PSYCHIATRIC: Denies anxiety, denies depression. HEMATOLOGIC/LYMPHATIC: Denies anemia, denies enlarged lymph nodes. Past Medical History Past Medical History: Atrial Fibrillation, COPD, CVA/TIA, GERD/Reflux, Hearing Disorder / Deafness, Hyperlipidemia, Pneumonia Additional Past Medical History / Comment(s): sob at times. History of Any Multi-Drug Resistant Organisms: None Reported Past Surgical History: Breast Surgery, Orthopedic Surgery Additional Past Surgical History / Comment(s): cyst removed from left breast, left hip replaced Past Anesthesia/Blood Transfusion Reactions: No Reported Reaction Past Psychological History: Anxiety, Depression Smoking Status: Former smoker Past Alcohol Use History: None Reported Past Drug Use History: None Reported - Past Family History Father Family Medical History: Cancer Additional Family Medical History / Comment(s): bone ca Medications and Allergies Home Medications Medication Instructions Recorded Confirmed Type PARoxetine [Paxil] 20 mg PO DAILY 11/04/15 08/01/21 History Atorvastatin [Lipitor] 40 mg PO HS 09/08/18 08/01/21 History Clopidogrel [Plavix] 75 mg PO DAILY 09/08/18 08/01/21 History Metoprolol Succinate [Toprol XL] 25 mg PO DAILY #30 tab 09/09/18 08/01/21 Rx Albuterol Inhaler [Ventolin Hfa 2 puff INHALATION RT-QID PRN 06/10/20 08/01/21 History Inhaler] Ipratropium-Albuterol Nebulize 3 ml INHALATION RT-QID 06/10/20 08/01/21 History [Duoneb 0.5 mg-3 mg/3 ml Soln] Furosemide [Lasix] 20 mg PO MOWEFR 01/30/21 08/01/21 History Acetaminophen Tab [Tylenol] 500 - 1,000 mg PO Q6H PRN 07/04/21 08/01/21 History Bisacodyl 5 mg PO DAILY PRN 07/04/21 08/01/21 History Spironolactone [Aldactone] 25 mg PO DAILY 07/04/21 08/01/21 History Folic Acid 1 mg PO DAILY@1200 tab 07/09/21 08/01/21 Rx Thiamine [Vitamin B-1] 100 mg PO DAILY@1200 tab 07/09/21 08/01/21 Rx Multivitamins, Thera [Multivitamin 1 tab PO DAILY@1200 08/01/21 08/01/21 History (formulary)] Allergies Allergy/AdvReac Type Severity Reaction Status Date / Time No Known Allergies Allergy Verified 08/01/21 16:22 Physical Exam Vitals: Vital Signs Temp Pulse Pulse Resp BP BP Pulse Ox 08/02/21 08:23 80 08/02/21 08:13 84 08/02/21 07:00 97.5 F L 109 H 24 143/85 95 08/02/21 02:45 98.0 F 99 16 130/60 98 08/01/21 20:46 96 18 127/58 96 08/01/21 20:00 98.4 F 108 H 17 114/77 94 L 08/01/21 19:29 144 H 18 131/51 98 08/01/21 17:53 117 H 16 131/51 96 08/01/21 13:23 98.6 F 126 H 20 108/74 88 L Intake and Output 08/01/21 08/02/21 08/02/21 22:59 06:59 14:59 Intake Total 14.667 Balance 14.667 Intake: Intake, IV Titration 14.667 Amount Diltiazem 125 mg In 14.667 Sodium Chloride 0.9% 100 ml @ 5 MG/HR 5 mls/hr IV .Q24H [facility] Rx#:[id number] Other: # Voids 1 2 1 Weight 84.822 kg GENERAL EXAM: Alert, pleasant 81-year-old female patient, on 2 L nasal cannula, comfortable in no apparent distress. HEAD: Normocephalic. EYES: Normal reaction of pupils, equal size. NOSE: Clear with pink turbinates. THROAT: No erythema or exudates. NECK: No masses, no JVD. CHEST: No chest wall deformity. LUNGS: Equal air entry with no crackles, wheeze, rhonchi or dullness. Diminished. CVS: S1 and S2 normal with no audible murmur, regular rhythm. ABDOMEN: No hepatosplenomegaly, normal bowel sounds, no guarding or rigidity. SPINE: No scoliosis or deformity SKIN: No rashes CENTRAL NERVOUS SYSTEM: No focal deficits, tone is normal in all 4 extremities. EXTREMITIES: There is 1+ peripheral edema. No clubbing, no cyanosis. Peripheral pulses are intact. Results - Laboratory Findings CBC and BMP: 08/01/21 14:36 08/01/21 14:36 PT/INR, D-dimer PT 12.1 sec (9.0-12.0) H 08/01/21 14:36 INR 1.1 (<1.2) 08/01/21 14:36 D-Dimer 11.85 mg/L FEU (<0.60) H 08/02/21 09:50 Abnormal lab findings: Abnormal Labs 08/01/21 08/01/21 08/01/21 14:36 14:36 14:36 WBC 11.8 H Neutrophils # 10.6 H Lymphocytes # 0.5 L PT 12.1 H D-Dimer Carbon Dioxide 32 H BUN 29 H Glucose 167 H 08/02/21 09:50 WBC Neutrophils # Lymphocytes # PT D-Dimer 11.85 H Carbon Dioxide BUN Glucose - Diagnostic Findings Chest x-ray: image reviewed Assessment and Plan Assessment: 1 Acute hypoxemic respiratory failure secondary to an acute exacerbation of chronic obstructive pulmonary disease. Elevated d-dimer. CT angiogram and Dopplers pending. 2 SVT versus A. fib RVR, initiated on a Cardizem drip 3 Former smoker 4 Gastroesophageal reflux disease 5 Hyperlipidemia 6 Chronic lower extremity edema 7 Poor overall functional performance and limited mobility at home Plan: The patient was seen and evaluated D-dimer ordered and found to be elevated at 11.85 CT angiogram and Dopplers lower extremity pending Titrate the FiO2 as tolerated Continue bronchodilators, IV Solu-Medrol Antiarrhythmics, anticoagulation per cardiology May need placement, social work consulted We will continue to follow and make further recommendations based on her clinical status I, the cosigning physician, performed a history & physical examination of the patient. Lungs sounds are clear, diminished. Maintaining good O2 saturations in the 90s on 2 L/m per nasal cannula. I discussed the assessment and plan of care with my nurse practitioner, Imelda Brunner. I attest to the above consultation as dictated by her. Time with Patient: Greater than 30
--- NOTE | 2021-08-02 11:58 | CT ---
EXAMINATION TYPE: CT angio chest DATE OF EXAM: 08/02/2021 COMPARISON: CTA chest September 02, 2018 HISTORY: Elevated d dimer, hypoxemia CT DLP: 449 mGycm. Automated Exposure Control for Dose Reduction was Utilized. CONTRAST: CTA scan of the thorax is performed with IV Contrast, patient injected with 100 mL of Isovue 370, pul monary embolism protocol. MIP Images are created on CT scanner and reviewed FINDINGS: LUNGS: Moderate underlying emphysematous change is redemonstrated. Chronic consolidation or scarring in the right middle lobe is redemonstrated. Additional chronic scarring lingula identified. Mild biba silar linear scarring and/or atelectasis. Moderate biapical pleural/parenchymal scarring. Slight righ t inferior lateral extension of scarring redemonstrated. No pleural effusion or pneumothorax seen. MEDIASTINUM: There is satisfactory enhancement of the pulmonary artery and its branches, there bilate ral pulmonary emboli now identified. There is emboli in the right lower lobe branch with segmental an d subsegmental extension beginning axial image 82. There are emboli in the left upper lobe branches w ith segmental extension beginning axial image 65. There is involvement in the lingular segmental and subsegmental branches. There is involvement in the right upper lobar pulmonary artery axial image 71 with segmental extension. No right ventricular dilatation. Enlarged pulmonary arteries redemonstrated suggesting underlying pulmonary hypertension. There are no greater than 1 cm hilar or mediastinal ly mph nodes. No cardiomegaly or pericardial effusion is seen. OTHER: Osseous structures are demineralized. Underlying scoliosis is present. Scattered osseous heman giomas are noted. IMPRESSION: 1. Moderate emphysematous change. Scattered mild to moderate parenchymal scarring redemonstrated. No acute pulmonary groundglass opacity or infectious process. 2. New bilateral pulmonary emboli, no CT evidence for RV strain.
[2021-08-02] MEDS ORDERED: IPRATROPIUM-ALBUTEROL 3 ML NEB INHALATION SCH (12:00)
[2021-08-02] MEDS ORDERED: HEPARIN SODIUM 1,000 UN/ML (10ML VL) IV PRN (12:21)
[2021-08-02] MEDS ORDERED: HEPARIN SODIUM 1,000 UN/ML (10ML VL) IV ONE (12:21)
[2021-08-02] MEDS ORDERED: METOPROLOL SUCCINATE (ER) 25 MG TAB.ER.24H PO STA ×2 (12:22→12:35)
[2021-08-02] MEDS: THIAMINE 100 MG TAB PO SCH (12:40)
[2021-08-02] MEDS: FOLIC ACID 1 MG TAB PO SCH (12:41)
[2021-08-02] MEDS: PARoxetine 20 MG TAB PO SCH (12:41)
[2021-08-02] MEDS: MULTIVITAMINS, THERA 1 EACH TAB PO SCH (12:41)
[2021-08-02] MEDS: SPIRONOLACTONE 25 MG TAB PO SCH (12:44)
[2021-08-02 12:48] LABS: Basophils % (A) 0 %; Eosinophils % (A) 0 %; HCT 44.6 % (34.0-46.0); HGB 13.8 gm/dL (11.4-16.0); Hypochromasia Moderate; Lymphocytes # (A) 0.3 k/uL (1.0-4.8); Lymphocytes % (A) 4 %; MCH 30.2 pg (25.0-35.0); MCHC 30.9 g/dL (31.0-37.0); MCV 97.9 fL (80.0-100.0); Mean Platelet Volume 9.9; Monocytes # (A) 0.1 k/uL (0-1.0); Monocytes % (A) 2 %; Neutrophils # (A) 6.7 k/uL (1.3-7.7); Neutrophils % (A) 94 %; Platelet Count 207 k/uL (150-450); RBC 4.55 m/uL (3.80-5.40); RDW 12.8 % (11.5-15.5); WBC 7.1 k/uL (3.8-10.6)
[2021-08-02 12:49] LABS: INR 1.1 (<1.2); Partial Thromboplastin Time 22.7 sec (22.0-30.0); Prothrombin Time 11.8 sec (9.0-12.0)
[2021-08-02] MEDS: HEPARIN SOD,PORK IN 0.45% NACL 25,000 UNIT in 0.45% NACL 1 250ML.BAG IV SCH (12:55)
[2021-08-02] MEDS: CLOPIDOGREL 75 MG TAB PO SCH (13:02)
--- NOTE | 2021-08-02 13:41 | P.CN ---
Psychiatric Consult - . Consult date: 08/02/21 Consult:: 08/02/21 13:22 IDENTIFYING DATA: This patient is a 81-year-old female who currently lives independently in an apartment. She has 1 son. REASON FOR REFERRAL: Psychiatry was consulted for "cognitive assessment" HISTORY OF PRESENT ILLNESS: The patient presented to the hospital for dyspnea and shortness of breath/cough. Patient apparently has a history of COPD and is oxygen dependent. Pulmonology has been consulted and following along. Patient also has a psychiatric history of anxiety and depression. She is currently on Paxil 20 mg daily. Nurse taking care of patient states that she has no concerns about patient at this time. She did mention that patient does live independently and there is concern about whether she could take care of herself. Patient was seen today while she was eating lunch and was agreeable to speak to radio news writer. She was sitting at the side of her bed in her chair and appeared to be fairly comfortable. She was polite and attempting to cooperate. She was alert and oriented 3 and knew who the current president is. She claims that she came into the hospital because "my legs" and states that she was also having shortness of breath. She spoke about her COPD. She claims that she has been feeling better since being in the hospital. She states that she has a son that comes and helps her regularly throughout the week. She states that her sleep has been "on and off". She claims that she has a fair appetite. She claims that she has a history of depression however is feeling "okay now" and denying any anxiety. She states that she's been on Paxil for several years prescribed by her PCP. At this time patient denies any suicidal or homical ideations, intent or plan. Patient denies any auditory, visual hallucinations and denies any paranoia or delusions. Patients admits to using no recreational drugs. She is a former smoker. PAST PSYCHIATRIC HISTORY: Patient has a a history of depression. She's currently on Paxil 20 mg daily for mood Patient denies any previous psychiatric hospitalizations. Patient denies any psychiatric outpatient follow-up. Patient denies any history of suicide attempts in the past. He follows up with her PCP for her medications. Past Medical History: Atrial Fibrillation, COPD, CVA/TIA, GERD/Reflux, Hearing Disorder / Deafness, Hyperlipidemia, Pneumonia Additional Past Medical History / Comment(s): sob at times. ALLERGIES: as per EMR. CHEMICAL DEPENDENCY HISTORY: as per HPI. FAMILY PSYCHIATRIC/SUBSTANCE USE HISTORY: She states that her son also has depression. SOCIAL HISTORY: Patient was born and raised in [facility]. She states that she completed up to 11th grade in school. 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 She denies any legal history. She has 1 son and currently lives in an apartment alone. MENTAL STATUS EXAM: General Appearance: Patient appears to be tall, stated age is alert, pleasant, and tends to be cooperative. Patient appears to have fair hygiene and grooming wearing hospital gown with fair eye contact. Behavior: Patient is calmly lying in bed without any agitated behavior. Cooperative Speech: Patient's speech is fluent and nonpressured. Mood/Affect: Patient reports their mood is "ok", affect is congruent Suicidality/Homicidality: Patient denies having any suicidal or homicidal ideation intent or plan. Perceptions: Patient denies any visual hallucinations and denies any auditory hallucinations Though content/process: There is no evidence of any delusional thought content and thought process is linear and goal-directed. Memory and concentration: AOX3, grossly intact for the purposes of this session. Can spell "WORLD" backwards. Fair attention span. Judgment and insight: Fair IMPRESSIONS: Depressive disorder unspecified PLAN: -At this time patient DOES NOT meet criteria for inpatient psychiatric admission. -Patient DOES have decision making capacity at this time and is unable to reason through and communicate/appreciate the risks, benefits and alternatives to treatment. -Delirium precautions recommended with patient including - avoiding use of narcotics and AIRLINE HOSTESS sedatives, limit anticholinergic medications when possible, frequent re-orientation, minimize use of restraints, open window shades during the day and close them at night -Would recommend the following medication changes/additions: Continue with Paxil as prescribed. Added melatonin 3 mg daily at bedtime for sleep. -Communicated plan to patient's nurse -Psychiatry will sign off at this time -Please contact with any questions. 08/02/21 13:36
--- NOTE | 2021-08-02 14:09 | P.HPIM ---
History of Present Illness 81-year-old female came in with complaints of shortness of breath does have a history of COPD is on 2 L of oxygen. Patient apparently had an episode of SVT/atrial fibrillation for which patient received Cardizem. Patient is present ly on IV heparin. Patient is found to have elevated d-dimer because of which is CT angios the chest was obtained which showed a lot of pulmonary embolism. Patient is presently on IV heparin. Patient denied any recent unintentional weight loss. Patient is past the age for any cancer screening. Patient denied any history of DVT in the past of coronary malaise in the past. Patient is undergoing echo looking for right ventricular strain. REVIEW OF SYSTEMS: CONSTITUTIONAL: No fever, no malaise, no fatigue. HEENT: No recent visual problems or hearing problems. Denied any sore throat. CARDIOVASCULAR: No chest pain, orthopnea, PND, no palpitations, no syncope. PULMONARY: no hemoptysis. GASTROINTESTINAL: No diarrhea, no nausea, no vomiting, no abdominal pain. NEUROLOGICAL: No headaches, no weakness, no numbness. HEMATOLOGICAL: Denies any bleeding or petechiae. GENITOURINARY: Denies any burning micturition, frequency, or urgency. MUSCULOSKELETAL/RHEUMATOLOGICAL: Denies any joint pain, swelling, or any muscle pain. ENDOCRINE: Denies any polyuria or polydipsia. The rest of the 14-point review of systems is negative. PHYSICAL EXAMINATION: GENERAL: The patient is alert and oriented x3, not in any acute distress. Well developed, well nourished. HEENT: Pupils are round and equally reacting to light. EOMI. No scleral icterus. No conjunctival pallor. Normocephalic, atraumatic. No pharyngeal erythema. No thyromegaly. CARDIOVASCULAR: S1 and S2 present. No murmurs, rubs, or gallops. PULMONARY: Significant expiratory wheezing on exam bilateral rhonchi. ABDOMEN: Soft, nontender, nondistended, normoactive bowel sounds. No palpable organomegaly. MUSCULOSKELETAL: No joint swelling or deformity. EXTREMITIES: No cyanosis, clubbing, or pedal edema. NEUROLOGICAL: Gross neurological examination did not reveal any focal deficits. SKIN: No rashes. Assessment and plan --Acute hypoxic and hypercapnic respiratory failure: Secondary to pulmonary embolus him and COPD exacerbation patient has significant wheezing on exam mostly COPD is the reason for her hypoxia patient is on systemic steroids which will be continued. Patient is also found to have pulmonary embolism for which patient is on IV heparin -Acute PE appears to be unprovoked. SVT/atrial fibrillation patient is undergoing echocardiogram and some patient is on anticoagulation, cardiology will evaluate the patient extend heparin gases visual reflux disease -Hyperlipidemia -Chronic venous insufficiency with bilateral lower extremity edema no evidence of CHF at this time patient is on as needed and Lasix for that at home. -CODE STATUS: Full code -DVT prophylaxis: Heparin as mentioned above Past Medical History Past Medical History: Atrial Fibrillation, COPD, CVA/TIA, GERD/Reflux, Hearing Disorder / Deafness, Hyperlipidemia, Pneumonia Additional Past Medical History / Comment(s): sob at times. History of Any Multi-Drug Resistant Organisms: None Reported Past Surgical History: Breast Surgery, Orthopedic Surgery Additional Past Surgical History / Comment(s): cyst removed from left breast, left hip replaced Past Anesthesia/Blood Transfusion Reactions: No Reported Reaction Past Psychological History: Anxiety, Depression Smoking Status: Former smoker Past Alcohol Use History: None Reported Past Drug Use History: None Reported - Past Family History Father Family Medical History: Cancer Additional Family Medical History / Comment(s): bone ca Medications and Allergies Home Medications Medication Instructions Recorded Confirmed Type PARoxetine [Paxil] 20 mg PO DAILY 11/04/15 08/01/21 History Atorvastatin [Lipitor] 40 mg PO HS 09/08/18 08/01/21 History Clopidogrel [Plavix] 75 mg PO DAILY 09/08/18 08/01/21 History Metoprolol Succinate [Toprol XL] 25 mg PO DAILY #30 tab 09/09/18 08/01/21 Rx Albuterol Inhaler [Ventolin Hfa 2 puff INHALATION RT-QID PRN 06/10/20 08/01/21 History Inhaler] Ipratropium-Albuterol Nebulize 3 ml INHALATION RT-QID 06/10/20 08/01/21 History [Duoneb 0.5 mg-3 mg/3 ml Soln] Furosemide [Lasix] 20 mg PO MOWEFR 01/30/21 08/01/21 History Acetaminophen Tab [Tylenol] 500 - 1,000 mg PO Q6H PRN 07/04/21 08/01/21 History Bisacodyl 5 mg PO DAILY PRN 07/04/21 08/01/21 History Spironolactone [Aldactone] 25 mg PO DAILY 07/04/21 08/01/21 History Folic Acid 1 mg PO DAILY@1200 tab 07/09/21 08/01/21 Rx Thiamine [Vitamin B-1] 100 mg PO DAILY@1200 tab 07/09/21 08/01/21 Rx Multivitamins, Thera [Multivitamin 1 tab PO DAILY@1200 08/01/21 08/01/21 History (formulary)] Allergies Allergy/AdvReac Type Severity Reaction Status Date / Time No Known Allergies Allergy Verified 08/01/21 16:22 Physical Exam Vitals: Vital Signs Temp Pulse Pulse Resp BP BP Pulse Ox 08/02/21 08:23 80 08/02/21 08:13 84 08/02/21 07:00 97.5 F L 109 H 24 143/85 95 08/02/21 02:45 98.0 F 99 16 130/60 98 08/01/21 20:46 96 18 127/58 96 08/01/21 20:00 98.4 F 108 H 17 114/77 94 L 08/01/21 19:29 144 H 18 131/51 98 08/01/21 17:53 117 H 16 131/51 96 Intake and Output 08/01/21 08/02/21 08/02/21 22:59 06:59 14:59 Intake Total 14.667 Balance 14.667 Intake: Intake, IV Titration 14.667 Amount Diltiazem 125 mg In 14.667 Sodium Chloride 0.9% 100 ml @ 5 MG/HR 5 mls/hr IV .Q24H [facility] Rx#:[id number] Other: # Voids 1 2 1 Weight 84.822 kg Results CBC & Chem 7: 08/02/21 09:50 08/01/21 14:36 Labs: Abnormal Lab Results - Last 24 Hours (Table) 08/01/21 08/01/21 08/01/21 Range/Units 14:36 14:36 14:36 WBC 11.8 H (3.8-10.6) k/uL MCHC (31.0-37.0) g/dL Neutrophils # 10.6 H (1.3-7.7) k/uL Lymphocytes # 0.5 L (1.0-4.8) k/uL PT 12.1 H (9.0-12.0) sec D-Dimer (<0.60) mg/L FEU Carbon Dioxide 32 H (22-30) mmol/L BUN 29 H (7-17) mg/dL Glucose 167 H (74-99) mg/dL 08/02/21 08/02/21 Range/Units 09:50 09:50 WBC (3.8-10.6) k/uL MCHC 30.9 L (31.0-37.0) g/dL Neutrophils # (1.3-7.7) k/uL Lymphocytes # 0.3 L (1.0-4.8) k/uL PT (9.0-12.0) sec D-Dimer 11.85 H (<0.60) mg/L FEU Carbon Dioxide (22-30) mmol/L BUN (7-17) mg/dL Glucose (74-99) mg/dL
[2021-08-02] MEDS: methylPREDNISolone SOD SUCCI 40 MG/ML 1 ML VIAL IV SCH ×2 (16:12→22:54)
--- NOTE | 2021-08-02 17:08 | US ---
EXAMINATION TYPE: US venous doppler duplex LE DATE OF EXAM: 08/02/2021 4:44 PM COMPARISON: NONE CLINICAL HISTORY: Elevated d dimer, hypoxemia. Newly diagnosed pulmonary emboli SIDE PERFORMED: Bilateral TECHNIQUE: The lower extremity deep venous system is examined utilizing real time linear array sonog anya with graded compression, doppler sonography and color-flow sonography. VESSELS IMAGED: Common Femoral Vein Deep Femoral Vein Greater Saphenous Vein * Femoral Vein Popliteal Vein Small Saphenous Vein * Proximal Calf Veins-not seen on left due to patient position (* superficial vessels) Right Leg: Positive for DVT in right popliteal vein extending through calf veins. Left Leg: Negative for DVT. Grayscale, color doppler, spectral doppler imaging performed of the deep veins of the bilateral lower extremities. IMPRESSION: Acute DVT in the right lower extremity begins in the left popliteal vein extending dista lly.
[2021-08-02] MEDS: MELATONIN 3 MG TABLET PO SCH (20:58)
[2021-08-02] MEDS: ATORVASTATIN 40 MG TAB PO SCH (20:58)
[2021-08-03] MEDS: HEPARIN SOD,PORK IN 0.45% NACL 25,000 UNIT in 0.45% NACL 1 250ML.BAG IV SCH (06:25)
[2021-08-03] MEDS: IPRATROPIUM-ALBUTEROL 3 ML NEB INHALATION SCH ×4 (07:57→20:32)
[2021-08-03] MEDS: APIXABAN 5 MG TAB PO SCH ×2 (08:47→20:12)
[2021-08-03] MEDS: SPIRONOLACTONE 25 MG TAB PO SCH (08:47)
[2021-08-03] MEDS: PARoxetine 20 MG TAB PO SCH (08:47)
[2021-08-03] MEDS: CLOPIDOGREL 75 MG TAB PO SCH (08:47)
[2021-08-03] MEDS: FUROSEMIDE 20 MG TAB PO SCH (08:48)
[2021-08-03] MEDS: METOPROLOL SUCCINATE (ER) 50 MG TAB.ER.24H PO SCH (08:48)
--- NOTE | 2021-08-03 10:18 | P.CRDCN ---
History of Present Illness Consult date: 08/02/21 History of present illness: HISTORY OF PRESENT ILLNESS: This is a 81-year-old female with a past medical history significant for COPD, home oxygen, hyperlipidemia, congestive heart failure, and paroxysmal SVT. Patient follows in the office with Dr. Benitez. We have been asked to see the patient in consultation for atrial fibrillation/flutter. Patient examined at the bedside. Patient presented to the hospital with a chief complaint of shortness of breath. Patient's EKG upon admission to the hospital revealed atrial fibrillation with RVR. The patient does not have a history of atrial fibrillation. The patient was started on a Cardizem drip. She subsequently converted to sinus mechanism. The patient was also found to have bilateral pul monary emboli. She was started on IV heparin. The patient has since been transitioned to Eliquis. This morning, the patient denies chest pain or pressure. She states her shortness of breath is improving. Vital signs are stable. * EKG reveals A. fib with RVR. Repeat EKG reveals sinus rhythm. * Chest xray negative for acute pulmonary disease * Lower extremity Doppler: Positive for right lower extremity DVT * chest CTA: moderate emphysematous changes. Scattered [id number] parenchymal scarring redemonstrated. No acute pulmonary groundglass opacities or infectious process. New bilateral pulmonary emboli, no CT evidence for RV strain. * Laboratory data: WBC 11.8. Hemoglobin 14.0. Platelet count 203. D-dimer 11.85. sodium 140. Potassium 4.6. BUN 29. Creatinine 0.65. Magnesium 2.2. Troponin negative 1. ProBNP 180. * Current home cardiac medications include Lasix 20 mg Friday, spironolactone 25 mg daily, metoprolol succinate 25 mg daily, Plavix 75 mg daily, and Lipitor 40 mg daily * Patient underwent Rebecca scan stress test in September 2020 at the cardiology office which was negative for ischemia * Patient underwent echocardiogram in July 2020 at the cardiology office revealing ejection fraction 55%, mild mitral regurgitation, mild mitral stenosis. Right ventricle is normal in size with normal function. The pulmonary artery was not well visualized. REVIEW OF SYSTEMS: At the time of my exam: CONSTITUTIONAL: Denies fever or chills. HEENT: Denies blurred vision, vision changes, or eye pain. Denies hemoptysis CARDIOVASCULAR: Denies chest pain. Denies orthopnea. Denies PND. Denies palpitations RESPIRATORY: + shortness of breath. GASTROINTESTINAL: Denies abdominal pain. Denies nausea or vomiting. HEMATOLOGIC: Denies bleeding disorders. GENITOURINARY: Denies any blood in urine. SKIN: Denies pruitis. Denies rash. PHYSICAL EXAM: VITAL SIGNS: Reviewed. GENERAL: Well-developed in no acute distress. HEENT: Head is normocephalic. Pupils are equal, round. Sclerae anicteric. Mucous membranes of the mouth are moist. Neck supple. No JVD or thyromegaly LUNGS: Respirations even and unlabored. Lungs diminished to auscultation bilaterally. HEART: Regular rate and rhythm. S1 and S2 heard. ABDOMEN: Soft. Nondistended. Nontender. EXTREMITIES: Normal range of motion. No clubbing or cyanosis. Peripheral pulses intact. Trace bilateral lower extremity edema NEUROLOGIC: Awake and alert. Oriented x 3. ASSESSMENT: Shortness of breath Bilateral pulmonary emboli Right lower extremity DVT New onset paroxysmal atrial fibrillation with RVR, currently maintaining sinus mechanism COPD with home o2 use Hyperlipidemia Chronic congestive heart failure with preserved EF, EF 55% on most recent echo History of paroxysmal SVT PLAN: Continue current cardiac medications Continue anticoagulation with Eliquis Metoprolol succinate increased to 50 mg daily Obtain 2-D echo to assess cardiac structure and function and rule out RV strain Further recommendations pending patient course Nurse practitioner note has been reviewed by physician. Signing provider agrees with the documented findings, assessment, and plan of care. Past Medical History Past Medical History: Atrial Fibrillation, COPD, CVA/TIA, GERD/Reflux, Hearing Disorder / Deafness, Hyperlipidemia, Pneumonia Additional Past Medical History / Comment(s): sob at times. History of Any Multi-Drug Resistant Organisms: None Reported Past Surgical History: Breast Surgery, Orthopedic Surgery Additional Past Surgical History / Comment(s): cyst removed from left breast, left hip replaced Past Anesthesia/Blood Transfusion Reactions: No Reported Reaction Past Psychological History: Anxiety, Depression Smoking Status: Former smoker Past Alcohol Use History: None Reported Past Drug Use History: None Reported - Past Family History Father Family Medical History: Cancer Additional Family Medical History / Comment(s): bone ca Medications and Allergies Home Medications Medication Instructions Recorded Confirmed Type PARoxetine [Paxil] 20 mg PO DAILY 11/04/15 08/01/21 History Atorvastatin [Lipitor] 40 mg PO HS 09/08/18 08/01/21 History Clopidogrel [Plavix] 75 mg PO DAILY 09/08/18 08/01/21 History Metoprolol Succinate [Toprol XL] 25 mg PO DAILY #30 tab 09/09/18 08/01/21 Rx Albuterol Inhaler [Ventolin Hfa 2 puff INHALATION RT-QID PRN 06/10/20 08/01/21 History Inhaler] Ipratropium-Albuterol Nebulize 3 ml INHALATION RT-QID 06/10/20 08/01/21 History [Duoneb 0.5 mg-3 mg/3 ml Soln] Furosemide [Lasix] 20 mg PO MOWEFR 01/30/21 08/01/21 History Acetaminophen Tab [Tylenol] 500 - 1,000 mg PO Q6H PRN 07/04/21 08/01/21 History Bisacodyl 5 mg PO DAILY PRN 07/04/21 08/01/21 History Spironolactone [Aldactone] 25 mg PO DAILY 07/04/21 08/01/21 History Folic Acid 1 mg PO DAILY@1200 tab 07/09/21 08/01/21 Rx Thiamine [Vitamin B-1] 100 mg PO DAILY@1200 tab 07/09/21 08/01/21 Rx Multivitamins, Thera [Multivitamin 1 tab PO DAILY@1200 08/01/21 08/01/21 History (formulary)] Allergies Allergy/AdvReac Type Severity Reaction Status Date / Time No Known Allergies Allergy Verified 08/01/21 16:22 Physical Exam Vitals: Vital Signs Temp Pulse Pulse Resp BP BP Pulse Ox 08/02/21 08:23 80 08/02/21 08:13 84 08/02/21 07:00 97.5 F L 109 H 24 143/85 95 08/02/21 02:45 98.0 F 99 16 130/60 98 08/01/21 20:46 96 18 127/58 96 08/01/21 20:00 98.4 F 108 H 17 114/77 94 L 08/01/21 19:29 144 H 18 131/51 98 08/01/21 17:53 117 H 16 131/51 96 08/01/21 13:23 98.6 F 126 H 20 108/74 88 L Intake and Output 08/01/21 08/02/21 08/02/21 22:59 06:59 14:59 Intake Total 14.667 Balance 14.667 Intake: Intake, IV Titration 14.667 Amount Diltiazem 125 mg In 14.667 Sodium Chloride 0.9% 100 ml @ 5 MG/HR 5 mls/hr IV .Q24H [facility] Rx#:[id number] Other: # Voids 1 2 1 Weight 84.822 kg Results 08/02/21 09:50 08/01/21 14:36 Cardiac Enzymes 08/01/21 08/01/21 Range/Units 14:36 14:36 AST 22 (14-36) U/L Troponin I <0.012 (0.000-0.034) ng/mL Coagulation 08/01/21 Range/Units 14:36 PT 12.1 H (9.0-12.0) sec APTT 23.0 (22.0-30.0) sec CBC 08/01/21 Range/Units 14:36 WBC 11.8 H (3.8-10.6) k/uL RBC 4.60 (3.80-5.40) m/uL Hgb 14.0 (11.4-16.0) gm/dL Hct 43.9 (34.0-46.0) % Plt Count 205 (150-450) k/uL Comprehensive Metabolic Panel 08/01/21 Range/Units 14:36 Sodium 140 (137-145) mmol/L Potassium 4.6 (3.5-5.1) mmol/L Chloride 102 (98-107) mmol/L Carbon Dioxide 32 H (22-30) mmol/L BUN 29 H (7-17) mg/dL Creatinine 0.65 (0.52-1.04) mg/dL Glucose 167 H (74-99) mg/dL Calcium 9.7 (8.4-10.2) mg/dL AST 22 (14-36) U/L ALT 12 (4-34) U/L Alkaline Phosphatase 62 (38-126) U/L Total Protein 6.8 (6.3-8.2) g/dL Albumin 3.6 (3.5-5.0) g/dL Current Medications Generic Name Dose Route Start Last Admin Trade Name Freq PRN Reason Stop Dose Admin Acetaminophen 500 mg 08/02/21 11:09 Acetaminophen Tab 500 Mg Tab PO Q6H PRN Fever and/ or Pain Albuterol/Ipratropium 3 ml 08/01/21 16:09 Ipratropium-Albuterol 3 Ml Neb INHALATION RT-Q4H PRN Shortness Of Breath Or Wheezing Albuterol/Ipratropium 3 ml 08/01/21 20:00 08/02/21 11:31 Ipratropium-Albuterol 3 Ml Neb INHALATION Not Given RT-QID [facility] Atorvastatin Calcium 40 mg 08/02/21 21:00 Atorvastatin 40 Mg Tab PO HS [facility] Bisacodyl 5 mg 08/02/21 11:09 Bisacodyl 5 Mg Tablet.Dr PO DAILY PRN Constipation Clopidogrel Bisulfate 75 mg 08/02/21 11:15 Clopidogrel 75 Mg Tab PO DAILY [facility] Folic Acid 1 mg 08/02/21 12:00 Folic Acid 1 Mg Tab PO DAILY@1200 [facility] Furosemide 20 mg 08/03/21 09:00 Furosemide 20 Mg Tab PO MOWEFR [facility] Heparin Sodium (Porcine) 0 unit 08/02/21 12:21 Heparin Sodium 1,000 Un/Ml (10ml Vl) IV PER PROTOCOL PRN Low PTT Protocol Sodium Chloride 1,000 mls @ 75 mls/hr 08/01/21 16:15 08/02/21 05:17 Saline 0.9% IV Not Given .[id number] [facility] Heparin Sodium/Sodium Chloride 250 mls @ 15.268 mls/hr 08/02/21 12:30 25,000 unit/ Sodium Chloride IV .[id number] [facility] Protocol 18 UNITS/KG/HR Methylprednisolone Sodium Succinate 60 mg 08/01/21 18:00 08/02/21 05:33 Methylprednisolone Sod Succi 125 Mg/2 Ml Vial IV 60 mg Q6HR [facility] Administration Metoprolol Succinate 50 mg 08/03/21 09:00 Metoprolol Succinate (Er) 50 Mg Tab.Er.24h PO DAILY [facility] Multivitamins 1 each 08/02/21 12:00 Multivitamins, Thera 1 Each Tab PO DAILY@1200 [facility] Paroxetine HCl 20 mg 08/02/21 11:15 Paroxetine 20 Mg Tab PO DAILY [facility] Spironolactone 25 mg 08/02/21 11:15 Spironolactone 25 Mg Tab PO DAILY [facility] Thiamine HCl 100 mg 08/02/21 12:00 Thiamine 100 Mg Tab PO DAILY@1200 [facility] Intake and Output 08/01/21 08/02/21 08/02/21 22:59 06:59 14:59 Intake Total 14.667 Balance 14.667 Intake: Intake, IV Titration 14.667 Amount Diltiazem 125 mg In 14.667 Sodium Chloride 0.9% 100 ml @ 5 MG/HR 5 mls/hr IV .Q24H [facility] Rx#:[id number] Other: # Voids 1 2 1 Weight 84.822 kg 08/01/21 14:36 08/01/21 14:36
--- NOTE | 2021-08-03 10:34 | ECHOF ---
Referral Reason:LV function, PE, R/O RV STRAIN MEASUREMENTS -------- HEIGHT: 180.3 cm WEIGHT: 84.8 kg BP: RVIDd: 2.3 cm (< 3.3) Ao Diam: 3.2 cm (2.0 - 3.7) AV Cusp: 1.8 cm (1.5 - 2.6) LA Diam: 3.2 cm (2.7 - 3.8) MV E Arnav: 0.89 m/s MV DecT: 166 ms MV A Arnav: 0.96 m/s MV E/A Ratio: 0.93 RAP: 5.00 mmHg RVSP: 12.04 mmHg FINDINGS -------- This was a technically difficult study with suboptimal views. Severe copd. Overall left ventricular systolic function is low-normal with, an EF between 50 - 55 %. The right ventricle is normal in size. Due to suboptimal images RV strain was not obtained. The left atrium was not well visualized. The right atrium was not well visualized. Lumason used The aortic valve was not well visualized. The mitral valve was not well visualized. The tricuspid valve was not well visualized. Mild tricuspid regurgitation present. Right ventricu lar systolic pressure is normal at < 35 mmHg. The pulmonic valve was not well visualized. The aortic root size is normal. IVC Not well visulized. There is no pericardial effusion. CONCLUSIONS -------- 1. This was a technically difficult study with suboptimal views. 2. Severe copd. 3. Overall left ventricular systolic function is low-normal with, an EF between 50 - 55 %. 4. Due to suboptimal images RV strain was not obtained. 5. Right ventricular systolic pressure is normal at < 35 mmHg. 6. There is no pericardial effusion. [employer] REPA[employer] TECHNICIAN: Meche Shelton RDCS
[2021-08-03] MEDS: methylPREDNISolone SOD SUCCI 40 MG/ML 1 ML VIAL IV SCH (10:57)
[2021-08-03 11:08] LABS: Basophils % (A) 0 %; Eosinophils % (A) 0 %; HCT 42.7 % (34.0-46.0); HGB 13.2 gm/dL (11.4-16.0); Hypochromasia Marked; Lymphocytes # (A) 0.3 k/uL (1.0-4.8); Lymphocytes % (A) 4 %; MCH 31.5 pg (25.0-35.0); MCHC 31.1 g/dL (31.0-37.0); MCV 101.5 fL (80.0-100.0); Mean Platelet Volume 10.3; Monocytes # (A) 0.5 k/uL (0-1.0); Monocytes % (A) 7 %; Neutrophils # (A) 6.8 k/uL (1.3-7.7); Neutrophils % (A) 89 %; Platelet Count 193 k/uL (150-450); RDW 12.6 % (11.5-15.5); WBC 7.7 k/uL (3.8-10.6)
[2021-08-03 11:19] LABS: African American GFR (CKD) >90 (>60 ml/min/1.73 sqM); Anion Gap 4 mmol/L; Blood Urea Nitrogen 29 mg/dL (7-17); Calcium 9.5 mg/dL (8.4-10.2); Carbon Dioxide 28 mmol/L (22-30); Chloride 104 mmol/L (98-107); Non-African American GFR(CKD) 85 (>60 ml/min/1.73 sqM); Sodium 136 mmol/L (137-145)
[2021-08-03 11:31] LABS: Glucose 207 mg/dL (74-99); Potassium 5.3 mmol/L (3.5-5.1)
[2021-08-03 11:52] LABS: Appearance,Urine Clear (Clear); Bilirubin,Urine Negative (Negative); Blood,Urine Negative (Negative); Color,Urine Light Yellow; Glucose,Urine (UA) Negative (Negative); Ketones,Urine Negative (Negative); Leukocyte Esterase,Urine Negative (Negative); Nitrite,Urine Negative (Negative); Protein,Urine Negative (Negative); Specific Gravity,Urine 1.013 (1.001-1.035); Urobilinogen,Urine <2.0 mg/dL (<2.0)
--- NOTE | 2021-08-03 12:09 | P.PN ---
Subjective Progress Note Date: 08/03/21 Principal diagnosis: Acute hypoxic respiratory failure, acute exacerbation of COPD This is a pleasant 81-year-old female patient with a known history of gastroesophageal reflux disease, hypertension, hyperlipidemia, diastolic congestive heart failure, chronic obstructive pulmonary disease, former tobacco dependence. She has a history of some chronic changes and left lower lobe. She presented here to the emergency room with increasing shortness of breath cough with yellow productive sputum, weight loss. Chest x-ray reveals no acute pulmonary process. Evidence of hyperinflation secondary to COPD. She did have an episode of SVT versus atrial fibrillation with rapid ventricular response while in the emergency room and was initiated on the Cardizem drip. Currently in normal sinus rhythm. She is seen in consultation on the regular medical floor. She is sitting up at the bedside. Awake and alert in no acute distress. Maintaining O2 saturations in the 90s on 2 L/m per nasal cannula. She states she had been short of breath for approximately one week. She's had some yellow productive phlegm. No fever or chills. Some lower extremity edema. White count 11.8. Hemoglobin 14.0. INR 1.1. Sodium 140. Potassium 4.6. BUN 29. Creatinine 0.65. Glucose 167. Troponin negative 1. A 22. ALT 12. Miller virus by PCR not detected. His been initiated on IV Solu-Medrol, DuoNeb inhalations. Remains on oral diuretics. On 08/03/2021 patient seen in follow-up on medical surgical floor, she is alert, in no acute distress, she remains on heparin infusion, CTA chest showed new bilateral pulmonary emboli with no CT evidence of RV strain. Lower extremity Dopplers were positive for DVT in the left leg. Echocardiogram has been reviewed showing EF of 50-55%, right ventricle was of normal size, there was mild tricuspid regurgitation, and right ventricular systolic pressure was less than 35 mmHg. No rhonchi or wheezing, lung sounds are diminished, equal, clear. Breathing comfortably, she is on 2 L of oxygen pulse ox of 98%, denies any chest discomfort, denies any cough, vital signs have been stable overnight. Objective - Vital Signs Vital signs: Vital Signs Temp 98.5 F 08/03/21 10:55 Pulse 82 08/03/21 10:55 Resp 19 08/03/21 10:55 BP 137/81 08/03/21 10:55 Pulse Ox 96 08/03/21 10:55 Intake & Output 08/02/21 08/03/21 08/03/21 18:59 06:59 18:59 Intake Total 242.311 118 Balance 242.311 118 Intake: Intake, IV Titration 242.311 Amount Heparin Sod,Pork in 0.45% 242.311 NaCl 25,000 unit In 0.45 % NaCl 1 250ml.bag @ 18 UNITS/KG/HR 15.268 mls/hr IV .[id number] [facility] Rx#: [id number] Oral 118 Other: # Voids 1 1 - Exam GENERAL EXAM: Alert, very pleasant, 81-year-old white female, on 2 L of oxygen and the pulse ox of 98%, comfortable in no apparent distress. HEAD: Normocephalic/atraumatic. EYES: Normal reaction of pupils, equal size. Conjunctiva pink, sclera white. NOSE: Clear with pink turbinates. THROAT: No erythema or exudates. NECK: No masses, no JVD, no thyroid enlargement, no adenopathy. CHEST: No chest wall deformity. Symmetrical expansion. LUNGS: Equal air entry with no crackles, wheeze, rhonchi or dullness. CVS: Regular rate and rhythm, normal S1 and S2, no gallops, no murmurs, no rubs ABDOMEN: Soft, nontender. No hepatosplenomegaly, normal bowel sounds, no guarding or rigidity. EXTREMITIES: No clubbing, no edema, no cyanosis, 2+ pulses and upper and lower extremities. MUSCULOSKELETAL: Muscle strength and tone normal. SPINE: No scoliosis or deformity SKIN: No rashes CENTRAL NERVOUS SYSTEM: Alert and oriented -3. No focal deficits, tone is normal in all 4 extremities. PSYCHIATRIC: Alert and oriented -3. Appropriate affect. Intact judgment and insight. - Labs CBC & Chem 7: 08/03/21 10:30 08/03/21 10:30 Labs: Abnormal Lab Results - Last 24 Hours (Table) 08/02/21 08/02/21 08/03/21 Range/Units 09:50 20:32 01:32 MCV (80.0-100.0) fL MCHC 30.9 L (31.0-37.0) g/dL Lymphocytes # 0.3 L (1.0-4.8) k/uL APTT 89.3 H 105.0 H* (22.0-30.0) sec Sodium (137-145) mmol/L Potassium (3.5-5.1) mmol/L BUN (7-17) mg/dL Glucose (74-99) mg/dL 08/03/21 08/03/21 Range/Units 10:30 10:30 MCV 101.5 H (80.0-100.0) fL MCHC (31.0-37.0) g/dL Lymphocytes # 0.3 L (1.0-4.8) k/uL APTT (22.0-30.0) sec Sodium 136 L (137-145) mmol/L Potassium 5.3 H (3.5-5.1) mmol/L BUN 29 H (7-17) mg/dL Glucose 207 H (74-99) mg/dL Assessment and Plan Plan: Assessment: #1. Acute hypoxic respiratory failure related to acute bilateral pulmonary emboli and left lower extremity DVT. Was on heparin infusion, been transitioned to oral Eliquis, no CT evidence of RV strain #2. A. fib with RVR, patient was on Cardizem infusion, which is currently discontinued #3. Mild exacerbation of COPD, improved #4. Former smoker #5. GERD/reflux #6. Hyperlipidemia #7. Chronic lower extremity edema #8. Poor oral functional performance Plan: May transition the patient to Eliquis per protocol Discontinue heparin infusion Discontinue IV Solu-Medrol No need for prednisone taper Continue bronchodilators Antiarrhythmics and rate control medications per cardiology Clear for discharge from pulmonary perspective and patient may need placement to ECF I performed a history & physical examination of the patient and discussed their management with my nurse practitioner, Whit Tovar. I reviewed the nurse ana ortiz's note and agree with the documented findings and plan of care. Lung sounds are positive for diminished breath sounds throughout the lung lynch. The findings and the impression was discussed with the patient. I attest to the documentation by the nurse practitioner. Time with Patient: Less than 30
[2021-08-03] MEDS: MULTIVITAMINS, THERA 1 EACH TAB PO SCH (12:27)
[2021-08-03] MEDS: FOLIC ACID 1 MG TAB PO SCH (12:27)
[2021-08-03] MEDS: THIAMINE 100 MG TAB PO SCH (12:27)
[2021-08-03] MEDS: SODIUM CHLORIDE 0.9% 1,000 ML IV SCH (19:53)
[2021-08-03] MEDS: MELATONIN 3 MG TABLET PO SCH (20:11)
[2021-08-03] MEDS: ATORVASTATIN 40 MG TAB PO SCH (20:11)
--- NOTE | 2021-08-04 00:15 | P.PN ---
Subjective Progress Note Date: 08/03/21 81-year-old female came in with complaints of shortness of breath does have a history of COPD is on 2 L of oxygen. Patient apparently had an episode of SVT/atrial fibrillation for which patient received Cardizem. Patient is presently on IV heparin. Patient is found to have elevated d-dimer because of which is CT angios the chest was obtained which showed a lot of pulmonary embolism. Patient is presently on IV heparin. Patient denied any recent unintentional weight loss. Patient is past the age for any cancer screening. Patient denied any history of DVT in the past. Patient is undergoing echo looking for right ventricular strain. 08/03/2021 Patient seen and evaluated in follow up this morning and currently being closely monitored with pulmonary following. Cardiology consulted for atrial fibrillation with RVR. Patient is continued on IV cardizem along with IV heparin. Patient found to have bilateral pulmonary emboli along with right lower extremity DVT. Patient awaiting transfer to [facility] for closer telemetry monitoring. PT/OT following. Patient denies chest pain or palpitations. Patient is afebrile. Patient reports to tolerating diet with no reported nausea or vomiting. Labs: WBC is 7.7, hgb is 13.2, plts are 193, sodium is 136, potasium is 5.3, bun is 29, creatinine is .60 REVIEW OF SYSTEMS: CONSTITUTIONAL: No fever, no malaise, no fatigue. CARDIOVASCULAR: No chest pain, orthopnea, PND, no palpitations, no syncope. PULMONARY: denies worsening shortness of breath, no hemoptysis. GASTROINTESTINAL: No diarrhea, no nausea, no vomiting, no abdominal pain. NEUROLOGICAL: No headaches, no weakness, no numbness. GENITOURINARY: Denies any burning micturition, frequency, or urgency. MUSCULOSKELETAL/RHEUMATOLOGICAL: Denies any joint pain, swelling, or any muscle pain. Active Medications Acetaminophen (Acetaminophen Tab 500 Mg Tab) 500 mg PO Q6H PRN PRN Reason: Fever and/ or Pain Albuterol/Ipratropium (Ipratropium-Albuterol 3 Ml Neb) 3 ml INHALATION RT-Q4H PRN PRN Reason: Shortness Of Breath Or Wheezing Albuterol/Ipratropium (Ipratropium-Albuterol 3 Ml Neb) 3 ml INHALATION RT-QID [facility] Last Admin: 08/03/21 20:32 Dose: 3 ml Documented by: Apixaban (Apixaban 5 Mg Tab) 10 mg PO BID [facility]; Protocol Stop: 08/09/21 23:00 Last Admin: 08/03/21 20:12 Dose: 10 mg Documented by: Apixaban (Apixaban 5 Mg Tab) 5 mg PO BID [facility]; Protocol Atorvastatin Calcium (Atorvastatin 40 Mg Tab) 40 mg PO [facility] Last Admin: 08/03/21 20:11 Dose: 40 mg Documented by: Bisacodyl (Bisacodyl 5 Mg Tablet.Dr) 5 mg PO DAILY PRN PRN Reason: Constipation Clopidogrel Bisulfate (Clopidogrel 75 Mg Tab) 75 mg PO DAILY [facility] Last Admin: 08/03/21 08:47 Dose: 75 mg Documented by: Folic Acid (Folic Acid 1 Mg Tab) 1 mg PO DAILY@1200 [facility] Last Admin: 08/03/21 12:27 Dose: 1 mg Documented by: Furosemide (Furosemide 20 Mg Tab) 20 mg PO MOWEFR [facility] Last Admin: 08/03/21 08:48 Dose: 20 mg Documented by: Melatonin (Melatonin 3 Mg Tablet) 3 mg PO [facility] Last Admin: 08/03/21 20:11 Dose: 3 mg Documented by: Metoprolol Succinate (Metoprolol Succinate (Er) 50 Mg Tab.Er.24h) 50 mg PO DAILY [facility] Last Admin: 08/03/21 08:48 Dose: 50 mg Documented by: Multivitamins (Multivitamins, Thera 1 Each Tab) 1 each PO DAILY@1200 [facility] Last Admin: 08/03/21 12:27 Dose: 1 each Documented by: Paroxetine HCl (Paroxetine 20 Mg Tab) 20 mg PO DAILY [facility] Last Admin: 08/03/21 08:47 Dose: 20 mg Documented by: Sodium Chloride (Sodium Chloride 0.9% Flush 10 Ml Syringe) 10 ml IV Q12HR [facility] Last Admin: 08/03/21 20:12 Dose: 10 ml Documented by: Sodium Chloride (Sodium Chloride 0.9% Flush 10 Ml Syringe) 10 ml IV DIRECTED PRN PRN Reason: FLUSH Spironolactone (Spironolactone 25 Mg Tab) 25 mg PO DAILY [facility] Last Admin: 08/03/21 08:47 Dose: 25 mg Documented by: Thiamine HCl (Thiamine 100 Mg Tab) 100 mg PO DAILY@1200 [facility] Last Admin: 08/03/21 12:27 Dose: 100 mg Documented by: PHYSICAL EXAMINATION: GENERAL: The patient is alert and oriented x2. Well developed, well nourished. Temp is 98.3F, pulse is 93, resp are18, blood pressure is 116/71, pulse ox is 98% on 2L via NC HEENT: Pupils are round and equally reacting to light. EOMI. No scleral icterus. No conjunctival pallor. Normocephalic, atraumatic. No pharyngeal erythema. No thyromegaly. CARDIOVASCULAR: S1 and S2 muffled PULMONARY: diminished breath sounds bilaterally with expiratory wheezing and scattered rhonchi noted ABDOMEN: Soft, nontender, nondistended, normoactive bowel sounds. No palpable organomegaly. MUSCULOSKELETAL: No joint swelling or deformity. EXTREMITIES: No cyanosis, clubbing, or pedal edema. NEUROLOGICAL: Gross neurological examination did not reveal any focal deficits. diffusely weak SKIN: No rashes. Assessment: -Acute hypoxic and hypercapnic respiratory failure: Secondary to bilateral pulmonary emboli and COPD exacerbation -Acute bilateral PE appears to be unprovoked. -right lower extremity DVT -atrial fibrillation, new onset paroxysmal with RVR -gastroesophageal reflux disease -Hyperlipidemia -chronic congestive heart failure with preserved EF. EF is 50-55%% -Chronic venous insufficiency with bilateral lower extremity edema -CODE STATUS: Full code -DVT prophylaxis Plan: Recommend to continue with current medications and multiple medical consultations following. Patient continued on IV cardizem and IV heparin with pulmonary following and cardiology consulted. Patient being transferred to [facility] for close telemetry monitoring. Patient is weak and has had recent hospitalization and was not able to be approved for ECF for continued PT/OT therapy and went home with home care. Patients condition continued to decline with failure to thrive and reports to becoming more weak, not eating well, and increased shortness of breath with medical debility. Patient states that her son helps care for her, but is becoming more difficult. PT/OT to follow. Social work following as well. Due to multiple complex medical issues, prognosis is guarded. Objective - Vital Signs Vital signs: Vital Signs Temp 98.5 F 08/03/21 10:55 Pulse 89 08/03/21 12:43 Resp 19 08/03/21 10:55 BP 137/81 08/03/21 10:55 Pulse Ox 96 08/03/21 10:55 Intake & Output 08/02/21 08/03/21 08/03/21 18:59 06:59 18:59 Intake Total 242.311 118 Balance 242.311 118 Intake: Intake, IV Titration 242.311 Amount Heparin Sod,Pork in 0.45% 242.311 NaCl 25,000 unit In 0.45 % NaCl 1 250ml.bag @ 18 UNITS/KG/HR 15.268 mls/hr IV .[id number] [facility] Rx#: [id number] Oral 118 Other: Voiding Method Bedside Commode Diaper # Voids 1 1 - Labs CBC & Chem 7: 08/03/21 10:30 08/03/21 10:30 Labs: Abnormal Lab Results - Last 24 Hours (Table) 08/02/21 08/03/21 08/03/21 Range/Units 20:32 01:32 10:30 MCV 101.5 H (80.0-100.0) fL Lymphocytes # 0.3 L (1.0-4.8) k/uL APTT 89.3 H 105.0 H* (22.0-30.0) sec Sodium (137-145) mmol/L Potassium (3.5-5.1) mmol/L BUN (7-17) mg/dL Glucose (74-99) mg/dL 08/03/21 Range/Units 10:30 MCV (80.0-100.0) fL Lymphocytes # (1.0-4.8) k/uL APTT (22.0-30.0) sec Sodium 136 L (137-145) mmol/L Potassium 5.3 H (3.5-5.1) mmol/L BUN 29 H (7-17) mg/dL Glucose 207 H (74-99) mg/dL
[2021-08-04] MEDS: IPRATROPIUM-ALBUTEROL 3 ML NEB INHALATION SCH ×4 (08:02→19:13)
[2021-08-04] MEDS: SPIRONOLACTONE 25 MG TAB PO SCH (08:38)
[2021-08-04] MEDS: FOLIC ACID 1 MG TAB PO SCH (08:38)
[2021-08-04] MEDS: MULTIVITAMINS, THERA 1 EACH TAB PO SCH (08:38)
[2021-08-04] MEDS: METOPROLOL SUCCINATE (ER) 50 MG TAB.ER.24H PO SCH (08:38)
[2021-08-04] MEDS: APIXABAN 5 MG TAB PO SCH ×2 (08:38→20:01)
[2021-08-04] MEDS: THIAMINE 100 MG TAB PO SCH (08:38)
[2021-08-04] MEDS: CLOPIDOGREL 75 MG TAB PO SCH (08:38)
[2021-08-04] MEDS: PARoxetine 20 MG TAB PO SCH (08:39)
--- NOTE | 2021-08-04 10:48 | P.PN ---
Subjective Progress Note Date: 08/04/21 Principal diagnosis: COPD exacerbation/PE This is a pleasant 81-year-old female patient with a known history of gastroesophageal reflux disease, hypertension, hyperlipidemia, diastolic congestive heart failure, chronic obstructive pulmonary disease, former tobacco dependence. She has a history of some chronic changes and left lower lobe. She presented here to the emergency room with increasing shortness of breath cough with yellow productive sputum, weight loss. Chest x-ray reveals no acute pulmonary process. Evidence of hyperinflation secondary to COPD. She did have an episode of SVT versus atrial fibrillation with rapid ventricular response while in the emergency room and was initiated on the Cardizem drip. Currently in normal sinus rhythm. She is seen in consultation on the regular medical floor. She is sitting up at the bedside. Awake and alert in no acute distress. Maintaining O2 saturations in the 90s on 2 L/m per nasal cannula. She states she had been short of breath for approximately one week. She's had some yellow productive phlegm. No fever or chills. Some lower extremity edema. White count 11.8. Hemoglobin 14.0. INR 1.1. Sodium 140. Potassium 4.6. BUN 29. Creatinine 0.65. Glucose 167. Troponin negative 1. A 22. ALT 12. Miller virus by PCR not detected. His been initiated on IV Solu-Medrol, DuoNeb inhalations. Remains on oral diuretics. On 08/03/2021 patient seen in follow-up on medical surgical floor, she is alert, in no acute distress, she remains on heparin infusion, CTA chest showed new bilateral pulmonary emboli with no CT evidence of RV strain. Lower extremity Dopplers were positive for DVT in the left leg. Echocardiogram has been reviewed showing EF of 50-55%, right ventricle was of normal size, there was mild tricuspid regurgitation, and right ventricular systolic pressure was less than 35 mmHg. No rhonchi or wheezing, lung sounds are diminished, equal, clear. Breathing comfortably, she is on 2 L of oxygen pulse ox of 98%, denies any chest discomfort, denies any cough, vital signs have been stable overnight. The patient is seen today 08/04/2021 in follow-up on the selective care unit. S he is currently awake and alert in no acute distress. No worsening shortness of breath, cough or congestion. No hemoptysis. Resting fairly comfortably in bed. Maintaining O2 saturations in the 90s on 2 L/m per nasal cannula. Afebrile. Hemodynamically stable. She is being treated for bilateral pulmonary emboli and a DVT of the left lower extremity. She is maintained on Eliquis now. Continued on bronchodilators. Objective - Vital Signs Vital signs: Vital Signs Temp 97.6 F 08/04/21 08:00 Pulse 74 08/04/21 08:12 Resp 18 08/04/21 08:00 BP 98/61 08/04/21 08:00 Pulse Ox 98 08/04/21 08:04 Intake & Output 08/03/21 08/04/21 08/04/21 18:59 06:59 18:59 Intake Total 1018 240 Balance 1018 240 Intake: Oral 1018 240 Other: Voiding Method Bedside Commode Toilet Toilet Diaper Diaper Diaper # Voids 1 1 # Bowel Movements 1 - Exam GENERAL EXAM: Alert, pleasant 81-year-old female patient, on 2 L nasal cannula, comfortable in no apparent distress. HEAD: Normocephalic. EYES: Normal reaction of pupils, equal size. NOSE: Clear with pink turbinates. THROAT: No erythema or exudates. NECK: No masses, no JVD. CHEST: No chest wall deformity. LUNGS: Equal air entry with no crackles, wheeze, rhonchi or dullness. CVS: S1 and S2 normal with no audible murmur, regular rhythm. ABDOMEN: No hepatosplenomegaly, normal bowel sounds, no guarding or rigidity. SPINE: No scoliosis or deformity SKIN: No rashes CENTRAL NERVOUS SYSTEM: No focal deficits, tone is normal in all 4 extremities. EXTREMITIES: There is no peripheral edema. No clubbing, no cyanosis. Peripheral pulses are intact. - Labs CBC & Chem 7: 08/03/21 10:30 08/03/21 10:30 Labs: Abnormal Lab Results - Last 24 Hours (Table) 08/03/21 08/03/21 Range/Units 10:30 10:30 MCV 101.5 H (80.0-100.0) fL Lymphocytes # 0.3 L (1.0-4.8) k/uL Sodium 136 L (137-145) mmol/L Potassium 5.3 H (3.5-5.1) mmol/L BUN 29 H (7-17) mg/dL Glucose 207 H (74-99) mg/dL Assessment and Plan Assessment: 1 Acute hypoxemic respiratory failure secondary to an acute exacerbation of chronic obstructive pulmonary disease as well as bilateral PE/left leg DVT on Eliquis 2 Acute bilateral pulmonary emboli/left lower extremity DVT 3 SVT versus A. fib RVR, initiated on a Cardizem drip 4 Former smoker 5 Gastroesophageal reflux disease 6 Hyperlipidemia 7 Chronic lower extremity edema 8 Poor overall functional performance and limited mobility at home Plan: The patient was seen and evaluated Currently on Eliquis Stable and on 2 L nasal cannula Titrate the FiO2 as tolerated Continue bronchodilators May need placement, social work consulted I, the cosigning physician, performed a history & physical examination of the patient. Lungs sounds are clear, diminished. Maintaining good O2 saturations in the 90s on 2 L/m per nasal cannula. I discussed the assessment and plan of care with my nurse practitioner, Imelda Brunner. I attest to the above note as dictated by her.
--- NOTE | 2021-08-04 18:25 | PN ---
PROGRESS NOTE DATE OF SERVICE: 08/04/2021 This 81-year-old woman who was admitted with bilateral pulmonary embolism is closely monitored. No chest pain. No palpitations. No fever. The patient is confused. PHYSICAL EXAMINATION: Pulse is 80, blood pressure 109/72, respiration 18, temperature 97.8, pulse ox 98% on 3 L. HEENT: Conjunctivae normal. NECK: No jugular venous distention. CARDIOVASCULAR: S1, S2 muffled. RESPIRATION: Breath sounds diminished at the bases. A few scattered rhonchi. ABDOMEN: Soft, nontender. NERVOUS SYSTEM: No focal deficit. LABS: WBC 7.6, hemoglobin 13.2. Sodium 136. Potassium 5.3. ASSESSMENT: 1. Acute bilateral pulmonary embolism with acute hypoxic respiratory failure. 2. Chronic obstructive pulmonary disease, acute exacerbation. 3. Right lower extremity deep vein thrombosis. 4. Change in mental status, acute metabolic encephalopathy. 5. Multiple medical issues. RECOMMENDATIONS AND DISCUSSION: I recommend to continue current medications, continue with the monitoring, symptomatic treatment. Continue with anticoagulants. Monitor closely. PT/OT evaluation, possible ECF rehab. See orders for further details. MMODL / IJN: [id number] /
--- NOTE | 2021-08-04 18:30 | P.PN ---
Subjective This is a 81-year-old female with a past medical history significant for COPD, home oxygen, hyperlipidemia, congestive heart failure, and paroxysmal SVT. Patient follows in the office with Dr. Benitez. We have been asked to see the patient in consultation for atrial fibrillation/flutter. Patient examined at the bedside. Patient presented to the hospital with a chief complaint of shortness of breath. Patient's EKG upon admission to the hospital revealed atrial fibrillation with RVR. The patient does not have a history of atrial fibrillation. The patient was started on a Cardizem drip. She subsequently converted to sinus mechanism. The patient was also found to have bilateral pulmonary emboli. She was started on IV heparin. The patient has since been transitioned to Eliquis. This morning, the patient denies chest pain or pressure. She states her shortness of breath is improving. Vital signs are stable. * EKG reveals A. fib with RVR. Repeat EKG reveals sinus rhythm. * Chest xray negative for acute pulmonary disease * Lower extremity Doppler: Positive for right lower extremity DVT * chest CTA: moderate emphysematous changes. Scattered [id number] parenchymal scarring redemonstrated. No acute pulmonary groundglass opacities or infectious process. New bilateral pulmonary emboli, no CT evidence for RV strain. * Laboratory data: WBC 11.8. Hemoglobin 14.0. Platelet count 203. D-dimer 11.85. sodium 140. Potassium 4.6. BUN 29. Creatinine 0.65. Magnesium 2.2. Troponin negative 1. ProBNP 180. * Current home cardiac medications include Lasix 20 mg Friday, spironolactone 25 mg daily, metoprolol succinate 25 mg daily, Plavix 75 mg daily, and Lipitor 40 mg daily * Patient underwent Rebecca scan stress test in September 2020 at the cardiology office which was negative for ischemia * Patient underwent echocardiogram in July 2020 at the cardiology office revealing ejection fraction 55%, mild mitral regurgitation, mild mitral stenosis. Right ventricle is normal in size with normal function. The pu lmonary artery was not well visualized. 08/04 Patient seen and examined. Patient denies a chest pain or pressure or shortness breath. Telemetry revealed showing normal sinus rhythm. PHYSICAL EXAM: VITAL SIGNS: Reviewed. GENERAL: Well-developed in no acute distress. HEENT: Head is normocephalic. Pupils are equal, round. Sclerae anicteric. Mucous membranes of the mouth are moist. Neck supple. No JVD or thyromegaly LUNGS: Respirations even and unlabored. Lungs diminished to auscultation bilate rally. HEART: Regular rate and rhythm. S1 and S2 heard. ABDOMEN: Soft. Nondistended. Nontender. EXTREMITIES: Normal range of motion. No clubbing or cyanosis. Peripheral pulses intact. Trace bilateral lower extremity edema NEUROLOGIC: Awake and alert. Oriented x 3. ASSESSMENT: Shortness of breath Bilateral pulmonary emboli Right lower extremity DVT New onset paroxysmal atrial fibrillation with RVR, currently maintaining sinus mechanism COPD with home o2 use Hyperlipidemia Chronic congestive heart failure with preserved EF, EF 55% on most recent echo History of paroxysmal SVT PLAN: Continue current cardiac medications Continue anticoagulation with Eliquis Continue increased Toprol dose. Echo shows preserved EF without RV strain. Patient appears stable from a cardiac standpoint. Please call with any questions. Objective - Vital Signs Vital signs: Vital Signs Temp 97.8 F 08/04/21 16:00 Pulse 80 08/04/21 16:00 Resp 18 08/04/21 16:00 BP 109/72 08/04/21 16:00 Pulse Ox 98 08/04/21 16:00 Intake & Output 08/03/21 08/04/21 08/04/21 18:59 06:59 18:59 Intake Total 1018 720 Balance 1018 720 Intake: Oral 1018 720 Other: Voiding Method Bedside Commode Toilet Toilet Diaper Diaper Diaper # Voids 1 1 # Bowel Movements 1 - Labs CBC & Chem 7: 08/03/21 10:30 08/03/21 10:30
[2021-08-04] MEDS: MELATONIN 3 MG TABLET PO SCH (20:01)
[2021-08-04] MEDS: ATORVASTATIN 40 MG TAB PO SCH (20:01)
[2021-08-05] MEDS: CLOPIDOGREL 75 MG TAB PO SCH (08:40)
[2021-08-05] MEDS: METOPROLOL SUCCINATE (ER) 50 MG TAB.ER.24H PO SCH (08:41)
[2021-08-05] MEDS: SPIRONOLACTONE 25 MG TAB PO SCH (08:41)
[2021-08-05] MEDS: PARoxetine 20 MG TAB PO SCH (08:41)
[2021-08-05] MEDS: APIXABAN 5 MG TAB PO SCH ×2 (08:41→20:33)
[2021-08-05] MEDS: IPRATROPIUM-ALBUTEROL 3 ML NEB INHALATION SCH ×4 (08:52→19:58)
--- NOTE | 2021-08-05 12:19 | P.PN ---
Subjective Progress Note Date: 08/05/21 Principal diagnosis: Acute pulmonary embolism This is a pleasant 81-year-old female patient with a known history of gastroesophageal reflux disease, hypertension, hyperlipidemia, diastolic congestive heart failure, chronic obstructive pulmonary disease, former tobacco dependence. She has a history of some chronic changes and left lower lobe. She presented here to the emergency room with increasing shortness of breath cough with yellow productive sputum, weight loss. Chest x-ray reveals no acute pulmonary process. Evidence of hyperinflation secondary to COPD. She did have an episode of SVT versus atrial fibrillation with rapid ventricular response while in the emergency room and was initiated on the Cardizem drip. Currently in normal sinus rhythm. She is seen in consultation on the regular medical floor. She is sitting up at the bedside. Awake and alert in no acute distress. Maintaining O2 saturations in the 90s on 2 L/m per nasal cannula. She states she had been short of breath for approximately one week. She's had some yellow productive phlegm. No fever or chills. Some lower extremity edema. White count 11.8. Hemoglobin 14.0. INR 1.1. Sodium 140. Potassium 4.6. BUN 29. Creatinine 0.65. Glucose 167. Troponin negative 1. A 22. ALT 12. Miller virus by PCR not detected. His been initiated on IV Solu-Medrol, DuoNeb inhalations. Remains on oral diuretics. On 08/03/2021 patient seen in follow-up on medical surgical floor, she is alert, in no acute distress, she remains on heparin infusion, CTA chest showed new bilateral pulmonary emboli with no CT evidence of RV strain. Lower extremity Dopplers were positive for DVT in the left leg. Echocardiogram has been reviewed showing EF of 50-55%, right ventricle was of normal size, there was mild tricuspid regurgitation, and right ventricular systolic pressure was less than 35 mmHg. No rhonchi or wheezing, lung sounds are diminished, equal, clear. Breathing comfortably, she is on 2 L of oxygen pulse ox of 98%, denies any chest discomfort, denies any cough, vital signs have been stable overnight. The patient is seen today 08/04/2021 in follow-up on the selective care unit. She is currently awake and alert in no acute distress. No worsening shortness of breath, cough or congestion. No hemoptysis. Resting fairly comfortably in bed. Maintaining O2 saturations in the 90s on 2 L/m per nasal cannula. Afebrile. Hemodynamically stable. She is being treated for bilateral pulmonary emboli and a DVT of the left lower extremity. She is maintained on Eliquis now. Continued on bronchodilators. Reevaluated today on 08/05/2021, patient is doing well, she is on few liters nasal cannula, in no distress, feeling better, remains on anticoagulation therapy, remains on bronchodilators, and she will definitely need placement in the next 24 hours. Objective - Vital Signs Vital signs: Vital Signs Temp 97.9 F 08/05/21 12:00 Pulse 82 08/05/21 12:00 Resp 19 08/05/21 12:00 BP 122/78 08/05/21 12:00 Pulse Ox 95 08/05/21 12:00 Intake & Output 08/04/21 08/05/21 08/05/21 18:59 06:59 18:59 Intake Total 838 240 Balance 838 240 Intake: Oral 838 240 Other: Voiding Method Toilet Toilet Toilet Diaper Diaper Diaper # Voids 2 1 - Exam Physical Exam: Revealed a 81-year-old female in no distress. On 2 L nasal cannula. Head: Atraumatic normocephalic. Psychiatric: Normal mood affect and normal mental status examination.HEENT:[Neck is supple.] [No neck masses.] [No thyromegaly.] [No JVD.] Chest: [Clear throughout, no crackles, no rhonchi, no wheezes.] Cardiac Exam: [Normal S1 and S2, no S3 gallop, no murmur.] Abdomen: [Soft, nontender, no megaly, no rebound, no guarding, normal bowel sounds.] Extremities: [No clubbing, no edema, no cyanosis.] Neurological Exam: [No focal neurologic deficit.] Skin: No rashes. Musculoskeletal: No deformities and no limitation in range of motion - Labs CBC & Chem 7: 08/03/21 10:30 08/03/21 10:30 Assessment and Plan Assessment: Impression: Acute hypoxic respiratory failure, multifactorial. Acute bilateral pulmonary embolism and left lower extremity DVT Atrial fibrillation with RVR, on Cardizem initially. Being followed by cardiology. GERD without esophagitis. Former smoker. History of underlying COPD presently in active. Recommendation: Continue Eliquis, Continue bronchodilators. Continue cardiac meds as per cardiology. Consider discharge planning in the next 24 hours, patient will definitely need placement. Time with Patient: Less than 30
[2021-08-05] MEDS: MULTIVITAMINS, THERA 1 EACH TAB PO SCH (12:35)
[2021-08-05] MEDS: FOLIC ACID 1 MG TAB PO SCH (12:35)
[2021-08-05] MEDS: THIAMINE 100 MG TAB PO SCH (12:36)
--- NOTE | 2021-08-05 17:49 | PN ---
PROGRESS NOTE DATE OF SERVICE: 08/05/2021 This 81-year-old woman who was admitted with acute bilateral pulmonary embolism is being closely monitored. No chest pain. No palpitations. No fever. PHYSICAL EXAMINATION: Pulse 82, blood pressure 122/78, respiration 19. HEENT: Conjunctivae normal. CARDIOVASCULAR: S1, S2 muffled. RESPIRATION: Breath sounds diminished at the bases. A few scattered rhonchi. ABDOMEN: Soft. NERVOUS SYSTEM: No focal deficit. LABS: Sodium 136. Other labs are noted and reviewed. ASSESSMENT: 1. Acute bilateral pulmonary embolism with acute hypoxic respiratory failure. 2. Chronic obstructive pulmonary disease, acute exacerbation. 3. Right lower extremity deep vein thrombosis. 4. Change in mental status, acute metabolic encephalopathy. 5. Multiple medical issues. RECOMMENDATIONS AND DISCUSSION: I recommend to continue current medications, continue with the monitoring, symptomatic treatment. Continue with anticoagulation. PT/OT evaluation, possible ECF rehab. MARIZA / SONAMN: [id number] /
[2021-08-05] MEDS: ATORVASTATIN 40 MG TAB PO SCH (20:33)
[2021-08-05] MEDS: MELATONIN 3 MG TABLET PO SCH (20:33)
[2021-08-06] MEDS: IPRATROPIUM-ALBUTEROL 3 ML NEB INHALATION SCH ×4 (07:40→21:34)
[2021-08-06] MEDS: APIXABAN 5 MG TAB PO SCH ×2 (08:46→20:06)
[2021-08-06] MEDS: METOPROLOL SUCCINATE (ER) 50 MG TAB.ER.24H PO SCH (08:46)
[2021-08-06] MEDS: PARoxetine 20 MG TAB PO SCH (08:47)
[2021-08-06] MEDS: CLOPIDOGREL 75 MG TAB PO SCH (08:47)
[2021-08-06] MEDS: SPIRONOLACTONE 25 MG TAB PO SCH (08:47)
[2021-08-06] MEDS: FUROSEMIDE 20 MG TAB PO SCH (08:48)
[2021-08-06] MEDS: THIAMINE 100 MG TAB PO SCH (12:30)
[2021-08-06] MEDS: MULTIVITAMINS, THERA 1 EACH TAB PO SCH (12:30)
[2021-08-06] MEDS: FOLIC ACID 1 MG TAB PO SCH (12:30)
--- NOTE | 2021-08-06 13:24 | P.CONS ---
History of Present Illness - Reason for Consult Consult date: 08/06/21 wound care - History of Present Illness This is a 81 y/o female being seen [facility] for non-healing ulceration. Patient's past medical history significant for atrial fibrillation, COPD, CVA, GERD, hyperlipidemia. Denies diabetes. Patient has history of nonhealing ulceration to the left lower extremity the left dorsal foot. She had previously seen wound care however the ulcerations are healed there is no open areas at this time. Review Of Systems: Constitutional: No fever, no chills, no night sweats. No weight change. No weakness, fatigue or lethargy. No daytime sleepiness. Integumentary:reports wounds, no lesions. No rash or pruritus. No unusual bruising. No change in hair or nails. Physical exam: General Appearance: Alert, cooperative, no distress, appears stated age. Skin: See HPI all other Skin color, texture, tugor normal, no rashes or lesions. Neurologic: Alert oriented x3 Assessment: 1. Cellulitis Plan: 1. No wound orders at this time no open ulcerations. May utilize lotion to the dry scaly skin. And wrap as needed. Thank for the consultation any questions with contact the wound care center DNP note has been reviewed and discussed with Dr. Arora and the impression and plan of care has been directed as dictated. Past Medical History Past Medical History: Atrial Fibrillation, COPD, CVA/TIA, GERD/Reflux, Hearing Disorder / Deafness, Hyperlipidemia, Pneumonia Additional Past Medical History / Comment(s): sob at times. History of Any Multi-Drug Resistant Organisms: None Reported Past Surgical History: Breast Surgery, Orthopedic Surgery Additional Past Surgical History / Comment(s): cyst removed from left breast, left hip replaced Past Anesthesia/Blood Transfusion Reactions: No Reported Reaction Past Psychological History: Anxiety, Depression Smoking Status: Former smoker Past Alcohol Use History: None Reported Past Drug Use History: None Reported - Past Family History Father Family Medical History: Cancer Additional Family Medical History / Comment(s): bone ca Medications and Allergies Home Medications Medication Instructions Recorded Confirmed Type PARoxetine [Paxil] 20 mg PO DAILY 11/04/15 08/01/21 History Atorvastatin [Lipitor] 40 mg PO HS 09/08/18 08/01/21 History Clopidogrel [Plavix] 75 mg PO DAILY 09/08/18 08/01/21 History Metoprolol Succinate [Toprol XL] 25 mg PO DAILY #30 tab 09/09/18 08/01/21 Rx Albuterol Inhaler [Ventolin Hfa 2 puff INHALATION RT-QID PRN 06/10/20 08/01/21 History Inhaler] Ipratropium-Albuterol Nebulize 3 ml INHALATION RT-QID 06/10/20 08/01/21 History [Duoneb 0.5 mg-3 mg/3 ml Soln] Furosemide [Lasix] 20 mg PO MOWEFR 01/30/21 08/01/21 History Acetaminophen Tab [Tylenol] 500 - 1,000 mg PO Q6H PRN 07/04/21 08/01/21 History Bisacodyl 5 mg PO DAILY PRN 07/04/21 08/01/21 History Spironolactone [Aldactone] 25 mg PO DAILY 07/04/21 08/01/21 History Folic Acid 1 mg PO DAILY@1200 tab 07/09/21 08/01/21 Rx Thiamine [Vitamin B-1] 100 mg PO DAILY@1200 tab 07/09/21 08/01/21 Rx Multivitamins, Thera [Multivitamin 1 tab PO DAILY@1200 08/01/21 08/01/21 History (formulary)] Allergies Allergy/AdvReac Type Severity Reaction Status Date / Time No Known Allergies Allergy Verified 08/01/21 16:22 Physical Exam Vitals: Vital Signs Temp Pulse Pulse Resp BP Pulse Ox 08/06/21 12:00 97.9 F 75 19 104/67 97 08/06/21 11:31 84 08/06/21 11:19 80 08/06/21 08:00 97.7 F 87 19 109/52 95 08/06/21 07:51 84 08/06/21 07:40 84 08/06/21 04:00 97.9 F 77 18 113/62 92 L 08/06/21 02:00 77 18 08/06/21 00:00 98.5 F 77 18 98/53 94 L 08/05/21 20:14 84 08/05/21 20:00 97.5 F L 86 18 102/59 95 08/05/21 19:58 80 08/05/21 16:00 98.2 F 77 19 131/70 96 08/05/21 14:00 82 19 Intake and Output 08/05/21 08/06/21 08/06/21 22:59 06:59 14:59 Intake Total 240 Balance 240 Intake: Oral 240 Other: Voiding Method Toilet Toilet Toilet Diaper Diaper Diaper # Voids 3 1 # Bowel Movements 1 Results CBC & Chem 7: 08/03/21 10:30 08/03/21 10:30 Assessment and Plan (1) Cellulitis Current Visit: No Status: Acute Code(s): L03.90 - CELLULITIS, UNSPECIFIED SNOMED Code(s): 192238936
--- NOTE | 2021-08-06 14:59 | P.PN ---
Subjective Progress Note Date: 08/06/21 Principal diagnosis: Acute hypoxic respiratory failure, acute exacerbation of COPD This is a pleasant 81-year-old female patient with a known history of gastroesophageal reflux disease, hypertension, hyperlipidemia, diastolic congestive heart failure, chronic obstructive pulmonary disease, former tobacco dependence. She has a history of some chronic changes and left lower lobe. She presented here to the emergency room with increasing shortness of breath cough with yellow productive sputum, weight loss. Chest x-ray reveals no acute pulmonary process. Evidence of hyperinflation secondary to COPD. She did have an episode of SVT versus atrial fibrillation with rapid ventricular response while in the emergency room and was initiated on the Cardizem drip. Currently in normal sinus rhythm. She is seen in consultation on the regular medical floor. She is sitting up at the bedside. Awake and alert in no acute distress. Maintaining O2 saturations in the 90s on 2 L/m per nasal cannula. She states she had been short of breath for approximately one week. She's had some yellow productive phlegm. No fever or chills. Some lower extremity edema. White count 11.8. Hemoglobin 14.0. INR 1.1. Sodium 140. Potassium 4.6. BUN 29. Creatinine 0.65. Glucose 167. Troponin negative 1. A 22. ALT 12. Miller virus by PCR not detected. His been initiated on IV Solu-Medrol, DuoNeb inhalations. Remains on oral diuretics. On 08/03/2021 patient seen in follow-up on medical surgical floor, she is alert, in no acute distress, she remains on heparin infusion, CTA chest showed new bilateral pulmonary emboli with no CT evidence of RV strain. Lower extremity Dopplers were positive for DVT in the left leg. Echocardiogram has been reviewed showing EF of 50-55%, right ventricle was of normal size, there was mild tricuspid regurgitation, and right ventricular systolic pressure was less than 35 mmHg. No rhonchi or wheezing, lung sounds are diminished, equal, clear. Breathing comfortably, she is on 2 L of oxygen pulse ox of 98%, denies any chest discomfort, denies any cough, vital signs have been stable overnight. On 08/06/2011 exhalation is seen in follow-up on medical surgical floor, she is breathing comfortably, she is currently on 2 L of oxygen pulse ox is 97%, she has no specific complaints, she continues on Eliquis for newly diagnosed pulmonary emboli and DVT. Hemodynamically she is stable, her COPD is stable. She continues on nebulized bronchodilator, we stopped her IV steroids last week, she is on home dose Lasix, she's had no acute events overnight. Objective - Vital Signs Vital signs: Vital Signs Temp 97.9 F 08/06/21 12:00 Pulse 75 08/06/21 14:00 Resp 19 08/06/21 14:00 BP 104/67 08/06/21 12:00 Pulse Ox 97 08/06/21 12:00 Intake & Output 08/05/21 08/06/21 08/06/21 18:59 06:59 18:59 Intake Total 720 Balance 720 Intake: Oral 720 Other: Voiding Method Toilet Toilet Toilet Diaper Diaper Diaper # Voids 3 1 # Bowel Movements 1 - Exam GENERAL EXAM: Alert, very pleasant, 81-year-old white female, on 2 L of oxygen and the pulse ox of 98%, comfortable in no apparent distress. HEAD: Normocephalic/atraumatic. EYES: Normal reaction of pupils, equal size. Conjunctiva pink, sclera white. NOSE: Clear with pink turbinates. THROAT: No erythema or exudates. NECK: No masses, no JVD, no thyroid enlargement, no adenopathy. CHEST: No chest wall deformity. Symmetrical expansion. LUNGS: Equal air entry with no crackles, wheeze, rhonchi or dullness. CVS: Regular rate and rhythm, normal S1 and S2, no gallops, no murmurs, no rubs ABDOMEN: Soft, nontender. No hepatosplenomegaly, normal bowel sounds, no guarding or rigidity. EXTREMITIES: No clubbing, no edema, no cyanosis, 2+ pulses and upper and lower extremities. MUSCULOSKELETAL: Muscle strength and tone normal. SPINE: No scoliosis or deformity SKIN: No rashes CENTRAL NERVOUS SYSTEM: Alert and oriented -3. No focal deficits, tone is normal in all 4 extremities. PSYCHIATRIC: Alert and oriented -3. Appropriate affect. Intact judgment and insight. - Labs CBC & Chem 7: 08/03/21 10:30 08/03/21 10:30 Assessment and Plan Plan: Assessment: #1. Acute hypoxic respiratory failure related to acute bilateral pulmonary emb kwesi and left lower extremity DVT. Was on heparin infusion, been transitioned to oral Eliquis, no CT evidence of RV strain #2. A. fib with RVR, patient was on Cardizem infusion, which is currently d iscontinued #3. Mild exacerbation of COPD, improved #4. Former smoker #5. GERD/reflux #6. Hyperlipidemia #7. Chronic lower extremity edema #8. Poor oral functional performance Plan: Patient is doing well Hemodynamically stable Continues on Eliquis for acute bilateral pulmonary emboli and left lower extremity DVT Vital signs are stable No acute events overnight Consider discharge to ECF or home if cleared by medicine I performed a history & physical examination of the patient and discussed their management with my nurse practitioner, Whit Tovar. I reviewed the nurse practitioner's note and agree with the documented findings and plan of care. Lung sounds are positive for diminished breath sounds throughout the lung lynch. The findings and the impression was discussed with the patient. I attest to the documentation by the nurse practitioner. Time with Patient: Less than 30
[2021-08-06] MEDS: ATORVASTATIN 40 MG TAB PO SCH (20:06)
[2021-08-06] MEDS: MELATONIN 3 MG TABLET PO SCH (20:06)
--- NOTE | 2021-08-06 23:26 | P.PN ---
Subjective Progress Note Date: 08/06/21 81-year-old female came in with complaints of shortness of breath does have a history of COPD is on 2 L of oxygen. Patient apparently had an episode of SVT/atrial fibrillation for which patient received Cardizem. Patient is presently on IV heparin. Patient is found to have elevated d-dimer because of which is CT angios the chest was obtained which showed a lot of pulmonary embolism. Patient is presently on IV heparin. Patient denied any recent unintentional weight loss. Patient is past the age for any cancer screening. Patient denied any history of DVT in the past. Patient is undergoing echo looking for right ventricular strain. 08/03/2021 Patient seen and evaluated in follow up this morning and currently being closely monitored with pulmonary following. Cardiology consulted for atrial fibrillation with RVR. Patient is continued on IV cardizem along with IV heparin. Patient found to have bilateral pulmonary emboli along with right lower extremity DVT. Patient awaiting transfer to [facility] for closer telemetry monitoring. PT/OT following. Patient denies chest pain or palpitations. Patient is afebrile. Patient reports to tolerating diet with no reported nausea or vomiting. 08/06/2021 Patient is seen today and continues to be closely monitored. Patient working with physical therapy and social work following and awaiting updated therapy notes for possible ECF being planned. Per nursing staff, patient was able to walk up and down the young with stand by assist. Family to discuss further about long-term care settings as well. Cardiology following and pulmonary and mainta ined on Eliquis along with metoprolol and breathing treatments and will continue. REVIEW OF SYSTEMS: CONSTITUTIONAL: No fever, no malaise, no fatigue. CARDIOVASCULAR: No chest pain, orthopnea, PND, no palpitations, no syncope. PULMONARY: denies worsening shortness of breath, no hemoptysis. GASTROINTESTINAL: No diarrhea, no nausea, no vomiting, no abdominal pain. NEUROLOGICAL: No headaches, no weakness, no numbness. GENITOURINARY: Denies any burning micturition, frequency, or urgency. MUSCULOSKELETAL/RHEUMATOLOGICAL: Denies any joint pain, swelling, or any muscle pain. Active Medications Acetaminophen (Acetaminophen Tab 500 Mg Tab) 500 mg PO Q6H PRN PRN Reason: Fever and/ or Pain Albuterol/Ipratropium (Ipratropium-Albuterol 3 Ml Neb) 3 ml INHALATION RT-Q4H PRN PRN Reason: Shortness Of Breath Or Wheezing Albuterol/Ipratropium (Ipratropium-Albuterol 3 Ml Neb) 3 ml INHALATION RT-QID [facility] Last Admin: 08/06/21 21:34 Dose: 3 ml Documented by: Apixaban (Apixaban 5 Mg Tab) 10 mg PO BID [facility]; Protocol Stop: 08/09/21 23:00 Last Admin: 08/06/21 20:06 Dose: 10 mg Documented by: Apixaban (Apixaban 5 Mg Tab) 5 mg PO BID [facility]; Protocol Atorvastatin Calcium (Atorvastatin 40 Mg Tab) 40 mg PO [facility] Last Admin: 08/06/21 20:06 Dose: 40 mg Documented by: Bisacodyl (Bisacodyl 5 Mg Tablet.Dr) 5 mg PO DAILY PRN PRN Reason: Constipation Clopidogrel Bisulfate (Clopidogrel 75 Mg Tab) 75 mg PO DAILY [facility] Last Admin: 08/06/21 08:47 Dose: 75 mg Documented by: Folic Acid (Folic Acid 1 Mg Tab) 1 mg PO DAILY@1200 [facility] Last Admin: 08/06/21 12:30 Dose: 1 mg Documented by: Furosemide (Furosemide 20 Mg Tab) 20 mg PO MOWEFR [facility] Last Admin: 08/06/21 08:48 Dose: 20 mg Documented by: Melatonin (Melatonin 3 Mg Tablet) 3 mg PO [facility] Last Admin: 08/06/21 20:06 Dose: 3 mg Documented by: Metoprolol Succinate (Metoprolol Succinate (Er) 50 Mg Tab.Er.24h) 50 mg PO DAILY [facility] Last Admin: 08/06/21 08:46 Dose: 50 mg Documented by: Multivitamins (Multivitamins, Thera 1 Each Tab) 1 each PO DAILY@1200 [facility] Last Admin: 08/06/21 12:30 Dose: 1 each Documented by: Paroxetine HCl (Paroxetine 20 Mg Tab) 20 mg PO DAILY [facility] Last Admin: 08/06/21 08:47 Dose: 20 mg Documented by: Sodium Chloride (Sodium Chloride 0.9% Flush 10 Ml Syringe) 10 ml IV Q12HR [facility] Last Admin: 08/06/21 20:06 Dose: 10 ml Documented by: Sodium Chloride (Sodium Chloride 0.9% Flush 10 Ml Syringe) 10 ml IV DIRECTED PRN PRN Reason: FLUSH Spironolactone (Spironolactone 25 Mg Tab) 25 mg PO DAILY [facility] Last Admin: 08/06/21 08:47 Dose: 25 mg Documented by: Thiamine HCl (Thiamine 100 Mg Tab) 100 mg PO DAILY@1200 [facility] Last Admin: 08/06/21 12:30 Dose: 100 mg Documented by: PHYSICAL EXAMINATION: GENERAL: The patient is alert and oriented x2. Well developed, well nourished. HEENT: Pupils are round and equally reacting to light. EOMI. No scleral icterus. No conjunctival pallor. Normocephalic, atraumatic. No pharyngeal erythema. No thyromegaly. CARDIOVASCULAR: S1 and S2 muffled PULMONARY: diminished breath sounds bilaterally with scattered rhonchi noted ABDOMEN: Soft, nontender, nondistended, normoactive bowel sounds. No palpable organomegaly. MUSCULOSKELETAL: No joint swelling or deformity. EXTREMITIES: No cyanosis, clubbing, or pedal edema. NEUROLOGICAL: Gross neurological examination did not reveal any focal deficits. diffusely weak SKIN: No rashes. Assessment: -Acute hypoxic and hypercapnic respiratory failure: Secondary to bilateral pulmonary emboli and COPD exacerbation -Acute bilateral PE appears to be unprovoked. -right lower extremity DVT -atrial fibrillation, new onset paroxysmal with RVR, currently rate controlled -gastroesophageal reflux disease -Hyperlipidemia -chronic congestive heart failure with preserved EF. EF is 50-55%% -Chronic venous insufficiency with bilateral lower extremity edema -CODE STATUS: Full code -DVT prophylaxis Plan: Recommend to continue with current medications and multiple medical consultations following. Patient being followed by cardiology and pulmonary. Social work and PT/OT therapy following as well with possible ECF being planned. Family to discuss further about care home care facilities as they feel patient has been declining at home and needs more continuous care. Home care is also being arranged. Due to multiple complex medical issues, prognosis is guarded. Possible discharge in 24 hours. Objective - Vital Signs Vital signs: Vital Signs Temp 97.7 F 08/06/21 08:00 Pulse 87 08/06/21 08:00 Resp 19 08/06/21 08:00 BP 109/52 08/06/21 08:00 Pulse Ox 95 08/06/21 08:00 Intake & Output 08/05/21 08/06/21 08/06/21 18:59 06:59 18:59 Intake Total 720 Balance 720 Intake: Oral 720 Other: Voiding Method Toilet Toilet Diaper Diaper # Voids 3 1 # Bowel Movements 1 - Labs CBC & Chem 7: 08/03/21 10:30 08/03/21 10:30
[2021-08-07] MEDS: IPRATROPIUM-ALBUTEROL 3 ML NEB INHALATION SCH ×2 (07:46→10:40)
[2021-08-07 09:18] VITALS: TEMP 97.7
[2021-08-07] MEDS: APIXABAN 5 MG TAB PO SCH (09:24)
[2021-08-07] MEDS: SPIRONOLACTONE 25 MG TAB PO SCH (09:25)
[2021-08-07] MEDS: PARoxetine 20 MG TAB PO SCH (09:25)
[2021-08-07] MEDS: CLOPIDOGREL 75 MG TAB PO SCH (09:25)
[2021-08-07] MEDS: METOPROLOL SUCCINATE (ER) 50 MG TAB.ER.24H PO SCH (09:25)
--- NOTE | 2021-08-07 12:13 | P.PN ---
Subjective Progress Note Date: 08/07/21 Principal diagnosis: COPD exacerbation/PE This is a pleasant 81-year-old female patient with a known history of gastroesophageal reflux disease, hypertension, hyperlipidemia, diastolic congestive heart failure, chronic obstructive pulmonary disease, former tobacco dependence. She has a history of some chronic changes and left lower lobe. She presented here to the emergency room with increasing shortness of breath cough with yellow productive sputum, weight loss. Chest x-ray reveals no acute pulmonary process. Evidence of hyperinflation secondary to COPD. She did have an episode of SVT versus atrial fibrillation with rapid ventricular response while in the emergency room and was initiated on the Cardizem drip. Currently in normal sinus rhythm. She is seen in consultation on the regular medical floor. She is sitting up at the bedside. Awake and alert in no acute distress. Maintaining O2 saturations in the 90s on 2 L/m per nasal cannula. She states she had been short of breath for approximately one week. She's had some yellow productive phlegm. No fever or chills. Some lower extremity edema. White count 11.8. Hemoglobin 14.0. INR 1.1. Sodium 140. Potassium 4.6. BUN 29. Creatinine 0.65. Glucose 167. Troponin negative 1. A 22. ALT 12. Miller virus by PCR not detected. His been initiated on IV Solu-Medrol, DuoNeb inhalations. Remains on oral diuretics. On 08/03/2021 patient seen in follow-up on medical surgical floor, she is alert, in no acute distress, she remains on heparin infusion, CTA chest showed new bilateral pulmonary emboli with no CT evidence of RV strain. Lower extremity Dopplers were positive for DVT in the left leg. Echocardiogram has been reviewed showing EF of 50-55%, right ventricle was of normal size, there was mild tricuspid regurgitation, and right ventricular systolic pressure was less than 35 mmHg. No rhonchi or wheezing, lung sounds are diminished, equal, clear. Breathing comfortably, she is on 2 L of oxygen pulse ox of 98%, denies any chest discomfort, denies any cough, vital signs have been stable overnight. The patient is seen today 08/04/2021 in follow-up on the selective care unit. S he is currently awake and alert in no acute distress. No worsening shortness of breath, cough or congestion. No hemoptysis. Resting fairly comfortably in bed. Maintaining O2 saturations in the 90s on 2 L/m per nasal cannula. Afebrile. Hemodynamically stable. She is being treated for bilateral pulmonary emboli and a DVT of the left lower extremity. She is maintained on Eliquis now. Continued on bronchodilators. The patient is seen today 08/07/2021 in follow-up on the selective care unit. She is currently resting comfortably in bed. Awake and alert in no acute distress. Maintaining O2 saturations up to 100% on 2 L/m per nasal cannula. She's afebrile. She is continued on DuoNeb inhalations, anticoagulated with Eliquis. Objective - Vital Signs Vital signs: Vital Signs Temp 97.7 F 08/07/21 09:16 Pulse 81 08/07/21 10:50 Resp 20 08/07/21 09:16 BP 97/57 08/07/21 09:16 Pulse Ox 100 08/07/21 09:16 Intake & Output 08/06/21 08/07/21 08/07/21 18:59 06:59 18:59 Intake Total 480 1195 118 Balance 480 1195 118 Intake: Oral 480 1195 118 Other: Voiding Method Toilet Toilet Toilet Diaper Diaper Diaper # Voids 3 2 - Exam GENERAL EXAM: Alert, pleasant 81-year-old female patient, on 2 L nasal cannula, comfortable in no apparent distress. HEAD: Normocephalic. EYES: Normal reaction of pupils, equal size. NOSE: Clear with pink turbinates. THROAT: No erythema or exudates. NECK: No masses, no JVD. CHEST: No chest wall deformity. LUNGS: Equal air entry with no crackles, wheeze, rhonchi or dullness. CVS: S1 and S2 normal with no audible murmur, regular rhythm. ABDOMEN: No hepatosplenomegaly, normal bowel sounds, no guarding or rigidity. SPINE: No scoliosis or deformity SKIN: No rashes CENTRAL NERVOUS SYSTEM: No focal deficits, tone is normal in all 4 extremities. EXTREMITIES: There is no peripheral edema. No clubbing, no cyanosis. Peripheral pulses are intact. - Labs CBC & Chem 7: 08/03/21 10:30 08/03/21 10:30 Assessment and Plan Assessment: 1 Acute hypoxemic respiratory failure secondary to an acute exacerbation of chronic obstructive pulmonary disease as well as bilateral PE/left leg DVT on Eliquis 2 Acute bilateral pulmonary emboli/left lower extremity DVT 3 SVT versus A. fib RVR, initiated on a Cardizem drip 4 Former smoker 5 Gastroesophageal reflux disease 6 Hyperlipidemia 7 Chronic lower extremity edema 8 Poor overall functional performance and limited mobility at home Plan: The patient was seen and evaluated Stable and on 2 L nasal cannula Continue bronchodilators Anticoagulated with Eliquis Awaiting subacute rehab I, the cosigning physician, performed a history & physical examination of the patient. Lungs sounds are clear, diminished. Maintaining good O2 saturations in the 90s on 2 L/m per nasal cannula. I discussed the assessment and plan of care with my nurse practitioner, Imelda Brunner. I attest to the above note as dictated by her.
[2021-08-07 12:23] VITALS: BP 93/59; PULSE 88; RESP 18
[2021-08-07] MEDS: THIAMINE 100 MG TAB PO SCH (12:25)
[2021-08-07] MEDS: MULTIVITAMINS, THERA 1 EACH TAB PO SCH (12:25)
[2021-08-07] MEDS: FOLIC ACID 1 MG TAB PO SCH (12:25)
--- NOTE | 2021-08-07 13:20 | P.DS ---
Providers Date of admission: 08/02/21 13:28 Expected date of discharge: 08/07/21 Attending physician: Vera Delacruz Consults: 08/02/21 11:07 Consult Physician Stat Consulting Provider: Poncho Ware Consult Reason/Comments: shortness of breath Do you want consulting provider notified?: Yes 08/02/21 11:12 Consult Physician Routine Consulting Provider: Kyler Barnett Consult Reason/Comments: cognitive assessment Do you want consulting provider notified?: Yes Primary care physician: Tabby Harrell Hospital Course: Final diagnosis -Acute hypoxic and hypercapnic respiratory failure: Secondary to bilateral pulmonary emboli and COPD exacerbation -Acute bilateral PE appears to be unprovoked. -right lower extremity DVT -atrial fibrillation, new onset paroxysmal with RVR, currently rate controlled -gastroesophageal reflux disease -Hyperlipidemia -chronic congestive heart failure with preserved EF. EF is 50-55%% -Chronic venous insufficiency with bilateral lower extremity edema -CODE STATUS: Full code -DVT prophylaxis Discharge disposition Patient is being discharged in a stable condition with guarded prognosis to [facility] for continued PT/OT therapy. Patient will follow-up with Dr. Mcnair in the outpatient setting upon discharge from [facility]. Patient will also need to follow-up with pulmonary in the outpatient setting in the next 1-2 weeks. Patient is to continue with breathing inhalational treatments. Total time taken is greater than 35 minutes. Hospital course This is an 81-year-old female who was recently admitted with increasing shortnes s of breath with an extensive history of COPD maintained on 2 L of oxygen and was being closely monitored. Patient also having episode of atrial fibrillation new-onset and was evaluated closely by cardiology. Patient also had an elevated d-dimer and was found to have a right lower extremity DVT along with bilateral multiple pulmonary emboli as noted on CTA. Patient has transition to Eliquis and will continue with 10 mg twice daily until 08/09/2021 and then titrate the dose down to 5 mg twice daily thereafter. Recommend outpatient follow-up with cardiology along with pulmonary in the outpatient setting. Patient continues with weakness and was evaluated by physical therapy and patient will be going to [facility] for strength and mobility. Patient continues with bilateral lower extremity dryness and was evaluated by wound care recommending to continue with Eucerin cream 2-3 times daily of the lower extremities and elevate while at rest. Currently no reports of chest pain, worsening shortness of breath, or palpitations. Patient is afebrile. No reports of nausea or vomiting and patient is tolerating diet. Patient will be going to [facility] today. Guarded prognosis. On exam vital signs are stable. Cardio S1, S2 are muffled. Respiratory system shows diminished breath sounds at the bases with no wheezing or rhonchi noted. Abdomen is soft and nontender. Nervous system shows diffuse weakness. Please refer to medication reconciliation sheet for a list of medications. Patient Condition at Discharge: Stable Plan - Discharge Summary Discharge Rx Participant: No New Discharge Prescriptions: New Ipratropium-Albuterol Nebulize [Duoneb 0.5 mg-3 mg/3 ml Soln] 3 ml INHALATION RT-Q4H PRN ml PRN Reason: Shortness Of Breath Or Wheezing Apixaban [Eliquis] 10 mg PO BID tab Melatonin 3 mg PO HS tablet Metoprolol Succinate (ER) [Toprol XL] 50 mg PO DAILY Ipratropium-Albuterol Nebulize [Duoneb 0.5 mg-3 mg/3 ml Soln] 3 ml INHALATION RT-QID ml Apixaban [Eliquis] 5 mg PO BID tab Continue PARoxetine [Paxil] 20 mg PO DAILY Clopidogrel [Plavix] 75 mg PO DAILY Atorvastatin [Lipitor] 40 mg PO HS Albuterol Inhaler [Ventolin Hfa Inhaler] 2 puff INHALATION RT-QID PRN PRN Reason: Shortness Of Breath Furosemide [Lasix] 20 mg PO MOWEFR Spironolactone [Aldactone] 25 mg PO DAILY Bisacodyl 5 mg PO DAILY PRN PRN Reason: Constipation Acetaminophen Tab [Tylenol] 500 - 1,000 mg PO Q6H PRN PRN Reason: Fever And/ Or Pain Folic Acid 1 mg PO DAILY@1200 tab Thiamine [Vitamin B-1] 100 mg PO DAILY@1200 tab Multivitamins, Thera [Multivitamin (formulary)] 1 tab PO DAILY@1200 Discontinued Metoprolol Succinate [Toprol XL] 25 mg PO DAILY #30 tab Ipratropium-Albuterol Nebulize [Duoneb 0.5 mg-3 mg/3 ml Soln] 3 ml INHALATION RT-QID Discharge Medication List PARoxetine [Paxil] 20 mg PO DAILY 11/04/15 [History] Atorvastatin [Lipitor] 40 mg PO HS 09/08/18 [History] Clopidogrel [Plavix] 75 mg PO DAILY 09/08/18 [History] Albuterol Inhaler [Ventolin Hfa Inhaler] 2 puff INHALATION RT-QID PRN 06/10/20 [History] Furosemide [Lasix] 20 mg PO MOWEFR 01/30/21 [History] Acetaminophen Tab [Tylenol] 500 - 1,000 mg PO Q6H PRN 07/04/21 [History] Bisacodyl 5 mg PO DAILY PRN 07/04/21 [History] Spironolactone [Aldactone] 25 mg PO DAILY 07/04/21 [History] Folic Acid 1 mg PO DAILY@1200 tab 07/09/21 [Rx] Thiamine [Vitamin B-1] 100 mg PO DAILY@1200 tab 07/09/21 [Rx] Multivitamins, Thera [Multivitamin (formulary)] 1 tab PO DAILY@1200 08/01/21 [History] Apixaban [Eliquis] 5 mg PO BID tab 08/06/21 [Rx] Apixaban [Eliquis] 10 mg PO BID tab 08/06/21 [Rx] Ipratropium-Albuterol Nebulize [Duoneb 0.5 mg-3 mg/3 ml Soln] 3 ml INHALATION RT-Q4H PRN ml 08/06/21 [Rx] Ipratropium-Albuterol Nebulize [Duoneb 0.5 mg-3 mg/3 ml Soln] 3 ml INHALATION R T-QID ml 08/06/21 [Rx] Melatonin 3 mg PO HS tablet 08/06/21 [Rx] Metoprolol Succinate (ER) [Toprol XL] 50 mg PO DAILY 08/06/21 [Rx] Follow up Appointment(s)/Referral(s): Poncho Ware MD [STAFF PHYSICIAN] - 1 Week Julio Cesar Mcnair MD [Primary Care Provider] - 1-2 days [facility], [NON-STAFF] - [facility] - [facility] [NON-STAFF] - (Supplier of Home Oxygen) Ambulatory/Diagnostic Orders: Complete Blood Count w/diff [LAB.AMB] Time Frame: 3 Days, Location: None Selected Activity/Diet/Wound Care/Special Instructions: Patient going to [facility] Activity as tolerated Continue heart healthy diet Continue with lotion to the lower extremities and close monitoring Elevate lower extremities while at rest Continue with oxygen supplementation at 2 L via NC to manage CHF Follow-up with cardiology outpatient Repeat labs in 2-3 days Follow-up pulmonary outpatient Continue taking Eliquis 10mg bid until 08/09/2021 and then titrate the dose down to 5 mg twice daily thereafter Discharge Disposition: TRANSFER TO SNF/ECF
[2021-08-10] MEDS ORDERED: APIXABAN 5 MG TAB PO SCH (09:00)
== END 2021-08-07 15:10 | DRG 175 ==
LOC: EC 12:49 → 6NMEDSUR 16:09 → OBSVTOIN 08-02 13:28 → 3SCARD 08-03 10:40
PROVIDERS: ADMIT Hospitalist; ATTEND Hospitalist
DX: I26.99 Other pulmonary embolism without acute cor pulmonale (principal); J96.01 Acute respiratory failure with hypoxia; J96.02 Acute respiratory failure with hypercapnia; G93.41 Metabolic encephalopathy; J44.1 Chronic obstructive pulmonary disease with (acute) exacerbation; I50.32 Chronic diastolic (congestive) heart failure; I82.431 Acute embolism and thrombosis of right popliteal vein; I48.0 Paroxysmal atrial fibrillation; I11.0 Hypertensive heart disease with heart failure; Z20.822 Contact with and (suspected) exposure to COVID-19; E78.5 Hyperlipidemia, unspecified; F32.A Depression, unspecified; F41.9 Anxiety disorder, unspecified; I08.1 Rheumatic disorders of both mitral and tricuspid valves; K21.9 Gastro-esophageal reflux disease without esophagitis; I87.2 Venous insufficiency (chronic) (peripheral); H91.90 Unspecified hearing loss, unspecified ear; Z99.81 Dependence on supplemental oxygen; Z79.02 Long term (current) use of antithrombotics/antiplatelets; Z79.899 Other long term (current) drug therapy; Z87.891 Personal history of nicotine dependence; Z86.73 Personal history of transient ischemic attack (TIA), and cerebral infarction without residual deficits; Z87.01 Personal history of pneumonia (recurrent); Z96.642 Presence of left artificial hip joint; Z87.2 Personal history of diseases of the skin and subcutaneous tissue; Z60.2 Problems related to living alone; Z86.79 Personal history of other diseases of the circulatory system; Z98.890 Other specified postprocedural states; Z80.8 Family history of malignant neoplasm of other organs or systems
CPT/HCPCS: 36415; 71046; 71275; 80048; 80053; 81003; 83605; 83735; 83880; 84484; 85025; 85379; 85610; 85730; 87635; 93005; 93306; 93970; 94640; 94760; 96365; 96366; 96375; 96376; 99285

== ENCOUNTER → 2023-08-15 | Outpatient (CLI) | payer MEDICARE, OTHER ==
--- NOTE | 2023-08-15 13:13 | CT ---
EXAMINATION TYPE: CT chest w con DATE OF EXAM: 08/15/2023 COMPARISON: 09/02/2018 HISTORY: COPD, cough CT DLP: 616 mGycm Automated exposure control for dose reduction was used. TECHNIQUE: CT scan of the chest is performed with IV Contrast, patient injected with 80 mL of Isovue 300. MIP I mages are created on CT scanner and reviewed. 3D reconstructed images are created on an independent w orkstation and reviewed. FINDINGS: There is stable pleural-parenchymal scarring in the apices. There has been interval worsening in the abnormal densities within the right middle lobe. The bandlik e density with marked bronchiectasis is stable but there are reticular nodular densities in the right middle lobe which is not present on the prior study. One nodule measures approximately 10 mm. There is been interval worsening with reticular nodular densities in the lingula as well. In the right upper lobe medially there is a cyst with a perceptible wall and the possibility of a sma ll abscess or septic embolus is not excluded. The subparenchymal and pleural-based thickening in the right upper lobe laterally is slightly worse i n the interval as well. There is increasing reticular densities in the peripheral lung bases. There is no large air space consolidative density. There is no pleural effusion or pneumothorax. The great vessels chest are normal as no mediastinal, hilar or axillary adenopathy. There is a small hiatal hernia. Limited scans the upper abdomen reveals no gross abnormality. The osseous structures are intact. IMPRESSION: 1. Interval development of a 10 mm nodular density in the right middle lobe. Malignancy is not exclud ed and PET scan would be useful for further evaluation. In view of the PET scan, a three-month follow -up CT of the chest is recommended. 2. Interval worsening in the fine interstitial and nodular densities primarily developing within the middle lobe and lingula. 3. Interval development of a small 8 to 9 mm cyst with a perceptible wall which could represent a sma ll abscess or septic embolus. 4. Mild hernia. 5. Additional pattern chronic interstitial changes as described above. 6. No mediastinal, hilar or axillary adenopathy.
== END | disposition home or self-care (01) ==
LOC: RADCTMAIN 12:08
PROVIDERS: ATTEND Internal Medicine
DX: K44.9 Diaphragmatic hernia without obstruction or gangrene (principal); J98.4 Other disorders of lung; J44.9 Chronic obstructive pulmonary disease, unspecified; J18.9 Pneumonia, unspecified organism; R05.9 Cough, unspecified
CPT/HCPCS: 71260; Q9967

== ENCOUNTER 2023-12-04 08:17 | Inpatient (IN) | payer MEDICARE, OTHER ==
[2023-12-04 09:12] LABS: Appearance,Urine Clear (Clear); Bilirubin,Urine Negative (Negative); Blood,Urine Negative (Negative); Color,Urine Colorless; Glucose,Urine (UA) 4+ (Negative); Ketones,Urine Negative (Negative); Leukocyte Esterase,Urine Negative (Negative); Nitrite,Urine Negative (Negative); Protein,Urine Negative (Negative); Specific Gravity,Urine 1.017 (1.001-1.035); Urobilinogen,Urine <2.0 mg/dL (<2.0)
[2023-12-04 09:14] LABS: Basophils % (A) 0 %; Eosinophils % (A) 0 %; HCT 40.9 % (34.0-46.0); HGB 12.9 gm/dL (11.4-16.0); Hypochromasia Moderate; Lymphocytes # (A) 0.5 k/uL (1.0-4.8); Lymphocytes % (A) 5 %; MCH 29.8 pg (25.0-35.0); MCHC 31.5 g/dL (31.0-37.0); MCV 94.6 fL (80.0-100.0); Mean Platelet Volume 7.8; Monocytes # (A) 0.5 k/uL (0-1.0); Monocytes % (A) 4 %; Neutrophils # (A) 10.2 k/uL (1.3-7.7); Neutrophils % (A) 90 %; Platelet Count 371 k/uL (150-450); RBC 4.33 m/uL (3.80-5.40); RDW 14.7 % (11.5-15.5); WBC 11.4 k/uL (3.8-10.6)
[2023-12-04 09:22] LABS: INR 1.2 (<1.2); Partial Thromboplastin Time 25.1 sec (22.0-30.0); Prothrombin Time 12.4 sec (10.0-12.5)
[2023-12-04] MEDS: MAGNESIUM SULFATE-D5W PMX 1 GM in DEXTROSE/WATER 1 100ML.BAG IVPB STA (09:24)
[2023-12-04] MEDS: methylPREDNISolone SOD SUCCI 125 MG/2 ML VIAL IV STA (09:25)
--- NOTE | 2023-12-04 09:29 | XR ---
EXAMINATION TYPE: XR chest 2V DATE OF EXAM: 12/04/2023 COMPARISON: 08/01/2021 HISTORY: Shortness of breath TECHNIQUE: Frontal and lateral views of the chest are obtained. FINDINGS: Scattered senescent parenchymal changes noted. Hyperinflation compatible with COPD. Patchy density right mid and right lower lung zone may reflect developing infiltrate. Correlate clini jacque. Heart size is stable. Mediastinal structures are stable and grossly unremarkable. No evidence for hilar prominence. Degenerative changes dorsal spine. IMPRESSION: 1Patchy density right mid and right lower lung zone may reflect developing infiltrate. Correlate clin ically.
[2023-12-04 09:32] LABS: ALT 15 U/L (4-34); AST 24 U/L (14-36); African American GFR (CKD) 56 (>60 ml/min/1.73 sqM); Albumin 3.7 g/dL (3.5-5.0); Alkaline Phosphatase 91 U/L (38-126); Blood Urea Nitrogen 31 mg/dL (7-17); Calcium 9.5 mg/dL (8.4-10.2); Chloride 90 mmol/L (98-107); Glucose 213 mg/dL (74-99); Magnesium 2.6 mg/dL (1.6-2.3); Non-African American GFR(CKD) 49 (>60 ml/min/1.73 sqM); Potassium 5.2 mmol/L (3.5-5.1); Sodium 140 mmol/L (137-145); Total Bilirubin 0.8 mg/dL (0.2-1.3); Total Protein 6.9 g/dL (6.3-8.2)
--- NOTE | 2023-12-04 09:32 | ED ---
General Adult HPI - General Chief complaint: Shortness of Breath Stated complaint: radha Time Seen by Provider: 12/04/23 08:22 Source: patient, RN notes reviewed, old records reviewed Mode of arrival: EMS Limitations: no limitations - History of Present Illness Initial comments: Patient is an 83-year-old female presents emergency department for cough, congestion, shortness of breath. Was also told that she had a fast heart rate. Has a history of A-fib, chronic hypoxic respiratory failure secondary to COPD on 2 to [address] Cintron, the patient's PCP called ahead and said that the patient was also having increased heart rates. Denies chest pain. Endorses mild increased work of breathing. Endorses productive cough of yellow mucus. Denies nausea or vomiting or diarrhea. Denies abdominal pain. Has no other acute complaints. Presents for further evaluation at this time. - Related Data Home Medications Medication Instructions Recorded Confirmed PARoxetine [Paxil] 20 mg PO DAILY 11/04/15 12/04/23 Atorvastatin [Lipitor] 40 mg PO HS 09/08/18 12/04/23 Clopidogrel [Plavix] 75 mg PO DAILY 09/08/18 12/04/23 Albuterol Inhaler [Ventolin Hfa 2 puff INHALATION RT-Q6H PRN 06/10/20 12/04/23 Inhaler] Furosemide [Lasix] 40 mg PO DAILY@1200 01/30/21 12/04/23 Spironolactone [Aldactone] 25 mg PO DAILY 07/04/21 12/04/23 Multivitamins, Thera [Multivitamin 1 tab PO DAILY@1200 08/01/21 12/04/23 (formulary)] Apixaban [Eliquis] 5 mg PO BID@0800,1600 12/04/23 12/04/23 Dapagliflozin Propanediol [Farxiga] 10 mg PO DAILY 12/04/23 12/04/23 Docusate Sodium [Dok] 100 mg PO HS 12/04/23 12/04/23 Ferrous Sulfate [Feosol] 325 mg PO DAILY 12/04/23 12/04/23 Folic Acid 0.8 mg PO DAILY 12/04/23 12/04/23 Furosemide [Lasix] 60 mg PO DAILY@0700 12/04/23 12/04/23 Healthshake 1 dose PO BID 12/04/23 12/04/23 Hydrocortisone Cream 1 applic TOPICAL HS 12/04/23 12/04/23 [Hydrocortisone 2.5% Cream] Melatonin 10 mg PO HS 12/04/23 12/04/23 Metoprolol Succinate (ER) [Toprol 50 mg PO BID@0800,1600 12/04/23 12/04/23 XL] Mirtazapine 7.5 mg PO HS 12/04/23 12/04/23 Thiamine [Vitamin B-1] 100 mg PO DAILY 12/04/23 12/04/23 allopurinoL [Zyloprim] 100 mg PO DAILY 12/04/23 12/04/23 Previous Rx's Medication Instructions Recorded Ipratropium-Albuterol Nebulize 3 ml INHALATION RT-QID ml 08/06/21 [Duoneb 0.5 mg-3 mg/3 ml Soln] Allergies Allergy/AdvReac Type Severity Reaction Status Date / Time No Known Allergies Allergy Verified 12/04/23 10:29 Review of Systems ROS Statement: Those systems with pertinent positive or pertinent negative responses have been documented in the HPI. Review of Systems: CONST: Denies fever EYES: Denies blurry vision ENT: Denies nasal congestion C/V: Denies Chest pain RESP: Endorses shortness of breath, cough GI: Denies abdominal pain : Denies dysuria SKIN: Denies rash. MSK: Denies joint pain. NEURO: Denies headache ROS Other: All systems not noted in ROS Statement are negative. Past Medical History Past Medical History: Atrial Fibrillation, COPD, CVA/TIA, GERD/Reflux, Hearing Disorder / Deafness, Hyperlipidemia, Pneumonia Additional Past Medical History / Comment(s): sob at times. History of Any Multi-Drug Resistant Organisms: None Reported Past Surgical History: Breast Surgery, Orthopedic Surgery Additional Past Surgical History / Comment(s): cyst removed from left breast, left hip replaced Past Anesthesia/Blood Transfusion Reactions: No Reported Reaction Past Psychological History: Anxiety, Depression Smoking Status: Former smoker Past Alcohol Use History: None Reported Past Drug Use History: None Reported - Past Family History Father Family Medical History: Cancer Additional Family Medical History / Comment(s): bone ca General Exam - General Exam Comments Initial Comments: General: Appears in no acute distress. HEAD: Normal with no signs of head trauma. EYES: PERRLA, EOMI, conjunctiva normal, no discharge. ENT: Hearing grossly intact, normal oropharynx. RESPIRATORY: Bilateral end expiratory wheezing with coarse breath sounds in the lower lung [place]. Patient typically on 2 L nasal cannula and requiring 4 L to maintain adequate saturations. Mild increased work of breathing as well. C/V: Regular rate and rhythm. S1 and S2 auscultated, peripheral pulses 2+ and intact throughout ABD: Abd is soft, nontender, nondistended EXT: Normal range of motion, no obvious deformity SKIN: No rashes or lesions observed on exposed skin. NEURO: Alert and oriented x 4. Limitations: no limitations Course Vital Signs 12/04/23 12/04/23 12/04/23 08:27 08:30 10:06 Temperature 97.1 F L 97.1 F L Pulse Rate 90 90 128 H Respiratory 36 H 36 H 40 H Rate Blood Pressure 125/74 120/76 O2 Sat by Pulse 88 L 96 96 Oximetry Fraction of Inspired Oxygen (FIO2) 12/04/23 12/04/23 12/04/23 10:41 10:56 10:57 Temperature Pulse Rate 122 H Respiratory 36 H Rate Blood Pressure O2 Sat by Pulse Oximetry Fraction of 40 Inspired Oxygen (FIO2) 12/04/23 12/04/23 12/04/23 11:03 11:05 11:27 Temperature Pulse Rate 124 H 125 H Respiratory 35 H Rate Blood Pressure 102/67 O2 Sat by Pulse 97 Oximetry Fraction of 40 Inspired Oxygen (FIO2) 12/04/23 12/04/23 12/04/23 12:00 12:19 13:06 Temperature Pulse Rate 80 80 82 Respiratory 35 H 35 H 34 H Rate Blood Pressure 96/63 92/60 102/63 O2 Sat by Pulse 96 96 97 Oximetry Fraction of Inspired Oxygen (FIO2) 12/04/23 12/04/23 12/04/23 13:52 14:27 14:50 Temperature Pulse Rate 128 H 84 Respiratory 35 H 21 Rate Blood Pressure 111/67 104/17 O2 Sat by Pulse 97 95 Oximetry Fraction of 40 Inspired Oxygen (FIO2) Medical Decision Making - Medical Decision Making Was pt. sent in by a medical professional or institution (, PA, HVAC LEAD, urgent care, hospital, or jail...) When possible be specific @ -Sent from nursing facility I spoke with Dr. Cintron who called ahead and request the patient be admitted with pulmonology and cardiology consulted. He suspects possible URI with COPD. Possible A-fib as well. Did you speak to anyone other than the patient for history (EMS, parent, family, police, friend...)? What history was obtained from this source @ -No Did you review nursing and triage notes (agree or disagree)? Why? @ -I reviewed and agree with nursing and triage notes Were old charts reviewed (outside hosp., previous admission, EMS record, old EKG, old radiological studies, urgent care reports/EKG's, jail records)? Report findings @ -Compared current chest x-ray to prior chest x-ray from November 13 which shows new right lower lobe pneumonia. Differential Diagnosis (chest pain, altered mental status, abdominal pain women, abdominal pain men, vaginal bleeding, weakness, fever, dyspnea, syncope, headache, dizziness, GI bleed, back pain, seizure, CVA, palpatations, mental health, musculoskeletal)? @ -Differential Dyspnea: Coronary syndrome, arrhythmia, tamponade, asthma, COPD, pulmonary embolism, pneumonia, pneumothorax, pulmonary effusion, anaphylaxis, diabetic ketoacidosis, flailed chest, pulmonary contusion, diaphragmatic rupture, anemia, neuromuscular, this is not meant to be an all-inclusive list. EKG interpreted by me (3pts min.). @ -As above X-rays interpreted by me (1pt min.). @ -Chest x-ray shows developing infiltrate in the right lower lobe. CT interpreted by me (1pt min.). @ -None done U/S interpreted by me (1pt. min.). @ -None done What testing was considered but not performed or refused? (CT, X-rays, U/S, labs)? Why? @ -None What meds were considered but not given or refused? Why? @ -None Did you discuss the management of the patient with other professionals (professionals i.e. , PA, HVAC LEAD, lab, RT, psych nurse, protective services social worker, slip cover sewer, teacher, operations officer, machine adjuster leader case trim)? Give summary @ -Patient admitted under Dr. Cintron at his request. Spoke with Dr. Hastings of pulmonology and made him aware of the patient. He was in agreement with the plan for management. Was smoking cessation discussed for >3mins.? @ -No Was critical care preformed (if so, how long)? @ -Yes, 35 minutes. Were there social determinants of health that impacted care today? How? (Homelessness, low income, unemployed, alcoholism, drug addiction, transportation, low edu. Level, literacy, decrease access to med. care, fdc, rehab)? @ -No Was there de-escalation of care discussed even if they declined (Discuss DNR or withdrawal of care, Hospice)? DNR status @ -No What co-morbidities impacted this encounter? (DM, HTN, Smoking, COPD, CAD, Cancer, CVA, ARF, Chemo, Hep., AIDS, mental health diagnosis, sleep apnea, morbid obesity)? @ -Chronic hypoxic respiratory failure, COPD, atrial fibrillation Was patient admitted / discharged? Hospital course, mention meds given and route, prescriptions, significant lab abnormalities, going to OR and other pertinent info. @ -Patient presents emergency department with worsening dyspnea. Patient is tachypneic, with bilateral wheezing as well as coarse breath sounds in bilateral lower lung lynch. Has had a productive cough as well. Apparently was in A-fib at her facility as well. Presents for further evaluation. She will be symptomatically treated for COPD with IV magnesium, breathing treatments, IV steroids. We will obtain cardiopulmonary workup. Patient was in agreement this plan. EKG shows signs of acute ischemia. Chest x-ray reveals a developing right lower lobe infiltrate. Patient's laboratory studies remarkable for mild leukocytosis of 11.4, lactic acidosis of 2.6. Blood cultures obtained and sent. Patient started on antibiotics for pneumonia. Patient does have a history of congestive heart failure and is on diuretics. Patient will be given a small fluid bolus and initiated on maintenance fluids at this time. Has only 1 SIRS criteria at this time and technically does not meet for sepsis. This too is likely affected by her acute COPD exacerbation. We will continue to monitor. Patient is typically on 2 L nasal cannula oxygen and is continuing to require 4 to 5 L nasal cannula oxygen. Patient is have increased work of breathing and was placed on BiPAP. Patient did respond well to BiPAP. Pulmonology consulted. Cardiology consulted at the request of patient's admitting provider. Patient admitted under Dr. Cintron at his request. Dr. Cintron did present to the emergency department and requested antibiotics be switched to cefepime and vancomycin which was done. Undiagnosed new problem with uncertain prognosis? @ -No Drug Therapy requiring intensive monitoring for toxicity (Heparin, Nitro, Insulin, Cardizem)? @ -No Were any procedures done? @ -No Diagnosis/symptom? @ -COPD exacerbation, pneumonia, hypoxic respiratory failure Acute, or Chronic, or Acute on Chronic? @ -Acute Uncomplicated (without systemic symptoms) or Complicated (systemic symptoms)? @ -Complicated Side effects of treatment? @ -No Exacerbation, Progression, or Severe Exacerbation? @ -No Poses a threat to life or bodily function? How? (Chest pain, [place], [place], pneumonia, PE, COPD, DKA, ARF, appy, cholecystitis, CVA, Diverticulitis, Homicidal, Suicidal, threat to staff... and all critical care pts) @ -Yes - Lab Data Result diagrams: 12/04/23 08:31 12/04/23 08:31 Lab Results 12/04/23 12/04/23 12/04/23 Range/Units 08:31 08:31 08:31 WBC 11.4 H (3.8-10.6) k/uL RBC 4.33 (3.80-5.40) m/uL Hgb 12.9 (11.4-16.0) gm/dL Hct 40.9 (34.0-46.0) % MCV 94.6 (80.0-100.0) fL MCH 29.8 (25.0-35.0) pg MCHC 31.5 (31.0-37.0) g/dL RDW 14.7 (11.5-15.5) % Plt Count 371 (150-450) k/uL MPV 7.8 Neutrophils % 90 % Lymphocytes % 5 % Monocytes % 4 % Eosinophils % 0 % Basophils % 0 % Neutrophils # 10.2 H (1.3-7.7) k/uL Lymphocytes # 0.5 L (1.0-4.8) k/uL Monocytes # 0.5 (0-1.0) k/uL Eosinophils # 0.0 (0-0.7) k/uL Basophils # 0.0 (0-0.2) k/uL Hypochromasia Moderate PT 12.4 (10.0-12.5) sec INR 1.2 H (<1.2) APTT 25.1 (22.0-30.0) sec Sodium (137-145) mmol/L Potassium (3.5-5.1) mmol/L Chloride (98-107) mmol/L Carbon Dioxide (22-30) mmol/L Anion Gap mmol/L BUN (7-17) mg/dL Creatinine (0.52-1.04) mg/dL Est GFR (CKD-EPI)AfAm (>60 ml/min/1.73 sqM) Est GFR (CKD-EPI)NonAf (>60 ml/min/1.73 sqM) Glucose (74-99) mg/dL Lactic Ac Sepsis Rflx Plasma Lactic Acid [place] (0.7-2.0) mmol/L Calcium (8.4-10.2) mg/dL Magnesium (1.6-2.3) mg/dL Total Bilirubin (0.2-1.3) mg/dL AST (14-36) U/L ALT (4-34) U/L Alkaline Phosphatase (38-126) U/L Troponin I (0.000-0.034) ng/mL NT-Pro-B Natriuret Pep pg/mL Total Protein (6.3-8.2) g/dL Albumin (3.5-5.0) g/dL Urine Color Colorless Urine Appearance Clear (Clear) Urine pH 5.0 (5.0-8.0) Ur Specific [place] 1.017 (1.001-1.035) Urine Protein Negative (Negative) Urine Glucose (UA) 4+ H (Negative) Urine Ketones Negative (Negative) Urine Blood Negative (Negative) Urine Nitrite Negative (Negative) Urine Bilirubin Negative (Negative) Urine Urobilinogen <2.0 (<2.0) mg/dL Ur Leukocyte Esterase Negative (Negative) Influenza Type A (PCR) (Not Detectd) Influenza Type B (PCR) (Not Detectd) RSV (PCR) (Not Detectd) SARS-CoV-2 (PCR) (Not Detectd) 12/04/23 12/04/23 12/04/23 Range/Units 08:31 08:31 08:31 WBC (3.8-10.6) k/uL RBC (3.80-5.40) m/uL Hgb (11.4-16.0) gm/dL Hct (34.0-46.0) % MCV (80.0-100.0) fL MCH (25.0-35.0) pg MCHC (31.0-37.0) g/dL RDW (11.5-15.5) % Plt Count (150-450) k/uL MPV Neutrophils % % Lymphocytes % % Monocytes % % Eosinophils % % Basophils % % Neutrophils # (1.3-7.7) k/uL Lymphocytes # (1.0-4.8) k/uL Monocytes # (0-1.0) k/uL Eosinophils # (0-0.7) k/uL Basophils # (0-0.2) k/uL Hypochromasia PT (10.0-12.5) sec INR (<1.2) APTT (22.0-30.0) sec Sodium 140 (137-145) mmol/L Potassium 5.2 H (3.5-5.1) mmol/L Chloride 90 L (98-107) mmol/L Carbon Dioxide 42 H* (22-30) mmol/L Anion Gap 8 mmol/L BUN 31 H (7-17) mg/dL Creatinine 1.05 H (0.52-1.04) mg/dL Est GFR (CKD-EPI)AfAm 56 (>60 ml/min/1.73 sqM) Est GFR (CKD-EPI)NonAf 49 (>60 ml/min/1.73 sqM) Glucose 213 H (74-99) mg/dL Lactic Ac Sepsis Rflx Plasma Lactic Acid [place] 2.6 H* (0.7-2.0) mmol/L Calcium 9.5 (8.4-10.2) mg/dL Magnesium 2.6 H (1.6-2.3) mg/dL Total Bilirubin 0.8 (0.2-1.3) mg/dL AST 24 (14-36) U/L ALT 15 (4-34) U/L Alkaline Phosphatase 91 (38-126) U/L Troponin I <0.012 (0.000-0.034) ng/mL NT-Pro-B Natriuret Pep 519 pg/mL Total Protein 6.9 (6.3-8.2) g/dL Albumin 3.7 (3.5-5.0) g/dL Urine Color Urine Appearance (Clear) Urine pH (5.0-8.0) Ur Specific [place] (1.001-1.035) Urine Protein (Negative) Urine Glucose (UA) (Negative) Urine Ketones (Negative) Urine Blood (Negative) Urine Nitrite (Negative) Urine Bilirubin (Negative) Urine Urobilinogen (<2.0) mg/dL Ur Leukocyte Esterase (Negative) Influenza Type A (PCR) (Not Detectd) Influenza Type B (PCR) (Not Detectd) RSV (PCR) (Not Detectd) SARS-CoV-2 (PCR) (Not Detectd) 12/04/23 12/04/23 Range/Units 08:31 09:32 WBC (3.8-10.6) k/uL RBC (3.80-5.40) m/uL Hgb (11.4-16.0) gm/dL Hct (34.0-46.0) % MCV (80.0-100.0) fL MCH (25.0-35.0) pg MCHC (31.0-37.0) g/dL RDW (11.5-15.5) % Plt Count (150-450) k/uL MPV Neutrophils % % Lymphocytes % % Monocytes % % Eosinophils % % Basophils % % Neutrophils # (1.3-7.7) k/uL Lymphocytes # (1.0-4.8) k/uL Monocytes # (0-1.0) k/uL Eosinophils # (0-0.7) k/uL Basophils # (0-0.2) k/uL Hypochromasia PT (10.0-12.5) sec INR (<1.2) APTT (22.0-30.0) sec Sodium (137-145) mmol/L Potassium (3.5-5.1) mmol/L Chloride (98-107) mmol/L Carbon Dioxide (22-30) mmol/L Anion Gap mmol/L BUN (7-17) mg/dL Creatinine (0.52-1.04) mg/dL Est GFR (CKD-EPI)AfAm (>60 ml/min/1.73 sqM) Est GFR (CKD-EPI)NonAf (>60 ml/min/1.73 sqM) Glucose (74-99) mg/dL Lactic Ac Sepsis Rflx Y Plasma Lactic Acid [place] (0.7-2.0) mmol/L Calcium (8.4-10.2) mg/dL Magnesium (1.6-2.3) mg/dL Total Bilirubin (0.2-1.3) mg/dL AST (14-36) U/L ALT (4-34) U/L Alkaline Phosphatase (38-126) U/L Troponin I (0.000-0.034) ng/mL NT-Pro-B Natriuret Pep pg/mL Total Protein (6.3-8.2) g/dL Albumin (3.5-5.0) g/dL Urine Color Urine Appearance (Clear) Urine pH (5.0-8.0) Ur Specific [place] (1.001-1.035) Urine Protein (Negative) Urine Glucose (UA) (Negative) Urine Ketones (Negative) Urine Blood (Negative) Urine Nitrite (Negative) Urine Bilirubin (Negative) Urine Urobilinogen (<2.0) mg/dL Ur Leukocyte Esterase (Negative) Influenza Type A (PCR) Not Detected (Not Detectd) Influenza Type B (PCR) Not Detected (Not Detectd) RSV (PCR) Not Detected (Not Detectd) SARS-CoV-2 (PCR) Not Detected (Not Detectd) - EKG Data -: EKG Interpreted by Me EKG Comments: 12-lead Electrocardiogram Interpretation Note EKG was reviewed and interpreted by myself. 12-lead ECG performed at 0832 is interpreted by me as revealing normal sinus rhythm at a rate of 90 beats per minute. [place] is normal. NM interval is 139 ms, QRS duration is 82 ms, QTc is 391 ms.. There were no ST or T wave abnormalities to suggest myocardial ischemia or injury. R wave progression across the precordium was satisfactory. By my interpretation this EKG is non-diagnostic for acute ischemia. 12-lead Electrocardiogram Interpretation Note EKG was reviewed and interpreted by myself. 12-lead ECG performed at 1032 is interpreted by me as revealing normal sinus rhythm at a rate of 87 beats per minute. [place] is normal. NM interval is 155 ms, QRS duration is 80 ms, QTc is 403 ms.. There were no ST or T wave abnormalities to suggest myocardial ischemia or injury. R wave progression across the precordium was satisfactory. By my interpretation this EKG is non-diagnostic for acute ischemia. Critical Care Time Critical Care Time: Yes Total Critical Care Time: 35 Disposition Clinical Impression: COPD (chronic obstructive pulmonary disease), Pneumonia, Hypoxic respiratory failure Disposition: ADMITTED IP TO THIS HOSP Condition: Serious Time of Disposition: 10:19
[2023-12-04 09:38] LABS: Anion Gap 8 mmol/L; NT-Pro-B-Type Natriuretic Pept 519 pg/mL
[2023-12-04] MEDS ORDERED: PNEUMONIA PROTOCOL UTILIZED 1 EACH MISC PO PRN (09:39)
[2023-12-04 09:46] LABS: Carbon Dioxide 42 mmol/L (22-30)
[2023-12-04] MEDS ORDERED: NALOXONE 0.4 MG/ML 1 ML VIAL IV PRN (10:17)
[2023-12-04] MEDS: SODIUM CHLORIDE 0.9% 500 ML 500 ML IV STA (10:19)
[2023-12-04] MEDS: SODIUM CHLORIDE 0.9% 1,000 ML IV STA ×2 (10:19→10:33)
[2023-12-04] MEDS: AZITHROMYCIN 500 MG in SODIUM CHLORIDE 0.9% 250 ML IVPB STA (10:20)
[2023-12-04] MEDS: IPRATROPIUM-ALBUTEROL 3 ML NEB INHALATION STA (10:49)
[2023-12-04] MEDS: IPRATROPIUM-ALBUTEROL 3 ML NEB INHALATION SCH (10:55)
[2023-12-04] MEDS: LORazepam 2 MG/ML INJ IV STA (11:37)
[2023-12-04] MEDS ORDERED: VANCOMYCIN IV PER PHARMACY 1 EACH MISC MISCELLANE PRN (13:19)
[2023-12-04] MEDS: CEFEPIME 2 GM in SODIUM CHLORIDE 0.9% 100 ML IVPB SCH (13:46)
[2023-12-04] MEDS: FUROSEMIDE 20 MG TAB PO SCH (14:19)
[2023-12-04] MEDS: VANCOMYCIN 1,500 MG in SODIUM CHLORIDE 0.9% 500 ML 500 ML IVPB SCH (15:22)
[2023-12-04] MEDS: methylPREDNISolone SOD SUCCI 40 MG/ML 1 ML VIAL IV SCH ×2 (17:28→20:19)
[2023-12-04] MEDS: METOPROLOL SUCCINATE (ER) 50 MG TAB.ER.24H PO SCH ×2 (18:18→20:18)
[2023-12-04] MEDS: METOPROLOL TARTRATE 5 MG/5 ML VIAL IVP SCH (19:11)
[2023-12-04] MEDS: MELATONIN 5 MG TABLET PO SCH (20:17)
[2023-12-04] MEDS: APIXABAN 5 MG TAB PO SCH (20:18)
[2023-12-04] MEDS: MIRTAZAPINE 15 MG TAB PO SCH (20:18)
[2023-12-04] MEDS: DOCUSATE 100 MG CAP PO SCH (20:18)
[2023-12-04] MEDS: ATORVASTATIN 40 MG TAB PO SCH (20:18)
--- NOTE | 2023-12-04 23:31 | P.CNPUL ---
History of Present Illness Consult date: 12/04/23 Reason for consult: dyspnea, COPD History of present illness: This is a 83-year-old female patient, [facility] who has been having issues with chronic dysphagia and recurrent pneumonias. The patient has been followed up in our office and here she has been treated for pneumonia on multiple occasions. She is also known to have underlying COPD. 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 She also has history of paroxysmal atrial fibrillation. Her current anticoagulants are in the form of Eliquis. The patient came into the emergency department having significant respiratory distress. She was having increased cough and congestion along with dyspnea and wheeze. She typically utilizes oxygen between 2 and 3 L/min nasal cannula. She was tachycardic and tachypneic. She was immediately placed on BiPAP for respiratory support and currently BiPAP is running at a pressure of 12 over 5 cm of water with an FiO2 of 40%. Generated tidal volume while on the BiPAP is around 350 cc and minute ventilation is around 12.6. I reviewed the chest x-ray that was done at the time of admission and the patient has developed patchy density in the right mid and lower lung field which is a new finding compared to the earlier chest x-rays, likely consistent with pneumonia could be potentially an aspiration pneumonia. Previous CAT scan of e chest from July 2023 also showed a 10 mm nodule density in the right middle lobe that is being followed up at the pulmonary clinic. The patient also has interstitial and nodular densities developing in the right middle lobe and the lingula. Her white cell count is at 11.4 with a hemoglobin 12.9 and platelet count of 371. BUN is 31 with a creatinine of 1.05 sodium is at 140 with a potassium level of 5.2. Initial lactic acid level is at 2.6 dropped down to 1.0. Liver function tests are normal. The viral screen is negative. UA is negative. proBNP level is 519. She is also on a combination of bronchodilators and she was started on IV Solu-Medrol. Review of Systems CONSTITUTIONAL: Denies any recent significant weight loss or weight gain. Chronic debility with difficulty with gait and mobility and edema lower extremities. EYES: Denies change in vision. EARS, NOSE, MOUTH, THROAT: Denies headaches, denies sore throat. CARDIOVASCULAR: Denies chest pain, palpitations or syncopal episodes. RESPIRATORY: Positive for shortness of breath, cough, congestion no hemoptysis. Chronic shortness of breath and episodes of recurrent pneumonias GASTROINTESTINAL: Denies change in appetite, denies abdominal pain, the patient suffers from chronic dysphagia GENITOURINARY: Denies hematuria, denies infections. MUSKULOSKELETAL: Denies pain, Positive for swelling. INTEGUMENTARY: Denies rash, denies eczema. NEUROLOGICAL: Denies recent memory loss, no recent seizure activity. PSYCHIATRIC: Denies anxiety, denies depression. HEMATOLOGIC/LYMPHATIC: Denies anemia, denies enlarged lymph nodes. Past Medical History Past Medical History: Atrial Fibrillation, COPD, CVA/TIA, GERD/Reflux, Hearing Disorder / Deafness, Hyperlipidemia, Pneumonia Additional Past Medical History / Comment(s): sob at times. History of Any Multi-Drug Resistant Organisms: None Reported Past Surgical History: Breast Surgery, Orthopedic Surgery Additional Past Surgical History / Comment(s): cyst removed from left breast, left hip replaced Past Anesthesia/Blood Transfusion Reactions: No Reported Reaction Past Psychological History: Anxiety, Depression Smoking Status: Former smoker Past Alcohol Use History: None Reported Past Drug Use History: None Reported - Past Family History Father Family Medical History: Cancer Additional Family Medical History / Comment(s): bone ca Medications and Allergies Home Medications Medication Instructions Recorded Confirmed Type PARoxetine [Paxil] 20 mg PO DAILY 11/04/15 12/04/23 History Atorvastatin [Lipitor] 40 mg PO HS 09/08/18 12/04/23 History Clopidogrel [Plavix] 75 mg PO DAILY 09/08/18 12/04/23 History Albuterol Inhaler [Ventolin Hfa 2 puff INHALATION RT-Q6H PRN 06/10/20 12/04/23 History Inhaler] Furosemide [Lasix] 40 mg PO DAILY@1200 01/30/21 12/04/23 History Spironolactone [Aldactone] 25 mg PO DAILY 07/04/21 12/04/23 History Multivitamins, Thera [Multivitamin 1 tab PO DAILY@1200 08/01/21 12/04/23 History (formulary)] Ipratropium-Albuterol Nebulize 3 ml INHALATION RT-QID ml 08/06/21 12/04/23 Rx [Duoneb 0.5 mg-3 mg/3 ml Soln] Apixaban [Eliquis] 5 mg PO BID@0800,1600 12/04/23 12/04/23 History Dapagliflozin Propanediol [Farxiga] 10 mg PO DAILY 12/04/23 12/04/23 History Docusate Sodium [Dok] 100 mg PO HS 12/04/23 12/04/23 History Ferrous Sulfate [Feosol] 325 mg PO DAILY 12/04/23 12/04/23 History Folic Acid 0.8 mg PO DAILY 12/04/23 12/04/23 History Furosemide [Lasix] 60 mg PO DAILY@0700 12/04/23 12/04/23 History Healthshake 1 dose PO BID 12/04/23 12/04/23 History Hydrocortisone Cream 1 applic TOPICAL HS 12/04/23 12/04/23 History [Hydrocortisone 2.5% Cream] Melatonin 10 mg PO HS 12/04/23 12/04/23 History Metoprolol Succinate (ER) [Toprol 50 mg PO BID@0800,1600 12/04/23 12/04/23 History XL] Mirtazapine 7.5 mg PO HS 12/04/23 12/04/23 History Thiamine [Vitamin B-1] 100 mg PO DAILY 12/04/23 12/04/23 History allopurinoL [Zyloprim] 100 mg PO DAILY 12/04/23 12/04/23 History Allergies Allergy/AdvReac Type Severity Reaction Status Date / Time No Known Allergies Allergy Verified 12/04/23 10:29 Physical Exam Vitals: Vital Signs Temp Pulse Resp BP Pulse Ox FiO2 12/04/23 15:11 80 12/04/23 14:56 99 40 12/04/23 14:55 82 12/04/23 14:50 40 12/04/23 14:27 84 21 104/17 95 12/04/23 13:52 128 H 35 H 111/67 97 12/04/23 13:06 82 34 H 102/63 97 12/04/23 12:19 80 35 H 92/60 96 12/04/23 12:00 80 35 H 96/63 96 12/04/23 11:27 125 H 35 H 102/67 97 12/04/23 11:05 40 12/04/23 11:03 124 H 12/04/23 10:57 40 12/04/23 10:56 122 H 12/04/23 10:41 36 H 12/04/23 10:06 128 H 40 H 96 12/04/23 08:30 97.1 F L 90 36 H 120/76 96 12/04/23 08:27 97.1 F L 90 36 H 125/74 88 L Intake and Output 12/04/23 12/04/23 12/04/23 06:59 14:59 22:59 Other: Weight 81.647 kg GENERAL EXAM: Alert, very pleasant, 83-year-old white female, on BiPAP, continues to be tachypneic and tachycardic. Able to communicate. She is hard of hearing. Family is at the bedside. HEAD: Normocephalic/atraumatic. EYES: Normal reaction of pupils, equal size. Conjunctiva pink, sclera white. NOSE: Clear with pink turbinates. THROAT: No erythema or exudates. NECK: No masses, no JVD, no thyroid enlargement, no adenopathy. CHEST: No chest wall deformity. Symmetrical expansion. LUNGS: Equal air entry and the breath sounds are quite diminished and the patient has scattered expiratory wheezes heard throughout the lung lynch bilaterally CVS: Regular rate and rhythm, tachycardic, normal S1 and S2, no gallops, no murmurs, no rubs ABDOMEN: Soft, nontender. No hepatosplenomegaly, normal bowel sounds, no guarding or rigidity. EXTREMITIES: No clubbing, no edema, no cyanosis, 2+ pulses and upper and lower extremities. MUSCULOSKELETAL: Muscle strength and tone normal. SPINE: No scoliosis or deformity SKIN: No rashes CENTRAL NERVOUS SYSTEM: Alert and oriented -3. No focal deficits, tone is n ormal in all 4 extremities. Results - Laboratory Findings CBC and BMP: 12/04/23 08:31 12/04/23 08:31 ABG WBC 11.4 k/uL (3.8-10.6) H 12/04/23 08:31 RBC 4.33 m/uL (3.80-5.40) 12/04/23 08:31 Hgb 12.9 gm/dL (11.4-16.0) 12/04/23 08:31 Hct 40.9 % (34.0-46.0) 12/04/23 08:31 MCV 94.6 fL (80.0-100.0) 12/04/23 08:31 MCH 29.8 pg (25.0-35.0) 12/04/23 08:31 MCHC 31.5 g/dL (31.0-37.0) 12/04/23 08:31 RDW 14.7 % (11.5-15.5) 12/04/23 08:31 Plt Count 371 k/uL (150-450) 12/04/23 08:31 MPV 7.8 12/04/23 08:31 Neutrophils % 90 % 12/04/23 08:31 Lymphocytes % 5 % 12/04/23 08:31 Monocytes % 4 % 12/04/23 08:31 Eosinophils % 0 % 12/04/23 08:31 Basophils % 0 % 12/04/23 08:31 Neutrophils # 10.2 k/uL (1.3-7.7) H 12/04/23 08:31 Lymphocytes # 0.5 k/uL (1.0-4.8) L 12/04/23 08:31 Monocytes # 0.5 k/uL (0-1.0) 12/04/23 08:31 Eosinophils # 0.0 k/uL (0-0.7) 12/04/23 08:31 Basophils # 0.0 k/uL (0-0.2) 12/04/23 08:31 Hypochromasia Moderate 12/04/23 08:31 PT 12.4 sec (10.0-12.5) 12/04/23 08:31 INR 1.2 (<1.2) H 12/04/23 08:31 APTT 25.1 sec (22.0-30.0) 12/04/23 08:31 Sodium 140 mmol/L (137-145) 12/04/23 08:31 Potassium 5.2 mmol/L (3.5-5.1) H 12/04/23 08:31 Chloride 90 mmol/L (98-107) L 12/04/23 08:31 Carbon Dioxide 42 mmol/L (22-30) H* 12/04/23 08:31 Anion Gap 8 mmol/L 12/04/23 08:31 BUN 31 mg/dL (7-17) H 12/04/23 08:31 Creatinine 1.05 mg/dL (0.52-1.04) H 12/04/23 08:31 Est GFR (CKD-EPI)AfAm 56 (>60 ml/min/1.73 sqM) 12/04/23 08:31 Est GFR (CKD-EPI)NonAf 49 (>60 ml/min/1.73 sqM) 12/04/23 08:31 Glucose 213 mg/dL (74-99) H 12/04/23 08:31 Lactic Ac Sepsis Rflx Y 12/04/23 09:32 Plasma Lactic Acid Nguyễn 1.0 mmol/L (0.7-2.0) 12/04/23 12:54 Calcium 9.5 mg/dL (8.4-10.2) 12/04/23 08:31 Magnesium 2.6 mg/dL (1.6-2.3) H 12/04/23 08:31 Total Bilirubin 0.8 mg/dL (0.2-1.3) 12/04/23 08:31 AST 24 U/L (14-36) 12/04/23 08:31 ALT 15 U/L (4-34) 12/04/23 08:31 Alkaline Phosphatase 91 U/L (38-126) 12/04/23 08:31 Troponin I <0.012 ng/mL (0.000-0.034) 12/04/23 08:31 NT-Pro-B Natriuret Pep 519 pg/mL 12/04/23 08:31 Total Protein 6.9 g/dL (6.3-8.2) 12/04/23 08:31 Albumin 3.7 g/dL (3.5-5.0) 12/04/23 08:31 Urine Color Colorless 12/04/23 08:31 Urine Appearance Clear (Clear) 12/04/23 08:31 Urine pH 5.0 (5.0-8.0) 12/04/23 08:31 Ur Specific [place] 1.017 (1.001-1.035) 12/04/23 08:31 Urine Protein Negative (Negative) 12/04/23 08:31 Urine Glucose (UA) 4+ (Negative) H 12/04/23 08:31 Urine Ketones Negative (Negative) 12/04/23 08:31 Urine Blood Negative (Negative) 12/04/23 08:31 Urine Nitrite Negative (Negative) 12/04/23 08:31 Urine Bilirubin Negative (Negative) 12/04/23 08:31 Urine Urobilinogen <2.0 mg/dL (<2.0) 12/04/23 08:31 Ur Leukocyte Esterase Negative (Negative) 12/04/23 08:31 Influenza Type A (PCR) Not Detected (Not Detectd) 12/04/23 08:31 Influenza Type B (PCR) Not Detected (Not Detectd) 12/04/23 08:31 RSV (PCR) Not Detected (Not Detectd) 12/04/23 08:31 SARS-CoV-2 (PCR) Not Detected (Not Detectd) 12/04/23 08:31 PT/INR, D-dimer PT 12.4 sec (10.0-12.5) 12/04/23 08:31 INR 1.2 (<1.2) H 12/04/23 08:31 Abnormal lab findings: Abnormal Labs 12/04/23 12/04/23 12/04/23 08:31 08:31 08:31 WBC 11.4 H Neutrophils # 10.2 H Lymphocytes # 0.5 L INR 1.2 H Potassium Chloride Carbon Dioxide BUN Creatinine Glucose Plasma Lactic Acid Nguyễn Magnesium Urine Glucose (UA) 4+ H 12/04/23 12/04/23 08:31 08:31 WBC Neutrophils # Lymphocytes # INR Potassium 5.2 H Chloride 90 L Carbon Dioxide 42 H* BUN 31 H Creatinine 1.05 H Glucose 213 H Plasma Lactic Acid Nguyễn 2.6 H* Magnesium 2.6 H Urine Glucose (UA) - Diagnostic Findings Chest x-ray: image reviewed Assessment and Plan Plan: Right lung pneumonia with pulmonary filtrates involving the right middle lobe and right lower lobe. Consider possibility of a [facility] associated pneumonia versus aspiration pneumonia as the patient suffers from chronic dysphagia. Swallow evaluation has been done previous occasions and the patient has been working with speech therapy to improve her swallow mechanism. Chronic pulm infiltrates involving the right middle and the lingula segments. Atypical mycobacterial chronic infection cannot be completely ruled out COPD with acute exacerbation secondary to above Right-sided pulmonary nodule, measuring 10 mm in size Acute hypoxic respiratory failure secondary to above and the patient is currently on a BiPAP for respiratory support at a pressure of 12 over 5 cm of water with an FiO2 of 40% Sinus tachycardia secondary to above Mild lactic acidosis, improving Previous history of DVT of left lower extremity and pulmonary embolism and the patient has been maintained [facility] Hyperlipidemia Plan Continue BiPAP for now the same pressure settings repeat chest x-ray: Next 24 to 48 hours Obtain blood cultures Check procalcitonin level Perform another swallow evaluation by speech pathology Continue the combination of cefepime and vancomycin Rest of the medication be kept unchanged and the home medication will be resumed Discussed the need for CODE STATUS May consider a PEG tube insertion for nutritional support and risk of aspiration specially for swallow evaluation failed to show appropriate swallowing mechanism and confirms the patient's high risk for aspiration.
[2023-12-05] MEDS: CEFEPIME 2 GM in SODIUM CHLORIDE 0.9% 100 ML IVPB SCH (03:01)
[2023-12-05] MEDS ORDERED: FUROSEMIDE 20 MG TAB PO SCH (07:00)
[2023-12-05 08:53] LABS: Basophils % (A) 0 %; Eosinophils % (A) 0 %; HCT 34.9 % (34.0-46.0); HGB 10.6 gm/dL (11.4-16.0); Hypochromasia Marked; Lymphocytes # (A) 0.4 k/uL (1.0-4.8); Lymphocytes % (A) 6 %; MCH 29.1 pg (25.0-35.0); MCHC 30.4 g/dL (31.0-37.0); MCV 95.7 fL (80.0-100.0); Mean Platelet Volume 8.2; Monocytes # (A) 0.4 k/uL (0-1.0); Monocytes % (A) 6 %; Neutrophils # (A) 6.1 k/uL (1.3-7.7); Neutrophils % (A) 87 %; Platelet Count 274 k/uL (150-450); RBC 3.65 m/uL (3.80-5.40); RDW 14.7 % (11.5-15.5)
[2023-12-05] MEDS ORDERED: AZITHROMYCIN 500 MG TAB PO SCH (09:00)
[2023-12-05 09:18] LABS: ALT 15 U/L (4-34); AST 25 U/L (14-36); African American GFR (CKD) 73 (>60 ml/min/1.73 sqM); Alkaline Phosphatase 67 U/L (38-126); Blood Urea Nitrogen 32 mg/dL (7-17); Calcium 8.9 mg/dL (8.4-10.2); Chloride 99 mmol/L (98-107); Glucose 160 mg/dL (74-99); Non-African American GFR(CKD) 64 (>60 ml/min/1.73 sqM); Potassium 4.3 mmol/L (3.5-5.1); Sodium 143 mmol/L (137-145); Total Bilirubin 0.4 mg/dL (0.2-1.3); Total Protein 5.8 g/dL (6.3-8.2)
[2023-12-05 09:24] LABS: Anion Gap 6 mmol/L
[2023-12-05 09:27] LABS: Carbon Dioxide 38 mmol/L (22-30)
[2023-12-05] MEDS: PARoxetine 20 MG TAB PO SCH (09:50)
[2023-12-05] MEDS: FOLIC ACID 1 MG TAB PO SCH (09:53)
[2023-12-05] MEDS: SPIRONOLACTONE 25 MG TAB PO SCH (09:53)
[2023-12-05] MEDS: CLOPIDOGREL 75 MG TAB PO SCH (09:53)
[2023-12-05] MEDS: DAPAGLIFLOZIN PROPANEDIOL 10 MG TABLET PO SCH (09:57)
[2023-12-05] MEDS: FERROUS SULFATE 325 MG TAB PO SCH (09:57)
[2023-12-05] MEDS: allopurinoL 100 MG TAB PO SCH (09:57)
[2023-12-05] MEDS: PANTOPRAZOLE 40 MG/10 ML VIAL IVP SCH (10:03)
[2023-12-05] MEDS: THIAMINE 100 MG TAB PO SCH (10:07)
[2023-12-05] MEDS: VANCOMYCIN 1,500 MG in SODIUM CHLORIDE 0.9% 500 ML 500 ML IVPB SCH (11:39)
[2023-12-05] MEDS: MULTIVITAMINS, THERA 1 EACH TAB PO SCH (11:40)
--- NOTE | 2023-12-05 13:47 | XR ---
EXAMINATION TYPE: XR chest 1V portable DATE OF EXAM: 12/05/2023 HISTORY: Shortness of breath. COMPARISON: 12/06/2023 12/04/2023 TECHNIQUE: Single view of the chest is submitted. FINDINGS: Demonstrated are scattered senescent parenchymal change. There is no evidence for focal infiltrate. The heart is stable. Hilar and mediastinal structures are within normal limits. Degenerative changes are seen of the dorsal spine. IMPRESSION: 1. Chronic changes without evidence for acute pulmonary disease.
--- NOTE | 2023-12-05 14:00 | P.HPIM ---
History of Present Illness H&P Date: 12/04/23 Chief Complaint: Acute hypoxemic respiratory failure HISTORY OF PRESENT ILLNESS: This is an 83-year-old female with a previous medical history significant for hypertension and hypertensive cardiovascular disease, hyperlipidemia, chronic diastolic heart failure, paroxysmal atrial fibrillation, moderate to severe chronic obstructive pulmonary disease on 4 L nasal cannula, with a chronic hypoxemic respiratory failure for quite some times, patient was recently treated for a what appears to be a gram-negative pneumonia about 3 weeks ago and she has been doing fine up today when I received a call from the nursing staff stating that the patient is breathing about 40 breaths/min, she is using accessory muscles, she appears to be quite ill she has been coughing some yellow-green phlegm production, and she has been tachycardic, not able to eat or drink much, she appeared to be quite drowsy, she was referred to go to the emergency department via EMS, patient was seen and evaluated in the emergency department she was initially was in atrial fibrillation with rapid ventricular response that was converted to an sinus rhythm, patient initially was struggling quite a bit with breathing she was placed on BiPAP with an IPAP of 10 and EPAP of 5 with FiO2 of 40% to keep her saturation anywhere between 92 and 94%, patient was initially given Zithromax and Rocephin in the emergency department, then she was placed on cefepime and vancomycin, she was also started on Solu- Medrol 60 mg IV push every 6 hours, she was placed on nebulized treatment DuoNeb 3 mm nebulization 4 times every day, she was started on Pulmicort 1 mg nebulization twice every day, she was seen in consultation by pulmonary medicine as well as by cardiology, and she was admitted to the hospital for further evaluation and treatment of acute on chronic respiratory failure her chest x-ray did show evidence of right middle and right lower lobe pneumonia, suggestive of aspiration, she was placed on IV antibiotic as stated earlier. REVIEW OF SYSTEMS: Constitutional: documented fever, no chills, no night sweats. positive for weight change. positive for weakness, positive for fatigue or lethargy. No daytime sleepiness. EENT: No headache. No blurred vision or double vision, no loss of vision. No loss of Hearing, no ringing in the ears, no dizziness. No nasal drainage or congestion. No epistaxis. No sore throat. Lungs: positive for shortness of breath, positive for cough, positive for sputum production. positive for wheezing. Reports dyspnea with activity. Cardiovascular: No chest pain, no lower extremity edema. No palpitations. No paroxysmal nocturnal dyspnea. No orthopnea. No lightheadedness or dizziness. No syncopal episodes. Abdominal: Reports abdominal pain. No nausea, vomiting. No diarrhea. positive for constipation. No bloody or tarry stools reports loss of appetite, difficulty in swallowing Genitourinary: No dysuria, increased frequency, urgency. No urinary retention. Musculoskeletal: No myalgias. positive for muscle weakness, positive for gait dysfunction, no frequent falls. No back pain. No neck pain. Integumentary: No wounds, no lesions. No rash or pruritus. No unusual bruising. positive for change in hair or nails. Neurologic: No aphasia. No facial droop. No change in mentation. No head injury. No headache. No paralysis. No paresthesia. Psychiatric: positive for depression. positive for anxiety. No mood swings. Endocrine: No abnormal blood sugars. No weight change. PAST MEDICAL HISTORY: Hypertension and hypertensive cardiovascular disease. Mixed hyperlipidemia. Chronic diastolic heart failure. Paroxysmal atrial fibrillation. Chronic hypoxemic respiratory failure due to chronic COPD. Osteoarthritis. Mild cognitive impairment. Hard of hearing. GERD. Anxiety disorder. Depressive disorder. Osteoarthritis. CVA. DVT of left lower extremity Pulmonary Embolism PAST SURGICAL HISTORY: Left breast cyst removal. Left hip replacement. SOCIAL HISTORY: Patient used to smoke 1 to 2 pack every day, she smoked for many years, and she quit many years ago, she is currently on 4 L nasal cannula at [facility], she uses a walker for ambulation, she stays in bed most of the time, she denies any alcohol ingestion, no drug use or abuse. FAMILY HISTORY: Father at the age of 69 from bone cancer, at age of 79 from [place], patient has one son with asthma as well as anxiety disorder, patient had 1 broth er who lives at [facility] with a stage IV prostate cancer and she has 1 sister 9-year-old with history of dementia she lives at [facility], PHYSICAL EXAMINATION: General: 83-year-old female laying down in bed in moderate respiratory distress. Currently on a BiPAP. HEENT: Head is atraumatic, normocephalic, pupils were equal round reactive to light and recommendation, extraocular muscle movement were intact, sclera nonicteric, conjunctivae were pale, mucous membranes of the mouth are somewhat dry. Neck: Supple, no JVP, normal carotid upstroke bilaterally, no lymphadenopathy. Chest: Decreased breath sounds at the bases, few rhonchi, moderate expiratory wheezes moderate intercostal retractions. Heart: First heart sound is normal, second heart sound is normal there is s ystolic ejection murmur 2/6 to get in the left sternal border. Abdomen: Soft, nontender, nondistended, positive bowel sounds. Extremities: There is +2 edema, no calf tenderness, dorsalis pedis +1 bila terally. Neurologic examination: Patient is awake alert and oriented x1, cranial nerves II-12 appear grossly intact, muscle power were 3 out of 5 in upper extremities and 3 out of 5 in bilateral lower extremities, deep tendon reflexes normal bilaterally. ASSESSMENT AND PLAN: 1. Acute on chronic hypoxemic respiratory failure due to acute exacerbation of COPD with right middle/lower lobe pneumonia likely gram-negative pneumonia. on cefepime 2 g IV piggyback every 12 hours, start vancomycin with pharmacy to dose its peak and trough, sputum culture, blood culture, continue patient on oxygen 4 L nasal cannula, continue aggressive pulmonary toileting, continue with the head of the bed elevated, continue patient on pured diet with nectar supervision while eating to avoid aspiration. 2. Chronic diastolic heart failure likely due to atrial fibrillation with increased left ventricular end-diastolic pressure. Continue metoprolol 50 mg orally twice every day, continue Eliquis 5 mg orally twice every day, continue patient on Farxiga 10 mg orally once every day, monitor the patient input and output and daily weight, echocardiogram was done and did show normal LV function 3. Hypertension and hypertensive cardiovascular disease. Continue patient on Lopressor 5 mg IV push every 6 hours until the patient is able to take medication by mouth. Monitor the patient blood pressure very closely. 4. Mixed hyperlipidemia. Continue atorvastatin 40 mg orally once every day, monitor lipid panel, keep LDL 55-70. 5. Paroxysmal atrial fibrillation currently in sinus rhythm. Continue Eliquis 5 mg orally twice every day, continue Lopressor 5 mg IV push every 6 hours with holding parameters. 6. History of gout. Continue patient on allopurinol 100 mg orally once every day. 7. History of CVA. Continue patient on Plavix 75 mg once every day, continue Eliquis 5 mg orally twice every day, continue atorvastatin 40 mg once every day for secondary stroke prevention. 8. Anxiety and depressive disorder. Continue patient on paroxetine 20 mg once every day as well as mirtazapine 7.5 mg at bedtime. 9. Moderate to severe COPD continue treatment as in 1. 10. Hstory of DVT of left lower extremity and Pulmonary embolism . we will continue with adjunct faculty for medical terminology anticoagulation with Elquis 11. DVT prophylaxis. Continue patient on Eliquis 5 mg orally twice every day. 12. GI prophylaxis. Continue patient on Protonix 40 mg IV push every 24 hours. 13. Admit to inpatient. Estimated length of stay 2 midnights. 14. Patient is full code. Past Medical History Past Medical History: Atrial Fibrillation, COPD, CVA/TIA, GERD/Reflux, Hearing Disorder / Deafness, Hyperlipidemia, Pneumonia Additional Past Medical History / Comment(s): sob at times. History of Any Multi-Drug Resistant Organisms: None Reported Past Surgical History: Breast Surgery, Orthopedic Surgery Additional Past Surgical History / Comment(s): cyst removed from left breast, left hip replaced Past Anesthesia/Blood Transfusion Reactions: No Reported Reaction Past Psychological History: Anxiety, Depression Smoking Status: Former smoker Past Alcohol Use History: None Reported Past Drug Use History: None Reported - Past Family History Father Family Medical History: Cancer Additional Family Medical History / Comment(s): bone ca Medications and Allergies Home Medications Medication Instructions Recorded Confirmed Type PARoxetine [Paxil] 20 mg PO DAILY 11/04/15 12/04/23 History Atorvastatin [Lipitor] 40 mg PO HS 09/08/18 12/04/23 History Clopidogrel [Plavix] 75 mg PO DAILY 09/08/18 12/04/23 History Albuterol Inhaler [Ventolin Hfa 2 puff INHALATION RT-Q6H PRN 06/10/20 12/04/23 History Inhaler] Furosemide [Lasix] 40 mg PO DAILY@1200 01/30/21 12/04/23 History Spironolactone [Aldactone] 25 mg PO DAILY 07/04/21 12/04/23 History Multivitamins, Thera [Multivitamin 1 tab PO DAILY@1200 08/01/21 12/04/23 History (formulary)] Ipratropium-Albuterol Nebulize 3 ml INHALATION RT-QID ml 02/14/22 06/13/24 Rx [Duoneb 0.5 mg-3 mg/3 ml Soln] Apixaban [Eliquis] 5 mg PO BID@0800,1600 12/04/23 12/04/23 History Dapagliflozin Propanediol [Farxiga] 10 mg PO DAILY 12/04/23 12/04/23 History Docusate Sodium [Dok] 100 mg PO HS 12/04/23 12/04/23 History Ferrous Sulfate [Feosol] 325 mg PO DAILY 12/04/23 12/04/23 History Folic Acid 0.8 mg PO DAILY 12/04/23 12/04/23 History Furosemide [Lasix] 60 mg PO DAILY@0700 12/04/23 12/04/23 History Healthshake 1 dose PO BID 12/04/23 12/04/23 History Hydrocortisone Cream 1 applic TOPICAL HS 12/04/23 12/04/23 History [Hydrocortisone 2.5% Cream] Melatonin 10 mg PO HS 12/04/23 12/04/23 History Metoprolol Succinate (ER) [Toprol 50 mg PO BID@0800,1600 12/04/23 12/04/23 History XL] Mirtazapine 7.5 mg PO HS 12/04/23 12/04/23 History Thiamine [Vitamin B-1] 100 mg PO DAILY 12/04/23 12/04/23 History allopurinoL [Zyloprim] 100 mg PO DAILY 12/04/23 12/04/23 History Allergies Allergy/AdvReac Type Severity Reaction Status Date / Time No Known Allergies Allergy Verified 12/04/23 10:29 Physical Exam Vitals: Vital Signs Temp Pulse Resp BP Pulse Ox FiO2 12/04/23 15:11 80 12/04/23 14:56 99 40 12/04/23 14:55 82 12/04/23 14:50 40 12/04/23 14:27 84 21 104/17 95 12/04/23 13:52 128 H 35 H 111/67 97 12/04/23 13:06 82 34 H 102/63 97 12/04/23 12:19 80 35 H 92/60 96 12/04/23 12:00 80 35 H 96/63 96 12/04/23 11:27 125 H 35 H 102/67 97 12/04/23 11:05 40 12/04/23 11:03 124 H 12/04/23 10:57 40 12/04/23 10:56 122 H 12/04/23 10:41 36 H 12/04/23 10:06 128 H 40 H 96 12/04/23 08:30 97.1 F L 90 36 H 120/76 96 12/04/23 08:27 97.1 F L 90 36 H 125/74 88 L Intake and Output 12/04/23 12/04/23 12/04/23 06:59 14:59 22:59 Other: Weight 81.647 kg Results CBC & Chem 7: 12/06/23 10:05 12/06/23 10:05 Labs: Abnormal Lab Results - Last 24 Hours (Table) 12/04/23 12/04/23 12/04/23 Range/Units 08:31 08:31 08:31 WBC 11.4 H (3.8-10.6) k/uL Neutrophils # 10.2 H (1.3-7.7) k/uL Lymphocytes # 0.5 L (1.0-4.8) k/uL INR 1.2 H (<1.2) Potassium (3.5-5.1) mmol/L Chloride (98-107) mmol/L Carbon Dioxide (22-30) mmol/L BUN (7-17) mg/dL Creatinine (0.52-1.04) mg/dL Glucose (74-99) mg/dL Plasma Lactic Acid Nguyễn (0.7-2.0) mmol/L Magnesium (1.6-2.3) mg/dL Urine Glucose (UA) 4+ H (Negative) 12/04/23 12/04/23 Range/Units 08:31 08:31 WBC (3.8-10.6) k/uL Neutrophils # (1.3-7.7) k/uL Lymphocytes # (1.0-4.8) k/uL INR (<1.2) Potassium 5.2 H (3.5-5.1) mmol/L Chloride 90 L (98-107) mmol/L Carbon Dioxide 42 H* (22-30) mmol/L BUN 31 H (7-17) mg/dL Creatinine 1.05 H (0.52-1.04) mg/dL Glucose 213 H (74-99) mg/dL Plasma Lactic Acid Nguyễn 2.6 H* (0.7-2.0) mmol/L Magnesium 2.6 H (1.6-2.3) mg/dL Urine Glucose (UA) (Negative)
--- NOTE | 2023-12-05 14:20 | P.CRDCN ---
History of Present Illness Consult date: 12/05/23 History of present illness: HISTORY OF PRESENTING ILLNESS 83-year-old female with past medical history of paroxysmal atrial fibrillation, moderate to severe COPD on chronically 4 L oxygen, chronic hypoxic respiratory failure, chronic diastolic heart failure, hypertension, dyslipidemia, prior smoker. She presented to the hospital because of increased worsening shortness of breath. 3 weeks ago she was treated for gram-negative pneumonia. This time she has been treated for right lung pneumonia along with COPD exacerbation. On admission she had evidence of acute hypoxia requiring BiPAP support. Cardiology was consulted because patient has prior history of diastolic heart failure and paroxysmal atrial fibrillation. On current admission patient has shown normal sinus rhythm on ECG with heart rate 87 bpm, no significant ischemic ST changes at rest. Her admission labs showed sodium 140, potassium 5.2, hypercapnia with bicarb 42, BUN 31, creatinine 1.05, elevated lactate due to hypoxia. Her troponin was not elevated. Her BNP was minimally elevated at 519 REVIEW OF SYSTEMS 14 point review of system is negative except what is mentioned above in HPI. PHYSICAL EXAMINATION Vital signs reviewed. Head: Normocephalic. Eyes: Sclerae nonicteric. Neck: Brisk carotid upstroke, no jugular venous distention. Lungs: Clear to auscultation. Heart: Regular rate and rhythm, S1-S2, no S3, no murmur or rub. Abdomen: Soft nontender, positive bowel sounds. Extremities: No edema, intact distal pulses. Neuro: Alert, oritented, no focal deficits. Detailed neuro exam was not performed. ASSESSMENT History of paroxysmal atrial fibrillation, currently in normal sinus rhythm History of diastolic heart failure, currently euvolemic Acute on chronic hypoxic respiratory failure Right lower lobe pneumonia Chronic lung infiltrates Acute COPD exacerbation Lactic acidosis due to hypoxemia Prior history of left lower extremity DVT and PE Dementia Hyperlipidemia Last echo 2021, EF 50 to 55%, no major valvular abnormality, suboptimal views due to COPD PLAN Patient does not appear volume overloaded or in congestive heart failure. She is in normal sinus rhythm at present. She has not demonstrated any signs of acute coronary syndrome at present. Continue Eliquis 5 mg twice daily, Farxiga 10 mg daily, Lasix 40 mg daily, Aldactone 25 mg daily. She is also on Plavix 75 mg daily. At present I am not able to find any clear indication why patient is on Plavix 75 mg daily. I will discontinue Plavix and start her on aspirin 81 mg instead. Continue management of pneumonia and hypoxemia as per primary team and pulmonary team Cardiology team will sign off at this time. Please reconsult us in case of any questions Bran Workman MD, FAC, RPVI Thank you for allowing [facility] to participate in this patient's care. Feel free to reach out in case of any followup questions. Past Medical History Past Medical History: Atrial Fibrillation, COPD, CVA/TIA, GERD/Reflux, Hearing Disorder / Deafness, Hyperlipidemia, Pneumonia Additional Past Medical History / Comment(s): sob at times. History of Any Multi-Drug Resistant Organisms: None Reported Past Surgical History: Breast Surgery, Orthopedic Surgery Additional Past Surgical History / Comment(s): cyst removed from left breast, left hip replaced Past Anesthesia/Blood Transfusion Reactions: No Reported Reaction Past Psychological History: Anxiety, Depression Smoking Status: Former smoker Past Alcohol Use History: None Reported Past Drug Use History: None Reported - Past Family History Father Family Medical History: Cancer Additional Family Medical History / Comment(s): bone ca Medications and Allergies Home Medications Medication Instructions Recorded Confirmed Type PARoxetine [Paxil] 20 mg PO DAILY 11/04/15 12/04/23 History Atorvastatin [Lipitor] 40 mg PO HS 09/08/18 12/04/23 History Clopidogrel [Plavix] 75 mg PO DAILY 09/08/18 12/04/23 History Albuterol Inhaler [Ventolin Hfa 2 puff INHALATION RT-Q6H PRN 06/10/20 12/04/23 History Inhaler] Furosemide [Lasix] 40 mg PO DAILY@1200 01/30/21 12/04/23 History Spironolactone [Aldactone] 25 mg PO DAILY 07/04/21 12/04/23 History Multivitamins, Thera [Multivitamin 1 tab PO DAILY@1200 08/01/21 12/04/23 History (formulary)] Ipratropium-Albuterol Nebulize 3 ml INHALATION RT-QID ml 08/06/21 12/04/23 Rx [Duoneb 0.5 mg-3 mg/3 ml Soln] Apixaban [Eliquis] 5 mg PO BID@0800,1600 12/04/23 12/04/23 History Dapagliflozin Propanediol [Farxiga] 10 mg PO DAILY 12/04/23 12/04/23 History Docusate Sodium [Dok] 100 mg PO HS 12/04/23 12/04/23 History Ferrous Sulfate [Feosol] 325 mg PO DAILY 12/04/23 12/04/23 History Folic Acid 0.8 mg PO DAILY 12/04/23 12/04/23 History Furosemide [Lasix] 60 mg PO DAILY@0700 12/04/23 12/04/23 History Healthshake 1 dose PO BID 12/04/23 12/04/23 History Hydrocortisone Cream 1 applic TOPICAL HS 12/04/23 12/04/23 History [Hydrocortisone 2.5% Cream] Melatonin 10 mg PO HS 12/04/23 12/04/23 History Metoprolol Succinate (ER) [Toprol 50 mg PO BID@0800,1600 12/04/23 12/04/23 History XL] Mirtazapine 7.5 mg PO HS 12/04/23 12/04/23 History Thiamine [Vitamin B-1] 100 mg PO DAILY 12/04/23 12/04/23 History allopurinoL [Zyloprim] 100 mg PO DAILY 12/04/23 12/04/23 History Allergies Allergy/AdvReac Type Severity Reaction Status Date / Time No Known Allergies Allergy Verified 12/04/23 10:29 Physical Exam Vitals: Vital Signs Pulse Resp BP Pulse Ox FiO2 12/05/23 12:01 64 12/05/23 11:50 55 L 18 108/67 99 12/05/23 11:48 62 12/05/23 10:00 58 L 18 110/83 98 12/05/23 08:20 60 12/05/23 08:12 60 12/05/23 08:11 40 12/05/23 08:00 52 L 24 110/66 99 12/05/23 04:00 58 L 22 100/59 100 12/05/23 03:51 60 12/05/23 03:41 57 L 40 12/05/23 00:06 69 12/05/23 00:00 73 21 95/62 98 12/04/23 23:54 71 40 12/04/23 19:44 78 12/04/23 19:35 77 12/04/23 19:32 40 12/04/23 19:15 75 30 H 91/57 98 12/04/23 19:00 74 39 H 91/63 12/04/23 18:00 125 H 30 H 94/62 12/04/23 17:00 129 H 36 H 114/71 12/04/23 16:00 86 36 H 108/70 12/04/23 15:11 80 12/04/23 14:56 99 40 12/04/23 14:55 82 12/04/23 14:50 40 12/04/23 14:27 84 21 104/17 95 Results 12/05/23 07:52 12/05/23 07:52 Cardiac Enzymes 12/05/23 Range/Units 07:52 AST 25 (14-36) U/L CBC 12/05/23 Range/Units 07:52 WBC 7.0 (3.8-10.6) k/uL RBC 3.65 L (3.80-5.40) m/uL Hgb 10.6 L (11.4-16.0) gm/dL Hct 34.9 (34.0-46.0) % Plt Count 274 (150-450) k/uL Comprehensive Metabolic Panel 12/05/23 Range/Units 07:52 Sodium 143 (137-145) mmol/L Potassium 4.3 (3.5-5.1) mmol/L Chloride 99 (98-107) mmol/L Carbon Dioxide 38 H (22-30) mmol/L BUN 32 H (7-17) mg/dL Creatinine 0.84 (0.52-1.04) mg/dL Glucose 160 H (74-99) mg/dL Calcium 8.9 (8.4-10.2) mg/dL AST 25 (14-36) U/L ALT 15 (4-34) U/L Alkaline Phosphatase 67 (38-126) U/L Total Protein 5.8 L (6.3-8.2) g/dL Albumin 3.0 L (3.5-5.0) g/dL Current Medications Generic Name Dose Route Start Last Admin Trade Name Freq PRN Reason Stop Dose Admin Acetaminophen 650 mg 12/04/23 10:17 Acetaminophen Tab 325 Mg Tab PO Q6HR PRN Mild Pain or Fever > 100.5 Albuterol/Ipratropium 3 ml 12/04/23 12:00 12/05/23 11:47 Ipratropium-Albuterol 3 Ml Neb INHALATION 3 ml RT-Q4H LINDY Administration Allopurinol 100 mg 12/05/23 09:00 12/05/23 09:57 Allopurinol 100 Mg Tab PO 100 mg DAILY LINDY Administration Apixaban 5 mg 12/04/23 16:00 12/05/23 09:52 Apixaban 5 Mg Tab PO 5 mg BID@0800,1600 [facility] Administration Protocol Aspirin 81 mg 12/06/23 09:00 Aspirin 81 Mg PO DAILY LINDY Atorvastatin Calcium 40 mg 12/04/23 21:00 12/04/23 20:18 Atorvastatin 40 Mg Tab PO 40 mg HS LINDY Administration Dapagliflozin 10 mg 12/05/23 09:00 12/05/23 09:57 Dapagliflozin Propanediol 10 Mg Tablet PO 10 mg DAILY LINDY Administration Docusate Sodium 100 mg 12/04/23 21:00 12/04/23 20:49 Docusate 100 Mg Cap PO Not Given HS LINDY Ferrous Sulfate 325 mg 12/05/23 09:00 12/05/23 09:57 Ferrous Sulfate 325 Mg Tab PO 325 mg DAILY LINDY Administration Folic Acid 1 mg 12/05/23 09:00 12/05/23 09:53 Folic Acid 1 Mg Tab PO 1 mg DAILY LINDY Administration Furosemide 40 mg 12/04/23 12:00 12/05/23 11:40 Furosemide 20 Mg Tab PO 40 mg DAILY@1200 LINDY Administration Cefepime HCl 2 gm/ Sodium 100 mls @ 25 mls/hr 12/05/23 02:00 12/05/23 03:01 Chloride IVPB 25 mls/hr Q12H LINDY Administration Protocol Vancomycin HCl 1,500 mg/ 500 mls @ 167 mls/hr 12/05/23 12:00 12/05/23 11:39 Sodium Chloride IVPB 167 mls/hr Q16H [facility] Administration Melatonin 10 mg 12/04/23 21:00 12/04/23 20:17 Melatonin 5 Mg Tablet PO 10 mg HS LINDY Administration Methylprednisolone Sodium Succinate 60 mg 12/04/23 18:00 12/05/23 11:27 Methylprednisolone Sod Succi 40 Mg/Ml 1 Ml Vial IV Not Given Q6H LINDY Metoprolol Succinate 50 mg 12/04/23 21:00 12/05/23 09:58 Metoprolol Succinate (Er) 50 Mg Tab.Er.24h PO Not Given BID [facility] Mirtazapine 7.5 mg 12/04/23 21:00 12/04/23 20:18 Mirtazapine 15 Mg Tab PO 7.5 mg HS LINDY Administration Miscellaneous Information 1 each 12/04/23 09:39 Pneumonia Protocol Utilized 1 Each Misc PO ONCE PRN Per Protocol Multivitamins 1 each 12/05/23 12:00 12/05/23 11:40 Multivitamins, Thera 1 Each Tab PO 1 each DAILY@1200 LINDY Administration Naloxone HCl 0.2 mg 12/04/23 10:17 Naloxone 0.4 Mg/Ml 1 Ml Vial IV Q2M PRN Opioid Reversal Pantoprazole Sodium 40 mg 12/05/23 09:00 12/05/23 10:03 Pantoprazole 40 Mg/10 Ml Vial IVP 40 mg DAILY LINDY Administration Paroxetine HCl 20 mg 12/05/23 09:00 12/05/23 09:50 Paroxetine 20 Mg Tab PO 20 mg DAILY LINDY Administration Spironolactone 25 mg 12/05/23 09:00 12/05/23 09:53 Spironolactone 25 Mg Tab PO 25 mg DAILY LINDY Administration Thiamine HCl 100 mg 12/05/23 09:00 12/05/23 10:07 Thiamine 100 Mg Tab PO Not Given DAILY LINDY 12/05/23 07:52 12/05/23 07:52
--- NOTE | 2023-12-05 16:05 | P.PN ---
Subjective Progress Note Date: 12/05/23 This is a 83-year-old female patient, senior care resident who has been having issues with chronic dysphagia and recurrent pneumonias. The patient has been followed up in our office and here she has been treated for pneumonia on multiple occasions. She is also known to have underlying COPD. 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 She also has history of paroxysmal atrial fibrillation. Her current anticoagulants are in the form of Eliquis. The patient came into the emergency department having sign ificant respiratory distress. She was having increased cough and congestion along with dyspnea and wheeze. She typically utilizes oxygen between 2 and 3 L/min nasal cannula. She was tachycardic and tachypneic. She was immediately placed on BiPAP for respiratory support and currently BiPAP is running at a pressure of 12 over 5 cm of water with an FiO2 of 40%. Generated tidal volume while on the BiPAP is around 350 cc and minute ventilation is around 12.6. I reviewed the chest x-ray that was done at the time of admission and the patient has developed patchy density in the right mid and lower lung field which is a new finding compared to the earlier chest x-rays, likely consistent with pn eumonia could be potentially an aspiration pneumonia. Previous CAT scan of the chest from July 2023 also showed a 10 mm nodule density in the right middle lobe that is being followed up at the pulmonary clinic. The patient also has interstitial and nodular densities developing in the right middle lobe and the lingula. Her white cell count is at 11.4 with a hemoglobin 12.9 and platelet count of 371. BUN is 31 with a creatinine of 1.05 sodium is at 140 with a potassium level of 5.2. Initial lactic acid level is at 2.6 dropped down to 1.0. Liver function tests are normal. The viral screen is negative. UA is negative. proBNP level is 519. She is also on a combination of bronchodilators and she was started on IV Solu-Medrol. On 12/05/2023, seen the patient for a follow-up. Clinically improved compared to yesterday. Less bronchospastic and wheezy compared to yesterday. She is also less tachycardic. The patient is awake and alert and communicating. She is currently on broad-spectrum antibiotics. She is also on bronchodilators and she is also on steroids. Note that overnight, the patient was on BiPAP which helped her quite a bit with her respiratory status. The white cell count is at 7 with a hemoglobin 10.6 and a platelet count of 274, BUN 32 with a creatinine of 0.8 and sodium level is at 143 and a potassium level of 4.3. The viral screen has been negative. No other significant events overnight. The patient remains on cefepime and vancomycin. The patient remains on IV Zometa 60 mg for 6 hours. She remains on DuoNeb and Lasix [id number]. She is currently on oral Lasix. Objective - Vital Signs Vital signs: Vital Signs Temp 98.7 F 12/05/23 15:42 Pulse 80 12/05/23 15:52 Resp 30 H 12/05/23 15:42 BP 101/59 12/05/23 15:42 Pulse Ox 98 12/05/23 15:42 FiO2 40 12/05/23 15:55 Intake & Output 12/04/23 12/05/23 12/05/23 18:59 06:59 18:59 Weight 81.647 kg - Exam GENERAL EXAM: Alert, very pleasant, 83-year-old white female, on on oxygen by nasal cannula and she is currently off the BiPAP, and she is currently on 4 L of oxygen nasal cannula. HEAD: Normocephalic/atraumatic. EYES: Normal reaction of pupils, equal size. Conjunctiva pink, sclera white. NOSE: Clear with pink turbinates. THROAT: No erythema or exudates. NECK: No masses, no JVD, no thyroid enlargement, no adenopathy. CHEST: No chest wall deformity. Symmetrical expansion. LUNGS: Equal air entry and the breath sounds are quite diminished and the patient has scattered expiratory wheezes heard throughout the lung lynch bilaterally CVS: Regular rate and rhythm, tachycardic, normal S1 and S2, no gallops, no murmurs, no rubs ABDOMEN: Soft, nontender. No hepatosplenomegaly, normal bowel sounds, no guarding or rigidity. EXTREMITIES: No clubbing, no edema, no cyanosis, 2+ pulses and upper and lower extremities. MUSCULOSKELETAL: Muscle strength and tone normal. SPINE: No scoliosis or deformity SKIN: No rashes CENTRAL NERVOUS SYSTEM: Alert and oriented -3. No focal deficits, tone is normal in all 4 extremities. - Labs CBC & Chem 7: 12/05/23 07:52 12/05/23 07:52 Labs: Abnormal Lab Results - Last 24 Hours (Table) 12/05/23 12/05/23 Range/Units 07:52 07:52 RBC 3.65 L (3.80-5.40) m/uL Hgb 10.6 L (11.4-16.0) gm/dL MCHC 30.4 L (31.0-37.0) g/dL Lymphocytes # 0.4 L (1.0-4.8) k/uL Carbon Dioxide 38 H (22-30) mmol/L BUN 32 H (7-17) mg/dL Glucose 160 H (74-99) mg/dL Total Protein 5.8 L (6.3-8.2) g/dL Albumin 3.0 L (3.5-5.0) g/dL Assessment and Plan Plan: Right lung pneumonia with pulmonary filtrates involving the right middle lobe and right lower lobe. Consider possibility of a senior care associated pneumonia versus aspiration pneumonia as the patient suffers from chronic dysphagia. Swallow evaluation has been done previous occasions and the patient has been working with speech therapy to improve her swallow mechanism. Clin ically improved compared to yesterday. Will continue to follow. Chronic pulm infiltrates involving the right middle and the lingula segments. Atypical mycobacterial chronic infection cannot be completely ruled out COPD with acute exacerbation secondary to above, improving Right-sided pulmonary nodule, measuring 10 mm in size Acute hypoxic respiratory failure secondary to above and the patient is currently on a BiPAP for respiratory support at a pressure of 12 over 5 cm of water with an FiO2 of 40% Sinus tachycardia secondary to above Mild lactic acidosis, improving Previous history of DVT of left lower extremity and pulmonary embolism and the patient has been maintained on long-term anticoagulation with [facility] Dementia [facility] resident Hyperlipidemia Plan Clinically improving and the patient is currently off the BiPAP and the patient has been transitioned to oxygen by nasal cannula at 4 L/min nasal cannula. Cultures are still pending Obtain blood cultures Perform another swallow evaluation by speech pathology Continue the combination of cefepime and vancomycin Rest of the medication be kept unchanged and the home medication will be resumed Discussed the need for CODE STATUS May consider a PEG tube insertion for nutritional support and risk of aspiration specially for swallow evaluation failed to show appropriate swallowing mechanism and confirms the patient's high risk for aspiration. Will continue to follow
--- NOTE | 2023-12-05 18:33 | P.PN ---
Subjective Progress Note Date: 12/05/23 HISTORY OF PRESENT ILLNESS: This is an 83-year-old female with a previous medical history signi ficant for hypertension and hypertensive cardiovascular disease, hyperlipidemia, chronic diastolic heart failure, paroxysmal atrial fibrillation, moderate to severe chronic obstructive pulmonary disease on 4 L nasal cannula, with a chronic hypoxemic respiratory failure for quite some times, patient was recently treated for a what appears to be a gram-negative pneumonia about 3 weeks ago and she has been doing fine up today when I received a call from the nursing staff stating that the patient is breathing about 40 breaths/min, she is using accessory muscles, she appears to be quite ill she has been coughing some yellow-green phlegm production, and she has been tachycardic, not able to eat or drink much, she appeared to be quite drowsy, she was referred to go to the emergency department via EMS, patient was seen and evaluated in the emergency department she was initially was in atrial fibrillation with rapid ventricular response that was converted to an sinus rhythm, patient initially was struggling quite a bit with breathing she was placed on BiPAP with an IPAP of 10 and EPAP of 5 with FiO2 of 40% to keep her saturation anywhere between 92 and 94%, patient was initially given Zithromax and Rocephin in the emergency department, then she was placed on cefepime and vancomycin, she was also started on Solu- Medrol 60 mg IV push every 6 hours, she was placed on nebulized treatment DuoNeb 3 mm nebulization 4 times every day, she was started on Pulmicort 1 mg nebulization twice every day, she was seen in consultation by pulmonary medicine as well as by cardiology, and she was admitted to the hospital for further evaluation and treatment of acute on chronic respiratory failure her chest x-ray did show evidence of right middle and right lower lobe pneumonia, suggestive of aspiration, she was placed on IV antibiotic as stated earlier. 12/04: Patient is still in the emergency department, she is scheduled to go up to the telemetry unit, she continues to be on oxygen support, she was on BiPAP all day long and all night long yesterday, she is appearing a bit better, she is more awake and alert, she has been on vancomycin and cefepime, sputum culture and blood cultures are pending, continue to monitor the patient very closely, continue aggressive pulmonary toileting, patient was seen in consultation by cardiology as well as pulm pulmonary medicine, we will maintain the patient on current treatment plan, she will be seen and evaluated by physical therapy and Occupational Therapy, most likely the patient transition is to go back to [facility] when the patient's symptoms improve REVIEW OF SYSTEMS: Constitutional: documented fever, no chills, no night sweats. positive for weight change. positive for weakness, positive for fatigue or lethargy. No daytime sleepiness. EENT: No headache. No blurred vision or double vision, no loss of vision. No loss of Hearing, no ringing in the ears, no dizziness. No nasal drainage or congestion. No epistaxis. No sore throat. Lungs: positive for shortness of breath, positive for cough, positive for sputum production. positive for wheezing. Reports dyspnea with activity. Cardiovascular: No chest pain, no lower extremity edema. No palpitations. No paroxysmal nocturnal dyspnea. No orthopnea. No lightheadedness or dizziness. No syncopal episodes. Abdominal: Reports abdominal pain. No nausea, vomiting. No diarrhea. positive for constipation. No bloody or tarry stools reports loss of appetite, di fficulty in swallowing Genitourinary: No dysuria, increased frequency, urgency. No urinary retention. Musculoskeletal: No myalgias. positive for muscle weakness, positive for gait dysfunction, no frequent falls. No back pain. No neck pain. Integumentary: No wounds, no lesions. No rash or pruritus. No unusual bruising. positive for change in hair or nails. Neurologic: No aphasia. No facial droop. No change in mentation. No head injury. No headache. No paralysis. No paresthesia. Psychiatric: positive for depression. positive for anxiety. No mood swings. Endocrine: No abnormal blood sugars. No weight change. PHYSICAL EXAMINATION: General: 83-year-old female laying down in bed in moderate respiratory distress. Currently on a BiPAP. HEENT: Head is atraumatic, normocephalic, pupils were equal round reactive to light and recommendation, extraocular muscle movement were intact, sclera nonicteric, conjunctivae were pale, mucous membranes of the mouth are somewhat dry. Neck: Supple, no JVP, normal carotid upstroke bilaterally, no lymphadenopathy. Chest: Decreased breath sounds at the bases, few rhonchi, moderate expiratory wheezes moderate intercostal retractions. Heart: First heart sound is normal, second heart sound is normal there is systolic ejection murmur 2/6 to get in the left sternal border. Abdomen: Soft, nontender, nondistended, positive bowel sounds. Extremities: There is +2 edema, no calf tenderness, dorsalis pedis +1 bilaterally. Neurologic examination: Patient is awake alert and oriented x1, cranial nerves II-12 appear grossly intact, muscle power were 3 out of 5 in upper extremities and 3 out of 5 in bilateral lower extremities, deep tendon reflexes normal bilaterally. ASSESSMENT AND PLAN: 1. Acute on chronic hypoxemic respiratory failure due to acute exacerbation of COPD with right middle/lower lobe pneumonia likely gram-negative pneumonia. Start the patient on cefepime 2 g IV piggyback every 12 hours, start vancomycin with pharmacy to dose its peak and trough, sputum culture, blood culture, continue oxygen FiO2 40%, continue BiPAP with an IPAP of 10 and EPAP of 5 keep her saturation 92 to 94%, continue DuoNeb 3 mm nebulization 4 times every day, Pulmicort 1 mg nebulization twice every day, Solu-Medrol 60 mg IV push every 6 hours, pulmonary consultation, Dr. Hastings 2. Chronic diastolic heart failure likely due to atrial fibrillation with increased left ventricular end-diastolic pressure. Continue patient on Lopre ssor 5 mg IV push every 6 hours [id number], hold for heart rate less than 50, and hold for systolic blood pressure less than 100, continue Eliquis 5 mg orally twice every day, monitor the patient's symptoms very closely. Obtain cardiology consultation, obtain echocardiogram for evaluation of LV function. Continue Farxiga 10 mg orally once every day. 3. Hypertension and hypertensive cardiovascular disease. Continue patient on Lopressor 5 mg IV push every 6 hours until the patient is able to take medication by mouth. Monitor the patient blood pressure very closely. 4. Mixed hyperlipidemia. Continue atorvastatin 40 mg orally once every day, monitor lipid panel, keep LDL 55-70. 5. Paroxysmal atrial fibrillation currently in sinus rhythm. Continue Eliquis 5 mg orally twice every day, continue Lopressor 5 mg IV push every 6 hours with holding parameters. 6. History of gout. Continue patient on allopurinol 100 mg orally once every day. 7. History of CVA. Continue patient on Plavix 75 mg once every day, continue Eliquis 5 mg orally twice every day, continue atorvastatin 40 mg once every day for secondary stroke prevention. 8. Anxiety and depressive disorder. Continue patient on paroxetine 20 mg once every day as well as mirtazapine 7.5 mg at bedtime. 9. Moderate to severe COPD continue treatment as in 1. 10. Hstory of DVT of left lower extremity and Pulmonary embolism . 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 DVT prophylaxis. Continue patient on Eliquis 5 mg orally twice every day. 12. GI prophylaxis. Continue patient on Protonix 40 mg IV push every 24 hours. Objective - Vital Signs Vital signs: Vital Signs Temp 97.1 F L 12/04/23 08:30 Pulse 64 12/05/23 12:01 Resp 18 12/05/23 11:50 BP 108/67 12/05/23 11:50 Pulse Ox 99 12/05/23 11:50 FiO2 40 12/05/23 08:11 Intake & Output 12/04/23 12/05/23 12/05/23 18:59 06:59 18:59 Weight 81.647 kg - Labs CBC & Chem 7: 12/05/23 07:52 12/05/23 07:52 Labs: Abnormal Lab Results - Last 24 Hours (Table) 12/05/23 12/05/23 Range/Units 07:52 07:52 RBC 3.65 L (3.80-5.40) m/uL Hgb 10.6 L (11.4-16.0) gm/dL MCHC 30.4 L (31.0-37.0) g/dL Lymphocytes # 0.4 L (1.0-4.8) k/uL Carbon Dioxide 38 H (22-30) mmol/L BUN 32 H (7-17) mg/dL Glucose 160 H (74-99) mg/dL Total Protein 5.8 L (6.3-8.2) g/dL Albumin 3.0 L (3.5-5.0) g/dL
[2023-12-06 06:38] LABS: Glucose,Whole Blood 182 mg/dL (70-110)
[2023-12-06] MEDS: ASPIRIN 81 MG PO SCH (08:41)
[2023-12-06 10:31] LABS: Basophils % (A) 0 %; Eosinophils % (A) 0 %; HCT 35.2 % (34.0-46.0); HGB 10.5 gm/dL (11.4-16.0); Hypochromasia Marked; Lymphocytes # (A) 0.3 k/uL (1.0-4.8); Lymphocytes % (A) 3 %; MCH 29.2 pg (25.0-35.0); MCHC 29.8 g/dL (31.0-37.0); MCV 98.1 fL (80.0-100.0); Mean Platelet Volume 8.2; Monocytes # (A) 0.3 k/uL (0-1.0); Monocytes % (A) 3 %; Neutrophils # (A) 9.3 k/uL (1.3-7.7); Neutrophils % (A) 94 %; Platelet Count 261 k/uL (150-450); RBC 3.59 m/uL (3.80-5.40); RDW 14.6 % (11.5-15.5); WBC 9.9 k/uL (3.8-10.6)
[2023-12-06 11:22] LABS: ALT 18 U/L (4-34); AST 40 U/L (14-36); African American GFR (CKD) 73 (>60 ml/min/1.73 sqM); Albumin 2.9 g/dL (3.5-5.0); Alkaline Phosphatase 59 U/L (38-126); Anion Gap 3 mmol/L; Blood Urea Nitrogen 34 mg/dL (7-17); Calcium 8.6 mg/dL (8.4-10.2); Carbon Dioxide 36 mmol/L (22-30); Chloride 102 mmol/L (98-107); Glucose 228 mg/dL (74-99); Non-African American GFR(CKD) 64 (>60 ml/min/1.73 sqM); Potassium 4.3 mmol/L (3.5-5.1); Sodium 141 mmol/L (137-145); Total Bilirubin 0.3 mg/dL (0.2-1.3); Total Protein 5.5 g/dL (6.3-8.2)
[2023-12-06 11:33] LABS: Glucose,Whole Blood 218 mg/dL (70-110)
--- NOTE | 2023-12-06 11:39 | P.PN ---
Subjective Progress Note Date: 12/06/23 HISTORY OF PRESENT ILLNESS: This is an 83-year-old female with a previous medical history signi ficant for hypertension and hypertensive cardiovascular disease, hyperlipidemia, chronic diastolic heart failure, paroxysmal atrial fibrillation, moderate to severe chronic obstructive pulmonary disease on 4 L nasal cannula, with a chronic hypoxemic respiratory failure for quite some times, patient was recently treated for a what appears to be a gram-negative pneumonia about 3 weeks ago and she has been doing fine up today when I received a call from the nursing staff stating that the patient is breathing about 40 breaths/min, she is using accessory muscles, she appears to be quite ill she has been coughing some yellow-green phlegm production, and she has been tachycardic, not able to eat or drink much, she appeared to be quite drowsy, she was referred to go to the emergency department via EMS, patient was seen and evaluated in the emergency department she was initially was in atrial fibrillation with rapid ventricular response that was converted to an sinus rhythm, patient initially was struggling quite a bit with breathing she was placed on BiPAP with an IPAP of 10 and EPAP of 5 with FiO2 of 40% to keep her saturation anywhere between 92 and 94%, patient was initially given Zithromax and Rocephin in the emergency department, then she was placed on cefepime and vancomycin, she was also started on Solu- Medrol 60 mg IV push every 6 hours, she was placed on nebulized treatment DuoNeb 3 mm nebulization 4 times every day, she was started on Pulmicort 1 mg nebulization twice every day, she was seen in consultation by pulmonary medicine as well as by cardiology, and she was admitted to the hospital for further evaluation and treatment of acute on chronic respiratory failure her chest x-ray did show evidence of right middle and right lower lobe pneumonia, suggestive of aspiration, she was placed on IV antibiotic as stated earlier. 12/04: Patient is still in the emergency department, she is scheduled to go up to the telemetry unit, she continues to be on oxygen support, she was on BiPAP all day long and all night long yesterday, she is appearing a bit better, she is more awake and alert, she has been on vancomycin and cefepime, sputum culture and blood cultures are pending, continue to monitor the patient very closely, continue aggressive pulmonary toileting, patient was seen in consultation by cardiology as well as pulm pulmonary medicine, we will maintain the patient on current treatment plan, she will be seen and evaluated by physical therapy and Occupational Therapy, most likely the patient transition is to go back to [facility] when the patient's symptoms improve 12/05: Patient is sitting up in bed she has been tolerating pured diet and thick nectar, her son was at the bedside, he was updated about her current condition and he showed some concerns about the care at [facility], I reassured the patient and her son that we will continue to keep an eye on her provider with quality care at this point in time, patient is feeling better so far we will decrease her Solu-Medrol to 40 mg IV push every 8 hours, continue nebulized treatment, try to obtain sputum culture, try to obtain echocardiogram for evaluation of LV function, her last echocardiogram was greater than 2 years ago, I will continue to follow-up with the patient very closely, patient will be seen in consultation by physical therapy and Occupational Therapy, social welfare research worker consultation for discharge planning. REVIEW OF SYSTEMS: Constitutional: documented fever, no chills, no night sweats. positive for weight change. positive for weakness, positive for fatigue or lethargy. No daytime sleepiness. EENT: No headache. No blurred vision or double vision, no loss of vision. No loss of Hearing, no ringing in the ears, no dizziness. No nasal drainage or c ongestion. No epistaxis. No sore throat. Lungs: positive for shortness of breath, positive for cough, positive for sputum production. positive for wheezing. Reports dyspnea with activity. Cardiovascular: No chest pain, no lower extremity edema. No palpitations. No paroxysmal nocturnal dyspnea. No orthopnea. No lightheadedness or dizziness. No syncopal episodes. Abdominal: Reports no abdominal pain. No nausea, vomiting. No diarrhea. positive for constipation. No bloody or tarry stools reports loss of appetite, difficulty in swallowing Genitourinary: No dysuria, increased frequency, urgency. No urinary retention. Musculoskeletal: No myalgias. positive for muscle weakness, positive for gait dysfunction, no frequent falls. No back pain. No neck pain. Integumentary: No wounds, no lesions. No rash or pruritus. No unusual bruising. positive for change in hair or nails. Neurologic: No aphasia. No facial droop. No change in mentation. No head injury. No headache. No paralysis. No paresthesia. Psychiatric: positive for depression. positive for anxiety. No mood swings. Endocrine: No abnormal blood sugars. No weight change. PHYSICAL EXAMINATION: General: 83-year-old female laying down in bed in no apparent distress. Currently on 4 L nasal cannula her baseline. HEENT: Head is atraumatic, normocephalic, pupils were equal round reactive to light and recommendation, extraocular muscle movement were intact, sclera nonicteric, conjunctivae were pale, mucous membranes of the mouth are somewhat dry. Neck: Supple, no JVP, normal carotid upstroke bilaterally, no lymphadenopathy. Chest: Decreased breath sounds at the bases, few rhonchi, minimal expiratory wheezes no chest wall tenderness no intercostal retractions. Heart: First heart sound is normal, second heart sound is normal there is systolic ejection murmur 2/6 to get in the left sternal border. Abdomen: Soft, nontender, nondistended, positive bowel sounds. Extremities: There is +1 edema, no calf tenderness, dorsalis pedis +1 bilaterally. Neurologic examination: Patient is awake alert and oriented x1, cranial nerves II-12 appear grossly intact, muscle power were 3 out of 5 in upper extremities and 3 out of 5 in bilateral lower extremities, deep tendon reflexes normal bilaterally. ASSESSMENT AND PLAN: 1. Acute on chronic hypoxemic respiratory failure due to acute exacerbation of COPD with right middle/lower lobe pneumonia likely gram-negative pneumonia. on cefepime 2 g IV piggyback every 12 hours, start vancomycin with pharmacy to dose its peak and trough, sputum culture, blood culture, continue patient on oxygen 4 L nasal cannula, continue aggressive pulmonary toileting, continue with the head of the bed elevated, continue patient on pured diet with nectar supervision wh ile eating to avoid aspiration. Continue patient on Solu-Medrol decrease the dose to 40 mg IV push every 8 hours, continue DuoNeb 3 mm nebulization 4 times every day, monitor the patient very closely. 2. Chronic diastolic heart failure likely due to atrial fibrillation with increased left ventricular end-diastolic pressure. Continue metoprolol 50 mg orally twice every day, continue Eliquis 5 mg orally twice every day, continue patient on Farxiga 10 mg orally once every day, monitor the patient input and output and daily weight, echocardiogram was done about 2 years ago we will obtain another one 3. Hypertension and hypertensive cardiovascular disease. Continue metoprolol 50 mg orally twice every day, monitor the patient blood pressure very closely. 4. Mixed hyperlipidemia. Continue atorvastatin 40 mg orally once every day, monitor lipid panel, keep LDL 55-70. 5. Paroxysmal atrial fibrillation currently in sinus rhythm. Continue Eliquis 5 mg orally twice every day, continue metoprolol 50 mg orally twice every day. 6. History of gout. Continue patient on allopurinol 100 mg orally once every day. 7. History of CVA. Continue patient on aspirin 81 mg once every day continue Eliquis 5 mg orally twice every day, continue atorvastatin 40 mg once every day for secondary stroke prevention. 8. Anxiety and depressive disorder. Continue patient on paroxetine 20 mg once every day as well as mirtazapine 7.5 mg at bedtime. 9. Moderate to severe COPD continue treatment as in 1. 10. 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 we will continue with halfway anticoagulation with Elquis 11. DVT prophylaxis. Continue patient on Eliquis 5 mg orally twice every day. 12. GI prophylaxis. Continue patient on Protonix 40 mg IV push every 24 hours. 13. PT OT evaluation. 14. grease machine worker consultation for discharge planning. Objective - Vital Signs Vital signs: Vital Signs Temp 97.5 F L 12/06/23 08:28 Pulse 84 12/06/23 10:04 Resp 20 12/06/23 08:28 BP 94/53 12/06/23 08:28 Pulse Ox 100 12/06/23 09:55 FiO2 40 12/05/23 23:41 Intake & Output 12/05/23 12/06/23 12/06/23 18:59 06:59 18:59 Intake Total 128 20 120 Balance 128 20 120 Weight 81.647 kg Intake: IV 10 20 10 Invasive Line 2 10 20 10 Oral 118 110 Other: Voiding Method External Catheter External Catheter External Catheter - Labs CBC & Chem 7: 12/06/23 10:05 12/06/23 10:05 Labs: Abnormal Lab Results - Last 24 Hours (Table) 12/06/23 12/06/23 12/06/23 Range/Units 06:36 10:05 10:05 RBC 3.59 L (3.80-5.40) m/uL Hgb 10.5 L (11.4-16.0) gm/dL MCHC 29.8 L (31.0-37.0) g/dL Neutrophils # 9.3 H (1.3-7.7) k/uL Lymphocytes # 0.3 L (1.0-4.8) k/uL Carbon Dioxide 36 H (22-30) mmol/L BUN 34 H (7-17) mg/dL Glucose 228 H (74-99) mg/dL POC Glucose (mg/dL) 182 H (70-110) mg/dL AST 40 H (14-36) U/L Total Protein 5.5 L (6.3-8.2) g/dL Albumin 2.9 L (3.5-5.0) g/dL Microbiology - Last 24 Hours (Table) 12/04/23 08:55 Blood Culture - Preliminary Blood 12/04/23 08:50 Blood Culture - Preliminary Blood
[2023-12-06] MEDS: INSULIN ASPART (NovoLOG) 100 UNIT/ML VIAL SQ SCH (12:08)
[2023-12-06] MEDS: methylPREDNISolone SOD SUCCI 40 MG/ML 1 ML VIAL IV SCH (12:08)
[2023-12-06 16:48] LABS: Glucose,Whole Blood 221 mg/dL (70-110)
--- NOTE | 2023-12-06 18:32 | P.PN ---
Subjective Progress Note Date: 12/06/23 This is a 83-year-old female patient, care home resident who has been having issues with chronic dysphagia and recurrent pneumonias. The patient has been followed up in our office and here she has been treated for pneumonia on multiple occasions. She is also known to have underlying COPD. 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 She also has history of paroxysmal atrial fibrillation. Her current anticoagulants are in the form of Eliquis. The patient came into the emergency department having sign ificant respiratory distress. She was having increased cough and congestion along with dyspnea and wheeze. She typically utilizes oxygen between 2 and 3 L/min nasal cannula. She was tachycardic and tachypneic. She was immediately placed on BiPAP for respiratory support and currently BiPAP is running at a pressure of 12 over 5 cm of water with an FiO2 of 40%. Generated tidal volume while on the BiPAP is around 350 cc and minute ventilation is around 12.6. I reviewed the chest x-ray that was done at the time of admission and the patient has developed patchy density in the right mid and lower lung field which is a new finding compared to the earlier chest x-rays, likely consistent with pn eumonia could be potentially an aspiration pneumonia. Previous CAT scan of the chest from July 2023 also showed a 10 mm nodule density in the right middle lobe that is being followed up at the pulmonary clinic. The patient also has interstitial and nodular densities developing in the right middle lobe and the lingula. Her white cell count is at 11.4 with a hemoglobin 12.9 and platelet count of 371. BUN is 31 with a creatinine of 1.05 sodium is at 140 with a potassium level of 5.2. Initial lactic acid level is at 2.6 dropped down to 1.0. Liver function tests are normal. The viral screen is negative. UA is negative. proBNP level is 519. She is also on a combination of bronchodilators and she was started on IV Solu-Medrol. On 12/05/2023, seen the patient for a follow-up. Clinically improved compared to yesterday. Less bronchospastic and wheezy compared to yesterday. She is also less tachycardic. The patient is awake and alert and communicating. She is currently on broad-spectrum antibiotics. She is also on bronchodilators and she is also on steroids. Note that overnight, the patient was on BiPAP which helped her quite a bit with her respiratory status. The white cell count is at 7 with a hemoglobin 10.6 and a platelet count of 274, BUN 32 with a creatinine of 0.8 and sodium level is at 143 and a potassium level of 4.3. The viral screen has been negative. No other significant events overnight. The patient remains on cefepime and vancomycin. The patient remains on IV Zometa 60 mg for 6 hours. She remains on DuoNeb and Lasix [id number]. She is currently on oral Lasix. 12/06/2023, the patient is doing well. She is on and off utilizing the BiPAP. At the time of my evaluation, the patient was back on BiPAP and subsequently was taken off the BiPAP and she was placed on 4 L of oxygen by nasal cannula with a pulse ox of 99%. She has no specific complaints. Less bronchospastic and wheezy. The white cell count is at 9.9 with a hemoglobin 10.5 and a platelet count of 261. BUN 34 with a creatinine of 0.8. Electrolytes are all stable. Medications are essentially unchanged. She remains on Solu-Medrol 40 mg every 8 hours. She remains on DuoNeb nebulized treatments [id number]. She is on IV cefepime and vancomycin. Afebrile. Blood cultures are still negative. Swallow evaluation was done and the patient is able to take honey thickened material. Objective - Vital Signs Vital signs: Vital Signs Temp 97.5 F L 12/06/23 08:28 Pulse 84 12/06/23 10:04 Resp 20 12/06/23 08:28 BP 94/53 12/06/23 08:28 Pulse Ox 100 12/06/23 09:55 FiO2 40 12/05/23 23:41 Intake & Output 12/05/23 12/06/23 12/06/23 18:59 06:59 18:59 Intake Total 128 20 120 Balance 128 20 120 Weight 81.647 kg Intake: IV 10 20 10 Invasive Line 2 10 20 10 Oral 118 110 Other: Voiding Method External Catheter External Catheter External Catheter - Exam GENERAL EXAM: Alert, very pleasant, 83-year-old white female, on on oxygen by nasal cannula and she is currently off the BiPAP, and she is currently on 4 L of oxygen nasal cannula. HEAD: Normocephalic/atraumatic. EYES: Normal reaction of pupils, equal size. Conjunctiva pink, sclera white. NOSE: Clear with pink turbinates. THROAT: No erythema or exudates. NECK: No masses, no JVD, no thyroid enlargement, no adenopathy. CHEST: No chest wall deformity. Symmetrical expansion. LUNGS: Equal air entry and the breath sounds are quite diminished and the patient has scattered expiratory wheezes heard throughout the lung lynch bilaterally CVS: Regular rate and rhythm, tachycardic, normal S1 and S2, no gallops, no mu rmurs, no rubs ABDOMEN: Soft, nontender. No hepatosplenomegaly, normal bowel sounds, no guarding or rigidity. EXTREMITIES: No clubbing, no edema, no cyanosis, 2+ pulses and upper and lower extremities. MUSCULOSKELETAL: Muscle strength and tone normal. SPINE: No scoliosis or deformity SKIN: No rashes CENTRAL NERVOUS SYSTEM: Alert and oriented -3. No focal deficits, tone is normal in all 4 extremities. - Labs CBC & Chem 7: 12/06/23 10:05 12/06/23 10:05 Labs: Abnormal Lab Results - Last 24 Hours (Table) 12/06/23 12/06/23 Range/Units 06:36 10:05 RBC 3.59 L (3.80-5.40) m/uL Hgb 10.5 L (11.4-16.0) gm/dL MCHC 29.8 L (31.0-37.0) g/dL Neutrophils # 9.3 H (1.3-7.7) k/uL Lymphocytes # 0.3 L (1.0-4.8) k/uL POC Glucose (mg/dL) 182 H (70-110) mg/dL Microbiology - Last 24 Hours (Table) 12/04/23 08:55 Blood Culture - Preliminary Blood 12/04/23 08:50 Blood Culture - Preliminary Blood Assessment and Plan Plan: Right lung pneumonia with pulmonary filtrates involving the right middle lobe and right lower lobe. Consider possibility of a care home associated pneumonia versus aspiration pneumonia as the patient suffers from chronic dysphagia. Swallow evaluation has been done previous occasions and the patient has been working with speech therapy to improve her swallow mechanism. Clinically improved. Swallow evaluation was completed. The patient on and off is still requiring noninvasive positive pressure ventilation/BiPAP alternating with 4 L of oxygen by nasal cannula. Chronic pulm infiltrates involving the right middle and the lingula segments. Atypical mycobacterial chronic infection cannot be completely ruled out COPD with acute exacerbation secondary to above, improving Right-sided pulmonary nodule, measuring 10 mm in size Acute hypoxic respiratory failure secondary to above and the patient is currently on a BiPAP for respiratory support at a pressure of 12 over 5 cm of water with an FiO2 of 40% Sinus tachycardia secondary to above Mild lactic acidosis, improving Previous history of DVT of left lower extremity and pulmonary embolism and the patient has been maintained on long-term anticoagulation with [facility] resident Hyperlipidemia Plan Clinically improving and the patient is currently off the BiPAP and the patient has been transitioned to oxygen by nasal cannula at 4 L/min nasal cannula. Cultures are still are negative Swallow evaluation completed Continue the combination of cefepime and vancomycin Rest of the medication be kept unchanged and the home medication will be resumed Discussed the need for CODE STATUS Obtain a follow-up chest x-ray in the morning Will continue to follow
[2023-12-06 20:35] LABS: Glucose,Whole Blood 188 mg/dL (70-110)
[2023-12-07 05:47] LABS: Glucose,Whole Blood 186 mg/dL (70-110)
[2023-12-07] MEDS: PANTOPRAZOLE 40 MG TABLET PO SCH (06:41)
[2023-12-07 07:02] LABS: Basophils % (A) 0 %; Eosinophils % (A) 0 %; HCT 32.3 % (34.0-46.0); HGB 9.9 gm/dL (11.4-16.0); Hypochromasia Moderate; Lymphocytes # (A) 0.4 k/uL (1.0-4.8); Lymphocytes % (A) 6 %; MCH 29.5 pg (25.0-35.0); MCHC 30.7 g/dL (31.0-37.0); MCV 96.2 fL (80.0-100.0); Monocytes # (A) 0.3 k/uL (0-1.0); Monocytes % (A) 4 %; Neutrophils # (A) 6.7 k/uL (1.3-7.7); Neutrophils % (A) 89 %; Platelet Count 245 k/uL (150-450); RBC 3.36 m/uL (3.80-5.40); RDW 14.6 % (11.5-15.5); WBC 7.5 k/uL (3.8-10.6)
[2023-12-07 07:25] LABS: ALT 16 U/L (4-34); AST 33 U/L (14-36); African American GFR (CKD) 81 (>60 ml/min/1.73 sqM); Albumin 2.7 g/dL (3.5-5.0); Alkaline Phosphatase 54 U/L (38-126); Anion Gap 1 mmol/L; Blood Urea Nitrogen 31 mg/dL (7-17); Calcium 8.4 mg/dL (8.4-10.2); Carbon Dioxide 37 mmol/L (22-30); Chloride 102 mmol/L (98-107); Glucose 176 mg/dL (74-99); Non-African American GFR(CKD) 70 (>60 ml/min/1.73 sqM); Potassium 4.5 mmol/L (3.5-5.1); Sodium 140 mmol/L (137-145); Total Bilirubin 0.3 mg/dL (0.2-1.3); Total Protein 5.2 g/dL (6.3-8.2)
--- NOTE | 2023-12-07 08:10 | XR ---
EXAMINATION TYPE: XR chest 1V DATE OF EXAM: 12/07/2023 6:40 AM CLINICAL INDICATION:Female, 83 years old with history of Follow-up pneumonia; [facility] COMPARISON: Chest radiograph from two days prior. TECHNIQUE: XR chest 1V Frontal view of the chest. FINDINGS: Lungs/Pleura: Right midlung streaky airspace opacities There is no evidence of pleural effusion, foca l consolidation, or pneumothorax. Pulmonary vascularity: Unremarkable. Heart/mediastinum: Cardiomediastinal silhouette is unremarkable. Musculoskeletal: No acute osseous pathology. IMPRESSION: Right midlung airspace opacities possibly on the basis of atelectasis new from prior. Chronic changes without acute pulmonary process. No significant change from prior.
[2023-12-07] MEDS: SPIRONOLACTONE 25 MG TAB PO SCH (08:29)
[2023-12-07 11:37] LABS: Glucose,Whole Blood 154 mg/dL (70-110)
--- NOTE | 2023-12-07 12:18 | P.PN ---
Subjective Progress Note Date: 12/07/23 This is a 83-year-old female patient, [place] [facility] resident who has been having issues with chronic dysphagia and recurrent pneumonias. The patient has been followed up in our office and here she has been treated for pneumonia on multiple occasions. She is also known to have underlying COPD. 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 She also has history of paroxysmal atrial fibrillation. Her current anticoagulants are in the form of Eliquis. The patient came into the emergency department having sign ificant respiratory distress. She was having increased cough and congestion along with dyspnea and wheeze. She typically utilizes oxygen between 2 and 3 L/min nasal cannula. She was tachycardic and tachypneic. She was immediately placed on BiPAP for respiratory support and currently BiPAP is running at a pressure of 12 over 5 cm of water with an FiO2 of 40%. Generated tidal volume while on the BiPAP is around 350 cc and minute ventilation is around 12.6. I reviewed the chest x-ray that was done at the time of admission and the patient has developed patchy density in the right mid and lower lung field which is a new finding compared to the earlier chest x-rays, likely consistent with pn eumonia could be potentially an aspiration pneumonia. Previous CAT scan of the chest from July 2023 also showed a 10 mm nodule density in the right middle lobe that is being followed up at the pulmonary clinic. The patient also has interstitial and nodular densities developing in the right middle lobe and the lingula. Her white cell count is at 11.4 with a hemoglobin 12.9 and platelet count of 371. BUN is 31 with a creatinine of 1.05 sodium is at 140 with a potassium level of 5.2. Initial lactic acid level is at 2.6 dropped down to 1.0. Liver function tests are normal. The viral screen is negative. UA is negative. proBNP level is 519. She is also on a combination of bronchodilators and she was started on IV Solu-Medrol. On 12/05/2023, seen the patient for a follow-up. Clinically improved compared to yesterday. Less bronchospastic and wheezy compared to yesterday. She is also less tachycardic. The patient is awake and alert and communicating. She is currently on broad-spectrum antibiotics. She is also on bronchodilators and she is also on steroids. Note that overnight, the patient was on BiPAP which helped her quite a bit with her respiratory status. The white cell count is at 7 with a hemoglobin 10.6 and a platelet count of 274, BUN 32 with a creatinine of 0.8 and sodium level is at 143 and a potassium level of 4.3. The viral screen has been negative. No other significant events overnight. The patient remains on cefepime and vancomycin. The patient remains on IV Zometa 60 mg for 6 hours. She remains on DuoNeb and Lasix [id number]. She is currently on oral Lasix. 12/06/2023, the patient is doing well. She is on and off utilizing the BiPAP. At the time of my evaluation, the patient was back on BiPAP and subsequently was taken off the BiPAP and she was placed on 4 L of oxygen by nasal cannula with a pulse ox of 99%. She has no specific complaints. Less bronchospastic and wheezy. The white cell count is at 9.9 with a hemoglobin 10.5 and a platelet count of 261. BUN 34 with a creatinine of 0.8. Electrolytes are all stable. Medications are essentially unchanged. She remains on Solu-Medrol 40 mg every 8 hours. She remains on DuoNeb nebulized treatments [id number]. She is on IV cefepime and vancomycin. Afebrile. Blood cultures are still negative. Swallow evaluation was done and the patient is able to take honey thickened material. 12/07/2023, the patient is feeling better. Repeat chest today showed, medically treated the right lung. Clinically she improved. Utilizing the BiPAP overnight and currently she is on 3 Suboxone by nasal cannula. She remains on cefepime and vancomycin. The blood cultures are negative. Lactic of 7.5 with a hemoglobin 9.9 and platelet count of 245, BUN 31 with a creatinine of 0.7 and a sodium levels of 140. No other significant events overnight. The patient is clinically stable and hemodynamically stable and she is tolerating her diet. No altered mentation. Objective - Vital Signs Vital signs: Vital Signs Temp 97.4 F L 12/07/23 08:13 Pulse 69 12/07/23 09:29 Resp 18 12/07/23 08:13 BP 116/55 12/07/23 08:13 Pulse Ox 96 12/07/23 09:30 FiO2 40 12/07/23 03:33 Intake & Output 12/06/23 12/07/23 12/07/23 18:59 06:59 18:59 Intake Total 356 604 Output Total 950 1100 Balance -594 -1100 604 Intake: IV 10 10 Invasive Line 2 10 10 Oral 346 594 Output: Urine 950 1100 Other: Voiding Method External Catheter External Catheter - Exam GENERAL EXAM: Alert, very pleasant, 83-year-old white female, on on oxygen by nasal cannula and she is currently off the BiPAP, and she is currently on 4 L of oxygen nasal cannula. HEAD: Normocephalic/atraumatic. EYES: Normal reaction of pupils, equal size. Conjunctiva pink, sclera white. NOSE: Clear with pink turbinates. THROAT: No erythema or exudates. NECK: No masses, no JVD, no thyroid enlargement, no adenopathy. CHEST: No chest wall deformity. Symmetrical expansion. LUNGS: Equal air entry and the breath sounds are quite diminished and the patient has scattered expiratory wheezes heard throughout the lung lynch bi laterally CVS: Regular rate and rhythm, tachycardic, normal S1 and S2, no gallops, no murmurs, no rubs ABDOMEN: Soft, nontender. No hepatosplenomegaly, normal bowel sounds, no guarding or rigidity. EXTREMITIES: No clubbing, no edema, no cyanosis, 2+ pulses and upper and lower extremities. MUSCULOSKELETAL: Muscle strength and tone normal. SPINE: No scoliosis or deformity SKIN: No rashes CENTRAL NERVOUS SYSTEM: Alert and oriented -3. No focal deficits, tone is normal in all 4 extremities. - Labs CBC & Chem 7: 12/07/23 06:21 12/07/23 06:21 Labs: Abnormal Lab Results - Last 24 Hours (Table) 12/06/23 12/06/23 12/06/23 Range/Units 10:05 10:05 11:31 RBC 3.59 L (3.80-5.40) m/uL Hgb 10.5 L (11.4-16.0) gm/dL Hct (34.0-46.0) % MCHC 29.8 L (31.0-37.0) g/dL Neutrophils # 9.3 H (1.3-7.7) k/uL Lymphocytes # 0.3 L (1.0-4.8) k/uL Carbon Dioxide 36 H (22-30) mmol/L BUN 34 H (7-17) mg/dL Glucose 228 H (74-99) mg/dL POC Glucose (mg/dL) 218 H (70-110) mg/dL AST 40 H (14-36) U/L Total Protein 5.5 L (6.3-8.2) g/dL Albumin 2.9 L (3.5-5.0) g/dL 12/06/23 12/06/23 12/07/23 Range/Units 16:47 20:33 05:46 RBC (3.80-5.40) m/uL Hgb (11.4-16.0) gm/dL Hct (34.0-46.0) % MCHC (31.0-37.0) g/dL Neutrophils # (1.3-7.7) k/uL Lymphocytes # (1.0-4.8) k/uL Carbon Dioxide (22-30) mmol/L BUN (7-17) mg/dL Glucose (74-99) mg/dL POC Glucose (mg/dL) 221 H 188 H 186 H (70-110) mg/dL AST (14-36) U/L Total Protein (6.3-8.2) g/dL Albumin (3.5-5.0) g/dL 12/07/23 12/07/23 Range/Units 06:21 06:21 RBC 3.36 L (3.80-5.40) m/uL Hgb 9.9 L (11.4-16.0) gm/dL Hct 32.3 L (34.0-46.0) % MCHC 30.7 L (31.0-37.0) g/dL Neutrophils # (1.3-7.7) k/uL Lymphocytes # 0.4 L (1.0-4.8) k/uL Carbon Dioxide 37 H (22-30) mmol/L BUN 31 H (7-17) mg/dL Glucose 176 H (74-99) mg/dL POC Glucose (mg/dL) (70-110) mg/dL AST (14-36) U/L Total Protein 5.2 L (6.3-8.2) g/dL Albumin 2.7 L (3.5-5.0) g/dL Microbiology - Last 24 Hours (Table) 12/04/23 08:55 Blood Culture - Preliminary Blood 12/04/23 08:50 Blood Culture - Preliminary Blood Assessment and Plan Plan: Right lung pneumonia with pulmonary filtrates involving the right middle lobe and right lower lobe. Consider possibility of a [place] [facility] associated pneumonia versus aspiration pneumonia as the patient suffers from chronic dysphagia. Swallow evaluation has been done previous occasions and the patient has been working with speech therapy to improve her swallow mechanism. Clinically improved. Swallow evaluation was completed. The patient is using the BiPAP overnight and currently she is on oxygen at 3 L of oxygen by nasal cannula. Chronic pulm infiltrates involving the right middle and the lingula segments. Atypical mycobacterial chronic infection cannot be completely ruled out COPD with acute exacerbation secondary to above, improving Right-sided pulmonary nodule, measuring 10 mm in size Acute hypoxic respiratory failure secondary to above and the patient is currently on a BiPAP for respiratory support at a pressure of 12 over 5 cm of water with an FiO2 of 40% Sinus tachycardia secondary to above Mild lactic acidosis, improving Previous history of DVT of left lower extremity and pulmonary embolism and the patient has been maintained on long-term anticoagulation with [facility] resident Hyperlipidemia Plan Chest x-ray from today showing some atelectatic change in the right lung base Clinically improving and the patient is currently off the BiPAP and the patient has been transitioned to oxygen by nasal cannula at 3 L/min nasal cannula. The patient is clinically improved and the patient continues to much more comfortable in terms of her breathing Cultures are still are negative Swallow evaluation completed Continue the combination of cefepime and vancomycin Rest of the medication be kept unchanged and the home medication will be resumed Discussed the need for CODE STATUS Will continue to follow
--- NOTE | 2023-12-07 12:32 | P.PN ---
Subjective Progress Note Date: 12/07/23 HISTORY OF PRESENT ILLNESS: This is an 83-year-old female with a previous medical history signi ficant for hypertension and hypertensive cardiovascular disease, hyperlipidemia, chronic diastolic heart failure, paroxysmal atrial fibrillation, moderate to severe chronic obstructive pulmonary disease on 4 L nasal cannula, with a chronic hypoxemic respiratory failure for quite some times, patient was recently treated for a what appears to be a gram-negative pneumonia about 3 weeks ago and she has been doing fine up today when I received a call from the nursing staff stating that the patient is breathing about 40 breaths/min, she is using accessory muscles, she appears to be quite ill she has been coughing some yellow-green phlegm production, and she has been tachycardic, not able to eat or drink much, she appeared to be quite drowsy, she was referred to go to the emergency department via EMS, patient was seen and evaluated in the emergency department she was initially was in atrial fibrillation with rapid ventricular response that was converted to an sinus rhythm, patient initially was struggling quite a bit with breathing she was placed on BiPAP with an IPAP of 10 and EPAP of 5 with FiO2 of 40% to keep her saturation anywhere between 92 and 94%, patient was initially given Zithromax and Rocephin in the emergency department, then she was placed on cefepime and vancomycin, she was also started on Solu- Medrol 60 mg IV push every 6 hours, she was placed on nebulized treatment DuoNeb 3 mm nebulization 4 times every day, she was started on Pulmicort 1 mg nebulization twice every day, she was seen in consultation by pulmonary medicine as well as by cardiology, and she was admitted to the hospital for further evaluation and treatment of acute on chronic respiratory failure her chest x-ray did show evidence of right middle and right lower lobe pneumonia, suggestive of aspiration, she was placed on IV antibiotic as stated earlier. 12/04: Patient is still in the emergency department, she is scheduled to go up to the telemetry unit, she continues to be on oxygen support, she was on BiPAP all day long and all night long yesterday, she is appearing a bit better, she is more awake and alert, she has been on vancomycin and cefepime, sputum culture and blood cultures are pending, continue to monitor the patient very closely, continue aggressive pulmonary toileting, patient was seen in consultation by cardiology as well as pulm pulmonary medicine, we will maintain the patient on current treatment plan, she will be seen and evaluated by physical therapy and Occupational Therapy, most likely the patient transition is to go back to [facility] when the patient's symptoms improve 12/05: Patient is sitting up in bed she has been tolerating pured diet and thick nectar, her son was at the bedside, he was updated about her current condition and he showed some concerns about the care at [facility], I reassured the patient and her son that we will continue to keep an eye on her provider with quality care at this point in time, patient is feeling better so far we will decrease her Solu-Medrol to 40 mg IV push every 8 hours, continue nebulized treatment, try to obtain sputum culture, try to obtain echocardiogram for evaluation of LV function, her last echocardiogram was greater than 2 years ago, I will continue to follow-up with the patient very closely, patient will be seen in consultation by physical therapy and Occupational Therapy, social sciences research scientist consultation for discharge planning. 12/06: Patient sitting up in bed, she is complaining of minimal wheezing today, she continues to be on nebulized treatment [id number], she continues to be on IV antibiotic, will continue with that, her x-ray showed some atelectasis, with no change from prior x-rays, continue patient on the current treatment plan, physical therapy evaluation tomorrow morning, social sciences research scientist consultation, for discharge planning, speech therapy evaluation as well, echocardiogram was ordered REVIEW OF SYSTEMS: Constitutional: documented fever, no chills, no night sweats. positive for weight change. positive for weakness, positive for fatigue or lethargy. No daytime sleepiness. EENT: No headache. No blurred vision or double vision, no loss of vision. No loss of Hearing, no ringing in the ears, no dizziness. No nasal drainage or congestion. No epistaxis. No sore throat. Lungs: positive for shortness of breath, positive for cough, positive for s putum production. positive for wheezing. Reports dyspnea with activity. Cardiovascular: No chest pain, no lower extremity edema. No palpitations. No paroxysmal nocturnal dyspnea. No orthopnea. No lightheadedness or dizziness. No syncopal episodes. Abdominal: Reports no abdominal pain. No nausea, vomiting. No diarrhea. positive for constipation. No bloody or tarry stools reports loss of appetite, difficulty in swallowing Genitourinary: No dysuria, increased frequency, urgency. No urinary retention. Musculoskeletal: No myalgias. positive for muscle weakness, positive for gait dysfunction, no frequent falls. No back pain. No neck pain. Integumentary: No wounds, no lesions. No rash or pruritus. No unusual bruising. positive for change in hair or nails. Neurologic: No aphasia. No facial droop. No change in mentation. No head injury. No headache. No paralysis. No paresthesia. Psychiatric: positive for depression. positive for anxiety. No mood swings. Endocrine: No abnormal blood sugars. No weight change. PHYSICAL EXAMINATION: General: 83-year-old female laying down in bed in no apparent distress. Currently on 4 L nasal cannula her baseline. HEENT: Head is atraumatic, normocephalic, pupils were equal round reactive to light and recommendation, extraocular muscle movement were intact, sclera nonicteric, conjunctivae were pale, mucous membranes of the mouth are somewhat dry. Neck: Supple, no JVP, normal carotid upstroke bilaterally, no lymphadenopathy. Chest: Decreased breath sounds at the bases, few rhonchi, minimal expiratory wheezes no chest wall tenderness no intercostal retractions. Heart: First heart sound is normal, second heart sound is normal there is systolic ejection murmur 2/6 to get in the left sternal border. Abdomen: Soft, nontender, nondistended, positive bowel sounds. Extremities: There is +1 edema, no calf tenderness, dorsalis pedis +1 bilaterally. Neurologic examination: Patient is awake alert and oriented x1, cranial nerves II-12 appear grossly intact, muscle power were 3 out of 5 in upper extremities and 3 out of 5 in bilateral lower extremities, deep tendon reflexes normal bilaterally. ASSESSMENT AND PLAN: 1. Acute on chronic hypoxemic respiratory failure due to acute exacerbation of COPD with right middle/lower lobe pneumonia likely gram-negative pneumonia. on cefepime 2 g IV piggyback every 12 hours, vancomycin with pharmacy to dose its peak and trough, sputum culture, blood culture, continue patient on oxygen 4 L nasal cannula, continue aggressive pulmonary toileting, continue with the head of the bed elevated, continue patient on pured diet with nectar supervision while eating to avoid aspiration. Continue patient on Solu-Medrol decrease the dose to 40 mg IV push every 12 hours, continue DuoNeb 3 mm nebulization 4 times every day, monitor the patient very closely. 2. Chronic diastolic heart failure likely due to atrial fibrillation with increased left ventricular end-diastolic pressure. Continue metoprolol 50 mg orally twice every day, continue Eliquis 5 mg orally twice every day, continue patient on Farxiga 10 mg orally once every day, monitor the patient input and output and daily weight, echocardiogram was done about 2 years ago we will obtain another one 3. Hypertension and hypertensive cardiovascular disease. Continue metoprolol 50 mg orally twice every day, monitor the patient blood pressure very closely. 4. Mixed hyperlipidemia. Continue atorvastatin 40 mg orally once every day, monitor lipid panel, keep LDL 55-70. 5. Paroxysmal atrial fibrillation currently in sinus rhythm. Continue Eliquis 5 mg orally twice every day, continue metoprolol 50 mg orally twice every day. 6. History of gout. Continue patient on allopurinol 100 mg orally once every day. 7. History of CVA. Continue patient on aspirin 81 mg once every day continue Eliquis 5 mg orally twice every day, continue atorvastatin 40 mg once every day for secondary stroke prevention. 8. Anxiety and depressive disorder. Continue patient on paroxetine 20 mg once every day as well as mirtazapine 7.5 mg at bedtime. 9. Moderate to severe COPD continue treatment as in 1. 10. Steroid-induced hyperglycemia. Start the patient on sliding scale insulin check hemoglobin A1c. 11. 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 we will continue with detention anticoagulation with Elquis 12. DVT prophylaxis. Continue patient on Eliquis 5 mg orally twice every day. 13. GI prophylaxis. Continue patient on Protonix 40 mg IV push every 24 hours. 14. PT OT evaluation. 15. private household worker consultation for discharge planning. Objective - Vital Signs Vital signs: Vital Signs Temp 97.4 F L 12/07/23 08:13 Pulse 78 12/07/23 12:27 Resp 18 12/07/23 08:13 BP 116/55 12/07/23 08:13 Pulse Ox 96 12/07/23 09:30 FiO2 40 12/07/23 03:33 Intake & Output 12/06/23 12/07/23 12/07/23 18:59 06:59 18:59 Intake Total 356 604 Output Total 950 1100 Balance -594 -1100 604 Intake: IV 10 10 Invasive Line 2 10 10 Oral 346 594 Output: Urine 950 1100 Other: Voiding Method External Catheter External Catheter External Catheter - Labs CBC & Chem 7: 12/07/23 06:21 12/07/23 06:21 Labs: Abnormal Lab Results - Last 24 Hours (Table) 12/06/23 12/06/23 12/07/23 Range/Units 16:47 20:33 05:46 RBC (3.80-5.40) m/uL Hgb (11.4-16.0) gm/dL Hct (34.0-46.0) % MCHC (31.0-37.0) g/dL Lymphocytes # (1.0-4.8) k/uL Carbon Dioxide (22-30) mmol/L BUN (7-17) mg/dL Glucose (74-99) mg/dL POC Glucose (mg/dL) 221 H 188 H 186 H (70-110) mg/dL Total Protein (6.3-8.2) g/dL Albumin (3.5-5.0) g/dL 12/07/23 12/07/23 12/07/23 Range/Units 06:21 06:21 11:34 RBC 3.36 L (3.80-5.40) m/uL Hgb 9.9 L (11.4-16.0) gm/dL Hct 32.3 L (34.0-46.0) % MCHC 30.7 L (31.0-37.0) g/dL Lymphocytes # 0.4 L (1.0-4.8) k/uL Carbon Dioxide 37 H (22-30) mmol/L BUN 31 H (7-17) mg/dL Glucose 176 H (74-99) mg/dL POC Glucose (mg/dL) 154 H (70-110) mg/dL Total Protein 5.2 L (6.3-8.2) g/dL Albumin 2.7 L (3.5-5.0) g/dL Microbiology - Last 24 Hours (Table) 12/04/23 08:55 Blood Culture - Preliminary Blood 12/04/23 08:50 Blood Culture - Preliminary Blood
[2023-12-07] MEDS: VANCOMYCIN TROUGH DUE 1 EACH MISC MISCELLANE ONE (12:55)
[2023-12-07 16:22] LABS: Glucose,Whole Blood 189 mg/dL (70-110)
[2023-12-07 20:56] LABS: Glucose,Whole Blood 164 mg/dL (70-110)
[2023-12-07] MEDS: methylPREDNISolone SOD SUCCI 40 MG/ML 1 ML VIAL IV SCH (21:21)
[2023-12-08 06:35] LABS: Glucose,Whole Blood 152 mg/dL (70-110)
[2023-12-08 08:02] LABS: ALT 18 U/L (4-34); AST 30 U/L (14-36); African American GFR (CKD) >90 (>60 ml/min/1.73 sqM); Albumin 2.9 g/dL (3.5-5.0); Alkaline Phosphatase 48 U/L (38-126); Anion Gap 2 mmol/L; Blood Urea Nitrogen 26 mg/dL (7-17); Calcium 8.6 mg/dL (8.4-10.2); Carbon Dioxide 35 mmol/L (22-30); Chloride 102 mmol/L (98-107); Glucose 156 mg/dL (74-99); Non-African American GFR(CKD) 84 (>60 ml/min/1.73 sqM); Potassium 5.3 mmol/L (3.5-5.1); Sodium 139 mmol/L (137-145); Total Bilirubin 0.5 mg/dL (0.2-1.3); Total Protein 5.5 g/dL (6.3-8.2)
[2023-12-08 08:14] LABS: Basophils % (A) 0 %; Eosinophils # (A) 0.1 k/uL (0-0.7); Eosinophils % (A) 0 %; HCT 37.3 % (34.0-46.0); HGB 11.7 gm/dL (11.4-16.0); Hypochromasia Slight; Lymphocytes # (A) 0.8 k/uL (1.0-4.8); Lymphocytes % (A) 6 %; MCH 29.5 pg (25.0-35.0); MCHC 31.3 g/dL (31.0-37.0); Mean Platelet Volume 8.3; Monocytes # (A) 0.6 k/uL (0-1.0); Monocytes % (A) 5 %; Neutrophils # (A) 10.3 k/uL (1.3-7.7); Neutrophils % (A) 88 %; Platelet Count 272 k/uL (150-450); RBC 3.97 m/uL (3.80-5.40); RDW 14.8 % (11.5-15.5); WBC 11.7 k/uL (3.8-10.6)
[2023-12-08 11:26] LABS: Glucose,Whole Blood 188 mg/dL (70-110)
[2023-12-08] MEDS: CEFEPIME 2 GM in SODIUM CHLORIDE 0.9% 100 ML IVPB SCH ×2 (12:21→23:19)
--- NOTE | 2023-12-08 14:01 | P.PN ---
Subjective Progress Note Date: 12/08/23 Principal diagnosis: Acute right lower lobe pneumonia This is a 83-year-old female patient, correction resident who has been having issues with chronic dysphagia and recurrent pneumonias. The patient has been followed up in our office and here she has been treated for pneumonia on multiple occasions. She is also known to have underlying COPD. 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 She also has history of paroxysmal atrial fibrillation. Her current anticoagulants are in the form of Eliquis. The patient came into the emergency department having significant respiratory distress. She was having increased cough and congestion along with dyspnea and wheeze. She typically utilizes oxygen between 2 and 3 L/min nasal cannula. She was tachycardic and tachypneic. She was immediately placed on BiPAP for respiratory support and currently BiPAP is running at a pressure of 12 over 5 cm of water with an FiO2 of 40%. Generated tidal volume while on the BiPAP is around 350 cc and minute ventilation is around 12.6. I reviewed the chest x-ray that was done at the time of admission and the patient has developed patchy density in the right mid and lower lung field which is a new finding compared to the earlier chest x-rays, likely consistent with pneumonia could be potentially an aspiration pneumonia. Previous CAT scan of the chest from July 2023 also showed a 10 mm nodule density in the right middle lobe that is being followed up at the pulmonary clinic. The patient also has interstitial and nodular densities developing in the right middle lobe and the lingula. Her white cell count is at 11.4 with a hemoglobin 12.9 and platelet count of 371. BUN is 31 with a creatinine of 1.05 sodium is at 140 with a potassium level of 5.2. Initial lactic acid level is at 2.6 dropped down to 1.0. Liver function tests are normal. The viral screen is negative. UA is negative. proBNP level is 519. She is also on a combination of bronchodilators and she was started on IV Solu-Medrol. On 12/05/2023, seen the patient for a follow-up. Clinically improved compared to yesterday. Less bronchospastic and wheezy compared to yesterday. She is also less tachycardic. The patient is awake and alert and communicating. She is currently on broad-spectrum antibiotics. She is also on bronchodilators and she is also on steroids. Note that overnight, the patient was on BiPAP which helped her quite a bit with her respiratory status. The white cell count is at 7 with a hemoglobin 10.6 and a platelet count of 274, BUN 32 with a creatinine of 0.8 and sodium level is at 143 and a potassium level of 4.3. The viral screen has been negative. No other significant events overnight. The patient remains on cefepime and vancomycin. The patient remains on IV Zometa 60 mg for 6 hours. She remains on DuoNeb and Lasix [id number]. She is currently on oral Las ix. 12/06/2023, the patient is doing well. She is on and off utilizing the BiPAP. At the time of my evaluation, the patient was back on BiPAP and subsequently was taken off the BiPAP and she was placed on 4 L of oxygen by nasal cannula with a pulse ox of 99%. She has no specific complaints. Less bronchospastic and wheezy. The white cell count is at 9.9 with a hemoglobin 10.5 and a platelet co unt of 261. BUN 34 with a creatinine of 0.8. Electrolytes are all stable. Medications are essentially unchanged. She remains on Solu-Medrol 40 mg every 8 hours. She remains on DuoNeb nebulized treatments [id number]. She is on IV cefepime and vancomycin. Afebrile. Blood cultures are still negative. Swallow evaluation was done and the patient is able to take honey thickened material. 12/07/2023, the patient is feeling better. Repeat chest today showed, medically treated the right lung. Clinically she improved. Utilizing the BiPAP overnight and currently she is on 3 Suboxone by nasal cannula. She remains on cefepime and vancomycin. The blood cultures are negative. Lactic of 7.5 with a hemoglobin 9.9 and platelet count of 245, BUN 31 with a creatinine of 0.7 and a sodium levels of 140. No other significant events overnight. The patient is clinically stable and hemodynamically stable and she is tolerating her diet. No altered mentation. 12/08/2023, patient was seen today for follow-up on her right lower lobe pneumonia. Patient is doing better, breathing easier. Being followed by speech therapy for possible aspiration patient pneumonia, and her diet is being ad dressed accordingly patient is on 4 L nasal cannula with O2 sats of 96%, she is hemodynamically stable, looks pleasant and not in any form of distress, her son Saud is sitting at bedside, remains concerned about the possibility of aspiration. Patient is receiving broad-spectrum antibiotics in the form of vancomycin and cefepime, blood cultures have been nondiagnostic. WBC count today is 11.7 hemoglobin is 11.7. Basic metabolic profile is normal renal profile is normal, procalcitonin level is pending. Objective - Vital Signs Vital signs: Vital Signs Temp 98.3 F 12/08/23 12:00 Pulse 78 12/08/23 12:00 Resp 16 12/08/23 12:00 BP 104/58 12/08/23 12:00 Pulse Ox 96 12/08/23 12:00 FiO2 40 12/07/23 21:08 Intake & Output 12/07/23 12/08/23 12/08/23 18:59 06:59 18:59 Intake Total 1062 Output Total 900 1100 Balance 162 -1100 Intake: IV 10 Invasive Line 2 10 Oral 1052 Output: Urine 900 1100 Other: Voiding Method External Catheter External Catheter External Catheter # Voids 2 - Exam GENERAL EXAM: 83-year-old female on 3 L nasal cannula in no distress HEAD: Normocephalic/atraumatic. EYES: Normal reaction of pupils, equal size. Conjunctiva pink, sclera white. NOSE: Clear with pink turbinates. THROAT: No erythema or exudates. NECK: No masses, no JVD, no thyroid enlargement, no adenopathy. CHEST: Symmetrical chest expansion LUNGS: Minimal crackles at the bases no rhonchi no wheezes CVS: Regular rate and rhythm, tachycardic, normal S1 and S2, no gallops, no murmurs, no rubs ABDOMEN: Soft, nontender. No hepatosplenomegaly, normal bowel sounds, no guarding or rigidity. EXTREMITIES: No clubbing, no edema, no cyanosis, 2+ pulses and upper and lower extremities. MUSCULOSKELETAL: No deformities and no limitation range of motion SKIN: No rashes CENTRAL NERVOUS SYSTEM: No gross focal deficit - Labs CBC & Chem 7: 12/08/23 07:18 12/08/23 07:18 Labs: Abnormal Lab Results - Last 24 Hours (Table) 12/07/23 12/07/23 12/07/23 Range/Units 06:21 16:21 20:54 WBC (3.8-10.6) k/uL Neutrophils # (1.3-7.7) k/uL Lymphocytes # (1.0-4.8) k/uL Potassium (3.5-5.1) mmol/L Carbon Dioxide (22-30) mmol/L BUN (7-17) mg/dL Glucose (74-99) mg/dL POC Glucose (mg/dL) 189 H 164 H (70-110) mg/dL Hemoglobin A1c 6.7 H (<=6.0) % Total Protein (6.3-8.2) g/dL Albumin (3.5-5.0) g/dL 12/08/23 12/08/23 12/08/23 Range/Units 06:33 07:18 07:18 WBC 11.7 H (3.8-10.6) k/uL Neutrophils # 10.3 H (1.3-7.7) k/uL Lymphocytes # 0.8 L (1.0-4.8) k/uL Potassium 5.3 H (3.5-5.1) mmol/L Carbon Dioxide 35 H (22-30) mmol/L BUN 26 H (7-17) mg/dL Glucose 156 H (74-99) mg/dL POC Glucose (mg/dL) 152 H (70-110) mg/dL Hemoglobin A1c (<=6.0) % Total Protein 5.5 L (6.3-8.2) g/dL Albumin 2.9 L (3.5-5.0) g/dL 12/08/23 Range/Units 11:24 WBC (3.8-10.6) k/uL Neutrophils # (1.3-7.7) k/uL Lymphocytes # (1.0-4.8) k/uL Potassium (3.5-5.1) mmol/L Carbon Dioxide (22-30) mmol/L BUN (7-17) mg/dL Glucose (74-99) mg/dL POC Glucose (mg/dL) 188 H (70-110) mg/dL Hemoglobin A1c (<=6.0) % Total Protein (6.3-8.2) g/dL Albumin (3.5-5.0) g/dL Microbiology - Last 24 Hours (Table) 12/04/23 08:55 Blood Culture - Preliminary Blood 12/04/23 08:50 Blood Culture - Preliminary Blood Assessment and Plan Assessment: Impression: Acute right middle lobe and right lower lobe pneumonia possibly secondary to aspiration based on the clinical history Chronic right lower lobe atelectasis History of underlying COPD History of right-sided pulmonary nodule Acute on chronic hypoxic respiratory failure Previous history of DVT and pulmonary embolism maintained on Eliquis History of dementia snf resident Dyslipidemia Recommendation: Continue antibiotics as per ID on the case Continue bronchodilators Speech therapy to evaluate and recommend diet Ambulate as much as possible Will continue to follow Updated her son Saud about her condition and reviewed definite improvement in her chest x-ray noted Will continue to follow Time with Patient: Less than 30
--- NOTE | 2023-12-08 14:21 | FL ---
EXAMINATION TYPE: FL barium swallow w video DATE OF EXAM: 12/08/2023 COMPARISON: NONE HISTORY: Dysphasia TECHNIQUE: Fluoroscopy. FINDINGS: Fluoroscopic guidance was provided for the procedure performed in conjunction with [place] [facility] [place] [facility]. Please see complete report forthcoming from the Speech Pathology departmen t. Various consistencies from thin liquid to solids were administered. Fluoroscopy time 2 minutes 7 seconds. Number of images: 0. DAP: 50325 No aspiration or penetration was evident. No significant pooling was observed in the vallecula. There was normal propulsion of the bolus. IMPRESSION: 1. No acute abnormality visualized during the modified barium swallow. No aspiration or penetration w as evident.
[2023-12-08 16:37] LABS: Glucose,Whole Blood 153 mg/dL (70-110)
--- NOTE | 2023-12-08 17:14 | P.PN ---
Subjective Progress Note Date: 12/08/23 HISTORY OF PRESENT ILLNESS: This is an 83-year-old female with a previous medical history signi ficant for hypertension and hypertensive cardiovascular disease, hyperlipidemia, chronic diastolic heart failure, paroxysmal atrial fibrillation, moderate to severe chronic obstructive pulmonary disease on 4 L nasal cannula, with a chronic hypoxemic respiratory failure for quite some times, patient was recently treated for a what appears to be a gram-negative pneumonia about 3 weeks ago and she has been doing fine up today when I received a call from the nursing staff stating that the patient is breathing about 40 breaths/min, she is using accessory muscles, she appears to be quite ill she has been coughing some yellow-green phlegm production, and she has been tachycardic, not able to eat or drink much, she appeared to be quite drowsy, she was referred to go to the emergency department via EMS, patient was seen and evaluated in the emergency department she was initially was in atrial fibrillation with rapid ventricular response that was converted to an sinus rhythm, patient initially was struggling quite a bit with breathing she was placed on BiPAP with an IPAP of 10 and EPAP of 5 with FiO2 of 40% to keep her saturation anywhere between 92 and 94%, patient was initially given Zithromax and Rocephin in the emergency department, then she was placed on cefepime and vancomycin, she was also started on Solu- Medrol 60 mg IV push every 6 hours, she was placed on nebulized treatment DuoNeb 3 mm nebulization 4 times every day, she was started on Pulmicort 1 mg nebulization twice every day, she was seen in consultation by pulmonary medicine as well as by cardiology, and she was admitted to the hospital for further evaluation and treatment of acute on chronic respiratory failure her chest x-ray did show evidence of right middle and right lower lobe pneumonia, suggestive of aspiration, she was placed on IV antibiotic as stated earlier. 12/04: Patient is still in the emergency department, she is scheduled to go up to the telemetry unit, she continues to be on oxygen support, she was on BiPAP all day long and all night long yesterday, she is appearing a bit better, she is more awake and alert, she has been on vancomycin and cefepime, sputum culture and blood cultures are pending, continue to monitor the patient very closely, continue aggressive pulmonary toileting, patient was seen in consultation by cardiology as well as pulm pulmonary medicine, we will maintain the patient on current treatment plan, she will be seen and evaluated by physical therapy and Occupational Therapy, most likely the patient transition is to go back to [facility] when the patient's symptoms improve 12/05: Patient is sitting up in bed she has been tolerating pured diet and thick nectar, her son was at the bedside, he was updated about her current condition and he showed some concerns about the care at [facility], I reassured the patient and her son that we will continue to keep an eye on her provider with quality care at this point in time, patient is feeling better so far we will decrease her Solu-Medrol to 40 mg IV push every 8 hours, continue nebulized treatment, try to obtain sputum culture, try to obtain echocardiogram for evaluation of LV function, her last echocardiogram was greater than 2 years ago, I will continue to follow-up with the patient very closely, patient will be seen in consultation by physical therapy and Occupational Therapy, social work specialist consultation for discharge planning. 12/06: Patient sitting up in bed, she is complaining of minimal wheezing today, she continues to be on nebulized treatment [id number], she continues to be on IV antibiotic, will continue with that, her x-ray showed some atelectasis, with no change from prior x-rays, continue patient on the current treatment plan, physical therapy evaluation tomorrow morning, social work specialist consultation, for discharge planning, speech therapy evaluation as well, echocardiogram was ordered 12/07: Patient underwent modified barium swallow today, and she did well with that, she will be upgraded to a chopped diet at this time, with thick nectar, patient is doing better, she continues to be somewhat short of breath, she has been on 4 L nasal cannula, she has been on antibiotic in the form of cefepime, will continue with that, continue to follow the patient very closely, patient will be seen and evaluated by physical therapy as well as Occupational Therapy, and we will plan for the patient to go back to [facility] for chronic care. REVIEW OF SYSTEMS: Constitutional: documented fever, no chills, no night sweats. positive for weight change. positive for weakness, positive for fatigue or lethargy. No daytime sleepiness. EENT: No headache. No blurred vision or double vision, no loss of vision. No loss of Hearing, no ringing in the ears, no dizziness. No nasal drainage or congestion. No epistaxis. No sore throat. Lungs: positive for shortness of breath, positive for cough, positive for sputum production. positive for wheezing. Reports dyspnea with activity. Cardiovascular: No chest pain, no lower extremity edema. No palpitations. No paroxysmal nocturnal dyspnea. No orthopnea. No lightheadedness or dizziness. No syncopal episodes. Abdominal: Reports no abdominal pain. No nausea, vomiting. No diarrhea. positive for constipation. No bloody or tarry stools reports loss of appetite, difficulty in swallowing Genitourinary: No dysuria, increased frequency, urgency. No urinary retention. Musculoskeletal: No myalgias. positive for muscle weakness, positive for gait dysfunction, no frequent falls. No back pain. No neck pain. Integumentary: No wounds, no lesions. No rash or pruritus. No unusual bruising. positive for change in hair or nails. Neurologic: No aphasia. No facial droop. No change in mentation. No head injury. No headache. No paralysis. No paresthesia. Psychiatric: positive for depression. positive for anxiety. No mood swings. Endocrine: No abnormal blood sugars. No weight change. PHYSICAL EXAMINATION: General: 83-year-old female laying down in bed in no apparent dis tress. Currently on 4 L nasal cannula her baseline. HEENT: Head is atraumatic, normocephalic, pupils were equal round reactive to light and recommendation, extraocular muscle movement were intact, sclera nonicteric, conjunctivae were pale, mucous membranes of the mouth are somewhat dry. Neck: Supple, no JVP, normal carotid upstroke bilaterally, no lymphadenopathy. Chest: Decreased breath sounds at the bases, few rhonchi, minimal expiratory wheezes no chest wall tenderness no intercostal retractions. Heart: First heart sound is normal, second heart sound is normal there is systolic ejection murmur 2/6 to get in the left sternal border. Abdomen: Soft, nontender, nondistended, positive bowel sounds. Extremities: There is +1 edema, no calf tenderness, dorsalis pedis +1 bilaterally. Neurologic examination: Patient is awake alert and oriented x1, cranial nerves II-12 appear grossly intact, muscle power were 3 out of 5 in upper extremities and 3 out of 5 in bilateral lower extremities, deep tendon reflexes normal bilaterally. ASSESSMENT AND PLAN: 1. Acute on chronic hypoxemic respiratory failure due to acute exacerbation of COPD with right middle/lower lobe pneumonia likely gram-negative pneumonia. on cefepime 2 g IV piggyback every 12 hours, vancomycin with pharmacy to dose its peak and trough, sputum culture, blood culture, continue patient on oxygen 4 L nasal cannula, continue aggressive pulmonary toileting, continue with the head of the bed elevated, continue patient on pured diet with nectar supervision while eating to avoid aspiration. Discontinue Solu-Medrol, start the patient on prednisone 40 mg orally once every day continue DuoNeb 3 mm nebulization 4 times every day, monitor the patient very closely. 2. Chronic diastolic heart failure likely due to atrial fibrillation with increased left ventricular end-diastolic pressure. Continue metoprolol 50 mg orally twice every day, continue Eliquis 5 mg orally twice every day, continue patient on Farxiga 10 mg orally once every day, monitor the patient input and output and daily weight, echocardiogram was done about 2 years ago we will obtain another one 3. Hypertension and hypertensive cardiovascular disease. Continue metoprolol 50 mg orally twice every day, monitor the patient blood pressure very closely. 4. Mixed hyperlipidemia. Continue atorvastatin 40 mg orally once every day, monitor lipid panel, keep LDL 55-70. 5. Paroxysmal atrial fibrillation currently in sinus rhythm. Continue Eliquis 5 mg orally twice every day, continue metoprolol 50 mg orally twice every day. 6. History of gout. Continue patient on allopurinol 100 mg orally once every day. 7. History of CVA. Continue patient on aspirin 81 mg once every day continue Eliquis 5 mg orally twice every day, continue atorvastatin 40 mg once every day for secondary stroke prevention. 8. Anxiety and depressive disorder. Continue patient on paroxetine 20 mg once every day as well as mirtazapine 7.5 mg at bedtime. 9. Moderate to severe COPD continue treatment as in 1. 10. Steroid-induced hyperglycemia. Start the patient on sliding scale insulin check hemoglobin A1c. 11. 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 DVT prophylaxis. Continue patient on Eliquis 5 mg orally twice every day. 13. GI prophylaxis. Continue patient on Protonix 40 mg IV push every 24 hours. 14. PT OT evaluation. 15. 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 16. Dysphagia status post modified barium swallow. Continue patient on chopped diet as recommended by speech therapy. Objective - Vital Signs Vital signs: Vital Signs Temp 98 F 12/08/23 16:00 Pulse 81 12/08/23 16:00 Resp 18 12/08/23 16:00 BP 129/61 12/08/23 16:00 Pulse Ox 95 12/08/23 16:00 FiO2 40 12/07/23 21:08 Intake & Output 12/07/23 12/08/23 12/08/23 18:59 06:59 18:59 Intake Total 1062 Output Total 900 1100 Balance 162 -1100 Intake: IV 10 Invasive Line 2 10 Oral 1052 Output: Urine 900 1100 Other: Voiding Method External Catheter External Catheter External Catheter # Voids 2 - Labs CBC & Chem 7: 12/08/23 07:18 12/08/23 07:18 Labs: Abnormal Lab Results - Last 24 Hours (Table) 12/07/23 12/07/23 12/08/23 Range/Units 06:21 20:54 06:33 WBC (3.8-10.6) k/uL Neutrophils # (1.3-7.7) k/uL Lymphocytes # (1.0-4.8) k/uL Potassium (3.5-5.1) mmol/L Carbon Dioxide (22-30) mmol/L BUN (7-17) mg/dL Glucose (74-99) mg/dL POC Glucose (mg/dL) 164 H 152 H (70-110) mg/dL Hemoglobin A1c 6.7 H (<=6.0) % Total Protein (6.3-8.2) g/dL Albumin (3.5-5.0) g/dL 12/08/23 12/08/23 12/08/23 Range/Units 07:18 07:18 11:24 WBC 11.7 H (3.8-10.6) k/uL Neutrophils # 10.3 H (1.3-7.7) k/uL Lymphocytes # 0.8 L (1.0-4.8) k/uL Potassium 5.3 H (3.5-5.1) mmol/L Carbon Dioxide 35 H (22-30) mmol/L BUN 26 H (7-17) mg/dL Glucose 156 H (74-99) mg/dL POC Glucose (mg/dL) 188 H (70-110) mg/dL Hemoglobin A1c (<=6.0) % Total Protein 5.5 L (6.3-8.2) g/dL Albumin 2.9 L (3.5-5.0) g/dL 12/08/23 Range/Units 16:34 WBC (3.8-10.6) k/uL Neutrophils # (1.3-7.7) k/uL Lymphocytes # (1.0-4.8) k/uL Potassium (3.5-5.1) mmol/L Carbon Dioxide (22-30) mmol/L BUN (7-17) mg/dL Glucose (74-99) mg/dL POC Glucose (mg/dL) 153 H (70-110) mg/dL Hemoglobin A1c (<=6.0) % Total Protein (6.3-8.2) g/dL Albumin (3.5-5.0) g/dL Microbiology - Last 24 Hours (Table) 12/04/23 08:55 Blood Culture - Preliminary Blood 12/04/23 08:50 Blood Culture - Preliminary Blood
[2023-12-08 19:43] LABS: Glucose,Whole Blood 171 mg/dL (70-110)
[2023-12-08] MEDS: ACETAMINOPHEN TAB 325 MG TAB PO PRN (20:10)
[2023-12-09 06:14] LABS: Glucose,Whole Blood 109 mg/dL (70-110)
--- NOTE | 2023-12-09 07:32 | CA ---
Transthoracic Echo Report Name: Dahlia Blake Age: 83 Gender: F : 1940 Exam Date: 12/08/2023 11:00 Exam Location: [facility] Ht (in): 72 Wt (lb): 180 Ordering Physician: Bonny Cintron MD Attending/Referring Phys: Line Tender Cheryl Recinos RDCS Procedure CPT: Indications: LVF Cardiac Hx: Technical Quality: Technically difficult study Contrast 1: Definity Total Dose (mL): 2 Contrast 2: Total Dose (mL): MEASUREMENTS (Male / Female) Normal Values 2D ECHO LA Volume 51.2 cm??? 18 - 58 / 22 - 52 cm??? LA Volume Index 25.1 cm???/m??? 16 - 28 cm???/m??? M-MODE Aortic Root Diameter MM 3.0 cm LA Systolic Diameter MM 3.8 cm LA Ao Ratio MM 1.3 AV Cusp Separation MM 1.8 cm DOPPLER AV Peak Velocity 89.9 cm/s AV Peak Gradient 3.2 mmHg AV Mean Velocity 56.4 cm/s AV Mean Gradient 1.5 mmHg AV Velocity Time Integral 16.3 cm LVOT Peak Velocity 96.0 cm/s LVOT Peak Gradient 3.7 mmHg LVOT Velocity Time Integral 21.1 cm MV Peak Velocity 138.7 cm/s MV Peak Gradient 7.7 mmHg MV Mean Velocity 88.2 cm/s MV Mean Gradient 3.4 mmHg MV Velocity Time Integral 38.3 cm MV Area PHT 2.4 cm??? Mitral E Point Velocity 112.1 cm/s Mitral A Point Velocity 103.0 cm/s Mitral E to A Ratio 1.1 MV Deceleration Time 310.4 ms MV E' Velocity 7.9 cm/s Mitral E to MV E' Ratio 14.1 FINDINGS Left Ventricle Left ventricular cavity size normal. Normal left ventricular systolic function with no obvious regional wall motion abnormalities. Left ventricular ejection fraction is estimated at 55-60 %. Right Ventricle Right ventricle not well visualized. Right Atrium Normal right atrial size. Left Atrium Normal left atrial size. Mitral Valve Mitral valve thickened. Mitral annular calcification. [id number] mitral regurgitation. Moderate mitral stenosis. Aortic Valve Aortic valve not well visualized. No aortic valve stenosis or regurgitation. Tricuspid Valve Tricuspid valve not well visualized. Pulmonic Valve Pulmonic valve not well visualized. Pericardium No pericardial effusion. Aorta Normal size aortic root and proximal ascending aorta. CONCLUSIONS Technically difficult study. Poorly visualized endocardium and anticardiac valves Normal LV systolic function Mild to moderate mitral regurgitation and mitral stenosis Previewed by: Dr. Raudel Lundberg MD (Electronically Signed) Final Date: 09 December 2023 07:31
[2023-12-09] MEDS: predniSONE 20 MG TAB PO SCH (09:09)
[2023-12-09 11:16] LABS: Glucose,Whole Blood 150 mg/dL (70-110)
[2023-12-09 11:35] VITALS: BMI 24.4
[2023-12-09 12:00] LABS: Basophils % (A) 0 %; Eosinophils # (A) 0.2 k/uL (0-0.7); Eosinophils % (A) 1 %; HCT 39.3 % (34.0-46.0); HGB 11.8 gm/dL (11.4-16.0); Hypochromasia Moderate; Lymphocytes % (A) 8 %; MCH 28.2 pg (25.0-35.0); Mean Platelet Volume 8.3; Monocytes # (A) 0.6 k/uL (0-1.0); Monocytes % (A) 4 %; Neutrophils # (A) 11.4 k/uL (1.3-7.7); Neutrophils % (A) 86 %; Platelet Count 287 k/uL (150-450); RBC 4.18 m/uL (3.80-5.40); WBC 13.3 k/uL (3.8-10.6)
[2023-12-09 12:19] LABS: ALT 18 U/L (4-34); AST 26 U/L (14-36); African American GFR (CKD) >90 (>60 ml/min/1.73 sqM); Albumin 3.1 g/dL (3.5-5.0); Alkaline Phosphatase 62 U/L (38-126); Anion Gap 1 mmol/L; Blood Urea Nitrogen 27 mg/dL (7-17); Calcium 8.6 mg/dL (8.4-10.2); Carbon Dioxide 36 mmol/L (22-30); Chloride 101 mmol/L (98-107); Glucose 141 mg/dL (74-99); Non-African American GFR(CKD) 81 (>60 ml/min/1.73 sqM); Potassium 4.6 mmol/L (3.5-5.1); Sodium 138 mmol/L (137-145); Total Bilirubin 0.7 mg/dL (0.2-1.3); Total Protein 5.6 g/dL (6.3-8.2)
[2023-12-09] MEDS: VANCOMYCIN TROUGH DUE 1 EACH MISC MISCELLANE ONE (12:45)
--- NOTE | 2023-12-09 12:50 | P.PN ---
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 The patient has been followed up in our office and here she has been treated for pneumonia on multiple occasions. She is also known to have underlying COPD. 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 She also has history of paroxysmal atrial fibrillation. Her current anticoagulants are in the form of Eliquis. The patient came into the emergency department having significant respiratory distress. She was having increased cough and congestion along with dyspnea and wheeze. She typically utilizes oxygen between 2 and 3 L/min nasal cannula. She was tachycardic and tachypneic. She was immediately placed on BiPAP for respiratory support and currently BiPAP is running at a pressure of 12 over 5 cm of water with an FiO2 of 40%. Generated tidal volume while on the BiPAP is around 350 cc and minute ventilation is around 12.6. I reviewed the chest x-ray that was done at the time of admission and the patient has developed patchy density in the right mid and lower lung field which is a new finding compared to the earlier chest x-rays, likely consistent with pneumonia could be potentially an aspiration pneumonia. Previous CAT scan of the chest from July 2023 also showed a 10 mm nodule density in the right middle lobe that is being followed up at the pulmonary clinic. The patient also has interstitial and nodular densities developing in the right middle lobe and the lingula. Her white cell count is at 11.4 with a hemoglobin 12.9 and platelet count of 371. BUN is 31 with a creatinine of 1.05 sodium is at 140 with a potassium level of 5.2. Initial lactic acid level is at 2.6 dropped down to 1.0. Liver function tests are normal. The viral screen is negative. UA is negative. proBNP level is 519. She is also on a combination of bronchodilators and she was started on IV Solu-Medrol. On 12/05/2023, seen the patient for a follow-up. Clinically improved compared to yesterday. Less bronchospastic and wheezy compared to yesterday. She is also less tachycardic. The patient is awake and alert and communicating. She is currently on broad-spectrum antibiotics. She is also on bronchodilators and she is also on steroids. Note that overnight, the patient was on BiPAP which helped her quite a bit with her respiratory status. The white cell count is at 7 with a hemoglobin 10.6 and a platelet count of 274, BUN 32 with a creatinine of 0.8 and sodium level is at 143 and a potassium level of 4.3. The viral screen has been negative. No other significant events overnight. The patient remains on cefepime and vancomycin. The patient remains on IV Zometa 60 mg for 6 hours. She remains on DuoNeb and Lasix [id number]. She is currently on oral Las ix. 12/06/2023, the patient is doing well. She is on and off utilizing the BiPAP. At the time of my evaluation, the patient was back on BiPAP and subsequently was taken off the BiPAP and she was placed on 4 L of oxygen by nasal cannula with a pulse ox of 99%. She has no specific complaints. Less bronchospastic and wheezy. The white cell count is at 9.9 with a hemoglobin 10.5 and a platelet co unt of 261. BUN 34 with a creatinine of 0.8. Electrolytes are all stable. Medications are essentially unchanged. She remains on Solu-Medrol 40 mg every 8 hours. She remains on DuoNeb nebulized treatments [id number]. She is on IV cefepime and vancomycin. Afebrile. Blood cultures are still negative. Swallow evaluation was done and the patient is able to take honey thickened material. 12/07/2023, the patient is feeling better. Repeat chest today showed, medically treated the right lung. Clinically she improved. Utilizing the BiPAP overnight and currently she is on 3 Suboxone by nasal cannula. She remains on cefepime and vancomycin. The blood cultures are negative. Lactic of 7.5 with a hemoglobin 9.9 and platelet count of 245, BUN 31 with a creatinine of 0.7 and a sodium levels of 140. No other significant events overnight. The patient is clinically stable and hemodynamically stable and she is tolerating her diet. No altered mentation. 12/08/2023, patient was seen today for follow-up on her right lower lobe pneumonia. Patient is doing better, breathing easier. Being followed by speech therapy for possible aspiration patient pneumonia, and her diet is being ad dressed accordingly patient is on 4 L nasal cannula with O2 sats of 96%, she is hemodynamically stable, looks pleasant and not in any form of distress, her son Saud is sitting at bedside, remains concerned about the possibility of aspiration. Patient is receiving broad-spectrum antibiotics in the form of vancomycin and cefepime, blood cultures have been nondiagnostic. WBC count today is 11.7 hemoglobin is 11.7. Basic metabolic profile is normal renal profile is normal, procalcitonin level is pending. Patient was seen today and examined on 12/09/2023, patient continues to feel better, breathing easier, remains on antibiotics for right lower lobe pneumonia. Patient passed her swallow evaluation, and she is now on regular diet WBC count is 13.3 hemoglobin 11.8 basic metabolic profile is normal renal profile is normalPatient has been on cefepime and has been on vancomycin since admission, seems to be an overkill coverage with antibiotics, however considering the patient is clinically feeling much better, I will make no change for now with her antibiotic Objective - Vital Signs Vital signs: Vital Signs Temp 97.9 F 12/09/23 09:18 Pulse 81 12/09/23 11:48 Resp 18 12/09/23 11:48 BP 103/64 12/09/23 11:48 Pulse Ox 93 L 12/09/23 11:48 FiO2 40 12/08/23 23:23 Intake & Output 12/08/23 12/09/23 12/09/23 18:59 06:59 18:59 Intake Total 221 620 358 Output Total 700 Balance 221 -80 358 Weight 81.647 kg Intake: IV 20 Invasive Line 3 20 Intake, IV Titration 600 Amount Cefepime 2 gm In Sodium 100 Chloride 0.9% 100 ml @ 25 mls/hr IVPB Q12H [facility] Rx# :[id number] Vancomycin 1,500 mg In 500 Sodium Chloride 0.9% 500 ml 500 ml @ 167 mls/hr IVPB Q16H [facility] Rx#: [id number] Oral 221 358 Output: Urine 700 Other: Voiding Method External Catheter External Catheter External Catheter # Voids 1 # Bowel Movements 1 1 - Exam GENERAL EXAM: 83-year-old female on 3 L nasal cannula in no distress HEAD: Normocephalic/atraumatic. EYES: Normal reaction of pupils, equal size. Conjunctiva pink, sclera white. NOSE: Clear with pink turbinates. THROAT: No erythema or exudates. NECK: No masses, no JVD, no thyroid enlargement, no adenopathy. CHEST: Symmetrical chest expansion LUNGS: Minimal crackles at the bases no rhonchi no wheezes CVS: Regular rate and rhythm, tachycardic, normal S1 and S2, no gallops, no murmurs, no rubs ABDOMEN: Soft, nontender. No hepatosplenomegaly, normal bowel sounds, no guarding or rigidity. EXTREMITIES: No clubbing, no edema, no cyanosis, 2+ pulses and upper and lower extremities. MUSCULOSKELETAL: No deformities and no limitation range of motion SKIN: No rashes CENTRAL NERVOUS SYSTEM: No gross focal deficit - Labs CBC & Chem 7: 12/09/23 10:52 12/09/23 10:52 Labs: Abnormal Lab Results - Last 24 Hours (Table) 12/08/23 12/08/23 12/09/23 Range/Units 16:34 19:42 10:52 WBC 13.3 H (3.8-10.6) k/uL MCHC 30.0 L (31.0-37.0) g/dL Neutrophils # 11.4 H (1.3-7.7) k/uL Carbon Dioxide (22-30) mmol/L BUN (7-17) mg/dL Glucose (74-99) mg/dL POC Glucose (mg/dL) 153 H 171 H (70-110) mg/dL Total Protein (6.3-8.2) g/dL Albumin (3.5-5.0) g/dL 12/09/23 12/09/23 Range/Units 10:52 11:14 WBC (3.8-10.6) k/uL MCHC (31.0-37.0) g/dL Neutrophils # (1.3-7.7) k/uL Carbon Dioxide 36 H (22-30) mmol/L BUN 27 H (7-17) mg/dL Glucose 141 H (74-99) mg/dL POC Glucose (mg/dL) 150 H (70-110) mg/dL Total Protein 5.6 L (6.3-8.2) g/dL Albumin 3.1 L (3.5-5.0) g/dL Assessment and Plan Assessment: Impression: Acute right middle lobe and right lower lobe pneumonia Chronic right lower lobe atelectasis History of underlying COPD History of right-sided pulmonary nodule Acute on chronic hypoxic respiratory failure Previous history of DVT and pulmonary embolism maintained on Eliquis History of dementia long term resident Dyslipidemia Recommendation: Continue antibiotics Continue bronchodilators Reviewed the report from speech therapy, patient passed her swallow evaluation [facility] Will continue to follow Consider discharge planning in the next 48 hours Time with Patient: Less than 30
--- NOTE | 2023-12-09 12:51 | P.PN ---
Subjective Progress Note Date: 12/09/23 HISTORY OF PRESENT ILLNESS: This is an 83-year-old female with a previous medical history signi ficant for hypertension and hypertensive cardiovascular disease, hyperlipidemia, chronic diastolic heart failure, paroxysmal atrial fibrillation, moderate to severe chronic obstructive pulmonary disease on 4 L nasal cannula, with a chronic hypoxemic respiratory failure for quite some times, patient was recently treated for a what appears to be a gram-negative pneumonia about 3 weeks ago and she has been doing fine up today when I received a call from the nursing staff stating that the patient is breathing about 40 breaths/min, she is using accessory muscles, she appears to be quite ill she has been coughing some yellow-green phlegm production, and she has been tachycardic, not able to eat or drink much, she appeared to be quite drowsy, she was referred to go to the emergency department via EMS, patient was seen and evaluated in the emergency department she was initially was in atrial fibrillation with rapid ventricular response that was converted to an sinus rhythm, patient initially was struggling quite a bit with breathing she was placed on BiPAP with an IPAP of 10 and EPAP of 5 with FiO2 of 40% to keep her saturation anywhere between 92 and 94%, patient was initially given Zithromax and Rocephin in the emergency department, then she was placed on cefepime and vancomycin, she was also started on Solu- Medrol 60 mg IV push every 6 hours, she was placed on nebulized treatment DuoNeb 3 mm nebulization 4 times every day, she was started on Pulmicort 1 mg nebulization twice every day, she was seen in consultation by pulmonary medicine as well as by cardiology, and she was admitted to the hospital for further evaluation and treatment of acute on chronic respiratory failure her chest x-ray did show evidence of right middle and right lower lobe pneumonia, suggestive of aspiration, she was placed on IV antibiotic as stated earlier. 12/04: Patient is still in the emergency department, she is scheduled to go up to the telemetry unit, she continues to be on oxygen support, she was on BiPAP all day long and all night long yesterday, she is appearing a bit better, she is more awake and alert, she has been on vancomycin and cefepime, sputum culture and blood cultures are pending, continue to monitor the patient very closely, continue aggressive pulmonary toileting, patient was seen in consultation by cardiology as well as pulm pulmonary medicine, we will maintain the patient on current treatment plan, she will be seen and evaluated by physical therapy and Occupational Therapy, most likely the patient transition is to go back to [facility] when the patient's symptoms improve 12/05: Patient is sitting up in bed she has been tolerating pured diet and thick nectar, her son was at the bedside, he was updated about her current condition and he showed some concerns about the care at [facility], I reassured the patient and her son that we will continue to keep an eye on her provider with quality care at this point in time, patient is feeling better so far we will decrease her Solu-Medrol to 40 mg IV push every 8 hours, continue nebulized treatment, try to obtain sputum culture, try to obtain echocardiogram for evaluation of LV function, her last echocardiogram was greater than 2 years ago, I will continue to follow-up with the patient very closely, patient will be seen in consultation by physical therapy and Occupational Therapy, psychiatric social worker supervisor consultation for discharge planning. 12/06: Patient sitting up in bed, she is complaining of minimal wheezing today, she continues to be on nebulized treatment [id number], she continues to be on IV antibiotic, will continue with that, her x-ray showed some atelectasis, with no change from prior x-rays, continue patient on the current treatment plan, physical therapy evaluation tomorrow morning, psychiatric social worker supervisor consultation, for discharge planning, speech therapy evaluation as well, echocardiogram was ordered 12/07: Patient underwent modified barium swallow today, and she did well with that, she will be upgraded to a chopped diet at this time, with thick nectar, patient is doing better, she continues to be somewhat short of breath, she has been on 4 L nasal cannula, she has been on antibiotic in the form of cefepime, will continue with that, continue to follow the patient very closely, patient will be seen and evaluated by physical therapy as well as Occupational Therapy, and we will plan for the patient to go back to [facility] for chronic care. 12/08: Patient is sitting up in bed in no apparent distress, she appears to be better, she was started on chopped diet, her diet was upgraded by the speech therapist, she continues to be on 4 L nasal cannula, she has no abdominal pain at this time, she has no nausea vomiting or diarrhea, she seems to be tolerating treatment very well, patient will likely be able to be transferred back to [facility] if not this afternoon tomorrow morning. REVIEW OF SYSTEMS: Constitutional: documented fever, no chills, no night sweats. positive for weight change. positive for weakness, positive for fatigue or lethargy. No daytime sleepiness. EENT: No headache. No blurred vision or double vision, no loss of vision. No loss of Hearing, no ringing in the ears, no dizziness. No nasal drainage or congestion. No epistaxis. No sore throat. Lungs: positive for shortness of breath, positive for cough, positive for sputum production. positive for wheezing. Reports dyspnea with activity. Cardiovascular: No chest pain, no lower extremity edema. No palpitations. No paroxysmal nocturnal dyspnea. No orthopnea. No lightheadedness or dizziness. No syncopal episodes. Abdominal: Reports no abdominal pain. No nausea, vomiting. No diarrhea. positive for constipation. No bloody or tarry stools reports loss of appetite, difficulty in swallowing Genitourinary: No dysuria, increased frequency, urgency. No urinary retention. Musculoskeletal: No myalgias. positive for muscle weakness, positive for gait dysfunction, no frequent falls. No back pain. No neck pain. Integumentary: No wounds, no lesions. No rash or pruritus. No unusual bruising. positive for change in hair or nails. Neurologic: No aphasia. No facial droop. No change in mentation. No head injury. No headache. No paralysis. No paresthesia. Psychiatric: positive for depression. positive for anxiety. No mood swings. Endocrine: No abnormal blood sugars. No weight change. PHYSICAL EXAMINATION: General: 83-year-old female laying down in bed in no apparent distress. Currently on 4 L nasal cannula her baseline. HEENT: Head is atraumatic, normocephalic, pupils were equal round reactive to light and recommendation, extraocular muscle movement were intact, sclera nonicteric, conjunctivae were pale, mucous membranes of the mouth are somewhat dry. Neck: Supple, no JVP, normal carotid upstroke bilaterally, no lymphadenopathy. Chest: Decreased breath sounds at the bases, few rhonchi, minimal expiratory wheezes no chest wall tenderness no intercostal retractions. Heart: First heart sound is normal, second heart sound is normal there is systolic ejection murmur 2/6 to get in the left sternal border. Abdomen: Soft, nontender, nondistended, positive bowel sounds. Extremities: There is +1 edema, no calf tenderness, dorsalis pedis +1 bilaterally. Neurologic examination: Patient is awake alert and oriented x1, cranial nerves II-12 appear grossly intact, muscle power were 3 out of 5 in upper extremities and 3 out of 5 in bilateral lower extremities, deep tendon reflexes normal bilaterally. ASSESSMENT AND PLAN: 1. Acute on chronic hypoxemic respiratory failure due to acute exacerbation of COPD with right middle/lower lobe pneumonia likely gram-negative pneumonia. on cefepime 2 g IV piggyback every 12 hours, vancomycin with pharmacy to dose its peak and trough, sputum culture, blood culture, continue patient on oxygen 4 L nasal cannula, continue aggressive pulmonary toileting, continue with the head of the bed elevated, continue patient on pured diet with nectar supervision while eating to avoid aspiration. Discontinue Solu-Medrol, start the patient on prednisone 40 mg orally once every day continue DuoNeb 3 mm nebulization 4 times every day, monitor the patient very closely. 2. Chronic diastolic heart failure likely due to atrial fibrillation with increased left ventricular end-diastolic pressure. Continue metoprolol 50 mg orally twice every day, continue Eliquis 5 mg orally twice every day, continue patient on Farxiga 10 mg orally once every day, monitor the patient input and output and daily weight, echocardiogram was done about 2 years ago we will obtain another one 3. Hypertension and hypertensive cardiovascular disease. Continue metoprolol 50 mg orally twice every day, monitor the patient blood pressure very closely. 4. Mixed hyperlipidemia. Continue atorvastatin 40 mg orally once every day, monitor lipid panel, keep LDL 55-70. 5. Paroxysmal atrial fibrillation currently in sinus rhythm. Continue Eliquis 5 mg orally twice every day, continue metoprolol 50 mg orally twice every day. 6. History of gout. Continue patient on allopurinol 100 mg orally once every day. 7. History of CVA. Continue patient on aspirin 81 mg once every day continue Eliquis 5 mg orally twice every day, continue atorvastatin 40 mg once every day for secondary stroke prevention. 8. Anxiety and depressive disorder. Continue patient on paroxetine 20 mg once every day as well as mirtazapine 7.5 mg at bedtime. 9. Moderate to severe COPD continue treatment as in 1. 10. Steroid-induced hyperglycemia. Start the patient on sliding scale insulin check hemoglobin A1c. 11. 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 we will continue with shelter anticoagulation with Elquis 12. DVT prophylaxis. Continue patient on Eliquis 5 mg orally twice every day. 13. GI prophylaxis. Continue patient on Protonix 40 mg IV push every 24 hours. 14. PT OT evaluation. 15. slate worker consultation for discharge planning. 16. Dysphagia status post modified barium swallow. Continue patient on chopped diet as recommended by speech therapy. 17. Likely back to [facility] either this evening or tomorrow morning. Objective - Vital Signs Vital signs: Vital Signs Temp 97.9 F 12/09/23 09:18 Pulse 81 12/09/23 11:48 Resp 18 12/09/23 11:48 BP 103/64 12/09/23 11:48 Pulse Ox 93 L 12/09/23 11:48 FiO2 40 12/08/23 23:23 Intake & Output 12/08/23 12/09/23 12/09/23 18:59 06:59 18:59 Intake Total 221 620 358 Output Total 700 Balance 221 -80 358 Weight 81.647 kg Intake: IV 20 Invasive Line 3 20 Intake, IV Titration 600 Amount Cefepime 2 gm In Sodium 100 Chloride 0.9% 100 ml @ 25 mls/hr IVPB Q12H [facility] Rx# :[id number] Vancomycin 1,500 mg In 500 Sodium Chloride 0.9% 500 ml 500 ml @ 167 mls/hr IVPB Q16H [facility] Rx#: [id number] Oral 221 358 Output: Urine 700 Other: Voiding Method External Catheter External Catheter External Catheter # Voids 1 # Bowel Movements 1 1 - Labs CBC & Chem 7: 12/09/23 10:52 12/09/23 10:52 Labs: Abnormal Lab Results - Last 24 Hours (Table) 12/08/23 12/08/23 12/09/23 Range/Units 16:34 19:42 10:52 WBC 13.3 H (3.8-10.6) k/uL MCHC 30.0 L (31.0-37.0) g/dL Neutrophils # 11.4 H (1.3-7.7) k/uL Carbon Dioxide (22-30) mmol/L BUN (7-17) mg/dL Glucose (74-99) mg/dL POC Glucose (mg/dL) 153 H 171 H (70-110) mg/dL Total Protein (6.3-8.2) g/dL Albumin (3.5-5.0) g/dL 12/09/23 12/09/23 Range/Units 10:52 11:14 WBC (3.8-10.6) k/uL MCHC (31.0-37.0) g/dL Neutrophils # (1.3-7.7) k/uL Carbon Dioxide 36 H (22-30) mmol/L BUN 27 H (7-17) mg/dL Glucose 141 H (74-99) mg/dL POC Glucose (mg/dL) 150 H (70-110) mg/dL Total Protein 5.6 L (6.3-8.2) g/dL Albumin 3.1 L (3.5-5.0) g/dL
[2023-12-09 16:30] LABS: Glucose,Whole Blood 202 mg/dL (70-110)
[2023-12-09 20:24] LABS: Glucose,Whole Blood 257 mg/dL (70-110)
[2023-12-09 23:46] VITALS: RESP 16
[2023-12-10 06:21] LABS: Glucose,Whole Blood 105 mg/dL (70-110)
[2023-12-10 09:03] VITALS: TEMP 97.8
--- NOTE | 2023-12-10 10:25 | P.DS ---
Providers Date of admission: 12/04/23 10:19 Expected date of discharge: 12/10/23 Attending physician: Bonny Cintron Consults: 12/04/23 10:17 Consult Physician Routine Consulting Provider: Leela Hastings Consult Reason/Comments: copd, pneumonia, hypoxic resp failure Do you want consulting provider notified?: Yes Primary care physician: Bonny Cintron Hospital Course: HISTORY OF PRESENT ILLNESS: This is an 83-year-old female with a previous medical history significant for hypertension and hypertensive cardiovascular disease, hyperlipidemia, chronic diastolic heart failure, paroxysmal atrial fibrillation, moderate to severe chronic obstructive pulmonary disease on 4 L nasal cannula, with a chronic hypoxemic respiratory failure for quite some times, patient was recently treated for a what appears to be a gram-negative pneumonia about 3 weeks ago and she has been doing fine up today when I received a call from the nursing staff stating that the patient is breathing about 40 breaths/min, she is using accessory muscles, she appears to be quite ill she has been coughing some yellow-green phlegm production, and she has been tachycardic, not able to eat or drink much, she appeared to be quite drowsy, she was referred to go to the emergency department via EMS, patient was seen and evaluated in the emergency department she was initially was in atrial fibrillation with rapid ventricular response that was converted to an sinus rhythm, patient initially was struggling quite a bit with breathing she was placed on BiPAP with an IPAP of 10 and EPAP of 5 with FiO2 of 40% to keep her saturation anywhere between 92 and 94%, patient was initially given Zithromax and Rocephin in the emergency department, then she was placed on cefepime and vancomycin, she was also started on Solu- Medrol 60 mg IV push every 6 hours, she was placed on nebulized treatment DuoNeb 3 mm nebulization 4 times every day, she was started on Pulmicort 1 mg nebulization twice every day, she was seen in consultation by pulmonary medicine as well as by cardiology, and she was admitted to the hospital for further evaluation and treatment of acute on chronic respiratory failure her chest x-ray did show evidence of right middle and right lower lobe pneumonia, suggestive of aspiration, she was placed on IV antibiotic as stated earlier. 12/04: Patient is still in the emergency department, she is scheduled to go up to the telemetry unit, she continues to be on oxygen support, she was on BiPAP all day long and all night long yesterday, she is appearing a bit better, she is more awake and alert, she has been on vancomycin and cefepime, sputum culture and blood cultures are pending, continue to monitor the patient very closely, continue aggressive pulmonary toileting, patient was seen in consultation by cardiology as well as pulm pulmonary medicine, we will maintain the patient on current treatment plan, she will be seen and evaluated by physical therapy and Occupational Therapy, most likely the patient transition is to go back to [facility] when the patient's symptoms improve 12/05: Patient is sitting up in bed she has been tolerating pured diet and thick nectar, her son was at the bedside, he was updated about her current condition and he showed some concerns about the care at [facility], I reassured the patient and her son that we will continue to keep an eye on her provider with quality care at this point in time, patient is feeling better so far we will decrease her Solu-Medrol to 40 mg IV push every 8 hours, continue nebulized treatment, try to obtain sputum culture, try to obtain echocardiogram for evaluation of LV function, her last echocardiogram was greater than 2 years ago, I will continue to follow-up with the patient very closely, patient will be seen in consultation by physical therapy and Occupational Therapy, school social worker consultation for discharge planning. 12/06: Patient sitting up in bed, she is complaining of minimal wheezing today, she continues to be on nebulized treatment [id number], she continues to be on IV antibiotic, will continue with that, her x-ray showed some atelectasis, with no change from prior x-rays, continue patient on the current treatment plan, physical therapy evaluation tomorrow morning, school social worker consultation, for discharge planning, speech therapy evaluation as well, echocardiogram was ordered 12/07: Patient underwent modified barium swallow today, and she did well with that, she will be upgraded to a chopped diet at this time, with thick nectar, patient is doing better, she continues to be somewhat short of breath, she has been on 4 L nasal cannula, she has been on antibiotic in the form of cefepime, will continue with that, continue to follow the patient very closely, patient will be seen and evaluated by physical therapy as well as Occupational Therapy, and we will plan for the patient to go back to [facility] for chronic care. 12/08: Patient is sitting up in bed in no apparent distress, she appears to be better, she was started on chopped diet, her diet was upgraded by the speech therapist, she continues to be on 4 L nasal cannula, she has no abdominal pain at this time, she has no nausea vomiting or diarrhea, she seems to be tolerating treatment very well, patient will likely be able to be transferred back to [facility] if not this afternoon tomorrow morning. 12/09: Patient has been cleared for discharge by pulmonary medicine. Patient denies worsening shortness of breath. She remains on O2 at 3 L nasal cannula which is her baseline with pulse ox 96%, heart rate is in the 80s, blood pressure 105/63. IV Solu-Medrol has been transition to oral prednisone. Patient was prepared for discharge yesterday but due to paperwork difficulties, discharge is being delayed until today. Patient will be discharged back to [facility] in stable condition. REVIEW OF SYSTEMS: Discharge diagnoses: 1. Acute on chronic hypoxemic respiratory failure due to acute exacerbation of COPD with right middle/lower lobe pneumonia likely gram-negative pneumonia. 2. Chronic diastolic heart failure likely due to atrial fibrillation with increased left ventricular end-diastolic pressure. 3. Hypertension and hypertensive cardiovascular disease. 4. Mixed hyperlipidemia. 5. Paroxysmal atrial fibrillation currently in sinus rhythm. 6. History of gout. 7. History of CVA. 8. Anxiety and depressive disorder. 9. Moderate to severe COPD continue treatment as in 1. 10. Steroid-induced hyperglycemia. 11. 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 12. Dysphagia status post modified barium swallow. Continue chopped diet. Discharge plan: Return to [facility] Impression and plan of care have been directed as dictated by the signing physician. Flora Jama nurse practitioner acting as scribe for signing physician. Patient Condition at Discharge: Stable Plan - Discharge Summary Discharge Rx Participant: No New Discharge Prescriptions: New Furosemide [Lasix] 40 mg PO DAILY@1200 tab Acetaminophen Tab [Tylenol] 650 mg PO Q6HR PRN tab PRN Reason: Mild Pain Or Fever > 100.5 Moxifloxacin HCl [Avelox] 400 mg PO DAILY 7 Days #7 tab Spironolactone [Aldactone] 12.5 mg PO DAILY tab Aspirin 81 mg PO DAILY tab predniSONE [Deltasone] 40 mg PO DAILY tab Pantoprazole [Protonix] 40 mg PO AC-BRKFST tab Continue PARoxetine [Paxil] 20 mg PO DAILY Atorvastatin [Lipitor] 40 mg PO HS Albuterol Inhaler [Ventolin Hfa Inhaler] 2 puff INHALATION RT-Q6H PRN PRN Reason: Shortness Of Breath Healthshake 1 dose PO BID Ferrous Sulfate [Iron (65 MG Elemental)] 325 mg PO DAILY Dapagliflozin Propanediol [Farxiga] 10 mg PO DAILY Multivitamins, Thera [Multivitamin (formulary)] 1 tab PO DAILY@1200 Ipratropium-Albuterol Nebulize [Duoneb 0.5 mg-3 mg/3 ml Soln] 3 ml INHALATION RT-QID ml Metoprolol Succinate (ER) [Toprol XL] 50 mg PO BID@0800,1600 Apixaban [Eliquis] 5 mg PO BID@0800,1600 Thiamine [Vitamin B-1] 100 mg PO DAILY Mirtazapine 7.5 mg PO HS Melatonin 10 mg PO HS Hydrocortisone Cream [Hydrocortisone 2.5% Cream] 1 applic TOPICAL HS Folic Acid 0.8 mg PO DAILY Docusate Sodium [Dok] 100 mg PO HS allopurinoL [Zyloprim] 100 mg PO DAILY Discontinued Clopidogrel [Plavix] 75 mg PO DAILY Furosemide [Lasix] 40 mg PO DAILY@1200 Spironolactone [Aldactone] 25 mg PO DAILY Furosemide [Lasix] 60 mg PO DAILY@0700 Discharge Medication List PARoxetine [Paxil] 20 mg PO DAILY 11/04/15 [History] Atorvastatin [Lipitor] 40 mg PO HS 09/08/18 [History] Albuterol Inhaler [Ventolin Hfa Inhaler] 2 puff INHALATION RT-Q6H PRN 06/10/20 [History] Multivitamins, Thera [Multivitamin (formulary)] 1 tab PO DAILY@1200 08/01/21 [History] Ipratropium-Albuterol Nebulize [Duoneb 0.5 mg-3 mg/3 ml Soln] 3 ml INHALATION RT-QID ml 08/06/21 [Rx] Apixaban [Eliquis] 5 mg PO BID@0800,1600 12/04/23 [History] Dapagliflozin Propanediol [Farxiga] 10 mg PO DAILY 12/04/23 [History] Docusate Sodium [Dok] 100 mg PO HS 12/04/23 [History] Ferrous Sulfate [Iron (65 MG Elemental)] 325 mg PO DAILY 12/04/23 [History] Folic Acid 0.8 mg PO DAILY 12/04/23 [History] Healthshake 1 dose PO BID 12/04/23 [History] Hydrocortisone Cream [Hydrocortisone 2.5% Cream] 1 applic TOPICAL HS 12/04/23 [History] Melatonin 10 mg PO HS 12/04/23 [History] Metoprolol Succinate (ER) [Toprol XL] 50 mg PO BID@0800,1600 12/04/23 [History] Mirtazapine 7.5 mg PO HS 12/04/23 [History] Thiamine [Vitamin B-1] 100 mg PO DAILY 12/04/23 [History] allopurinoL [Zyloprim] 100 mg PO DAILY 12/04/23 [History] Acetaminophen Tab [Tylenol] 650 mg PO Q6HR PRN tab 12/09/23 [Rx] Aspirin 81 mg PO DAILY tab 12/09/23 [Rx] Furosemide [Lasix] 40 mg PO DAILY@1200 tab 12/09/23 [Rx] Moxifloxacin HCl [Avelox] 400 mg PO DAILY 7 Days #7 tab 12/09/23 [Rx] Pantoprazole [Protonix] 40 mg PO AC-BRKFST tab 12/09/23 [Rx] Spironolactone [Aldactone] 12.5 mg PO DAILY tab 12/09/23 [Rx] predniSONE [Deltasone] 40 mg PO DAILY tab 12/09/23 [Rx] Follow up Appointment(s)/Referral(s): Julio Cesar Mcnair MD [REFERRING] - 1-2 days Discharge Disposition: TRANSFER TO SNF/ECF
--- NOTE | 2023-12-10 11:32 | P.PN ---
Subjective Progress Note Date: 12/10/23 Principal diagnosis: Acute right lower lobe pneumonia This is a 83-year-old female patient, group home resident who has been having issues with chronic dysphagia and recurrent pneumonias. The patient has been followed up in our office and here she has been treated for pneumonia on multiple occasions. She is also known to have underlying COPD. 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 She also has history of paroxysmal atrial fibrillation. Her current anticoagulants are in the form of Eliquis. The patient came into the emergency department having significant respiratory distress. She was having increased cough and congestion along with dyspnea and wheeze. She typically utilizes oxygen between 2 and 3 L/min nasal cannula. She was tachycardic and tachypneic. She was immediately placed on BiPAP for respiratory support and currently BiPAP is running at a pressure of 12 over 5 cm of water with an FiO2 of 40%. Generated tidal volume while on the BiPAP is around 350 cc and minute ventilation is around 12.6. I reviewed the chest x-ray that was done at the time of admission and the patient has developed patchy density in the right mid and lower lung field which is a new finding compared to the earlier chest x-rays, likely consistent with pneumonia could be potentially an aspiration pneumonia. Previous CAT scan of the chest from July 2023 also showed a 10 mm nodule density in the right middle lobe that is being followed up at the pulmonary clinic. The patient also has interstitial and nodular densities developing in the right middle lobe and the lingula. Her white cell count is at 11.4 with a hemoglobin 12.9 and platelet count of 371. BUN is 31 with a creatinine of 1.05 sodium is at 140 with a potassium level of 5.2. Initial lactic acid level is at 2.6 dropped down to 1.0. Liver function tests are normal. The viral screen is negative. UA is negative. proBNP level is 519. She is also on a combination of bronchodilators and she was started on IV Solu-Medrol. On 12/05/2023, seen the patient for a follow-up. Clinically improved compared to yesterday. Less bronchospastic and wheezy compared to yesterday. She is also less tachycardic. The patient is awake and alert and communicating. She is currently on broad-spectrum antibiotics. She is also on bronchodilators and she is also on steroids. Note that overnight, the patient was on BiPAP which helped her quite a bit with her respiratory status. The white cell count is at 7 with a hemoglobin 10.6 and a platelet count of 274, BUN 32 with a creatinine of 0.8 and sodium level is at 143 and a potassium level of 4.3. The viral screen has been negative. No other significant events overnight. The patient remains on cefepime and vancomycin. The patient remains on IV Zometa 60 mg for 6 hours. She remains on DuoNeb and Lasix [id number]. She is currently on oral Las ix. 12/06/2023, the patient is doing well. She is on and off utilizing the BiPAP. At the time of my evaluation, the patient was back on BiPAP and subsequently was taken off the BiPAP and she was placed on 4 L of oxygen by nasal cannula with a pulse ox of 99%. She has no specific complaints. Less bronchospastic and wheezy. The white cell count is at 9.9 with a hemoglobin 10.5 and a platelet co unt of 261. BUN 34 with a creatinine of 0.8. Electrolytes are all stable. Medications are essentially unchanged. She remains on Solu-Medrol 40 mg every 8 hours. She remains on DuoNeb nebulized treatments [id number]. She is on IV cefepime and vancomycin. Afebrile. Blood cultures are still negative. Swallow evaluation was done and the patient is able to take honey thickened material. 12/07/2023, the patient is feeling better. Repeat chest today showed, medically treated the right lung. Clinically she improved. Utilizing the BiPAP overnight and currently she is on 3 Suboxone by nasal cannula. She remains on cefepime and vancomycin. The blood cultures are negative. Lactic of 7.5 with a hemoglobin 9.9 and platelet count of 245, BUN 31 with a creatinine of 0.7 and a sodium levels of 140. No other significant events overnight. The patient is clinically stable and hemodynamically stable and she is tolerating her diet. No altered mentation. 12/08/2023, patient was seen today for follow-up on her right lower lobe pneumonia. Patient is doing better, breathing easier. Being followed by speech therapy for possible aspiration patient pneumonia, and her diet is being ad dressed accordingly patient is on 4 L nasal cannula with O2 sats of 96%, she is hemodynamically stable, looks pleasant and not in any form of distress, her son Saud is sitting at bedside, remains concerned about the possibility of aspiration. Patient is receiving broad-spectrum antibiotics in the form of vancomycin and cefepime, blood cultures have been nondiagnostic. WBC count today is 11.7 hemoglobin is 11.7. Basic metabolic profile is normal renal profile is normal, procalcitonin level is pending. Patient was seen today and examined on 12/09/2023, patient continues to feel better, breathing easier, remains on antibiotics for right lower lobe pneumonia. Patient passed her swallow evaluation, and she is now on regular diet WBC count is 13.3 hemoglobin 11.8 basic metabolic profile is normal renal profile is normalPatient has been on cefepime and has been on vancomycin since admission, seems to be an overkill coverage with antibiotics, however considering the patient is clinically feeling much better, I will make no change for now with her antibiotic Seen today on 12/10/2023, patient is doing well, remains on 3 L nasal cannula, O2 saturation is 96%, patient is denying any cough, no shortness of breath, no chest pain, patient passed her swallow evaluation, has been treated with antibiotics in the form of cefepime and vancomycin, she will be transition to oral antibiotics today if discharged back to group home. Son is at bedside, and I updated him on her condition. Made aware that she needs to come and see me in the office in 1 week postdischarge. Objective - Vital Signs Vital signs: Vital Signs Temp 97.8 F 12/10/23 09:03 Pulse 80 12/10/23 11:20 Resp 16 12/10/23 09:05 BP 105/63 12/10/23 09:03 Pulse Ox 96 12/10/23 09:03 FiO2 40 12/08/23 23:23 Intake & Output 12/09/23 12/10/23 12/10/23 18:59 06:59 18:59 Intake Total 716 Output Total 800 700 Balance -84 -700 Weight 81.647 kg Intake: Oral 716 Output: Urine 800 700 Other: Voiding Method External Catheter External Catheter External Catheter # Voids 1 # Bowel Movements 1 1 - Exam GENERAL EXAM: 83-year-old female on 3 L nasal cannula in no distress HEAD: Normocephalic/atraumatic. EYES: Normal reaction of pupils, equal size. Conjunctiva pink, sclera white. NOSE: Clear with pink turbinates. THROAT: No erythema or exudates. NECK: No masses, no JVD, no thyroid enlargement, no adenopathy. CHEST: Symmetrical chest expansion LUNGS: Minimal crackles at the bases no rhonchi no wheezes CVS: Regular rate and rhythm, tachycardic, normal S1 and S2, no gallops, no murmurs, no rubs ABDOMEN: Soft, nontender. No hepatosplenomegaly, normal bowel sounds, no guarding or rigidity. EXTREMITIES: No clubbing, no edema, no cyanosis, 2+ pulses and upper and lower extremities. MUSCULOSKELETAL: No deformities and no limitation range of motion SKIN: No rashes CENTRAL NERVOUS SYSTEM: No gross focal deficit - Labs CBC & Chem 7: 12/09/23 10:52 12/09/23 10:52 Labs: Abnormal Lab Results - Last 24 Hours (Table) 12/09/23 12/09/23 12/09/23 Range/Units 10:52 10:52 16:29 WBC 13.3 H (3.8-10.6) k/uL MCHC 30.0 L (31.0-37.0) g/dL Neutrophils # 11.4 H (1.3-7.7) k/uL Carbon Dioxide 36 H (22-30) mmol/L BUN 27 H (7-17) mg/dL Glucose 141 H (74-99) mg/dL POC Glucose (mg/dL) 202 H (70-110) mg/dL Total Protein 5.6 L (6.3-8.2) g/dL Albumin 3.1 L (3.5-5.0) g/dL 12/09/23 Range/Units 20:23 WBC (3.8-10.6) k/uL MCHC (31.0-37.0) g/dL Neutrophils # (1.3-7.7) k/uL Carbon Dioxide (22-30) mmol/L BUN (7-17) mg/dL Glucose (74-99) mg/dL POC Glucose (mg/dL) 257 H (70-110) mg/dL Total Protein (6.3-8.2) g/dL Albumin (3.5-5.0) g/dL Microbiology - Last 24 Hours (Table) 12/04/23 08:55 Blood Culture - Final Blood 12/04/23 08:50 Blood Culture - Final Blood Assessment and Plan Assessment: Impression: Acute right middle lobe and right lower lobe pneumonia Chronic right lower lobe atelectasis History of underlying COPD History of right-sided pulmonary nodule Acute on chronic hypoxic respiratory failure Previous history of DVT and pulmonary embolism maintained on Eliquis History of dementia custodial resident Dyslipidemia Recommendation: Transition to oral antibiotic Continue bronchodilators Consider discharge to group home today Follow-up on outpatient basis with me in 1 week Time with Patient: Less than 30
[2023-12-10 11:49] LABS: Glucose,Whole Blood 159 mg/dL (70-110)
[2023-12-10 11:52] VITALS: BP 93/54; PULSE 81
[2023-12-10] MEDS ORDERED: VANCOMYCIN 1,500 MG in SODIUM CHLORIDE 0.9% 500 ML 500 ML IVPB SCH (12:00)
[2023-12-10 12:15] LABS: African American GFR (CKD) >90 (>60 ml/min/1.73 sqM); Non-African American GFR(CKD) 79 (>60 ml/min/1.73 sqM)
--- NOTE | 2023-12-10 15:35 | P.PN ---
Subjective Progress Note Date: 12/09/23 HISTORY OF PRESENT ILLNESS: This is an 83-year-old female with a previous medical history signi ficant for hypertension and hypertensive cardiovascular disease, hyperlipidemia, chronic diastolic heart failure, paroxysmal atrial fibrillation, moderate to severe chronic obstructive pulmonary disease on 4 L nasal cannula, with a chronic hypoxemic respiratory failure for quite some times, patient was recently treated for a what appears to be a gram-negative pneumonia about 3 weeks ago and she has been doing fine up today when I received a call from the nursing staff stating that the patient is breathing about 40 breaths/min, she is using accessory muscles, she appears to be quite ill she has been coughing some yellow-green phlegm production, and she has been tachycardic, not able to eat or drink much, she appeared to be quite drowsy, she was referred to go to the emergency department via EMS, patient was seen and evaluated in the emergency department she was initially was in atrial fibrillation with rapid ventricular response that was converted to an sinus rhythm, patient initially was struggling quite a bit with breathing she was placed on BiPAP with an IPAP of 10 and EPAP of 5 with FiO2 of 40% to keep her saturation anywhere between 92 and 94%, patient was initially given Zithromax and Rocephin in the emergency department, then she was placed on cefepime and vancomycin, she was also started on Solu- Medrol 60 mg IV push every 6 hours, she was placed on nebulized treatment DuoNeb 3 mm nebulization 4 times every day, she was started on Pulmicort 1 mg nebulization twice every day, she was seen in consultation by pulmonary medicine as well as by cardiology, and she was admitted to the hospital for further evaluation and treatment of acute on chronic respiratory failure her chest x-ray did show evidence of right middle and right lower lobe pneumonia, suggestive of aspiration, she was placed on IV antibiotic as stated earlier. 12/04: Patient is still in the emergency department, she is scheduled to go up to the telemetry unit, she continues to be on oxygen support, she was on BiPAP all day long and all night long yesterday, she is appearing a bit better, she is more awake and alert, she has been on vancomycin and cefepime, sputum culture and blood cultures are pending, continue to monitor the patient very closely, continue aggressive pulmonary toileting, patient was seen in consultation by cardiology as well as pulm pulmonary medicine, we will maintain the patient on current treatment plan, she will be seen and evaluated by physical therapy and Occupational Therapy, most likely the patient transition is to go back to [facility] when the patient's symptoms improve 12/05: Patient is sitting up in bed she has been tolerating pured diet and thick nectar, her son was at the bedside, he was updated about her current condition and he showed some concerns about the care at [facility], I reassured the patient and her son that we will continue to keep an eye on her provider with quality care at this point in time, patient is feeling better so far we will decrease her Solu-Medrol to 40 mg IV push every 8 hours, continue nebulized treatment, try to obtain sputum culture, try to obtain echocardiogram for evaluation of LV function, her last echocardiogram was greater than 2 years ago, I will continue to follow-up with the patient very closely, patient will be seen in consultation by physical therapy and Occupational Therapy, high school social studies teacher consultation for discharge planning. 12/06: Patient sitting up in bed, she is complaining of minimal wheezing today, she continues to be on nebulized treatment [id number], she continues to be on IV antibiotic, will continue with that, her x-ray showed some atelectasis, with no change from prior x-rays, continue patient on the current treatment plan, physical therapy evaluation tomorrow morning, high school social studies teacher consultation, for discharge planning, speech therapy evaluation as well, echocardiogram was ordered 12/07: Patient underwent modified barium swallow today, and she did well with that, she will be upgraded to a chopped diet at this time, with thick nectar, patient is doing better, she continues to be somewhat short of breath, she has been on 4 L nasal cannula, she has been on antibiotic in the form of cefepime, will continue with that, continue to follow the patient very closely, patient will be seen and evaluated by physical therapy as well as Occupational Therapy, and we will plan for the patient to go back to [facility] for chronic care. 12/08: Patient is sitting up in bed in no apparent distress, she appears to be better, she was started on chopped diet, her diet was upgraded by the speech therapist, she continues to be on 4 L nasal cannula, she has no abdominal pain at this time, she has no nausea vomiting or diarrhea, she seems to be tolerating treatment very well, patient will likely be able to be transferred back to [facility] if not this afternoon tomorrow morning. REVIEW OF SYSTEMS: Constitutional: documented fever, no chills, no night sweats. positive for weight change. positive for weakness, positive for fatigue or lethargy. No daytime sleepiness. EENT: No headache. No blurred vision or double vision, no loss of vision. No loss of Hearing, no ringing in the ears, no dizziness. No nasal drainage or congestion. No epistaxis. No sore throat. Lungs: positive for shortness of breath, positive for cough, positive for sputum production. positive for wheezing. Reports dyspnea with activity. Cardiovascular: No chest pain, no lower extremity edema. No palpitations. No paroxysmal nocturnal dyspnea. No orthopnea. No lightheadedness or dizziness. No syncopal episodes. Abdominal: Reports no abdominal pain. No nausea, vomiting. No diarrhea. positive for constipation. No bloody or tarry stools reports loss of appetite, difficulty in swallowing Genitourinary: No dysuria, increased frequency, urgency. No urinary retention. Musculoskeletal: No myalgias. positive for muscle weakness, positive for gait dysfunction, no frequent falls. No back pain. No neck pain. Integumentary: No wounds, no lesions. No rash or pruritus. No unusual bruising. positive for change in hair or nails. Neurologic: No aphasia. No facial droop. No change in mentation. No head injury. No headache. No paralysis. No paresthesia. Psychiatric: positive for depression. positive for anxiety. No mood swings. Endocrine: No abnormal blood sugars. No weight change. PHYSICAL EXAMINATION: General: 83-year-old female laying down in bed in no apparent distress. Currently on 4 L nasal cannula her baseline. HEENT: Head is atraumatic, normocephalic, pupils were equal round reactive to light and recommendation, extraocular muscle movement were intact, sclera nonicteric, conjunctivae were pale, mucous membranes of the mouth are somewhat dry. Neck: Supple, no JVP, normal carotid upstroke bilaterally, no lymphadenopathy. Chest: Decreased breath sounds at the bases, few rhonchi, minimal expiratory wheezes no chest wall tenderness no intercostal retractions. Heart: First heart sound is normal, second heart sound is normal there is systolic ejection murmur 2/6 to get in the left sternal border. Abdomen: Soft, nontender, nondistended, positive bowel sounds. Extremities: There is +1 edema, no calf tenderness, dorsalis pedis +1 bilaterally. Neurologic examination: Patient is awake alert and oriented x1, cranial nerves II-12 appear grossly intact, muscle power were 3 out of 5 in upper extremities and 3 out of 5 in bilateral lower extremities, deep tendon reflexes normal bilaterally. ASSESSMENT AND PLAN: 1. Acute on chronic hypoxemic respiratory failure due to acute exacerbation of COPD with right middle/lower lobe pneumonia likely gram-negative pneumonia. on cefepime 2 g IV piggyback every 12 hours, vancomycin with pharmacy to dose its peak and trough, sputum culture, blood culture, continue patient on oxygen 4 L nasal cannula, continue aggressive pulmonary toileting, continue with the head of the bed elevated, continue patient on pured diet with nectar supervision while eating to avoid aspiration. Discontinue Solu-Medrol, start the patient on prednisone 40 mg orally once every day continue DuoNeb 3 mm nebulization 4 times every day, monitor the patient very closely. 2. Chronic diastolic heart failure likely due to atrial fibrillation with increased left ventricular end-diastolic pressure. Continue metoprolol 50 mg orally twice every day, continue Eliquis 5 mg orally twice every day, continue patient on Farxiga 10 mg orally once every day, monitor the patient input and output and daily weight, echocardiogram was done about 2 years ago we will obtain another one 3. Hypertension and hypertensive cardiovascular disease. Continue metoprolol 50 mg orally twice every day, monitor the patient blood pressure very closely. 4. Mixed hyperlipidemia. Continue atorvastatin 40 mg orally once every day, monitor lipid panel, keep LDL 55-70. 5. Paroxysmal atrial fibrillation currently in sinus rhythm. Continue Eliquis 5 mg orally twice every day, continue metoprolol 50 mg orally twice every day. 6. History of gout. Continue patient on allopurinol 100 mg orally once every day. 7. History of CVA. Continue patient on aspirin 81 mg once every day continue Eliquis 5 mg orally twice every day, continue atorvastatin 40 mg once every day for secondary stroke prevention. 8. Anxiety and depressive disorder. Continue patient on paroxetine 20 mg once every day as well as mirtazapine 7.5 mg at bedtime. 9. Moderate to severe COPD continue treatment as in 1. 10. Steroid-induced hyperglycemia. Start the patient on sliding scale insulin check hemoglobin A1c. 11. 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 we will continue with snf anticoagulation with Elquis 12. DVT prophylaxis. Continue patient on Eliquis 5 mg orally twice every day. 13. GI prophylaxis. Continue patient on Protonix 40 mg IV push every 24 hours. 14. PT OT evaluation. 15. hollow handle bench worker consultation for discharge planning. 16. Dysphagia status post modified barium swallow. Continue patient on chopped diet as recommended by speech therapy. 17. Likely back to [facility] either this evening or tomorrow morning. Objective - Vital Signs Vital signs: Vital Signs Temp 97.8 F 12/10/23 09:03 Pulse 81 12/10/23 11:50 Resp 16 12/10/23 11:50 BP 93/54 12/10/23 11:50 Pulse Ox 94 L 12/10/23 11:50 FiO2 40 12/08/23 23:23 Intake & Output 12/09/23 12/10/23 12/10/23 18:59 06:59 18:59 Intake Total 716 Output Total 800 700 Balance -84 -700 Weight 81.647 kg Intake: Oral 716 Output: Urine 800 700 Other: Voiding Method External Catheter External Catheter External Catheter # Voids 1 # Bowel Movements 1 1 - Labs CBC & Chem 7: 12/09/23 10:52 12/10/23 10:46 Labs: Abnormal Lab Results - Last 24 Hours (Table) 12/09/23 12/09/23 12/10/23 Range/Units 16:29 20:23 11:46 POC Glucose (mg/dL) 202 H 257 H 159 H (70-110) mg/dL Microbiology - Last 24 Hours (Table) 12/04/23 08:55 Blood Culture - Final Blood 12/04/23 08:50 Blood Culture - Final Blood
== END 2023-12-10 12:35 | DRG 177 ==
LOC: EC 08:17 → 1SOBS 10:19 → 3SCARD 11:52 → 3NCARDOBS 12-08 00:44 → 3SCARD 12-08 00:47 → 3NCARDOBS 12-08 01:02 → 3SCARD 12-08 01:21
PROVIDERS: ADMIT Internal Medicine; ATTEND Internal Medicine
PROC: 5A09457 Assistance with Respiratory Ventilation, 24-96 Consecutive Hours, Continuous Positive Airway Pressure (ICD-10-PCS; principal; 2023-12-04)
DX: J15.69 Pneumonia due to other Gram-negative bacteria (principal); J96.21 Acute and chronic respiratory failure with hypoxia; I50.32 Chronic diastolic (congestive) heart failure; F03.93 Unspecified dementia, unspecified severity, with mood disturbance; F03.94 Unspecified dementia, unspecified severity, with anxiety; J44.1 Chronic obstructive pulmonary disease with (acute) exacerbation; J44.0 Chronic obstructive pulmonary disease with (acute) lower respiratory infection; J98.11 Atelectasis; I11.0 Hypertensive heart disease with heart failure; E09.65 Drug or chemical induced diabetes mellitus with hyperglycemia; I48.0 Paroxysmal atrial fibrillation; T38.0X5A Adverse effect of glucocorticoids and synthetic analogues, initial encounter; F32.A Depression, unspecified; H91.90 Unspecified hearing loss, unspecified ear; R13.10 Dysphagia, unspecified; E78.2 Mixed hyperlipidemia; K21.9 Gastro-esophageal reflux disease without esophagitis; M10.9 Gout, unspecified; R91.1 Solitary pulmonary nodule; M19.90 Unspecified osteoarthritis, unspecified site; Z79.01 Long term (current) use of anticoagulants; Z79.02 Long term (current) use of antithrombotics/antiplatelets; Z79.84 Long term (current) use of oral hypoglycemic drugs; Z79.899 Other long term (current) drug therapy; Z87.01 Personal history of pneumonia (recurrent); Z87.891 Personal history of nicotine dependence; Z86.73 Personal history of transient ischemic attack (TIA), and cerebral infarction without residual deficits; Z96.642 Presence of left artificial hip joint; Z86.718 Personal history of other venous thrombosis and embolism; Z86.711 Personal history of pulmonary embolism; Z71.3 Dietary counseling and surveillance
CPT/HCPCS: 36415; 71045; 71046; 74230; 80053; 80202; 81003; 82565; 83036; 83605; 83735; 83880; 84145; 84484; 85025; 85610; 85730; 87040; 87449; 87636; 93005; 93306; 94640; 94660; 94760

== ENCOUNTER 2024-03-02 10:56 | Emergency (ER) | payer MEDICARE, OTHER ==
[2024-03-02 11:18] VITALS: TEMP 98.6
--- NOTE | 2024-03-02 11:45 | ED ---
General Adult HPI - General Chief complaint: Shortness of Breath Stated complaint: SOB Time Seen by Provider: 03/02/24 10:59 Source: EMS Mode of arrival: EMS Limitations: no limitations - History of Present Illness Initial comments: Dictation was produced using [employer] dictation software. please excuse any grammatical, word or spelling errors. Chief Complaint: 83-year-old female presents emergency department for shortness of breath History of Present Illness: Patient is an 83-year-old female she has multiple comorbidities she currently resides at [facility]. Since yesterday she started having shortness of breath. Yesterday she was diagnosed with COVID 19. Patient wears home O2 at 3 L nasal cannula. Patient states that she got 2 breathing treatments with improvement of her symptoms. Patient states she feels currently at baseline. Denies any fever. Denies any pain complaints. Son at the bedside reports that patient has history of COPD sees a finance attorney The ROS documented in this emergency department record has been reviewed and confirmed by me. Those systems with pertinent positive or negative responses have been documented in the HPI. All other systems are other negative and/or noncontributory. - Related Data Home Medications Medication Instructions Recorded Confirmed PARoxetine [Paxil] 20 mg PO DAILY 11/04/15 03/02/24 Atorvastatin [Lipitor] 40 mg PO HS@199909/08/18 03/02/24 Albuterol Inhaler [Ventolin Hfa 2 puff INHALATION RT-Q6H PRN 06/10/20 03/02/24 Inhaler] Multivitamins, Thera [Multivitamin 1 tab PO DAILY 08/01/21 03/02/24 (formulary)] Apixaban [Eliquis] 5 mg PO BID 12/04/23 03/02/24 Dapagliflozin Propanediol [Farxiga] 10 mg PO DAILY 12/04/23 03/02/24 Docusate Sodium [Dok] 100 mg PO BID@0800,1600 12/04/23 03/02/24 Ferrous Sulfate [Iron (65 MG 325 mg PO DAILY 12/04/23 03/02/24 Elemental)] Folic Acid 0.8 mg PO DAILY 12/04/23 03/02/24 Healthshake 1 dose PO BID 12/04/23 03/02/24 Melatonin 10 mg PO HS 12/04/23 03/02/24 Metoprolol Succinate (ER) [Toprol 50 mg PO BID 12/04/23 03/02/24 XL] Mirtazapine 7.5 mg PO HS 12/04/23 03/02/24 Thiamine [Vitamin B-1] 100 mg PO DAILY 12/04/23 03/02/24 allopurinoL [Zyloprim] 100 mg PO DAILY 12/04/23 03/02/24 Furosemide [Lasix] 40 mg PO DIRECTED 03/02/24 03/02/24 Furosemide [Lasix] 40 mg PO SUTUTHSA@0800 03/02/24 03/02/24 Ipratropium-Albuterol Nebulize 3 ml INHALATION RT-QID@08,12,16,20 03/02/24 03/02/24 [Duoneb 0.5 mg-3 mg/3 ml Soln] Molnupiravir 800 mg PO BID 03/02/24 03/02/24 Omeprazole 20 mg PO DAILY 03/02/24 03/02/24 Silver Sulfadiazine [Silver 1 applic TOPICAL BID 03/02/24 03/02/24 Sulfadiazine 1%] polyethylene glycoL 3350 [Miralax] 17 gm PO DAILY@0800 03/02/24 03/02/24 Previous Rx's Medication Instructions Recorded Acetaminophen Tab [Tylenol] 650 mg PO Q6HR PRN tab MDD 3 GM 12/09/23 Aspirin 81 mg PO DAILY tab 12/09/23 Spironolactone [Aldactone] 12.5 mg PO DAILY tab 12/09/23 Allergies Allergy/AdvReac Type Severity Reaction Status Date / Time No Known Allergies Allergy Verified 03/02/24 12:39 Review of Systems ROS Statement: Those systems with pertinent positive or pertinent negative responses have been documented in the HPI. ROS Other: All systems not noted in ROS Statement are negative. Past Medical History Past Medical History: Atrial Fibrillation, COPD, CVA/TIA, GERD/Reflux, Hearing Disorder / Deafness, Hyperlipidemia, Pneumonia Additional Past Medical History / Comment(s): sob at times. History of Any Multi-Drug Resistant Organisms: None Reported Past Surgical History: Breast Surgery, Orthopedic Surgery Additional Past Surgical History / Comment(s): cyst removed from left breast, left hip replaced Past Anesthesia/Blood Transfusion Reactions: No Reported Reaction Past Psychological History: Anxiety, Depression Smoking Status: Former smoker Past Alcohol Use History: None Reported Past Drug Use History: None Reported - Past Family History Father Family Medical History: Cancer Additional Family Medical History / Comment(s): bone ca General Exam - General Exam Comments Initial Comments: PHYSICAL EXAM: General Impression: Alert and oriented x3, not in acute distress HEENT: Normocephalic atraumatic, extra-ocular movements intact, pupils equal and reactive to light bilaterally, mucous membranes moist. Cardiovascular: Heart regular rate and rhythm Chest: Able to complete full sentences, no retractions, no tachypnea Abdomen: abdomen soft, non-tender, non-distended, no organomegaly Musculoskeletal: Pulses present and equal in all extremities, no peripheral edema Motor: no focal deficits noted Neurological: CN II-XII grossly intact, no focal motor or sensory deficits noted Skin: Intact with no visualized rashes Psych: Normal affect and mood Limitations: no limitations Course Vital Signs 03/02/24 03/02/24 11:00 11:20 Temperature 98.6 F Pulse Rate 76 Respiratory 18 20 Rate Blood Pressure 116/61 O2 Sat by Pulse 91 L Oximetry Medical Decision Making - Medical Decision Making Was pt. sent in by a medical professional or institution (, PA, GENERAL MAINTENANCE HELPER, urgent care, hospital, or usp...) When possible be specific @ -No Did you speak to anyone other than the patient for history (EMS, parent, family, police, friend...)? What history was obtained from this source @ -Some history obtained from son at the bedside as described above Did you review nursing and triage notes (agree or disagree)? Why? @ -I reviewed and agree with nursing and triage notes Were old charts reviewed (outside hosp., previous admission, EMS record, old EKG, old radiological studies, urgent care reports/EKG's, usp records)? Report findings @ -No old charts were reviewed Differential Diagnosis (chest pain, altered mental status, abdominal pain women, abdominal pain men, vaginal bleeding, musculoskeletal, weakness, fever, dyspnea, syncope, headache, dizziness, GI bleed, back pain, seizure, CVA, palpatations, mental health)? @ -Differential Dyspnea: Coronary syndrome, arrhythmia, tamponade, asthma, COPD, pulmonary embolism, pneumonia, pneumothorax, pulmonary effusion, anaphylaxis, diabetic ketoacidosis, flailed chest, pulmonary contusion, diaphragmatic rupture, anemia, neuromuscular, this is not meant to be an all-inclusive list. EKG interpreted by me (3pts min.). @ -My EKG interpretation: Ventricular rate 72, sinus rhythm, KY interval 158, QRS 90, QTc 418. No KY prolongation, no QTC prolongation, no ST or T-wave changes noted. Overall, this EKG is unremarkable X-rays interpreted by me (1pt min.). @ -Chest x-ray shows no acute processes CT interpreted by me (1pt min.). @ -None done U/S interpreted by me (1pt. min.). @ -None done What testing was considered but not performed or refused? (CT, X-rays, U/S, labs)? Why? @ -None What meds were considered but not given or refused? Why? @ -None Was smoking cessation discussed for >3mins.? @ -No Were there social determinants of health that impacted care today? How? (Homelessness, low income, unemployed, alcoholism, drug addiction, transportation, low edu. Level, literacy, decrease access to med. care, correction, rehab)? @ -No Was there de-escalation of care discussed even if they declined (Discuss DNR or withdrawal of care, Hospice)? DNR status @ -No What co-morbidities impacted this encounter? (DM, HTN, Smoking, COPD, CAD, Cancer, CVA, ARF, Chemo, Hep., AIDS, mental health diagnosis, sleep apnea, morbid obesity)? @ -Debility, COPD Was patient admitted / discharged? Hospital course, mention meds given and route, prescriptions, significant lab abnormalities, going to OR and other pertinent info. @ -83-year-old female with history of COPD wears home O2 presents to the emergency department for shortness of breath. She states that she was given a breathing treatment by EMS which improved her symptoms. Patient states she feels at baseline currently. Vital signs are stable. Patient has acceptable oxygenation for her home O2. Laboratory evaluation obtained. Labs are unremarkable. Coronavirus positive. Chest x-ray shows no acute processes. Patient observed emergency department for approximately 2 hours. Reevaluated at bedside at 1:12 PM found to be stable condition. Patient not showing any signs of dyspnea. Disposition options are discussed. Patient stable for discharge. Patient given dose of steroids prior to discharge. Did you discuss the management of the patient with other professionals (professionals i.e. , PA, GENERAL MAINTENANCE HELPER, lab, RT, psych nurse, mental health social worker, water quality specialist, teacher, mortgage loan officer, spring encaser)? Give summary @ -No Was critical care preformed (if so, how long)? @ -No Undiagnosed new problem with uncertain prognosis? @ -No Drug Therapy requiring intensive monitoring for toxicity (Heparin, Nitro, Insulin, Cardizem)? @ -No Were any procedures done? @ -No Diagnosis/symptom? Acute, or Chronic, or Acute on Chronic? Uncomplicated (without systemic symptoms) or Complicated (systemic symptoms)? @ -Coronavirus Side effects of treatment? @ -No Exacerbation, Progression, or Severe Exacerbation? @ -No Poses a threat to life or bodily function? How? (Chest pain, USA, ME, pneumonia, PE, COPD, DKA, ARF, appy, cholecystitis, CVA, Diverticulitis, Homicidal, Suicidal, threat to staff... and all critical care pts) @ -No - Lab Data Result diagrams: 03/02/24 12:00 03/02/24 12:00 Lab Results 03/02/24 03/02/24 03/02/24 Range/Units 12:00 12:00 12:00 WBC 8.6 (3.8-10.6) k/uL RBC 3.83 (3.80-5.40) m/uL Hgb 11.4 (11.4-16.0) gm/dL Hct 35.4 (34.0-46.0) % MCV 92.4 (80.0-100.0) fL MCH 29.7 (25.0-35.0) pg MCHC 32.1 (31.0-37.0) g/dL RDW 13.7 (11.5-15.5) % Plt Count 172 (150-450) k/uL MPV 9.2 Neutrophils % 76 % Lymphocytes % 16 % Monocytes % 6 % Eosinophils % 0 % Basophils % 0 % Neutrophils # 6.5 (1.3-7.7) k/uL Lymphocytes # 1.4 (1.0-4.8) k/uL Monocytes # 0.5 (0-1.0) k/uL Eosinophils # 0.0 (0-0.7) k/uL Basophils # 0.0 (0-0.2) k/uL Sodium 140 (137-145) mmol/L Potassium 3.6 (3.5-5.1) mmol/L Chloride 96 L (98-107) mmol/L Carbon Dioxide 36 H (22-30) mmol/L Anion Gap 8 mmol/L BUN 22 H (7-17) mg/dL Creatinine 0.88 (0.52-1.04) mg/dL Est GFR (CKD-EPI)AfAm 70 (>60 ml/min/1.73 sqM) Est GFR (CKD-EPI)NonAf 61 (>60 ml/min/1.73 sqM) Glucose 129 H (74-99) mg/dL Plasma Lactic Acid Nguyễn (0.7-2.0) mmol/L Calcium 9.1 (8.4-10.2) mg/dL Magnesium 1.9 (1.6-2.3) mg/dL Total Bilirubin 0.8 (0.2-1.3) mg/dL AST 23 (14-36) U/L ALT 12 (4-34) U/L Alkaline Phosphatase 58 (38-126) U/L Troponin I (0.000-0.034) ng/mL NT-Pro-B Natriuret Pep 1010 pg/mL Total Protein 6.2 L (6.3-8.2) g/dL Albumin 3.6 (3.5-5.0) g/dL Influenza Type A (PCR) Not Detected (Not Detectd) Influenza Type B (PCR) Not Detected (Not Detectd) RSV (PCR) Not Detected (Not Detectd) SARS-CoV-2 (PCR) Detected A (Not Detectd) 03/02/24 03/02/24 Range/Units 12:00 12:00 WBC (3.8-10.6) k/uL RBC (3.80-5.40) m/uL Hgb (11.4-16.0) gm/dL Hct (34.0-46.0) % MCV (80.0-100.0) fL MCH (25.0-35.0) pg MCHC (31.0-37.0) g/dL RDW (11.5-15.5) % Plt Count (150-450) k/uL MPV Neutrophils % % Lymphocytes % % Monocytes % % Eosinophils % % Basophils % % Neutrophils # (1.3-7.7) k/uL Lymphocytes # (1.0-4.8) k/uL Monocytes # (0-1.0) k/uL Eosinophils # (0-0.7) k/uL Basophils # (0-0.2) k/uL Sodium (137-145) mmol/L Potassium (3.5-5.1) mmol/L Chloride (98-107) mmol/L Carbon Dioxide (22-30) mmol/L Anion Gap mmol/L BUN (7-17) mg/dL Creatinine (0.52-1.04) mg/dL Est GFR (CKD-EPI)AfAm (>60 ml/min/1.73 sqM) Est GFR (CKD-EPI)NonAf (>60 ml/min/1.73 sqM) Glucose (74-99) mg/dL Plasma Lactic Acid Nguyễn 1.8 (0.7-2.0) mmol/L Calcium (8.4-10.2) mg/dL Magnesium (1.6-2.3) mg/dL Total Bilirubin (0.2-1.3) mg/dL AST (14-36) U/L ALT (4-34) U/L Alkaline Phosphatase (38-126) U/L Troponin I <0.012 (0.000-0.034) ng/mL NT-Pro-B Natriuret Pep pg/mL Total Protein (6.3-8.2) g/dL Albumin (3.5-5.0) g/dL Influenza Type A (PCR) (Not Detectd) Influenza Type B (PCR) (Not Detectd) RSV (PCR) (Not Detectd) SARS-CoV-2 (PCR) (Not Detectd) Disposition Clinical Impression: Coronavirus infection Disposition: HOME SELF-CARE Condition: Good Instructions (If sedation given, give patient instructions): Coronavirus Disease 2019 (COVID-19) Is patient prescribed a controlled substance at d/c from ED?: No Referrals: Bonny Cintron MD [Primary Care Provider] - 1-2 days Time of Disposition: 13:13
--- NOTE | 2024-03-02 12:05 | XR ---
EXAMINATION TYPE: XR chest 2V DATE OF EXAM: 03/02/2024 COMPARISON: 12/07/2023 HISTORY: Shortness of breath TECHNIQUE: Frontal and lateral views of the chest are obtained. FINDINGS: Scattered senescent parenchymal changes noted. Hyperinflation compatible with COPD. Persistent right middle lobe infiltrate. Improving aeration left lung base. Heart size is stable. Mediastinal structures are stable and grossly unremarkable. No evidence for hilar prominence. Degenerative changes dorsal spine. IMPRESSION: 1. Persistent right middle lobe infiltrate. Improving aeration left lung base.
[2024-03-02 12:19] LABS: Basophils % (A) 0 %; Eosinophils % (A) 0 %; HCT 35.4 % (34.0-46.0); HGB 11.4 gm/dL (11.4-16.0); Lymphocytes # (A) 1.4 k/uL (1.0-4.8); Lymphocytes % (A) 16 %; MCH 29.7 pg (25.0-35.0); MCHC 32.1 g/dL (31.0-37.0); MCV 92.4 fL (80.0-100.0); Mean Platelet Volume 9.2; Monocytes # (A) 0.5 k/uL (0-1.0); Monocytes % (A) 6 %; Neutrophils # (A) 6.5 k/uL (1.3-7.7); Neutrophils % (A) 76 %; Platelet Count 172 k/uL (150-450); RBC 3.83 m/uL (3.80-5.40); RDW 13.7 % (11.5-15.5); WBC 8.6 k/uL (3.8-10.6)
[2024-03-02 12:30] LABS: ALT 12 U/L (4-34); AST 23 U/L (14-36); African American GFR (CKD) 70 (>60 ml/min/1.73 sqM); Albumin 3.6 g/dL (3.5-5.0); Alkaline Phosphatase 58 U/L (38-126); Anion Gap 8 mmol/L; Blood Urea Nitrogen 22 mg/dL (7-17); Calcium 9.1 mg/dL (8.4-10.2); Carbon Dioxide 36 mmol/L (22-30); Chloride 96 mmol/L (98-107); Glucose 129 mg/dL (74-99); Magnesium 1.9 mg/dL (1.6-2.3); Non-African American GFR(CKD) 61 (>60 ml/min/1.73 sqM); Potassium 3.6 mmol/L (3.5-5.1); Sodium 140 mmol/L (137-145); Total Bilirubin 0.8 mg/dL (0.2-1.3); Total Protein 6.2 g/dL (6.3-8.2)
[2024-03-02 12:39] LABS: NT-Pro-B-Type Natriuretic Pept 1010 pg/mL
[2024-03-02] MEDS: DEXAMETHASONE SOD PHOSPHATE 10 MG/ML 1 ML VIAL IV STA (13:33)
[2024-03-02 13:42] VITALS: BP 110/61; PULSE 71; RESP 18
== END 2024-03-02 14:03 | disposition home or self-care (01) ==
LOC: EC 10:56
DX: U07.1 COVID-19 (principal); J44.9 Chronic obstructive pulmonary disease, unspecified; R53.81 Other malaise; Z87.891 Personal history of nicotine dependence
CPT/HCPCS: 36415; 93005; 83880; 80053; 83605; 83735; 84484; 85025; 87636; 71046; 99285; J1100